=== PATIENT | female | born 1960 | race Caucasian/White ===

== ENCOUNTER → 2017-11-21 17:37 | Outpatient (CLI) | payer BC, SELFPAY ==
[2017-11-21 19:33] LABS: M R Staph aureus DNA By PCR Negative (Negative); Probe Check PASS; Staph aureus DNA By PCR POSITIVE (Negative)
== END ==
PROVIDERS: Visit Provider Podiatrist
DX: L60.0 Ingrowing nail (principal)
CPT/HCPCS: 87070; 87077; 87186; 87205; 87640

== ENCOUNTER → 2020-05-27 06:54 | Outpatient (CLI) | payer OTHER, SELFPAY ==
--- NOTE | 2020-05-27 07:18 | CT_ITS ---
STUDY: CT SCAN LOWER EXTREMITY RIGHT REASON FOR EXAM: Female, 59 years old. VARUS DEFORMITY -- KEYSHAWN RIGHT KNEE RADIATION DOSAGE (If Supplied By Facility): CTDIvol = ( 20.10 ) mGy, DLP = ( 1081.05 ) mGycm. Individualized dose optimization techniques were used for this CT.? TECHNIQUE: Multiple axial tomographic images of the hip joint, knee joint and ankle joint were obtained. Coronal and sagittal reconstructions obtained as well. COMPARISON: None. FINDINGS: Mild degree of osteoarthritis involving the right hip joint with marginal degenerative spurring along the superior and inferior aspect of the right femoral head. There is a marked degree of joint space narrowing involving the medial compartment of the knee joint. Degenerative spurring is seen along the distal medial femoral condyle and medial tibial plateau. Tiny subchondral geode is seen along the medial femoral condyle. A small cyst is also seen along the posterior aspect of the tibial metaphysis. This also evidence of degenerative spurring involving the lateral femoral condyle and lateral tibial plateau. Mild degree of degenerative changes involving the patellofemoral joint with degenerative spur formation along the anterior aspect of the distal femur and inferior aspect of the patella. Imaging of the ankle joint was performed. No significant abnormality is seen. CT/Extremity Lower without Contra IMPRESSION: Degenerative changes of the knee joint as described. Electronically Signed: Jony Sapp, at 8:29 EST , Service support ,
== END ==
PROVIDERS: PCP Family Medicine; Referring Provider Specialist; Visit Provider Specialist
DX: M21.161 Varus deformity, not elsewhere classified, right knee (principal)
CPT/HCPCS: 73700

== ENCOUNTER 2020-06-24 14:53 | Observation (INO) | payer OTHER, SELFPAY ==
[2016-04-08 06:38] VITALS: BMI 34.9
--- NOTE | 2020-05-28 10:54 | PCM.HP.BLA ---
History and Physical History and Physical [facility] Patient Name: Chari Loza : 1960 From: LUISA GOODSON PA-C DATE OF SURGERY: 06/17/2020 SCHEDULED PROCEDURE: right total knee arthroplasty HISTORY OF PRESENT ILLNESS: Preoperative history and physical exam was performed on May 27, 2020. This is a 59-year-old female who has been having ongoing pain for several years in bilateral knees. She states over the past several months she has had greater pain in her right knee with more instability. Pain can reach 8/10 with activities. Pain is increased with going up and down stairs, sitting, walking. Her pain as being constant, aching, sharp, stabbing. She states she gets locking and clicking in her knee when she walks. Pain does waken her at night. She has pain over the medial joint line on bilateral knees. She does have start up pain. Patient states she has difficulty with activities of daily living including housework and leisure activities such as walking. She feels unsafe going up and down stairs carrying laundry. She has stumbled secondary to the knee pain. Patient has tried oral medications including Aleve, Tylenol, turmeric. She has had previous cortisone injections with no relief in symptoms. She has also had previous gel injection in both knees with no relief in symptoms. She has tried home exercises without relief. She has had previous right knee arthroscopy 15 years ago and left knee arthroscopy 10 years ago. She has tried brace with no improvement. After failing conservative measures and discussing treatment options with Dr. Andres Guerrero, the patient would like to proceed with a right total knee arthroplasty. We are obtaining surgical clearance from the primary care physician Dr. Sweet. She has medical history of sleep apnea. REVIEW OF SYSTEMS: ROS: Const: Denies change in appetite, fever and weight change. CV: Denies chest pain, heart murmur and irregular heartbeat. Resp: Denies cough, pneumonia, shortness of breath, tuberculosis and wheezing. GI: Denies constipation, diarrhea, heartburn, nausea, rectal itching, bloody stools and vomiting. : Denies incontinence. Musculo: Denies leg swelling, pain, trouble walking and weakness. Skin: Denies Raynaud's, history of shingles and tattoo. Neuro: Denies ambulatory dysfunction, dizziness, numbness/tingling and tremor. Psych: Denies anxiety, insomnia and stress. Thiago/Lymph: Denies anemia, bleeding/bruising tendency and past transfusion. Reviewed, no changes. PAST MEDICAL HISTORY: Advance Care Plan: No Advance Directives Effective Date: 04/27/2020 PMH: Medical Problems: Sleep Apnea Accidents: Fracture - RT FOREARM Fracture - RT FOOT BONE IN TOP OF FOOT Surgical Hx: Hernia Repair - (2018) [place] Hysterectomy - [place] Knee Arthroscopy Lt - [place] Knee Arthroscopy Rt - [place] Shoulder Arthroscopy Lt - [place] Shoulder Arthroscopy Rt - [place] Anesthesia Complications: Woke Up Assistive Devices: Glasses, Cpap Reviewed and updated. 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 Personal Habits: Cigarette Use: Never Smoked Cigarettes.Smokeless Tobacco: Never Used Smokeless Tobacco.E-Cigarette Use: Never used.Alcohol: Occasionally.Drug Use: Denies Use.Enjoy Exercising: Never Exercises. Reviewed, no changes. VITALS: Ht: 67 Wt: 218lb Wt k.885 BMI: 34.1 BP: 118/72 Pulse: 68 Resp: 20 T: 97.1 T: 36.2C Pain Level: 4 ALLERGIES: Penicillin Sulfa Keflex Erythromycin MEDICATIONS: Aleve 220 mg as needed, Tylenol 8 Hour Arthritis Pain 650 mg every 4 hour as needed pain, Multivitamin 1 by mouth every day, Turmeric 400 mg 1/day per mouth, Magnesium 1po qday, Vitamin D 25 mcg (1000 Ut) 2po qday, Vitamin C 500 mg 2/day, Vitamin B Complex 100 100 1po qday, Fiber Choice Prebiotic Fiber 1.5 gm daily, Cetirizine HCL 1 @ night, Salonpas 3.1-6-10 % prn cramping PRE-OP EXAM: General appearance:NORMAL Other: Eyes: Conjunctivae and lids: NORMAL Pupils: ERR Ears, Nose, Mouth, and Throat: NORMAL Other: Inspection of lips, teeth and gums: NORMAL Other: Neck: Examination of neck: no masses noted. Respiratory: Assessment of respiratory effort: NORMAL Other: Auscultation of lungs: clear to auscultation no wheezes, rhonchi or rales. Cardiovascular: Auscultation of heart: regular rate and rhythm, no murmurs, gallops or rubs. Exam of carotid arteries: NORMAL Other: Gastrointestinal: Exam of abdomen: soft, nontender, nondistended bowel sounds present. PHYSICAL EXAMINATION: Patient does walk with antalgic gait. Right knee has large effusion with tenderness to palpation along the medial joint line. Patient has varus alignment. Range of motion: 5 to 102 flexion. Partially correctable varus alignment. Stable to varus and valgus stress test. Sensation intact to light touch. Left knee reveals varus alignment with moderate effusion. There is tenderness to palpation over the medial joint line. Partially correctable varus alignment. Minimal translation with anterior drawer exam. Range of motion: 0 extension 112 flexion. IMAGING STUDIES: X-ray of the right knee reveal varus alignment with medial joint space narrowing, subchondral sclerosis, osteophyte formation consistent with severe stage IV erosive tricompartmental osteoarthritis. Left knee reveals varus alignment with medial joint space narrowing, subchondral sclerosis, osteophyte formation consistent with severe stage IV erosive tricompartmental osteoarthritis. Bilateral knees show bony erosion of the medial tibial plateau. IMPRESSION: 1. Severe stage IV right knee osteoarthritis 2. Severe stage IV left knee osteoarthritis 3. Sleep apnea PLAN: Dr. Andres Guerrero did discuss and review with the patient all treatment options including surgical versus nonsurgical options. Patient does wish to proceed with the above-stated procedure. Potential risks, benefits, and complications of the procedure were discussed in detail including but not limited to , infection, nerve and blood vessel damage, persistent pain, numbness, tingling, paresthesias, blood clot, pulmonary embolism, and requirement for possible further surgery. The patient expressed full understanding and has no further questions for the doctor. Patient does agree to proceed with the above-stated procedure and has signed the surgery consent form. We discussed the current risks associated with COVID 19. This does include the risk of exposure while in the hospital. Patient was reassured local hospitals have low infection rates and are taking all necessary precautions to avoid exposure to patients. In addition, we discussed strategies that can be used to help limit exposure including those that limit the patient's time in the hospital. Also using strategies to limit the patient's need for continued inpatient services after being discharged from the hospital. Patient was notified that we will need to comply with any screening or testing the hospital wishes to perform or that surgery may be delayed for any positive results. This dictation was created using voice recognition software. Phonetic and/or grammatical errors may exist. ___ I have re-examined the patient. There are no clinical changes since date of exam. ___ See progress notes for changes. ___ Dictated on admission Date: Time: Signature:
--- NOTE | 2020-06-09 09:41 | EKG12_ITS ---
Test Reason : PREOP Blood Pressure : / mmHG Vent. Rate : 075 BPM Atrial Rate : 075 BPM P-R Int : 132 ms QRS Dur : 084 ms QT Int : 374 ms P-R-T Axes : 017 -23 057 degrees QTc Int : 417 ms Normal sinus rhythm Normal ECG Confirmed by PALAK MCCLAIN, JAMIR ([id number]), general expeditor LARRY MCINTOSH ([id number]) on 06/10/2020 12:37:18 PM Referred By: Andres Guerrero Confirmed By:JAMIR CID MD
[2020-06-09 10:26] LABS: Absolute Lymphocyte Count 2.18 X10^3/uL (0.83-4.51); Absolute Neutrophil Count 2.6 X10^3/uL (2.0-7.7); Basophil# 0.03 X10^3/uL; Basophil% 0.6 % (0-1); Eosinophil# 0.08 X10^3/uL; Eosinophils% 1.5 % (0-5); Hematocrit 43.5 % (37-47); Hemoglobin 13.4 g/dL (12.0-15.0); Lymphocyte # 2.18 X10^3/ul (4.0); Lymphocyte % 41.4 % (19-41); Mean Corp Hgb Conc 30.8 g/dL (32-36); Mean Corpuscular Hgb 26.4 pg (27.0-32.0); Mean Corpuscular Volume 85.6 fL (81-99); Mean Platelet Vol. 9.3 fl (6.2-12.0); Monocyte# 0.41 X10^3/uL; Monocyte% 7.8 % (0-10); NRBC Flagged by Analyzer 0 % (0-5); Neutrophil # 2.56 X10^3/uL (2.7-7.7); Neutrophil % 48.5 % (47-70); Platelet Count 256 K/mm3 (150-450); RBC Distribution Width CV 15.2 % (11.6-14.6); RBC Distribution Width SD 48.3 fl (35.1-43.9); Red Blood Count 5.08 M/mm3 (4.2-5.4); White Blood Count 5.3 K/mm3 (4.4-11.0)
[2020-06-09 10:52] LABS: Magnesium 2.3 mg/dL (1.6-2.6)
[2020-06-09 11:00] LABS: Anion Gap 4 (5-15); BUN 25 mg/dL (7-18); BUN/Creat Ratio 28.3 RATIO (10-20); Calcium,Total 10.3 mg/dL (8.5-10.1); Chloride 110 mmol/L (98-107); Creatinine, Serum 0.88 mg/dL (0.55-1.02); EST Glomerular Filtration Rate 69 mL/min (>60); Est Glom Filt Rate - Afr Amer 84 mL/min (>60); Glucose 103 mg/dL (74-106); Potassium 4.1 mmol/L (3.5-5.1); Sodium Level 141 mmol/L (136-145)
[2020-06-24] VITALS (15 sets, daily range): BP systolic 95–153; BP diastolic 53–89; PULSE 64–96; RESP 16–18; TEMP 35.8–37.1; O2SAT 94–100; BMI 32.5
--- NOTE | 2020-06-24 05:30 | HP_ITS ---
History and Physical History and Physical [facility] Patient Name: Chari Loza : 1960 From: Andres Guerrero MD DATE OF SURGERY: 06/17/2020 SCHEDULED PROCEDURE: right total knee arthroplasty HISTORY OF PRESENT ILLNESS: Preoperative history and physical exam was performed on May 27, 2020. This is a 59-year-old female who has been having ongoing pain for several years in bilateral knees. She states over the past several months she has had greater pain in her right knee with more instability. Pain can reach 8/10 with activities. Pain is increased with going up and down stairs, sitting, walking. Her pain as being constant, aching, sharp, stabbing. She states she gets locking and clicking in her knee when she walks. Pain does waken her at night. She has pain over the medial joint line on bilateral knees. She does have start up pain. Patient states she has difficulty with activities of daily living including housework and leisure activities such as walking. She feels unsafe going up and down stairs carrying laundry. She has stumbled secondary to the knee pain. Patient has tried oral medications including Aleve, Tylenol, turmeric. She has had previous cortisone injections with no relief in symptoms. She has also had previous gel injection in both knees with no relief in symptoms. She has tried home exercises without relief. She has had previous right knee arthroscopy 15 years ago and left knee arthroscopy 10 years ago. She has tried brace with no improvement. After failing conservative measures and discussing treatment options with Dr. Andres Guerrero, the patient would like to proceed with a right total knee arthroplasty. We are obtaining surgical clearance from the primary care physician Dr. Sweet. She has medical history of sleep apnea. REVIEW OF SYSTEMS: ROS: Const: Denies change in appetite, fever and weight change. CV: Denies chest pain, heart murmur and irregular heartbeat. Resp: Denies cough, pneumonia, shortness of breath, tuberculosis and wheezing. GI: Denies constipation, diarrhea, heartburn, nausea, rectal itching, bloody stools and vomiting. : Denies incontinence. Musculo: Denies leg swelling, pain, trouble walking and weakness. Skin: Denies Raynaud's, history of shingles and tattoo. Neuro: Denies ambulatory dysfunction, dizziness, numbness/tingling and tremor. Psych: Denies anxiety, insomnia and stress. Thiago/Lymph: Denies anemia, bleeding/bruising tendency and past transfusion. Reviewed, no changes. PAST MEDICAL HISTORY: Advance Care Plan: No Advance Directives Effective Date: 04/27/2020 PMH: Medical Problems: Sleep Apnea Accidents: Fracture - RT FOREARM Fracture - RT FOOT BONE IN TOP OF FOOT Surgical Hx: Hernia Repair - (2018) [place] Hysterectomy - [place] Knee Arthroscopy Lt - [place] Knee Arthroscopy Rt - [place] Shoulder Arthroscopy Lt - [place] Shoulder Arthroscopy Rt - [place] [facility] Anesthesia Complications: Woke Up Assistive Devices: Glasses, Cpap Reviewed and updated. 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 Personal Habits: Cigarette Use: Never Smoked Cigarettes.Smokeless Tobacco: Never Used Smokeless Tobacco.E-Cigarette Use: Never used.Alcohol: Occasionally.Drug Use: Denies Use.Enjoy Exercising: Never Exercises. Reviewed, no changes. VITALS: Ht: 67 Wt: 218lb Wt k.885 BMI: 34.1 BP: 118/72 Pulse: 68 Resp: 20 T: 97.1 T: 36.2C Pain Level: 4 ALLERGIES: Penicillin Sulfa Keflex Erythromycin MEDICATIONS: Aleve 220 mg as needed, Tylenol 8 Hour Arthritis Pain 650 mg every 4 hour as needed pain, Multivitamin 1 by mouth every day, Turmeric 400 mg 1/day per mouth, Magnesium 1po qday, Vitamin D 25 mcg (1000 Ut) 2po qday, Vitamin C 500 mg 2/day, Vitamin B Complex 100 100 1po qday, Fiber Choice Prebiotic Fiber 1.5 gm daily, Cetirizine HCL 1 @ night, Salonpas 3.1-6-10 % prn cramping PRE-OP EXAM: General appearance:NORMAL Other: Eyes: Conjunctivae and lids: NORMAL Pupils: ERR Ears, Nose, Mouth, and Throat: NORMAL Other: Inspection of lips, teeth and gums: NORMAL Other: Neck: Examination of neck: no masses noted. Respiratory: Assessment of respiratory effort: NORMAL Other: Auscultation of lungs: clear to auscultation no wheezes, rhonchi or rales. Cardiovascular: Auscultation of heart: regular rate and rhythm, no murmurs, gallops or rubs. Exam of carotid arteries: NORMAL Other: Gastrointestinal: Exam of abdomen: soft, nontender, nondistended bowel sounds present. PHYSICAL EXAMINATION: Patient does walk with antalgic gait. Right knee has large effusion with tenderness to palpation along the medial joint line. Patient has varus alignment. Range of motion: 5 to 102 flexion. Partially correctable varus alignment. Stable to varus and valgus stress test. Sensation intact to light touch. Left knee reveals varus alignment with moderate effusion. There is tenderness to palpation over the medial joint line. Partially correctable varus alignment. Minimal translation with anterior drawer exam. Range of motion: 0 extension 112 flexion. IMAGING STUDIES: X-ray of the right knee reveal varus alignment with medial joint space narrowing, subchondral sclerosis, osteophyte formation consistent with severe stage IV erosive tricompartmental osteoarthritis. Left knee reveals varus alignment with medial joint space narrowing, subchondral sclerosis, osteophyte formation consistent with severe stage IV erosive tricompartmental osteoarthritis. Bilateral knees show bony erosion of the medial tibial plateau. IMPRESSION: 1. Severe stage IV right knee osteoarthritis 2. Severe stage IV left knee osteoarthritis 3. Sleep apnea PLAN: I did discuss and review with the patient all treatment options including surgical versus nonsurgical options. Patient does wish to proceed with the above-stated procedure. Potential risks, benefits, and complications of the procedure were discussed in detail including but not limited to , infection, nerve and blood vessel damage, persistent pain, numbness, tingling, paresthesias, blood clot, pulmonary embolism, and requirement for possible further surgery. The patient expressed full understanding and has no further questions for the doctor. Patient does agree to proceed with the above-stated procedure and has signed the surgery consent form. We discussed the current risks associated with COVID 19. This does include the risk of exposure while in the hospital. Patient was reassured local hospitals have low infection rates and are taking all necessary precautions to avoid exposure to patients. In addition, we discussed strategies that can be used to help limit exposure including those that limit the patient's time in the hospital. Also using strategies to limit the patient's need for continued inpatient services after being discharged from the hospital. Patient was notified that we will need to comply with any screening or testing the hospital wishes to perform or that surgery may be delayed for any positive results. This dictation was created using voice recognition software. Phonetic and/or grammatical errors may exist.
[2020-06-24] MEDS: Scopolamine 1mg/72hr Patch 1 PATCH TD (08:00)
[2020-06-24] MEDS: Acetaminophen 500 MG Tablet 1000 MG PO ×2 (11:18→21:21)
[2020-06-24] MEDS: Lactated Ringers 1,000 ML 999 ML IV ×2 (11:19→14:45)
[2020-06-24] MEDS: Gabapentin 600 MG Tablet PO (11:19)
[2020-06-24 11:46] LABS: Bedside Glucose 110 mg/dL (70-110)
[2020-06-24] MEDS: Lactated Ringers 1,000 ML 75 ML IV (12:45)
[2020-06-24] MEDS: dexAMETHasone 10 MG/ML Vial IV (13:15)
--- NOTE | 2020-06-24 14:12 | PCM.OPRPT ---
Report of Operation Date of Procedure: 06/24/20 Pre-Operative Diagnosis: Right knee primary osteoarthritis Post-Operative Diagnosis: Right knee primary osteoarthritis Surgery/Procedure Performed:: Right knee minimally invasive robotic assisted total knee replacement Description of Surgical Findings:: Stable knee with good patella tracking electrolog operator: Lavelle Raygoza Type of Anesthesia:: Spinal Anesthesiologist: Justo Bowden Special Medications: Cleocin and vancomycin, 1 g TXA at incision, 1 g TXA closure, 10 mg Decadron, joint cocktail (5 mg Duramorph, 30 mL of 0.5% Ropivicaine, 1000 units of epinephrine, 30 mg of Toradol) Estimated Blood Loss (mL): 100 Fluids Replaced: 1500 mL crystalloid Description of Procedure: Implants used: 1. Lilia size 4 triathlon cruciate retaining distal femoral press-fit component 2. Bradley size 5 press-fit tritanium tibial baseplate 3. Lilia X3 9 mm CS polyethylene 4. Lilia X3 32 mm asymmetric patella Brief history operative indications: 59-year-old female with history of right knee osteoarthritis with radiographic findings with loss of joint space, osteophyte formation and subchondral sclerosis. Failed conservative measures as mentioned in the H&P. Discussion of total knee arthroplasty as well as risk and benefits were discussed the patient including but not limited to blood loss, DVTs, PEs, neurovascular damage, general risk of anesthesia including loss of life, and stiffness or instability were discussed with patient. Patient demonstrated understanding and was able to sign informed consent. Procedure: On the date of procedure patient's right lower extremity was marked in the preoperative area. The patient was then taken back to the operating room where the patient was placed on the table in the supine position. All bony prominences were identified a well-padded. Anesthesia assumed control of the C-spine and airway and remained controlled throughout the remainder of the procedure. A tourniquet was placed on the right upper thigh and the leg was prepped in a sterile fashion. The surgeon then scrubbed at this time .Upon reentering the room right lower extremity was draped in a standard orthopedic fashion. A timeout was then called and everyone agreed upon the side, the site, the procedure to be performed, patient's identity and antibiotics given. Esmarch bandage was used to exsanguinate the extremity and the tourniquet was placed up to 250 mmHg with the knee in flexion. A midline skin incision was made and sharp dissection was taken down through skin subcutaneous tissue and fat. The standard medial parapatellar incision was made and the patella was subluxed laterally. An Appropriate deep MCL release was done and the fat pad was resected. Our attention was then directed to the patella. The patella was everted and a flat resection was made. The knee was then flexed up in 2 femoral pins were placed inside the incision and 2 tibial pins were placed outside the incision in the medial tibia bicortically. Once this was completed the 2 checkpoints in the femur and tibia were placed. Knee was then flexed up and the bony landmarks were registered. Once this was completed knee was taken through range of motion and manually stressed allowing us to a plan for an appropriate tibial cut. The robotic arm was brought into the field sterilely and checkpoint and saw were registered. Based on the patient's deformity the tibial cut was made in 3 degrees varus. At this time the tensioner was then placed in the joint and ligament tension was checked at 90 degrees and full extension. Based on the patient's ligamentous tension appropriate adjustments were made to the operative plan and ligament releases were done. Once we were happy with our operative plan with balanced flexion and extension gaps our attention was directed to the femur. The robot was brought into the field sterilely and registered. Posterior condylar cuts, anterior chamfer cuts and anterior cuts were appropriately made for a size 4 femur. When these were completed the saws were switched out in the distal femoral and posterior chamfer cuts were made. Protecting the soft tissue throughout this time. A size 5 tibial base plate was selected. the knee was flexed to 90 degrees and the soft tissues and posterior osteophytes were removed from the joint. 40 cc of the periarticular injection was injected into the posterior medial corner of the joint. The appropriate trials were then placed on the femur and tibia. A trial polyethylene was trialed to ensure proper balancing and stability of the knee. The appropriate tibial internal rotation was then marked with a bovie. Our attention was then directed to the patella. The lug holes were drilled and the patella trial was placed. Patellar tracking was checked and deemed appropriate. Once we were happy lug holes were drilled for the femur and trial components were removed. the tibia was subluxed and pinned into place and the keel was punched and drilled appropriately. Final components were verified and opened, and cement was mixed in a vacuum. BidModo Simplex cement was used. The wound was copiously irrigated with normal saline. When the cement was ready the components were impacted into place starting with the tibia, femur and finally cementing the patella. The trial poly component was placed and the knee was placed in full extension. All excess cement was removed in the process. Once the cement had cured the tracking, alignment and balance were verified and a size 9 mm CS polyethylene component was placed. Once the final components were placed an Irrisept lavage was performed and the wound was copiously irrigated with normal saline solution and the periarticular injection was given. The wound was closed in a layer salas fashion using #1 vicryl interrupted sutures for the arthrotomy, 2-0 interrupted Vicryl suture for the subcuticular layer and abisai for final skin closure. A sterile compressive dressing was then placed. The patient was then awakened from anesthesia, transferred to the [facility] and transferred to the PACU for recovery. Post op plan DVT ppx: ASA 81mg BID, thigh high compression stockings Follow up: in office in 2 weeks for wound check PT: to start POD #0 at hospital, outpatient PT should be arranged. My physician psych assistant was a vital part of this case. He was important in appropriate retraction during the case, and protection of soft tissues during bony cuts. His intimate knowledge of the case and my steps aided in safe and expedient completion of the procedure as well as appropriate position of the leg during the case. He was also vital in assisting with closure under my direct supervision. Due to the complexity of this case robotic arm was used to assist in the surgery to improve accuracy and clinical outcomes. - Complications No intraoperative complications - Admit VTE Documentation VTE Present on Admission: No VTE Mechan Device Prophylaxis: SCD's, Thigh High SUSAN Hose VTE Pharm Prophylaxis ordered?: Yes
--- NOTE | 2020-06-24 15:00 | RAD_ITS ---
STUDY: X-RAY - RIGHT KNEE REASON FOR EXAM: Female, 59 years old. POST OP RIGHT TOTAL KNEE TECHNIQUE: 2 view(s) of the knee. COMPARISON: None. FINDINGS: Normal visualized distal femur. Normal visualized proximal tibia and fibula. Normal proximal tibiofibular articulation. The patient is status post right total knee replacement. There is good alignment. Postoperative soft tissue changes. RAD/Knee 1 or 2 Views IMPRESSION: Status post right total knee replacement. There is good alignment. Postoperative soft tissue changes. Electronically Signed: Jony Sapp, at 15:20 EST , Service support ,
[2020-06-24] MEDS: Lactated Ringers 1,000 ML 125 ML IV ×2 (16:04→18:26)
--- NOTE | 2020-06-24 16:58 | CON.PCM_ITS ---
Problem List (1) Osteoarthritis of right knee Status: Acute Qualifiers: Osteoarthritis type: primary Qualified Code(s): M17.11 - Unilateral primary osteoarthritis, right knee (2) ROB (obstructive sleep apnea) Status: Chronic (3) Obesity Status: Chronic Qualifiers: Obesity type: due to excess calories Obesity classification: adult class 1 (BMI 30 - 34.9) Serious obesity comorbidity presence: unspecified whether serious comorbidity present Body mass index: BMI 32.0-32.9 Qualified Code(s): E66.09 - Other obesity due to excess calories; Z68.32 - Body mass index [BMI] 32.0-32.9, adult (4) Allergic rhinitis Status: Chronic Qualifiers: Allergic rhinitis trigger: unspecified Allergic rhinitis seasonality: unspecified Qualified Code(s): J30.9 - Allergic rhinitis, unspecified (5) Chronic constipation Status: Chronic Reason for Consult Date of Consultation: 06/24/20 Reason for Consultation: Medical consultation History of Present Illness: The patient is a 59 y/o F w/ PMHx: Obesity, ROB on CPAP q HS, Chronic constipation, Allergic Rhinitis who presents to the [facility] on 06/24/20 for planned right knee minimally invasive robotic assisted total knee replacement secondary to severe right knee osteoarthritis with failed conservative interventions and management per Dr. Guerrero. Patient evaluated in the PACU, noting pain controlled currently, denies any acute complaints. Patient does report being fatigued and mildly sluggish but improving. Most recently noted labs 06/09/2020 with CBC with WC 5.3, hemoglobin 13.4, platelet 256 without marked shift, BMP with chloride 110, BUN/creatinine 25/0.88. Past Medical History Past Medical History (Chronic Problems): Chronic Problems ROB (obstructive sleep apnea) (Chronic) Obesity (Chronic) Allergic rhinitis (Chronic) Chronic constipation (Chronic) Plantar fasciitis, right (Chronic) Tarsal tunnel syndrome of right side (Chronic) Allergies amoxicillin Allergy (Verified 06/24/20 10:56) Rash bee venom protein (honey bee) Allergy (Verified 06/24/20 10:56) Anaphylaxis cephalexin [From Keflex] Allergy (Verified 06/24/20 10:56) throat closes erythromycin base Allergy (Verified 06/24/20 10:56) throat swelling Penicillins [PCN] Allergy (Verified 06/24/20 10:56) throat swelling Sulfa (Sulfonamide Antibiotics) Allergy (Verified 06/24/20 10:56) throat swelling Home Medications: Ambulatory Orders Medication Instructions Recorded Acetaminophen [Tylenol Arthritis] 650 mg PO BID 06/02/20 Ascorbic Acid [Vitamin C] 2,000 mg PO DAILY 06/02/20 Cholecalciferol (VIT D3) [Vitamin 6,000 unit PO DAILY 06/02/20 D] Inulin/Chromium Picolinate [Fiber 2 ea PO DAILY 06/02/20 Gummies] Loratadine [Allergy Relief] 10 mg PO QHS 06/02/20 Magnesium Citrate 330 gm MC DAILY 06/02/20 Methyl Salicylate/Menth/Camph 78 gm TP PRN PRN 06/02/20 [Salonpas Deep Relieving Gel] Naproxen [Naprosyn] 440 mg PO DAILY 06/02/20 Polyethylene Glycol 3350 [Clearlax] 17 gm PO DAILY 06/02/20 Pyridoxine HCl [Vitamin B-6] 100 mg PO DAILY 06/02/20 Turmeric 700 mg PO DAILY 06/02/20 Surgical History: - - Bilateral arthroscopic shoulder surgery, prior bilateral knee arthroscopic surgery, hysterectomy, right foot surgery. Psychiatric History: No pertinent psych hx LEHR TENDER History: No pertinent LEHR TENDER history Lives: Spouse/ Significant Other Smoking Status: Never smoker Tobacco Use: Non-smoker Alcohol: Occasional Drugs: None - *Family History Maternal History Items: - - Patient denies any market maternal or paternal family history including heart disease, diabetes, cancer. Paternal History Items: - - Patient denies any market maternal or paternal family history including heart disease, diabetes, cancer. Review of Systems Constitutional: Reports: Malaise, Weakness, Fatigue. Denies: Anorexia, Chills, Fever, Weight Change HEENT: Denies: Head Aches, Sinus Congestion, Sinus Drainage Cardiovascular: Denies: Chest Pain, Palpitations Respiratory: Denies: Cough, Shortness of breath at rest, Sputum production Gastrointestinal: Reports: Constipation. Denies: Abdominal Pain, Nausea, Vomiting Genitourinary: Denies: Dysuria Musculoskeletal: Reports: Joint Pain, Joint stiffness, Joint swelling, Joint Tenderness, Leg Pain Skin: Denies: Rash, Wounds Neurological: Denies: Numbness, Tingling, Focal weakness Psychiatric: Denies: Anxiety, Depression, Homicidal Ideations, Suicidal Ideation s Hematologic/ Lymphatic: Denies: Easy Bruising, Easy Bleeding Subjective: Patient laying in the PACU bed, no acute distress, notes pain currently c ontrolled. Objective: Physical Examination: General: awake, alert, oriented x 3 and cooperative, laying in the PACU bed, no acute distress, notes pain controlled. Skin: normal color, turgor, no icterus, cyanosis except noted right knee dressing, recent right total knee replacement, no drainage noted. HEENT: AT/NC, EOMI, PERRLA, moderately dry MM, no carotid bruits or JVD noted. Lungs: Diminished breath sounds, greater bases, moderate effort, no rales, ronchi or wheezing. Heart: Regular rate and rhythm; no gallop, rub audible. Abdomen: soft, obese, NTTP, ND, normal BS, no HSM. Extremities: no cyanosis or clubbing, mild bilateral ankle edema, peripheral pulses intact, recent right total knee replacement with dressing in place, no drainage. Neurological: patient awake, alert, oriented as noted; cognitive function intact; pupils equally reactive to light and accomodation; cranial nerves II-XII grossly normal, moving all 4 extremities although expected limited movement given recent right total knee replacement and recent operative intervention with anesthetics, strength accordingly severely global decreased. Psychiatric: affect appears fatigued otherwise normal, no acute evidence of depressive or anxiety feelings. - Physical Exam Vitals/I&O's: Vital Signs Temp Pulse Resp BP Pulse Ox 96.4 F L 80 16 133/89 H 100 06/24/20 14:47 06/24/20 16:46 06/24/20 16:46 06/24/20 16:46 06/24/20 16:46 Oxygen Flow Rate (L/min) 6 Oxygen Delivery Method Simple Mask Weight: 214 lb 8.156 oz Body Mass Index (BMI) 32.5 Intake and Output for Last 24 Hours 06/22/20 06/23/20 06/24/20 23:59 23:59 23:59 Intake Total 3962 / 3962 Balance 3962 / 3962 Microbiology Past 72 Hours 06/23/20 09:00 Interface Orders SARS-CoV-2 Antigen (Rapid) - Final Laboratory Results 06/24/20 11:02: POC Glucose 110 Current Medications Acetaminophen (Acetaminophen 500 Mg Tablet) 1,000 mg PO Q8 [facility] Aspirin (Aspirin 81 Mg Tab.Chew) 81 mg PO BIDCM [facility] Enteral Nutritional Formula (Ensure Surgery 237 Ml Liquid) 237 ml PO TIDCM [facility] Famotidine (Famotidine 20 Mg Tablet) 20 mg PO DAILY [facility] Lactated Ringer's () 1,000 mls @ 125 mls/hr IV .Q8H [facility] Clindamycin Phosphate 600 mg/ (Dextrose) 54 mls @ 100 mls/hr IV Q6H [place] Stop: 06/25/20 07:33 Vancomycin HCl 1,500 mg/ (Sodium Chloride) 530 mls @ 250 mls/hr IV X1 ONE Stop: 06/25/20 03:07 Insulin Human Lispro (Insulin Lispro 100 Unit/Ml Insuln.Pen) 1 - 6 unit SC Q4H PRN PRN; Protocol PRN Reason: BG>/= 180, SEE PROTOCOL Stop: 06/24/20 18:00 Ketorolac Tromethamine (Ketorolac 15 Mg/Ml Vial) 15 mg IV Q6H PRN PRN PRN Reason: Pain Score 1-5 Loratadine (Loratadine 10 Mg Tablet) 10 mg PO QHS [facility] Meloxicam (Meloxicam 7.5 Mg Tablet) 7.5 mg PO BID [facility] Morphine Sulfate (Morphine 2 Mg/Ml Syringe) 2 - 4 mg IV Q2H PRN PRN PRN Reason: Pain Score 6-10 Morphine Sulfate (Morphine 4 Mg/Ml Syringe) 2 - 4 mg IV Q2H PRN PRN PRN Reason: Pain Score 6-10 Ondansetron HCl (Ondansetron 4 Mg/2 Ml Vial) 4 mg IV Q8H PRN PRN PRN Reason: NAUSEA Oxycodone HCl (Oxycodone 5 Mg Tablet) 5 - 10 mg PO Q4H PRN PRN PRN Reason: Pain Score 4-10 Polyethylene Glycol (Polyethylene Glycol 3350 17 Gm Packet) 17 gm PO DAILY [facility] Promethazine HCl (Promethazine 25 Mg/Ml Syringe) 12.5 mg IM Q6H PRN PRN; Protocol PRN Reason: NAUSEA/VOMITING Senna/Docusate Sodium (Senna/Docusate Sodium 1 Tablet) 2 tablet PO BID [facility] Sodium Chloride (0.9% Nacl Peripheral Flush Adult/Peds) 5 - 15 ml IV UD PRN PRN Reason: SALINE FLUSH Assessment/Plan All Active Problems Osteoarthritis of right knee (Acute) Nontraumatic tear of plantar fascia (Acute) Navicular fracture of ankle with delayed healing (Acute) Navicular fracture of ankle (Acute) The patient is a 59 y/o F w/ PMHx: Obesity, ROB on CPAP q HS, Chronic constipation, Allergic Rhinitis who presents to the [facility] on 06/24/20 for planned right knee minimally invasive robotic assisted total knee replacement secondary to severe right knee osteoarthritis. 1. Severe Osteoarthritis, right knee: Failed conservative therapies and treatments, admitted per Dr. Guerrero for planned right total knee replacement, post-operative pain management, bowel regimen, DVT Prophylaxis, PT/OT/CM per Orthopedic surgery discretion. 2. Chronic constipation: We will continue daily MiraLAX regimen with additionally as needed agents, may add more aggressive regimens if severe constipation. 3. Obesity: Weight loss and lifestyle changes encouraged. 4. Allergic rhinitis: We will continue patient loratadine regimen. 5. ROB: Continue home CPAP nightly. 6. DVT prophylaxis: SCDs, defer chemoprophylaxis decision to orthopedic surgery. Inpatient E&M: [id number] [facility] L3
[2020-06-24] MEDS: Ensure Surgery 237 ML LIQUID PO (18:28)
[2020-06-24] MEDS: Aspirin 81 MG TAB.CHEW PO (18:29)
--- NOTE | 2020-06-24 21:18 | CPS ---
Patient brought own home CPAP, but told [facility] to not setup. [facility] told patient to let staff know if she would like machine to be setup tonight.
[2020-06-24] MEDS: Loratadine 10 MG Tablet PO (21:21)
[2020-06-24] MEDS: Senna/Docusate Sodium 1 Tablet 2 TABLET PO (21:21)
[2020-06-25] MEDS: oxyCODONE 5 MG Tablet PO ×3 (01:06→13:55)
[2020-06-25 03:06] VITALS: BP 110/54; PULSE 68; RESP 18; TEMP 36.7; O2SAT 95
[2020-06-25] MEDS: Acetaminophen 500 MG Tablet 1000 MG PO ×2 (06:03→13:52)
[2020-06-25 07:26] LABS: Hematocrit 37.5 % (37-47); Hemoglobin 11.8 g/dL (12.0-15.0); Mean Corp Hgb Conc 31.5 g/dL (32-36); Mean Corpuscular Hgb 26.9 pg (27.0-32.0); Mean Corpuscular Volume 85.4 fL (81-99); Mean Platelet Vol. 9.8 fl (6.2-12.0); Platelet Count 282 K/mm3 (150-450); RBC Distribution Width CV 15.1 % (11.6-14.6); RBC Distribution Width SD 47.4 fl (35.1-43.9); Red Blood Count 4.39 M/mm3 (4.2-5.4); White Blood Count 11.6 K/mm3 (4.4-11.0)
[2020-06-25 08:09] LABS: Anion Gap 4 (5-15); BUN 20 mg/dL (7-18); BUN/Creat Ratio 24.8 RATIO (10-20); Calcium,Total 10.1 mg/dL (8.5-10.1); Chloride 110 mmol/L (98-107); Creatinine, Serum 0.81 mg/dL (0.55-1.02); EST Glomerular Filtration Rate 77 mL/min (>60); Est Glom Filt Rate - Afr Amer 93 mL/min (>60); Estimated Creatinine Clearance 73.57 ml/min; Glucose 116 mg/dL (74-106); Potassium 4.5 mmol/L (3.5-5.1); Sodium Level 141 mmol/L (136-145)
[2020-06-25 08:10] VITALS: BP 140/69; PULSE 70; RESP 16; TEMP 36.5; O2SAT 99
--- NOTE | 2020-06-25 08:23 | PCM.PN.HOSP ---
Patient Problems: Active and Suspected Problems Osteoarthritis of right knee (Acute) Objective: Heart rate and blood pressure in normal range. Afebrile Patient complained of mild left knee pain after surgery but she is going to bathroom. No severe pain and felt comfortable. Wants to go home. Physical exam General: Alert, Oriented x3, Cooperative HEENT: Atraumatic, PERRLA, EOMI, Normocephalic Oral: No Gingival or Mucosal Lesions/ Ulcerations Neck: Supple, No JVD, Negative Carotid Bruits Lungs: Air entry diminished in bilateral lung bases. No crepitation/rhonchi Cardiovascular: Regular rate, Regular Rhythm, Normal S1, Normal S2, No murmurs Abdomen: Bowel Sounds Present, Soft, Non Tender, Non-Distended : No renal angle tenderness. No suprapubic tenderness. Extremities: No edema, Capillary Refill Less than 3 Seconds Skin: No rashes, No breakdown Musculoskeletal: Left knee TKR. Surgical dressing is dry. Neurovascular bundle is intact to touch and sensation. Neurological: Cranial nerves II-XII grossly intact, Deep Tendon Reflexes 2+/4 and Symmetrical, Neuro grossly intact Psych/Mental Status: Normal Affect, Appropriate. Vitals/I&O's: Vital Signs Temp Pulse Resp BP Pulse Ox 97.7 F L 70 16 140/69 H 99 06/25/20 08:10 06/25/20 08:10 06/25/20 08:10 06/25/20 08:10 06/25/20 08:10 Oxygen Flow Rate (L/min) 6 Oxygen Delivery Method Room Air Weight: 214 lb 8.156 oz Body Mass Index (BMI) 32.5 Intake and Output for Last 24 Hours 06/23/20 06/24/20 06/25/20 23:59 23:59 23:59 Intake Total 5424.33 / 5424.33 701.0 / 701.0 Output Total 1300 / 1300 Balance 5424.33 / 4724.33 -599.0 / -599.0 Microbiology Past 72 Hours 06/23/20 09:00 Interface Orders SARS-CoV-2 Antigen (Rapid) - Final Laboratory Results 06/24/20 11:02: POC Glucose 110 06/25/20 06:40: WBC 11.6 H, RBC 4.39, Hgb 11.8 L, Hct 37.5, MCV 85.4, MCH 26.9 L, MCHC 31.5 L, RDW Std Deviation 47.4 H, RDW Coeff of Connor 15.1 H, Plt Count 282, MPV 9.8 06/25/20 06:40: Sodium 141, Potassium 4.5, Chloride 110 H, Carbon Dioxide 27.0, Anion Gap 4 L, BUN 20 H, Creatinine 0.81, Estim Creat Clear Calc 73.57, Est GFR (MDRD) Af Amer 93, Est GFR (MDRD) Non-Af 77, BUN/Creatinine Ratio 24.8 H, Glucose 116 H, Calcium 10.1 Current Medications Acetaminophen (Acetaminophen 500 Mg Tablet) 1,000 mg PO Q8 [facility] Last Admin: 06/25/20 06:03 Dose: 1,000 mg Documented by: Albuterol Sulfate (Albuterol 2.5 Mg/3 Ml Vial.Neb.) 2.5 mg INHALATION Q2H PRN PRN PRN Reason: Dyspnea, wheezing Aspirin (Aspirin 81 Mg Tab.Chew) 81 mg PO BIDCM [facility] Last Admin: 06/24/20 18:29 Dose: 81 mg Documented by: Enteral Nutritional Formula (Ensure Surgery 237 Ml Liquid) 237 ml PO TIDCM [facility] Last Admin: 06/24/20 18:28 Dose: 237 ml Documented by: Famotidine (Famotidine 20 Mg Tablet) 20 mg PO DAILY [facility] Hydralazine HCl (Hydralazine 20 Mg/Ml Vial) 10 mg IV Q4H PRN PRN PRN Reason: SBP > 160 Lactated Ringer's () 1,000 mls @ 125 mls/hr IV .Q8H [facility] Last Infusion: 06/25/20 06:11 Dose: 0 mls/hr Documented by: Sodium Chloride () 250 mls @ 15 mls/hr IV .[id number] PRN PRN Reason: Saline Flush Sodium Chloride () 250 mls @ 15 mls/hr IV .[id number] PRN PRN Reason: Additional IVPB Infusion Influenza Virus Vaccine Quadrival (Influenza Vaccine (6mos+)/Pf 0.5 Ml Syringe) 0.5 ml IM .ONCE ONE Stop: 06/25/20 10:01 Ketorolac Tromethamine (Ketorolac 15 Mg/Ml Vial) 15 mg IV Q6H PRN PRN PRN Reason: Pain Score 1-5 Loratadine (Loratadine 10 Mg Tablet) 10 mg PO QHS [facility] Last Admin: 06/24/20 21:21 Dose: 10 mg Documented by: Meloxicam (Meloxicam 7.5 Mg Tablet) 7.5 mg PO BID [facility] Morphine Sulfate (Morphine 2 Mg/Ml Syringe) 2 - 4 mg IV Q2H PRN PRN PRN Reason: Pain Score 6-10 Morphine Sulfate (Morphine 4 Mg/Ml Syringe) 2 - 4 mg IV Q2H PRN PRN PRN Reason: Pain Score 6-10 Ondansetron HCl (Ondansetron 4 Mg/2 Ml Vial) 4 mg IV Q8H PRN PRN PRN Reason: NAUSEA Oxycodone HCl (Oxycodone 5 Mg Tablet) 5 - 10 mg PO Q4H PRN PRN PRN Reason: Pain Score 4-10 Last Admin: 06/25/20 06:03 Dose: 5 mg Documented by: Polyethylene Glycol (Polyethylene Glycol 3350 17 Gm Packet) 17 gm PO DAILY [facility] Promethazine HCl (Promethazine 25 Mg/Ml Syringe) 12.5 mg IM Q6H PRN PRN; Protocol PRN Reason: NAUSEA/VOMITING Senna/Docusate Sodium (Senna/Docusate Sodium 1 Tablet) 2 tablet PO BID [facility] Last Admin: 06/24/20 21:21 Dose: 2 tablet Documented by: Sodium Chloride (0.9% Nacl Peripheral Flush Adult/Peds) 5 - 15 ml IV UD PRN PRN Reason: SALINE FLUSH Sodium Chloride (0.9% Saline Lock 10 Ml Syringe) 10 - 40 ml IV UD PRN PRN Reason: SALINE FLUSH STROKE Vital Signs/Narrative: Vital Signs Temp Pulse Resp BP Pulse Ox 06/25/20 08:10 97.7 F L 70 16 140/69 H 99 Medical Necessity - Tobacco Use Smoking Status: Never smoker Tobacco Use: Non-smoker Assessment/Plan All Active Problems Osteoarthritis of right knee (Acute) Nontraumatic tear of plantar fascia (Acute) Navicular fracture of ankle with delayed healing (Acute) Navicular fracture of ankle (Acute) The patient is a 59 y/o F with past medical history obesity, ROB on CPAP q HS, Chronic constipation, Allergic Rhinitis who presents to the [facility] on 06/24/20 for elective right knee minimally invasive robotic assisted total knee replacement secondary to severe right knee osteoarthritis. 1. Severe Osteoarthritis, right knee: Patient had robotic assisted right total knee arthroplasty, postop day 1. Pain is well controlled with Tylenol and meloxicam and oxycodone. Discussed with orthopedics PA. Plan for discharge home on baby aspirin 81 mg twice daily for 4 weeks for DVT prophylaxis. Advised to continue incentive spirometry. 2. Chronic constipation: continue daily MiraLAX regimen. Advised Dulcolax suppository for severe constipation. 3. Obesity: Weight loss and lifestyle changes encouraged. 4. Allergic rhinitis: continue patient loratadine regimen. 5. ROB: Continue home CPAP nightly. 6. DVT prophylaxis: On baby aspirin as mentioned above Patient is medically and hemodynamically stable for discharge. Inpatient E&M: [id number] [facility]s Hosp L2
[2020-06-25] MEDS: Aspirin 81 MG TAB.CHEW PO (08:25)
[2020-06-25] MEDS: 0.9% NaCl Peripheral Flush Adult/Peds IV ×2 (08:26→13:55)
[2020-06-25] MEDS: Ensure Surgery 237 ML LIQUID PO (08:28)
[2020-06-25] MEDS: Polyethylene Glycol 3350 17 GM PACKET PO (08:31)
[2020-06-25] MEDS: Famotidine 20 MG Tablet PO (08:32)
--- NOTE | 2020-06-25 09:12 | PN.ORTHO_ITS ---
Patient Problems: Active and Suspected Problems Osteoarthritis of right knee (Acute) Subjective: The patient was sitting in bedside chair upon examination. Patient denies any chest pain, shortness of breath, dizziness, lightheadedness, nausea or vomiting, or calf pain. Pain is controlled on medications. No adverse overnight events. Overall patient is doing very well and is anxious to go home today. Objective: Vital signs stable and afebrile. Patient is able to plantarflex and dorsiflex actively. Sensation is intact to light touch to saphenous, sural, superficial and deep peroneal, and tibial distribution. Dressing is clean dry and intact. Negative Homans bilaterally, negative signs and symptoms of DVT. - Physical Exam Vitals/I&O's: Vital Signs Temp Pulse Resp BP Pulse Ox 97.7 F L 70 16 140/69 H 99 06/25/20 08:10 06/25/20 08:10 06/25/20 08:10 06/25/20 08:10 06/25/20 08:10 Oxygen Flow Rate (L/min) 6 Oxygen Delivery Method Room Air Weight: 97.3 kg Body Mass Index (BMI) 32.5 Intake and Output for Last 24 Hours 06/23/20 06/24/20 06/25/20 23:59 23:59 23:59 Intake Total 5424.33 / 5424.33 701.0 / 701.0 Output Total 1300 / 1300 Balance 5424.33 / 4724.33 -599.0 / -599.0 General: Alert, Oriented x3, Cooperative, No apparent distress Microbiology Past 72 Hours 06/23/20 09:00 Interface Orders SARS-CoV-2 Antigen (Rapid) - Final Laboratory Results 06/24/20 11:02: POC Glucose 110 06/25/20 06:40: WBC 11.6 H, RBC 4.39, Hgb 11.8 L, Hct 37.5, MCV 85.4, MCH 26.9 L , MCHC 31.5 L, RDW Std Deviation 47.4 H, RDW Coeff of Connor 15.1 H, Plt Count 282, MPV 9.8 06/25/20 06:40: Sodium 141, Potassium 4.5, Chloride 110 H, Carbon Dioxide 27.0, Anion Gap 4 L, BUN 20 H, Creatinine 0.81, Estim Creat Clear Calc 73.57, Est GFR (MDRD) Af Amer 93, Est GFR (MDRD) Non-Af 77, BUN/Creatinine Ratio 24.8 H, Glucose 116 H, Calcium 10.1 Current Medications Acetaminophen (Acetaminophen 500 Mg Tablet) 1,000 mg PO Q8 [facility] Last Admin: 06/25/20 06:03 Dose: 1,000 mg Documented by: Albuterol Sulfate (Albuterol 2.5 Mg/3 Ml Vial.Neb.) 2.5 mg INHALATION Q2H PRN PRN PRN Reason: Dyspnea, wheezing Aspirin (Aspirin 81 Mg Tab.Chew) 81 mg PO BIDCM [facility] Last Admin: 06/25/20 08:25 Dose: 81 mg Documented by: Enteral Nutritional Formula (Ensure Surgery 237 Ml Liquid) 237 ml PO TIDCM [facility] Last Admin: 06/25/20 08:28 Dose: 237 ml Documented by: Famotidine (Famotidine 20 Mg Tablet) 20 mg PO DAILY [facility] Last Admin: 06/25/20 08:32 Dose: 20 mg Documented by: Hydralazine HCl (Hydralazine 20 Mg/Ml Vial) 10 mg IV Q4H PRN PRN PRN Reason: SBP > 160 Lactated Ringer's () 1,000 mls @ 125 mls/hr IV .Q8H [facility] Last Infusion: 06/25/20 06:11 Dose: 0 mls/hr Documented by: Sodium Chloride () 250 mls @ 15 mls/hr IV .[id number] PRN PRN Reason: Saline Flush Sodium Chloride () 250 mls @ 15 mls/hr IV .[id number] PRN PRN Reason: Additional IVPB Infusion Influenza Virus Vaccine Quadrival (Influenza Vaccine (6mos+)/Pf 0.5 Ml Syringe) 0.5 ml IM .ONCE ONE Stop: 06/25/20 10:01 Ketorolac Tromethamine (Ketorolac 15 Mg/Ml Vial) 15 mg IV Q6H PRN PRN PRN Reason: Pain Score 1-5 Loratadine (Loratadine 10 Mg Tablet) 10 mg PO QHS [facility] Last Admin: 06/24/20 21:21 Dose: 10 mg Documented by: Meloxicam (Meloxicam 7.5 Mg Tablet) 7.5 mg PO BID [facility] Morphine Sulfate (Morphine 2 Mg/Ml Syringe) 2 - 4 mg IV Q2H PRN PRN PRN Reason: Pain Score 6-10 Morphine Sulfate (Morphine 4 Mg/Ml Syringe) 2 - 4 mg IV Q2H PRN PRN PRN Reason: Pain Score 6-10 Ondansetron HCl (Ondansetron 4 Mg/2 Ml Vial) 4 mg IV Q8H PRN PRN PRN Reason: NAUSEA Oxycodone HCl (Oxycodone 5 Mg Tablet) 5 - 10 mg PO Q4H PRN PRN PRN Reason: Pain Score 4-10 Last Admin: 06/25/20 06:03 Dose: 5 mg Documented by: Polyethylene Glycol (Polyethylene Glycol 3350 17 Gm Packet) 17 gm PO DAILY [facility] Last Admin: 06/25/20 08:31 Dose: 17 gm Documented by: Promethazine HCl (Promethazine 25 Mg/Ml Syringe) 12.5 mg IM Q6H PRN PRN; Protocol PRN Reason: NAUSEA/VOMITING Senna/Docusate Sodium (Senna/Docusate Sodium 1 Tablet) 2 tablet PO BID [facility] Last Admin: 06/25/20 08:32 Dose: Not Given Documented by: Sodium Chloride (0.9% Nacl Peripheral Flush Adult/Peds) 5 - 15 ml IV UD PRN PRN Reason: SALINE FLUSH Last Admin: 06/25/20 08:26 Dose: 10 ml Documented by: Sodium Chloride (0.9% Saline Lock 10 Ml Syringe) 10 - 40 ml IV UD PRN PRN Reason: SALINE FLUSH Medical Necessity - Tobacco Use Smoking Status: Never smoker Tobacco Use: Non-smoker Assessment/Plan All Active Problems Osteoarthritis of right knee (Acute) Nontraumatic tear of plantar fascia (Acute) Navicular fracture of ankle with delayed healing (Acute) Navicular fracture of ankle (Acute) 1. S/P right total knee arthroplasty POD #1 2. Continue Pain Medications: Tylenol, meloxicam, oxycodone 3. DVT Prophylaxis: Take 81 mg aspirin twice daily for 4 weeks postoperatively for DVT prophylaxis 4. PT/OT: Weightbearing as tolerated 5. H & H: 11.8/37.5, asymptomatic. Postoperative anemia secondary to acute blood loss from surgery without any intra operative complications. 6. Reactive leukocytosis: Currently 11.6, afebrile. Patient did receive Decadron intraoperatively 7. Continue postoperative medical management per medicine 8. Encouraged Incentive Spirometry 9. Disposition: Orthopedically stable, plan will be for discharge home today. Patient is very anxious to get home today. Patient will continue with follow-up per postop instructions. She has outpatient physical therapy established. She would like her medications E scribed to [facility] pharmacy. I have reviewed the [place] Automated Rx Reporting System (OARRS) report for this patient for refill pattern and other prescriber involvement as part of the ganga ropriate surveillance for the provision of acute and chronic controlled medications. The report was requested and reviewed on the date of this entry and was considered in the prescribing process.
--- NOTE | 2020-06-25 09:19 | DCINST_ITS ---
Discharge Diet: No Restrictions Discharge Activity: May Not Drive May shower in (days): 1 - Okay to shower if dressing is intact to skin. Turn dressing away from water. Do not submerge underwater for 6 weeks postoperatively. Ice area for (Minutes): 20 - Every 1-2 hours while awake Weight Bearing Status: Weight bearing as tolerated Elevate: Operative Extremity Additional Activity Instructions:: Wear elastic stockings for 2 weeks after your surgery. Call your doctor if your incision/area has: Continuous Slow Oozing, Sudden Increased Bleeding, Increased Pain/ Swelling, Increased Redness, Foul Smelling Discharge Call your doctor if you observe: Fever of 101 or Higher, Coldness, Increased Pain, Numbness or Tingling, Change in Color, Calf discomfort, Uncontrolled pain Remove Dressing in (days):: 4 - Okay to remove dressing on June 29, 2020 Additional Instructions: Follow [facility] Post-op Instructions. Once postoperative dressing has been removed only use gentle soap and water over the incision. Do not use any ointments, Neosporin, salves, alcohol pads over the incision for 6 weeks postoperatively. Do not submerge underwater for 6 weeks postoperatively. Allergies/Adverse Reactions: Allergies amoxicillin Allergy (Verified 06/24/20 10:56) Rash bee venom protein (honey bee) Allergy (Verified 06/24/20 10:56) Anaphylaxis cephalexin [From Keflex] Allergy (Verified 06/24/20 10:56) throat closes erythromycin base Allergy (Verified 06/24/20 10:56) throat swelling Penicillins [PCN] Allergy (Verified 06/24/20 10:56) throat swelling Sulfa (Sulfonamide Antibiotics) Allergy (Verified 06/24/20 10:56) throat swelling Medications to take at Discharge Ascorbic Acid [Vitamin C] 2,000 mg PO DAILY 06/02/20 Cholecalciferol (VIT D3) [Vitamin D3] 6,000 unit PO DAILY 06/02/20 Inulin/Chromium Picolinate [Fiber Gummies] 2 ea PO DAILY 06/02/20 Loratadine [Allergy Relief] 10 mg PO QHS 06/02/20 Magnesium Citrate 330 gm MC DAILY 06/02/20 Methyl Salicylate/Menth/Camph [Salonpas Deep Relieving Gel] 78 gm TP PRN PRN 06/02/20 Polyethylene Glycol 3350 [Clearlax] 17 gm PO DAILY 06/02/20 Pyridoxine HCl [Vitamin B-6] 100 mg PO DAILY 06/02/20 Acetaminophen [Tylenol] 1,000 mg PO Q8 #100 tab 06/25/20 Aspirin [Aspirin, Baby] 81 mg PO BIDCM #60 tab 06/25/20 Famotidine [Pepcid] 20 mg PO DAILY #30 tab 06/25/20 Meloxicam [Mobic] 7.5 mg PO BID #60 tab 06/25/20 Oxycodone [Oxyir] 5 - 10 mg PO Q4H PRN PRN 5 Days #60 tablet 06/25/20 The following prescriptions were given: Aspirin [Aspirin, Baby] 81 mg PO BIDCM #60 tab Transmission Status: Pending to [facility] Meloxicam [Mobic] 7.5 mg PO BID #60 tab Transmission Status: Pending to [facility] Oxycodone [Oxyir] 5 - 10 mg PO Q4H PRN PRN 5 Days #60 tablet PRN Reason: Pain Score 4-10 Transmission Status: Sent to [facility] Famotidine [Pepcid] 20 mg PO DAILY #30 tab Transmission Status: Pending to [facility] Acetaminophen [Tylenol] 1,000 mg PO Q8 #100 tab Transmission Status: Pending to [facility] Primary Care Physician: Addi Sweet MD [Primary Care Provider] - Test Results: Test results from this visit will be discussed in further detail at your follow- up appointment, if applicable. Please Follow Up With: [facility] When: 06/29/20 @ 1:00 with Berta Please Follow Up With: Lavelle Raygoza PA-C When: 07/08/20 @ 9:30 am
--- NOTE | 2020-06-25 09:40 | CASEMGMT ---
RN KAREN Face to Face with patient for initial transition planning/care coordination assessment. RN CM introduced self and role at [facility]. Patient sitting in chair, alert and oriented. Patient willing to participate in assessment and is able to answer all questions appropriately. Care providers, pharmacy, and demographics verified. Patient wishes to discharge home and is setup with [facility] for outpatient therapy. Patient states she has no further needs or concerns at this time. CM to follow for discharge planning needs that may arise. PCP: [facility] Specialists: faye Guerrero Pharmacy: [facility] retail at discharge Insurance: MMO Prescription Benefit: yes Living Will/HPOA: none LNOK: Living Arrangements: Patient lives with in a 1 story home with 3 steps and railing to enter the home. Patient states she was independent at home prior to discharge. Transportation: DME/HHC: Patient states she has grab bars, walker, and rollator. Patient is scheduled for outpatient therapy for Monday at [facility] Disposition Plan: Patient to discharge home with outpatient therapy, family support, and follow-up plans in place. Terrie TORRES, RN, CM
--- NOTE | 2020-06-25 11:54 | PHA.DC.MC ---
Pharmacy Service has performed discharge medication reconciliation and counseling for this patient. 1. ASPIRIN 81MG PO BIDCM 2. ACETAMINOPHEN 1000MG PO Q8H 3. MELOXICAM 7.5MG PO BID 4. OXYCODONE 5-10MG PO Q4H PRN PAIN 4-10 5. FAMOTIDINE 20MG PO DAILY The patient's discharge medication list was reviewed for discrepancies and discrepancies were resolved. Home Medications Ascorbic Acid [Vitamin C] 2,000 mg PO DAILY 06/02/20 Cholecalciferol (VIT D3) [Vitamin D3] 6,000 unit PO DAILY 06/02/20 Inulin/Chromium Picolinate [Fiber Gummies] 2 ea PO DAILY 06/02/20 Loratadine [Allergy Relief] 10 mg PO QHS 06/02/20 Magnesium Citrate 330 gm MC DAILY 06/02/20 Methyl Salicylate/Menth/Camph [Salonpas Deep Relieving Gel] 78 gm TP PRN PRN 06/02/20 Polyethylene Glycol 3350 [Clearlax] 17 gm PO DAILY 06/02/20 Pyridoxine HCl [Vitamin B-6] 100 mg PO DAILY 06/02/20 Acetaminophen [Tylenol] 1,000 mg PO Q8 #100 tab 06/25/20 Aspirin [Aspirin, Baby] 81 mg PO BIDCM #60 tab 06/25/20 Famotidine [Pepcid] 20 mg PO DAILY #30 tab 06/25/20 Meloxicam [Mobic] 7.5 mg PO BID #60 tab 06/25/20 Oxycodone [Oxyir] 5 - 10 mg PO Q4H PRN PRN 5 Days #60 tab 06/25/20 The patient was counseled on the following discharge medications and changes in medications for homegoing were reviewed. The Reason for Use, instructions for use, and potential side effects were reviewed for all new medications. The patient's questions regarding all of their medications were answered. The patient was able to verbally demonstrate an understanding of their discharge medications. Patient counseled by tracer powder blender
[2020-06-25] MEDS: Ketorolac 15 MG/ML Vial IV (13:55)
[2020-06-25 14:08] VITALS: BP 114/53; PULSE 69; RESP 18; TEMP 37.2; O2SAT 96
== END 2020-06-25 14:20 | disposition home or self-care (01) ==
LOC: SDC 14:54 → MS3 14:54
PROVIDERS: Anesthesiology; Admitting Provider Specialist; PCP Family Medicine; Referring Provider Specialist; Visit Provider Specialist
PROC: 0SRC0JZ Replacement of Right Knee Joint with Synthetic Substitute, Open Approach (ICD-10-PCS; CPT 27447; principal; 2020-06-24 12:15)
DX: M17.0 Bilateral primary osteoarthritis of knee (principal); Z20.828 Contact with and (suspected) exposure to other viral communicable diseases; Z79.899 Other long term (current) drug therapy; G47.33 Obstructive sleep apnea (adult) (pediatric); E66.9 Obesity, unspecified; Z68.32 Body mass index [BMI] 32.0-32.9, adult; K59.09 Other constipation; J30.9 Allergic rhinitis, unspecified
CPT/HCPCS: 01400; 27447; 64447; S2900; 36415; 73560; 80048; 82962; 83735; 85025; 85027; 87077; 87081; 87426; 93005; 96365; 96366; 96367; 96375; 97110; 97161; 97166; 97530; 97535; 99218; 99251; C1776; C9803; J7040; J7120; A4216; G0378; G0379; G0463

== ENCOUNTER → 2020-07-13 12:46 | Outpatient (CLI) | payer OTHER, SELFPAY ==
[2020-06-24 17:37] VITALS: BMI 32.5
--- NOTE | 2020-07-13 12:52 | CT_ITS ---
STUDY: CT LEFT LOWER EXTREMITY REASON FOR EXAM: Varus deformity of the left knee, surgical planning. TECHNIQUE: Transaxial CT imaging of the left lower extremity was performed. Coronal and sagittal images were reformatted. Individualized dose optimization techniques were used for this CT. COMPARISON: None. FINDINGS: Knee: There are postoperative changes from anterior cruciate ligament reconstruction. There are marginal osteophytes and joint space narrowing of the medial femorotibial compartment (coronal reconstruction 31). There are marginal osteophytes and a surface osteophyte of the lateral femorotibial compartment with preservation of joint space of the left femorotibial compartment. There are small marginal osteophytes and mild joint space narrowing of the patellofemoral compartment (sagittal reconstruction 49). Normal proximal tibiofibular articulation. There is no joint effusion. The quadriceps tendon is grossly normal. The patellar tendon is grossly normal. Normal Hoffa''s fat pad. There are small soft tissue calcifications anterior to the proximal tibia. Hip: There is preservation of the left hip joint. There is an os acetabula (coronal reconstructions 54). Ankle: Normal tibiotalar, posterior subtalar and calcaneocuboid articulations. There is a small ossicle at the dorsal aspect of the talonavicular articulation. CT/Extremity Lower without Contra IMPRESSION: Left knee osteoarthritis. Electronically Signed: Baldomero Tracey MD at 13:41 EST Tel , Service support ,
== END ==
PROVIDERS: PCP Family Medicine; Referring Provider Specialist; Visit Provider Specialist
DX: M21.162 Varus deformity, not elsewhere classified, left knee (principal)
CPT/HCPCS: 73700

== ENCOUNTER 2020-07-29 06:12 | Day surgery (SDC) | payer OTHER, SELFPAY ==
[2020-06-24 17:37] VITALS: BMI 32.5
--- NOTE | 2020-07-13 13:03 | HP.PCM_ITS ---
History and Physical History and Physical [facility] Patient Name: Chari Loza : 1960 From: LUISA GOODSON PA-C DATE OF SURGERY: 07/29/2020 SCHEDULED PROCEDURE: leftt total knee arthroplasty HISTORY OF PRESENT ILLNESS: Preoperative history and physical exam was performed on June 12, 2020. This is a 59-year-old female who has had ongoing bilateral knee pain for several years. She recently underwent a right total knee arthroplasty on June 24, 2020. Patient is doing well from that procedure. She has continued to have left knee pain which has been intermittent. She does get clicking and locking sensation. Pain is increased with stairs and walking any amount of distance. Patient states the pain is over the medial aspect of the left knee. She does have start up pain. Patient has tried previous gel injections with no relief as well as cortisone injections with no relief. She has previous history of a left knee arthroscopy over 10 years ago. She feels that her leisure activities are significantly effected by preventing her from doing any hiking, running, jumping or skiing. She has been using Tylenol for pain control with occasional oxycodone due to her recent surgery. Patient denies any change in medical history. Denies any recent chest pain, shortness of breath, fevers chills. After failing conservative measures and discussing treatment options with Dr. Andres Guerrero, the patient does wish to proceed with a left total knee arthroplasty. She has medical history pertinent for sleep apnea. REVIEW OF SYSTEMS: ROS: Const: Denies change in appetite, fever and weight change. CV: Denies chest pain, heart murmur and irregular heartbeat. Resp: Denies cough, pneumonia, shortness of breath, tuberculosis and wheezing. GI: Denies constipation, diarrhea, heartburn, nausea, rectal itching, bloody stools and vomiting. : Denies incontinence. Musculo: Denies leg swelling, pain, trouble walking and weakness. Skin: Denies Raynaud's, history of shingles and tattoo. Neuro: Denies ambulatory dysfunction, dizziness, numbness/tingling and tremor. Psych: Denies anxiety, insomnia and stress. Thiago/Lymph: Denies anemia, bleeding/bruising tendency and past transfusion. Reviewed, no changes. PAST MEDICAL HISTORY: Advance Care Plan: No Advance Directives Effective Date: 04/27/2020 PMH: Medical Problems: Sleep Apnea Accidents: Fracture - RT FOREARM Fracture - RT FOOT BONE IN TOP OF FOOT Surgical Hx: Hernia Repair - (2017) [facility] Hysterectomy - [facility] Knee Arthroscopy Lt - SCIO Knee Arthroscopy Rt - SCIO Shoulder Arthroscopy Lt - SCIO Shoulder Arthroscopy Rt - SCIO Knee Replacement RT - (06/24/2020) SAW @ [facility] Hernia Repair - (1997) Anesthesia Complications: Having A Hard Time Going Under Assistive Devices: Glasses - READING, Cpap Reviewed and updated. 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 Personal Habits: Cigarette Use: Never Smoked Cigarettes.Smokeless Tobacco: Never Used Smokeless Tobacco.E-Cigarette Use: Never used.Alcohol: Occasionally.Drug Use: Denies Use.Enjoy Exercising: Exercises 1-3 x/month. Reviewed and updated. VITALS: Ht: 66 Wt: 215lb Wt k.524 BMI: 34.7 BP: 127/71 Pulse: 77 Resp: 16 T: 95.7 T: 35.4C Pain Level: 3 ALLERGIES: Penicillin Sulfa Keflex Erythromycin Bee Sting - Throat Closes MEDICATIONS: Meloxicam 7.5 mg 1 by mouth twice a day, Promethazine HCL 12.5 mg 1-2 tablets by mouth every 6 hours, Famotidine 20 mg 1 by mouth every day, Chlorhexidine Gluconate 4% solution 4 milliliters bottle for pre-operative showering, Transderm Scop (1.5 MG) 1 MG/3Days 1 patch behind ear every 3 days, to begin the night before surgery, Oxycodone HCL 5 mg 1-2 tab by mouth every 6 hours, Aspirin 81 81 mg 1 pill 2x/day by mouth, Tylenol 8 Hour Arthritis Pain 650 mg every 4 hour as needed pain, Multivitamin 1 by mouth every day, Magnesium 1po qday, Vi tamin D 25 mcg (1000 Ut) 2po qday, Vitamin C 500 mg 2/day, Vitamin B Complex 100 100 1po qday, Fiber Choice Prebiotic Fiber 1.5 gm daily PRE-OP EXAM: General appearance:NORMAL Other: Eyes: Conjunctivae and lids: NORMAL Pupils: ERR Ears, Nose, Mouth, and Throat: NORMAL Other: Inspection of lips, teeth and gums: NORMAL Other: Neck: Examination of neck: no masses noted. Respiratory: Assessment of respiratory effort: NORMAL Other: Auscultation of lungs: clear to auscultation no wheezes, rhonchi or rales. Cardiovascular: Auscultation of heart: regular rate and rhythm, no murmurs, gallops or rubs. Exam of carotid arteries: NORMAL Other: Gastrointestinal: Exam of abdomen: soft, nontender, nondistended bowel sounds present. PHYSICAL EXAMINATION: Left knee is cool to touch without erythema or signs of infection. She does have effusion. There is tenderness to palpation along the medial joint line. Correctable varus alignment. She has minimal translation with anterior drawer testing. Range of motion: 0 extension 112 flexion. Patient's right knee incision is healing well without erythema, signs of infection, or drainage. She does walk with a limping gait but is currently 2 weeks postoperatively from total knee arthroplasty. IMAGING STUDIES: Previous x-rays of the left knee reveal varus alignment with medial joint space narrowing, subchondral sclerosis, osteophyte formation consistent with severe stage IV erosive tricompartmental osteoarthritis. Any erosion in the medial compartment of the tibial plateau. IMPRESSION: 1. Severe left knee osteoarthritis 2. Presence of right total knee arthroplasty June 24, 2020 3. Sleep apnea PLAN: Dr. Andres Guerrero did discuss and review with the patient all treatment options including surgical versus nonsurgical options. Patient does wish to proceed with the above-stated procedure. Potential risks, benefits, and complications of the procedure were discussed in detail including but not limited to , infection, nerve and blood vessel damage, persistent pain, numbness, tingling, paresthesias, blood clot, pulmonary embolism, and requirement for possible further surgery. The patient expressed full understanding and has no further questions for the doctor. Patient does agree to proceed with the above-stated procedure and has signed the surgery consent form. We discussed the current risks associated with COVID 19. This does include the risk of exposure while in the hospital. Patient was reassured local hospitals have low infection rates and are taking all necessary precautions to avoid exposure to patients. In addition, we discussed strategies that can be used to help limit exposure including those that limit the patient's time in the hospital. Also using strategies to limit the patient's need for continued inpatient services after being discharged from the hospital. Patient was notified that we will need to comply with any screening or testing the hospital wishes to perform or that surgery may be delayed for any positive results. This dictation was created using voice recognition software. Phonetic and/or grammatical errors may exist. ___ I have re-examined the patient. There are no clinical changes since date of exam. ___ See progress notes for changes. ___ Dictated on admission Date: Time: Signature:
[2020-07-27 10:59] LABS: Absolute Lymphocyte Count 2.22 X10^3/uL (0.83-4.51); Absolute Neutrophil Count 2.6 X10^3/uL (2.0-7.7); Basophil# 0.04 X10^3/uL; Basophil% 0.8 % (0-1); Eosinophil# 0.07 X10^3/uL; Eosinophils% 1.3 % (0-5); Hematocrit 40.3 % (37-47); Hemoglobin 12.4 g/dL (12.0-15.0); Lymphocyte # 2.22 X10^3/ul (4.0); Lymphocyte % 41.7 % (19-41); Mean Corp Hgb Conc 30.8 g/dL (32-36); Mean Corpuscular Hgb 26.4 pg (27.0-32.0); Mean Corpuscular Volume 85.9 fL (81-99); Mean Platelet Vol. 9.4 fl (6.2-12.0); Monocyte# 0.38 X10^3/uL; Monocyte% 7.1 % (0-10); NRBC Flagged by Analyzer 0 % (0-5); Neutrophil # 2.59 X10^3/uL (2.7-7.7); Neutrophil % 48.7 % (47-70); Platelet Count 291 K/mm3 (150-450); RBC Distribution Width CV 15.3 % (11.6-14.6); Red Blood Count 4.69 M/mm3 (4.2-5.4); White Blood Count 5.3 K/mm3 (4.4-11.0)
[2020-07-27 11:28] LABS: Anion Gap 5 (5-15); BUN 19 mg/dL (7-18); BUN/Creat Ratio 22.6 RATIO (10-20); Calcium,Total 10.9 mg/dL (8.5-10.1); Chloride 110 mmol/L (98-107); Creatinine, Serum 0.84 mg/dL (0.55-1.02); EST Glomerular Filtration Rate 73 mL/min (>60); Est Glom Filt Rate - Afr Amer 88 mL/min (>60); Glucose 104 mg/dL (74-106); Potassium 4.3 mmol/L (3.5-5.1); Sodium Level 140 mmol/L (136-145)
[2020-07-29] VITALS (14 sets, daily range): BP systolic 107–141; BP diastolic 57–84; PULSE 68–84; RESP 16; TEMP 36.1–37.1; O2SAT 93–100; BMI 31.6
--- NOTE | 2020-07-29 06:50 | RAD_ITS ---
STUDY: X-RAY - LEFT KNEE REASON FOR EXAM: Female, 60 years old. POST OP TOTAL KNEE TECHNIQUE: 2 view(s) of the knee. COMPARISON: None. FINDINGS: Normal visualized distal femur. Normal visualized proximal tibia and fibula. Normal proximal tibiofibular articulation. The patient is status post total knee replacement. There is good alignment. Postoperative soft tissue changes. RAD/Knee 1 or 2 Views IMPRESSION: Status post total knee replacement. There is good alignment. Postoperative soft tissue changes. Electronically Signed: Jony Sapp MD at 13:29 EST , Service support ,
[2020-07-29] MEDS: Lactated Ringers 1,000 ML 999 ML IV ×2 (07:45→11:03)
[2020-07-29] MEDS: Lactated Ringers 1,000 ML 125 ML IV ×2 (07:46→12:48)
[2020-07-29] MEDS: Scopolamine 1mg/72hr Patch 1 PATCH TD (07:54)
[2020-07-29] MEDS: Gabapentin 600 MG Tablet PO (07:56)
[2020-07-29] MEDS: Acetaminophen 500 MG Tablet 1000 MG PO ×2 (07:57→14:46)
[2020-07-29] MEDS: Lactated Ringers 1,000 ML 75 ML IV (08:15)
[2020-07-29 09:06] LABS: Bedside Glucose 99 mg/dL (70-110)
[2020-07-29] MEDS: dexAMETHasone 10 MG/ML Vial IV (09:12)
--- NOTE | 2020-07-29 10:21 | OP.PCM_ITS ---
Report of Operation Date of Procedure: 07/29/20 Pre-Operative Diagnosis: Left knee primary osteoarthritis Post-Operative Diagnosis: Left knee primary osteoarthritis Surgery/Procedure Performed:: Left total knee replacement, robotically assisted Description of Surgical Findings:: Stable knee with good patella tracking epic anesthesia analyst: Zenobia Veronica Type of Anesthesia:: Spinal Anesthesiologist: Mahendra Gregory Special Medications: Clindamycin, vancomycin, 1 g TXA at incision, 1 g TXA closure, 10 mg Decadron, joint cocktail (5 mg Duramorph, 30 mL of 0.5% Ropivicaine, 1000 units of epinephrine, 30 mg of Toradol) Specimen's removed: Bony cuts Estimated Blood Loss (mL): 75 Fluids Replaced: 2000 mL crystalloid Description of Procedure: Implants used: 1. Lilia size 4 triathlon cruciate retaining distal femoral press-fit component 2. Lilia size 4 press-fit tritanium tibial baseplate 3. Lilia X3 10 mm CS polyethylene 4. Tryon X3 32 mm asymmetric patella Brief history operative indications: 60-year-old F with history of left knee osteoarthritis with radiographic findings with loss of joint space, osteophyte formation and subchondral sclerosis. Failed conservative measures as mentioned in the H&P. Discussion of total knee arthroplasty as well as risk and benefits were discussed the patient including but not limited to blood loss, DVTs, PEs, neurovascular damage, general risk of anesthesia including loss of life, and stiffness or instability were discussed with patient. Patient demonstrated understanding and was able to sign informed consent. Procedure: On the date of procedure patient's left lower extremity was marked in the preoperative area. The patient was then taken back to the operating room where the patient was placed on the table in the supine position. All bony prominences were identified a well-padded. Anesthesia assumed control of the C-spine and airway and remained controlled throughout the remainder of the procedure. A tourniquet was placed on the left upper thigh and the leg was prepped in a sterile fashion. The surgeon then scrubbed at this time .Upon reentering the room left lower extremity was draped in a standard orthopedic fashion. A timeout was then called and everyone agreed upon the side, the site, the procedure to be performed, patient's identity and antibiotics given. Esmarch bandage was used to exsanguinate the extremity and the tourniquet was placed up to 250 mmHg with the knee in flexion. A midline skin incision was made and sharp dissection was taken down through skin subcutaneous tissue and fat. The standard medial parapatellar incision was made and the patella was subluxed laterally. An Appropriate deep MCL release was done and the fat pad was resected. Our attention was then directed to the patella. The patella was everted and a flat resection was made. The knee was then flexed up in 2 femoral pins were placed inside the incision and 2 tibial pins were placed outside the incision in the medial tibia bicortically. Once this was completed the 2 checkpoints in the femur and tibia were placed. Knee was then flexed up and the bony landmarks were registered. Once this was completed knee was taken through range of motion and manually stressed allowing us to a plan for an appropriate tibial cut. The robotic arm was brought into the field sterilely and checkpoint and saw were registered. Based on the patient's deformity the tibial cut was made in 2 degrees varus. At this time the tensioner was then placed in the joint and ligament tension was checked at 90 degrees and full extension. Based on the patient's ligamentous tension appropriate adjustments were made to the operative plan and ligament releases were done. Once we were happy with our operative plan with balanced flexion and extension gaps our attention was directed to the femur. The robot was brought into the field sterilely and registered. Posterior condylar cuts, anterior chamfer cuts and anterior cuts were appropriately made for a size 4 femur. When these were completed the saws were switched out in the distal femoral and posterior chamfer cuts were made. Protecting the soft tissue throughout this time. A size 4 tibial base plate was selected. the knee was flexed to 90 degrees and the soft tissues and posterior osteophytes were removed from the joint. 40 cc of the periarticular injection was injected into the posterior medial corner of the joint. The appropriate trials were then placed on the femur and tibia. A trial polyethylene was trialed to ensure proper balancing and stability of the knee. The appropriate tibial internal rotation was then marked with a bovie. Our attention was then directed to the patella. The lug holes were drilled and the patella trial was placed. Patellar tracking was checked and deemed appropriate. Once we were happy lug holes were drilled for the femur and trial components were removed. the tibia was subluxed and pinned into place and the keel was punched and drilled appropriately. Final components were verified and opened, and cement was mixed in a vacuum. Instant Information Simplex cement was used. The wound was copiously irrigated with normal saline. When the cement was ready the components were impacted into place starting with the tibia, femur and finally cementing the patella. After impacting the press- fit implants we carefully tested there fit which was well done. The trial poly component was placed and the knee was placed in full extension. All excess cement was removed in the process. Once the cement had cured the tracking, alignment and balance were verified and a size 10 mm CS polyethylene component was placed. Once the final components were placed a 3-minute dilute Betadine lavage was performed followed by an Irrisept lavage was performed and the wound was copiously irrigated with normal saline solution and the periarticular injection was given. The wound was closed in a layer salas fashion using #1 vicryl interrupted sutures for the arthrotomy, 2-0 interrupted Vicryl suture for the subcuticular layer and abisai for final skin closure. A sterile compressive dressing was then placed. The patient was then awakened from anesthesia, transferred to the [facility] and transferred to the PACU for recovery. Post op plan DVT ppx: ASA 81mg BID, thigh high compression stockings Follow up: in office in 2 weeks for wound check PT: to start POD #0 at hospital, outpatient PT should be arranged. - Complications No intraoperative complications - Admit VTE Documentation VTE Present on Admission: No VTE Mechan Device Prophylaxis: SCD's, Thigh High SUSAN Hose VTE Pharm Prophylaxis ordered?: Yes
== END 2020-07-29 16:40 | disposition home or self-care (01) ==
LOC: SDC 06:14 → AC 06:14
PROVIDERS: PCP Family Medicine; Referring Provider Specialist; Visit Provider Specialist
PROC: 0SRD0JZ Replacement of Left Knee Joint with Synthetic Substitute, Open Approach (ICD-10-PCS; CPT 27447; principal; 2020-07-29 08:30)
DX: M17.12 Unilateral primary osteoarthritis, left knee (principal); G47.30 Sleep apnea, unspecified; Z79.1 Long term (current) use of non-steroidal anti-inflammatories (NSAID); Z79.82 Long term (current) use of aspirin; Z88.0 Allergy status to penicillin; Z88.1 Allergy status to other antibiotic agents; Z88.2 Allergy status to sulfonamides; Z96.651 Presence of right artificial knee joint
CPT/HCPCS: 01402; 27447; 36415; 73560; 80048; 82962; 85025; 87426; 97161; C1776; C9803; J7040; J7120; J2405

== ENCOUNTER → 2020-10-15 15:04 | Outpatient (CLI) | payer OTHER, SELFPAY ==
[2020-07-29 08:00] VITALS: BMI 31.6
--- NOTE | 2020-10-15 15:06 | US_ITS ---
STUDY: SUPERFICIAL ULTRASOUND - SOFT TISSUE NECK REASON FOR EXAM: Female, 60 years old. ANTERIOR CERVICAL LYMPHADENOPATHY TECHNIQUE: A superficial ultrasound was performed with real-time and static watts-scale imaging. COMPARISON: None. FINDINGS: Multiple additional transverse ultrasound images of the neck confirm multiple of the normal-sized lymph nodes with the largest measuring 0.6 x 2.0 cm. US/Head/Neck Soft Tissue IMPRESSION: Multiple normal cervical lymph nodes. Electronically Signed: Eb Jara MD at 9:35 EDT Tel , Service support ,
== END ==
PROVIDERS: PCP Family Medicine; Referring Provider Nurse Practitioner Family; Visit Provider Nurse Practitioner Family
DX: R59.0 Localized enlarged lymph nodes (principal)
CPT/HCPCS: 76536

== ENCOUNTER → 2023-04-10 | Outpatient (CLI) | payer OTHER, SELFPAY ==
--- NOTE | 2023-04-10 14:55 | STRESSREP ---
Stress Test Report Exercise stress test. 62-year-old lady with a history of dyspnea. Stress protocol: Resting EKG demonstrates normal sinus rhythm with a rate of 68 bpm resting blood pressure is 136/82 mmHg. the patient exercised according to the regular Hemal protocol for a total duration of 5 minutes attaining a maximum heart rate of 160 bpm which was 96% of maximum predicted heart rate; the maximum workload was 7 metabolic equivalents. At rest there were no ST or T wave changes noted to suggest ischemia and at peak exercise upsloping ST changes only were noted which did not meet the criteria for ischemia. No clinical angina was noted the test was terminated due to the target heart rate being achieved/fatigue. The peak blood pressure was 146/88 mmHg. Rate-pressure product was 21,700. Conclusion: Stress test with no EKG criteria for ischemia at a moderate workload. No clinical angina noted
== END | disposition home or self-care (01) ==
LOC: CVS 09:49
PROVIDERS: PCP Family Medicine; Referring Provider Family Medicine; Visit Provider Family Medicine
DX: R06.09 Other forms of dyspnea (principal)
CPT/HCPCS: 93017

== ENCOUNTER → 2024-11-12 | Outpatient (CLI) | payer MEDICARE, SELFPAY ==
--- NOTE | 2024-11-12 08:08 | BI_ITS ---
EXAM: SCRN MAMM (CAD)W/JAYLIN BILAT DATE: 11/12/2024 CLINICAL HISTORY: F, Age 64 y/o , SCREENING BREAST CANCER RISK ASSESSMENT: Na TECHNIQUE: Bilateral screening digital breast tomosynthesis with 2D and 3D images. Computer aided detection. COMPARISON: Prior exam(s) were compared FINDINGS: TISSUE DENSITY: The breast tissue is heterogenously dense, which may obscure small masses. Bilateral Breast Mammographic Findings: No suspicious masses, calcifications or other abnormalities are identified. BI/SCRN MAMM (CAD)W/JAYLIN BILAT IMPRESSION: OVERALL FINAL ASSESSMENT: BIRADS 1 NEGATIVE RECOMMENDATION: Routine annual follow-up in 1 Year A letter with findings and recommendations will be mailed to the patient. Reading Location: [id number]
== END | disposition home or self-care (01) ==
PROVIDERS: PCP Family Medicine; Referring Provider Nurse Practitioner Family; Visit Provider Nurse Practitioner Family
DX: Z12.31 Encounter for screening mammogram for malignant neoplasm of breast (principal)
CPT/HCPCS: 77063; 77067

== ENCOUNTER → 2024-11-27 | Outpatient (CLI) | payer MEDICARE, SELFPAY ==
--- NOTE | 2024-11-27 07:49 | EKG12_ITS ---
Test Reason : PREOP Blood Pressure : */* mmHG Vent. Rate : 73 BPM Atrial Rate : 73 BPM P-R Int : 132 ms QRS Dur : 74 ms QT Int : 382 ms P-R-T Axes : -5 -25 21 degrees QTcB Int : 420 ms Normal sinus rhythm Minimal voltage criteria for LVH, may be normal variant Borderline ECG Confirmed by PALAK MCCLAIN, JAMIR ([id number]), newspaper managing editor SANDI PATRICK ([id number]) on 11/27/2024 12:45:31 PM Referred By: Andres Guerrero Confirmed By: JAMIR CID MD
--- OUTSIDE RECORDS SUMMARY | 2024-11-27 08:07 | XMS RPT_ITS | CCD ---
Author Organization [facility] Inform ion Partnership [facility] Care Team Providers Care 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 Name Role Phone NON STAFF Primary Care Provider DO Jg Dickson Emergency Provider [phone] Jg Ho Attending Unavailable Jg Ho Admitting Unavailable NON STAFF Primary Care Unavailable Unavailable Primary Care Provider UnavailRyan Rivera MD Primary Care Provider TERRI RAND Admitting Unavailab LUCY Herring Attending UnavailRYAN Rivera Primary Care Unavailable RYAN SWEET Primary Care Unavailable TERRI RAND Attending Unavailab le TERRI RAND Admitting Unavailab le Unavailable Primary Care Provider UnavailJAREK Muller Attending Unavaila JAREK Estevez Referring Unavaila RYAN Lewis Referring Unavailable JAREK FARIAS Attending Unavaila HARRISON Busby Attending UnavailRYAN Rivera Primary Care Unavailable Ryan Sweet MD Primary Care Provider Lucy Larios MD Unavailable LUCY LARIOS Referring Unavailable RYAN SWEET Primary Care UnavailLUCY Loo Admitting Unavailable LUCY LARIOS Attending Unavailable RYAN SWEET Primary Care UnavailDr. Ryan Rivera MD Primary Care Provider MARIA ISABEL [facility] Attending Provider [phone] MARIA ISABEL [facility] Referring Provider LUCY LARIOS Attending Unavailable RYAN SWEET [facility] Unavailpatti LARIOS LUCY Silvia Attending Unavailable RYAN SWEET Primary Care UnavailLUCY Loo Attending Unavailable RYAN SWEET [facility] UnavailRyan Rivera [facility] Unavailable MICHELL NICOLAS Referring Unavailable MICHELL NICOLAS Attending Unavailable MICHELL NICOLAS Referring Unavailable MICHELL NICOLAS Attending Unavailable Ryan Sweet Primary Care Unavailable Allergies Allergy Classification Reported Allergen(s) Allergy Type Date of Onset Reaction(s) Facility (16 sources) Cephalexin; Translations: [CEPHALEXIN] Drug Allergy 1 Other (See Comments), Anaphylaxis, Other: See Comments [facility] (20 sources) Penicillins; Translations: [PENICILLINS] Allergy to substance 1 Shortness Of Breath, Anaphylaxis [facility] (20 sources) Sulfonamides (Antibiotic); Translations: [SULFA (SULFONAMIDE ANTIBIOTICS)] Allergy to substance 1 Shortness Of Breath, Anaphylaxis [facility] (3 sources) erythromycin base; Translations: [erythromycin base] Allergy to substance 1 Difficulty Breathing, throat swelling [facility] (6 sources) BEE STING; Translations: [BEE STING] Allergy to substance 2 Anaphylaxis [facility] (20 sources) Erythromycin; Translations: [ERYTHROMYCIN] Drug Allergy 3 Shortness Of Breath, Anaphylaxis [facility] (20 sources) Bee Venom Protein (Honey Bee); Translations: [BEE VENOM PROTEIN (HONEY BEE)] Propensity to adverse reactions to drug 1 Anaphylaxis [facility] (1 source) Amoxicillin Drug Allergy 1 Rash [facility] (1 source) Amoxicillin Drug Allergy 1 [facility] (1 source) bee venom protein (honey bee) Drug allergy (disorder) 1 [facility] Medications Current Medications Medication Drug Class(es) Dates Sig (Normalized) Sig (Original) acetaminophen 325 mg oral tablet (6 sources) Start: 10-24-2024 End: 10-29-2024 take 2 tablets by mouth every six hours in the evening acetaminophen (Tylenol) 325 mg tablet Indications: Recurrent ventral hernia Take 2 tablets (650 mg) by mouth every 6 hours for 20 doses. 40 tablet 10/24/2024 4:35 PM EDT 10/24/2024 10/29/2024 Active Start: 10-24-2024 End: 10-24-2024 take 975 mg by mouth once as needed for pain 975 mg, oral, Once, On [place] 10/24/24 at 1115, For 1 dose, Preprocedure, Administer with small amount of water preoperatively., If ordered PRN for pain, nurse is permitted to administer this medication for higher pain scores based on patient preference? Yes Start: 02-15-2023 End: 02-25-2023 take 3 tablets by mouth every eight hours acetaminophen (TYLENOL) 325 MG tablet Take 3 (three) tablets (975 mg total) by mouth every 8 (eight) hours for 10 days . 30 tablet 0 02/15/2023 02/25/2023 Active Start: 06-25-2020 End: 07-15-2020 Acetaminophen 500 MG tablet Active 1000 mg PO EVERY 8 HOURS as needed for Pain 1-10 Or Fever July 15, 2020 11:41am Do not take more than 3000 mg Tylenol in a 24-hour period. Start: 06-02-2020 End: 06-25-2020 take 1 tablet by mouth twice daily Acetaminophen 650 MG tablet extended release Discontinued 650 mg PO TWICE A DAY June 02, 2020 1:00am June 25, 2020 10:17am ascorbic acid 1000 mg oral tablet (1 source) Vitamin C Start: 06-02-2020 take 2 tablets by mouth once daily Ascorbic Acid (Vitamin C) 1,000 MG tablet Active 2000 mg PO DAILY June 02, 2020 1:00am aspirin 81 mg chewable tablet (1 source) Platelet Aggregation Inhibitor, Nonsteroidal Anti-inflammatory Drug Start: 06-25-2020 take 1 tablet by mouth twice daily at mealtime Aspirin 81 MG tablet,chewable Active 81 mg PO TWICE DAILY WITH MEALS 60 June 25, 2020 1:00am Take 81 mg aspirin twice daily for 4 weeks postoperatively for DVT prophylaxis calcium chloride 0.0014 meq/ml / potassium chloride 0.004 meq/ml / sodium chloride 0.103 meq/ml / sodium lactate 0.028 meq/ml injectable solution (3 sources) Start: 10-24-2024 End: 10-25-2024 take 100 mL intravenously every hour 100 mL/hr, intravenous, Continuous, Starting on [facility] 10/24/24 at 1630, For 1 day, Recovery (only) Start: 02-14-2023 End: 02-14-2023 lactated Ringers infusion cholecalciferol 0.025 mg oral tablet (1 source) Vitamin D Start: 06-02-2020 Cholecalciferol (Vitamin D3) 1,000 UNIT tablet Active 6000 U PO DAILY June 02, 2020 1:00am chromium picolinate 0.1 mg / inulin 2000 mg chewable tablet (1 source) Start: 06-02-2020 take 1 tablet by mouth once daily Inulin-Chromium Picolinate 1 EACH tablet,chewable Active 2 NMA PO DAILY June 02, 2020 1:00am ciprofloxacin 500 mg oral tablet (1 source) Quinolone Antimicrobial Start: 02-15-2023 End: 02-22-2023 take 1 tablet by mouth twice daily ciprofloxacin HCl (CIPRO) 500 MG tablet Take 1 (one) tablet (500 mg total) by mouth 2 (two) times a day for 7 days . 14 tablet 0 02/15/2023 02/22/2023 Active docusate sodium 100 mg oral capsule (3 sources) Start: 02-15-2023 End: 03-17-2023 take 1 capsule by mouth twice daily docusate sodium (COLACE) 100 MG capsule Take 1 (one) capsule (100 mg total) by mouth 2 (two) times a day . 60 capsule 0 02/15/2023 03/17/2023 Active take 1 tablet by mouth once elizabeth y docusate sodium (STOOL SOFTENER ORAL) Take 1 tablet by mouth once daily. HARRISON- [facility] Active [id number] 0.3 ml EPINEPHrine 1 mg/ml auto-injector (9 sources) alpha-Adrenergic Agonist, beta-Adrenergic Agonist, Catecholamine EPINEPHrine 0.3 m g/0.3 mL injection syringe as directed intramuscularly once for 1 days Active Comment on above: as directed intramus cularly once for 1 days famotidine 20 mg oral tablet (20 sources) Histamine-2 Receptor Antagonist Start: take 1 tablet by mouth once daily Famotidine 20 MG tablet Active 20 mg PO DAILY June 25, 2020 1:00am take 2 tablets [address] [facility] once daily in the morning famotidine (PEPCID) 20 MG tablet Take 2 (two) tablets (40 mg total) by mouth every morning . Active Comment on above: Take 20 mg by mouth as needed. ibuprofen 600 mg oral tablet (6 sources) Nonsteroidal Anti-inflammatory Drug Start: 10-24-2024 End: 10-29-2024 take 1 tablet by mouth every six hours in the evening ibuprofen 600 mg tablet Indications: Recurrent ventral hernia Take 1 tablet (600 mg) by mouth every 6 hours for 20 doses. 20 tablet 10/24/2024 4:35 PM EDT 10/24/2024 10/29/2024 Active Start: 02-15-2023 End: 03-17-2023 take 1 tablet by mouth every six hours as needed ibuprofen (ADVIL,MOTRIN) 600 MG tablet Take 1 (one) tablet (600 mg total) by mouth every 6 (six) hours as needed . 30 tablet 0 02/15/2023 03/17/2023 Active Ibuprofen 200 mg cap Take by mouth as needed. 0 Active Comment on above: Take by mouth as nee ded. labetalol hydrochloride 5 mg/ml injectable solution (1 source) beta-Adrenergic Ian Start: 10-24-2024 5 mg, intravenous, Administer over 1 Minutes, Once as needed, systolic blood pressure greater than 180 mmHg, dystolic blood pressure greater than 100 mmHg and heart rate greater than 60 BPM, Starting on Mon10/24/24 at 1614, For 1 dose, Recovery (only) lactobacillus combo no.11 (Probiotic) 15 billion cell CpSP (15 sources) lactobacillus co mbo no.11 (Probiotic) 15 billion cell CpSP Take 2 capsules by mouth every morning . Active lactobacillus co mbo no.11 (Probiotic) 15 billion cell CpSP Take 2 capsules by mouth every morning . 0 Active lisinopril 20 mg oral tablet (20 sources) Angiotensin Converting Enzyme Inhibitor Start: 12-19-2022 take 1 tablet by mouth once daily lisinopril 20 mg tablet Take 1 tablet (20 mg) by mouth once daily. 12/19/2022 Active Comment on above: Take 20 mg by mouth once daily. magnesium citrate (1 source) Start: 06-02-2020 Magnesium Citr ate (Bulk) 100 GM powder Active 330 g PO DAILY June 02, 2020 1:00am meloxicam 7.5 mg oral tablet (1 source) Nonsteroidal Anti-inflammatory Drug Start: 06-25-2020 take 1 tablet by mouth twice daily Meloxicam 7.5 MG tablet Active 7.5 mg PO TWICE A DAY 60 June 25, 2020 1:00am Do not take any other nonsteroidal anti-inflammatories while using meloxicam/Mobic. 1 ml morphine sulfate 4 mg/ml prefilled syringe (2 sources) Opioid Agonist Start: 10-24-2024 2 mg, intraven ous, Every 5 min PRN, pain moderate (4-6), first line, Starting on [place] 10/24/24 at 1614, Recovery (only), Max total of 20 mg regardless of dose. Start: 10-24-2024 4 mg, intraven ous, Every 5 min PRN, pain severe (7-10), first line, Starting on [place] 10/24/24 at 1614, Recovery (only), Max total of 20 mg regardless of dose. multivit-min/ferrous fumarat e (MULTI VITAMIN ORAL) (19 sources) take 1 tablet by mouth once daily in the morning multivit-min/ferrous fumarate (MULTI VITAMIN ORAL) Take 1 tablet by mouth every morning . Active take 1 tablet by deyvi th once daily in the morning multivit-min/ferrous fumarate (MULTI VIT NASCIMENTO ORAL) Take 1 tablet by mouth every morning . 0 Active multivit-min/orly dorian fumarate (MULTI VITAMIN ORAL) Take by mouth once daily . 0 Active Multivitamin 1 EACH tablet (1 source) Start: 07-15-2020 Multivitamin 1 EACH tablet Active 1 NMA PO DAILY July 15, 2020 1:00am multivitamin tablet (5 sources) take 1 tablet by mouth once daily multivitamin tablet Take 1 tablet by mouth once daily. Active multivitamin with minerals (HAIR,SKIN AND NAILS ORAL) (19 sources) take 1 capsule by mouth once daily in the morning multivitamin with minerals (HAIR,SKIN AND NAILS ORAL) Take 1 capsule by mouth every morning . Active take 1 capsule by mo uth once daily in the morning multivitamin with minerals (HAIR,SKIN AN D NAILS ORAL) Take 1 capsule by mouth every morning . 0 Active multivitamin wit h minerals (HAIR,SKIN AND NAILS ORAL) Take by mouth once daily . 0 Active nystatin 100 unt/mg topical powder (1 source) Polyene Antifungal Start: 10-09-2021 Nystatin Ac tive 1 APPLIC TOPICAL Daily October 09, 2021 5:19pm 2 ml ondansetron 2 mg/ml injection (4 sources) Serotonin-3 Receptor Antagonist Start: 10-24-2024 End: 10-24-2024 4 mg, intravenous, Once as needed, nausea/vomiting, first line, Starting on [place] 10/24/24 at 1614, For 1 dose, Recovery (only), When administering via IV Push, administer over 3-5 minutes. Start: 02-14-2023 End: 02-14-2023 ondansetron (ZOFRAN) injecti on Start: 10-09-2021 take 4 mg by mouth e very eight hours Ondansetron Active 4 MG PO Q8H 9 October 09, 2021 5:18pm oxyCODONE hydrochloride 5 mg oral tablet (3 sources) Opioid Agonist Start: 10-24-2024 take 1 tablet by mouth every four hours as needed 5 mg, oral, Every 4 hours PRN, pain mild (1-3), first line, Starting on [facility] 10/24/24 at 1614, Recovery (only), When able to take oral medications., If ordered PRN for pain, nurse is permitted to administer this medication for higher pain scores based on patient preference? Yes Start: 10-24-2024 End: 10-31-2024 take 1 tablet by mouth every six hours in the evening for pain oxyCODONE (Roxicodone) 5 mg immediate release tablet Indications: Recurrent ventral hernia Take 1 tablet (5 mg) by mouth every 6 hours if needed for severe pain (7 - 10) for up to 12 doses. 12 tablet 10/24/2024 4:35 PM EDT 10/24/2024 10/31/2024 Active Start: 06-25-2020 End: 06-30-2020 take 5-10 mg by mouth every four hours as needed for pain Oxycodone 5 MG tablet Discontinued 5 - 10 mg PO EVERY 4 HOURS NEEDED as needed for Pain Score 4-10 60 5 June 25, 2020 June 29, 2020 1:00am June 30, 2020 1:03am polyethylene glycol 3350 25908 mg powder for oral solution (5 sources) Osmotic Laxative Start: 06-02-2020 take 17 g by mouth once daily Polyethylene Glycol 3350 17 GM powder in packet Active 17 g PO DAILY June 02, 2020 1:00am Comment on above: Take 17 g by mouth o nce daily. Polyethylene Glycols (19 sources) take 17 g by mouth once daily in the morning polyethylene glycol 3350 (MIRALAX ORAL) Take 17 g by mouth every morning . Active take 17 g by mouth o nce daily in the morning polyethylene glycol 3350 (MIRALAX ORAL) Take 17 g by mouth every morning . 0 Active polyethylene gly col 3350 (MIRALAX ORAL) Take by mouth once daily . 0 Active vitamin b6 100 mg oral table t (1 source) Start: 06-02-2020 Pyridoxine (Vi tamin B6) 100 MG tablet Active 200 mg PO DAILY June 02, 2020 1:00am wheat dextrin 1000 mg chewab le tablet (20 sources) wheat dextrin (B enefiber Sugar Free, dextrin,) 1 gram Chew Chew and Swallow 1 g every morning . Active take 2 tablets by mouth twice da ne wheat dextrin (BENEFIBER CLEAR SF, DEXTRIN, ORAL) 2 tablets Orally twice a day 0 Active Comment on above: 2 tablets Orally twi ce a day Completed/Discontinued Medications Medication Drug Class(es) Dates Sig (Normalized) Sig (Original) 50 ml clindamycin 18 mg/ml injection (1 source) Lincosamide Antibacterial Start: 02-14-2023 End: 02-14-2023 clindamycin (CLEOCIN) IVPB 900 mg (premix) CPAP/BIPAP/OTHER (4 sources) CPAP/BIPAP/OTHER DIRECTED QHS, INSTRUCTED 0 Active Comment on above: DIRECTED QHS, INSTRUCTED 1 ml dexamethasone phosphate 10 mg/ml injection (3 sources) Corticosteroid Start: 10-24-2024 End: 10-24-2024 8 mg, intravenous, Once, On [place] 10/24/24 at 1115, For 1 dose, Preprocedure Start: 02-14-2023 End: 02-14-2023 dexAMETHasone (DECADRON) inj ection Start: 10-09-2021 take 1 tablet by deyvi th once daily Dexamethasone (Decadron) 6 mg tablet Active 6 MG PO Daily 3 3 October 09, 2021 5:18pm 1 ml fentaNYL 0.05 mg/ml injection (1 source) Opioid Agonist Start: 02-14-2023 End: 02-14-2023 fentaNYL (SUBLIMAZE) injection gentamicin (GARAMYCIN) 5 mg/kg = 380 mg in sodium chloride 0.9 % (NS) 100 mL IVPB (1 source) Start: 02-14-2023 End: 02-14-2023 gentamicin (GARAMYCIN) 5 mg/kg = 380 mg in sodium chloride 0.9 % (NS) 100 mL IVPB 1 ml heparin sodium, porcine 5000 unt/ml injection (1 source) Unfractionated Heparin, Anti-coagulant Start: 10-24-2024 End: 10-24-2024 inject 5000 [IU] by subcutaneous injection once 5,000 Units, subcutaneous, Once, On [place] 10/24/24 at 1115, For 1 dose, Preprocedure, Indications: deep vein thrombosis prevention Start: 10-24-2024 End: 10-24-2024 inject 5000 [IU] by subcutaneous injection once 5,000 Units, subcutaneous, Once, On [place] 10/24/24 at 1115, For 1 dose, Preprocedure, Indications: deep vein thrombosis prevention 0.5 ml HYDROmorphone hydrochloride 1 mg/ml prefilled syringe (1 source) Opioid Agonist Start: 02-14-2023 End: 02-14-2023 HYDROmorphone (PF) (DILAUDID) injection iohexol (OMNIPaque) 350 mg iodine/mL solution 73 mL (1 source) Start: 10-17-2024 End: 10-17-2024 73 mL, intravenous, Once in imaging, Starting on [place] 10/17/24 at 1526, For 1 dose lactobacillus acidophilus [id number] unt oral capsule (4 sources) Lactobacillus acidophilus (PROBIOTIC) 10 billion cell cap Take by mouth once daily. 0 Active Comment on above: Take by mouth once d aily. 5 ml lidocaine hydrochloride 20 mg/ml prefilled syringe (1 source) Antiarrhythmic, Amide Local Anesthetic Start: 02-14-2023 End: 02-14-2023 lidocaine 2% (cardiac) (XYLOCAINE) injection 100 ml metroNIDAZOLE 5 mg/ml injection (1 source) Nitroimidazole Antimicrobial Start: 02-14-2023 End: 02-14-2023 metroNIDAZOLE (FLAGYL) IVPB 500 mg 5 ml midazolam 1 mg/ml injection (2 sources) Benzodiazepine Start: 10-24-2024 End: 10-24-2024 1 mg, intravenous, Once, On [place] 10/24/24 at 1115, For 1 dose, Preprocedure Start: 02-14-2023 End: 02-14-2023 midazolam (VERSED) injection multivitamin with minerals (MULTIPLE VITAMIN-MINERALS ORAL) (4 sources) take 1 tablet by mouth once daily multivitamin with minerals (MULTIPLE VITAMIN-MINERALS ORAL) 1 tab(s) chewed once a day for 30 day(s) 0 Active Comment on above: 1 tab(s) chewed once a day for 30 day(s) mv-mn/iron/FA/biotin/he rb 346 (SDNO-VRHQ-GVOSZ,FA-HER B CMPLX, ORAL) (3 sources) mv-mn/iron/FA/bi otin/h erb 346 (WTEF-BQGV-QXCFU,FA-HE RB CMPLX, ORAL) as directed Orally 0 Active Comment on above: as directed Orally naproxen 250 mg oral tablet (1 source) Nonsteroidal Anti-inflammatory Drug Start: 2019 End: 2020 Naproxen 250 MG tablet Discontinued 440 mg PO DAILY June 02, 2020 1:00am June 25, 2020 10:18am 10 ml propofol 10 mg/ml injection (1 source) General Anesthetic Start: 2022 End: 2022 propofoL (DIPRIVAN) injection rocuronium bromide 10 mg/ml injectable solution (1 source) Nondepolarizing Neuromuscular Ian Start: 2022 End: 2022 rocuronium (ZEMURON) injection 5 ml sugammadex 100 mg/ml injection (1 source) Start: 2022 End: 2022 sugammadex (BRIDION) injection Turmeric extract (1 source) Start: 2019 End: 2020 take 1 capsule by mouth once daily Turmeric 400 MG capsule Discontinued 700 mg PO DAILY June 02, 2020 1:00am June 25, 2020 10:18am Problems Active Problems Problem Classification Problem Date Documented Da te Episodic/Chronic Abdominal hernia (16 sources) Hernia of anterior abdominal wall; Translations: [Ventral hernia without obstruction or gangrene] Onset: 5 10-11-2024 Episodic Abdominal pain (1 source) Abdominal pain; Translations: [Unspecified abdominal pain] 10-09-2021 Episodic Complications of surgical procedures or medical care (20 sources) Prolapse of vaginal vault after hysterectomy; Translations: [Prolapse of vaginal vault after hysterectomy] Onset: 3 12-17-2022 Chronic Complications of surgical procedures or medical care (7 sources) Complication of anesthesia; Translations: [Other complications of anesthesia, subsequent encounter] Onset: 3 02-06-2023 Episodic Esophageal disorders (7 sources) Gastroesophageal reflux disease; Translations: [Gastro-esophageal reflux disease without esophagitis] Onset: 3 02-06-2023 Chronic Essential hypertension (7 sources) Hypertensive disorder; Translations: [Essential (primary) hypertension] Onset: 3 02-06-2023 Chronic Fracture of lower limb (2 sources) Fracture of navicular; Translations: [Displaced fracture of navicular [scaphoid] of unspecified foot, subsequent encounter for fracture with delayed healing] 04-10-2016 Episodic Genitourinary symptoms and ill-defined conditions (7 sources) Incontinence; Translations: [Mixed incontinence] Onset: 4 12-17-2022 Chronic Genitourinary symptoms and ill-defined conditions (3 sources) Incomplete emptying of bladder; Translations: [Retention of urine, unspecified] 02-06-2023 Episodic Mycoses (1 source) Candidiasis of skin; Translations: [Candidiasis of skin and nail] 10-09-2021 Episodic Osteoarthritis (1 source) Osteoarthritis of right knee joint; Translations: [Unilateral primary osteoarthritis, right knee] 06-24-2020 Chronic Other aftercare (3 sources) Surgical follow-up; Translations: [Encounter for surgical aftercare following surgery on the genitourinary system] 02-21-2023 Episodic Other connective tissue disease (1 source) Disorder of fascia; Translations: [Disorder of muscle, unspecified] 04-10-2016 Episodic Other connective tissue disease (1 source) Plantar fasciitis of right foot; Translations: [Plantar fascial fibromatosis] 04-10-2016 Episodic Other diseases of bladder and urethra (7 sources) Overactive bladder; Translations: [Overactive bladder] Onset: 4 12-17-2022 Chronic Other gastrointestinal disorders (1 source) Chronic constipation; Translations: [Other constipation] 06-24-2020 Episodic Other nervous system disorders (1 source) Right tarsal tunnel syndrome; Translations: [Tarsal tunnel syndrome, right lower limb] 04-10-2016 Chronic Other nervous system disorders (2 sources) Other acute postprocedural pain; Translations: [Other acute postprocedural pain] Onset: 3 Episodic Other nutritional; endocrine; and metabolic disorders (5 sources) Body mass index 30+ - obesity; Translations: [Body mass index (BMI) 35.0-35.9, adult] 02-06-2023 Chronic Other nutritional; endocrine; and metabolic disorders (2 sources) Body mass index (BMI) 35.0-35.9, adult; Translations: [Body mass index (BMI) 35.0-35.9, adult] Onset: 3 Chronic Other nutritional; endocrine; and metabolic disorders (1 source) Hypercalcemia; Translations: [Hypercalcemia] 05-05-2023 Chronic Other nutritional; endocrine; and metabolic disorders (1 source) Hypercalcemia; Translations: [Hypercalcemia] Onset: 3 Chronic Other nutritional; endocrine; and metabolic disorders (1 source) Obesity; Translations: [Obesity, unspecified] 06-24-2020 Chronic Other screening for suspected conditions (not mental disorders or infectious disease) (9 sources) Electrocardiogram abnormal; Translations: [Abnormal electrocardiogram [ECG] [EKG]] Onset: 3 02-06-2023 Episodic Other upper respiratory disease (1 source) Allergic rhinitis; Translations: [Allergic rhinitis, unspecified] 06-24-2020 Chronic Prolapse of female genital organs (7 sources) Prolapse of female genital organs; Translations: [Female genital prolapse, unspecified] Onset: 3 10-24-2022 Chronic Residual codes; unclassified (6 sources) Obstructive sleep apnea syndrome; Translations: [Obstructive sleep apnea (adult) (pediatric)] 02-06-2023 Chronic Residual codes; unclassified (2 sources) Obstructive sleep apnea (adult) (pediatric); Translations: [Obstructive sleep apnea (adult) (pediatric)] Onset: 3 Chronic Residual codes; unclassified (2 sources) Dependence on other enabling machines and devices; Translations: [Dependence on other enabling machines and devices] Onset: 3 Chronic Unclassified (2 sources) Autogenerated Problem Onset: 5 10-22-2024 Unclassified (2 sources) Post-op; Translations: [Post-op] Onset: 5 Viral infection (1 source) Viral disease; Translations: [Viral infection, unspecified] 10-09-2021 Episodic Past or Other Problems Problem Classification Problem Date Documented Da te Episodic/Chronic Residual codes; unclassified (1 source) Asymptomatic menopausal state; Translations: [Asymptomatic menopausal state] Onset: 12-08-2023 Episodic Results Test Name Value Interpretation Reference Range Facility Breast imaging reportOrdered By: Debbie Dalal on 11-12-2024 Study report [facility] Imaging Services [address] [place] [address] SCRN MAMM (CAD)W/JAYLIN BILAT MR#: [id number] Acct: [id number] Name: ARA LOZA Rep #: [id number] : 1960 F 64 From: Meng Stacy MD PCP: Dr. Ryan Sweet MD Status: [facility] Study:SCRN MAMM (CAD)W/JAYLIN BILAT Date of Exa m: 11/12/24 Exam# [id number] Ordering Dr: MICHELL NICOLAS [facility] EXAM: SCRN MAMM (CAD)W/JAYLIN BILAT DATE: 11/12/2024 CLINICAL HISTORY: F, Age 64 y/o , SCREENING BREAST CANCER RISK ASSESSMENT: Na TECHNIQUE: Bilateral screening digital breast tomosynthesis with 2D and 3D images. Computeraided detection. COMPARISON: Prior exam(s) were compared FINDINGS: TISSUE DENSITY: The breast tissue is heterogenously dense, which may obscure small masses. Bilateral Breast Mammographic Findings: No suspicious masses, calcifications or other abnormalities are identified. BI/SCRN MAMM (CAD)W/JAYLIN BILAT IMPRESSION: OVERALL FINAL ASSESSMENT: BIRADS 1 NEGATIVE RECOMMENDATION: Routine annual follow-up in 1 Year A letter with findings and recommendations will be mailed to the patient. Reading Location: [id number] CC: Dr. Ryan Sweet MD; MICHELL NICOLAS ~ Fisher Purse Seine: Signed [facility] POTASSIUMon 11-12-2024 Potassium [Moles/Vol] 5.0 mmol/L Normal 3.5-5.3 [facility] Comment on above: Order Comment: 0 FASTING:YES FASTING: YES Performed By: #### 7 33 #### [facility] [address] [facility], [address] [place] [address] Passenger Booking Clerk: Cayden Nunn MD SCRN MAMM (CAD)W/JAYLIN BILATo n 11-12-2024 SCRN MAMM (CAD)W/JAYLIN BILAT [facility] Imaging Services [address] [place] [id number] SCRN MAMM (CAD)W/JAYLIN BILAT MR#: [id number] Acct: [id number] Name: ARA LOZA Rep #: [id number] : 1960 F 64 From: Debbie Waldrop i, MD PCP: Dr. Ryan Sweet MD Status: REG CLI Study: SCRN MAMM (CAD)W/JAYLIN BILAT Date of Exam: 09/03 Exam# [id number] Ordering Dr: MICHELL NICOLAS EXAM: SCRN MAMM (CAD)W/JAYLIN BILAT DATE: 11/12/2024 CLINICAL HISTORY: F, Age 64 y/o , SCREENING BREAST CANCER RISK ASSESSMENT: Na TECHNIQUE: Bilateral screening digital breast tomosynthesis with 2D and 3D images. Computer aided detection. COMPARISON: Prior exam(s) were compared FINDINGS: TISSUE DENSITY: The breast tissue is heterogenously dense, which may obscure small masses. Bilateral Breast Mammographic Findings: No suspicious masses, calcifications or other abnormalities are identified. BI/SCRN MAMM (CAD)W/JAYLIN BILAT IMPRESSION: OVERALL FINAL ASSESSMENT: BIRADS 1 NEGATIVE RECOMMENDATION: Routine annual follow-up in 1 Year A letter with findings and recommendations will be mailed to the patient. Reading Location: [id number] CC: Dr. Ryan Sweet MD; MICHELL NICOLAS Fisher Purse Seine: Signed Normal [facility] ALBUMIN, RANDOM URINE W/CREA Dean 11-01-2024 ALBUMIN, URINE <0.2 Normal See Note: [facility] Comment on above: Order Comment: 0; 0; 0 FASTING:YES FASTING: YES Result Comment: Refe rence Range: Reference Range Not established Performed By: #### 3 5202, 6517, 25451 #### [facility] [address], [address] [place] [address] Passenger Booking Clerk: Cayden Nunn MD ALBUMIN/CREATININE RATIO, RANDOM URINE NOTE Normal <30 [facility] Comment on above: Order Comment: 0; 0; 0 FASTING:YES FASTING: YES Result Comment: NOTE : The urine albumin value is less than 0.2 mg/dL therefore we are unable to calculate excretion and/or creatinine ratio. The ADA defines abnormalities in albumin excretion as follows: Albuminuria Category Result (mg/g creatinine) Normal to Mildly increased <30 Moderately increased 30-299 Severely increased > OR = 300 The ADA recommends that at least two of three specimens collected within a 3-6 month period be abnormal before considering a patient to be within a diagnostic category. Performed By: #### 3 5202, 6517, 16699 #### [facility] [address], [address] [place] [address] Passenger Booking Clerk: Cayden Nunn MD Creatinine (U) [Mass/Vol] 44 mg/dL Normal 20-275 [facility] Comment on above: Order Comment: 0; 0; 0 FASTING:YES FASTING: YES Performed By: #### 3 5202, 6517, 26806 #### [facility] [address], [address] [place] [address] Passenger Booking Clerk: Cayden Nunn MD COMPREHENSIVE METABOLIC PANE [facility] 11-01-2024 Albumin [Mass/Vol] 4.2 g/dL Normal 3.6-5.1 [facility] Comment on above: Performed By: #### 3 5202, 6517, 59959 #### [facility] [address], [address] [place] [address] Passenger Booking Clerk: Cayden Nunn MD Albumin/Globulin [Mass ratio] 1.8 {ratio} Normal 1.0-2.5 [facility] Comment on above: Performed By: #### 3 520, 6517, 59647 #### [facility] of [address], [address] [place] [address] Passenger Booking Clerk: Cayden Nunn MD ALP [Catalytic activity/Vol] 75 U/L Normal 37-153 [facility] Comment on above: Performed By: #### 3 520, 6517, 75441 #### [facility] of [address], [address] [place] [address] Passenger Booking Clerk: Cayden Nunn MD ALT [Catalytic activity/Vol] 33 U/L High 6-29 [facility] Comment on above: Performed By: #### 3 5201, 65, 65738 #### [facility] of [address], [address] [place] [address] Passenger Booking Clerk: Cayden Nunn MD AST [Catalytic activity/Vol] 27 U/L Normal 10-35 [facility] Comment on above: Performed By: #### 3 520, 6517, 79251 #### [facility] of [place] [address] Passenger Booking Clerk: Cayden Nunn MD Bilirubin [Mass/Vol] 0.5 mg/dL Normal 0.2-1.2 [facility] Comment on above: Performed By: #### 3 520, 6517, 28486 #### [facility] of [address], [address] [place] [address] Passenger Booking Clerk: Cayden Nunn MD BUN/CREATININE RATIO SEE NOTE: Normal 6-22 [facility] Comment on above: Result Comment: Not Reported: BUN and Creatinine are within reference range. Performed By: #### 3 520, 6517, 99451 #### [facility] of [address], [address] [place] [address] Passenger Booking Clerk: Cayden Nunn MD Calcium [Mass/Vol] 10.6 mg/dL High 8.6-10.4 [facility] Comment on above: Performed By: #### 3 5201, 65, 03403 #### [facility] of [place] [address] Passenger Booking Clerk: Cayden Nunn MD Chloride [Moles/Vol] 105 mmol/L Normal 98-110 [facility] Comment on above: Performed By: #### 3 5201, 65, 12451 #### [facility] of [place] [address] Passenger Booking Clerk: Cayden Nunn MD CO2 [Moles/Vol] 27 mmol/L Normal 20-32 [facility] Comment on above: Performed By: #### 3 5201, 65, 10580 #### [facility] of [place] [address] Passenger Booking Clerk: Cayden Nunn MD Creatinine [Mass/Vol] 0.87 mg/dL Normal 0.50-1.05 [facility] Comment on above: Performed By: #### 3 5201, 6516, 97535 #### [facility] [place] [address] Passenger Booking Clerk: Cayden Nunn MD GFR/1.73 sq M.predicted among non-blacks MDRD (S/P/Bld) [Vol rate/Area] 73 mL/min/{1.73_m2} Normal > OR = 60 [facility] Comment on above: Performed By: #### 3 5201, 65, 14354 #### [facility] of [place] [address] Passenger Booking Clerk: Cayden Nunn MD Globulin (S) [Mass/Vol] 2.3 g/dL Normal 1.9-3.7 [facility] Comment on above: Performed By: #### 3 5201, 65, 05036 #### [facility] of [place] [address] Passenger Booking Clerk: Cayden Nunn MD Glucose [Mass/Vol] 96 mg/dL Normal 65-99 [facility] Comment on above: Result Comment: Fasting reference interval Performed By: #### 3 520, 6517, 45417 #### [facility] [place] [address] Passenger Booking Clerk: Cayden Nunn MD Potassium [Moles/Vol] 5.6 mmol/L High 3.5-5.3 [facility] Comment on above: Performed By: #### 3 520, 6517, 29405 #### [facility] [place] [address] Passenger Booking Clerk: Cayden Nunn MD Protein [Mass/Vol] 6.5 g/dL Normal 6.1-8.1 [facility] Comment on above: Performed By: #### 3 520, 65, 11228 #### [facility] [place] [address] Passenger Booking Clerk: Cayden Nunn MD Sodium [Moles/Vol] 141 mmol/L Normal 135-146 [facility] Comment on above: Performed By: #### 3 520, 65, 41953 #### [facility] [place] [address] Passenger Booking Clerk: Cayden Nunn MD Urea nitrogen [Mass/Vol] 22 mg/dL Normal 7-25 [facility] Comment on above: Performed By: #### 3 520, 6517, 76784 #### [facility] [place] [address] Passenger Booking Clerk: Cayden Nunn MD PTH, INTACT WITHOUT CALCIUMo n 11-01-2024 PARATHYROID HORMONE, INTACT 82 pg/mL High 16-77 [facility] Comment on above: Result Comment: Interpretive Guide Intact PTH Calcium ------- Normal Parathyroid Normal Normal Hypoparathyroidism Low or Low Normal Low Hyperparathyroidism Primary Normal or High High Secondary High Normal or Low Tertiary High High Non-Parathyroid Hypercalcemia Low or Low Normal High Performed By: #### 3 5202, 6517, 20058 #### [facility] [address], [address] [place] [address] Passenger Booking Clerk: Cayden Nnun MD Surgical pathology studyon 0 10-24-2024 Surgical pathology study Pathology report.total SEE COMMENT Surgical Pathology Case: [id number] Authorizing Provider: Lucy Larios MD Collected: 10/24/2024 1424 Ordering Location: [facility] Received: 10/24/2024 1555 Center OR Pathologist: Lucie Langley MD Specimen: MESH, OLD MESH FOR GROSS ONLY Path report.final diagnosis SEE COMMENT A: Specimen labeled: old mesh for gross only -Gross examination only at 1041 EDT Laboratory comment By the signature on this report, the individual or group listed as making the Final Interpretation/Diagnosis certifies that they have reviewed this case. Path report.relevant Hx SEE COMMENT Pre-op diagnosis: Recurrent ventral hernia [K43.2] Path report.gross observation SEE COMMENT Received in formalin, labeled with the patient's name and hospital number and old mesh for gross only, is white plastic mesh measuring 7.4 x 6.0 x 1.7. Tissue is present. A photograph has been taken. The specimen is for gross examination only. [facility] Comment on above: Order Comment: Pre-o p diagnosis: Recurrent ventral hernia [K43.2] CT ABDOMEN PELVIS W IV CONTR Katia 10-17-2024 CT ABDOMEN PELVIS W IV CONTRAST Interpreted By: Jenny Ponce, STUDY: CT ABDOMEN PELVIS W IV CONTRAST; 10/17/2024 3:25 pm INDICATION: Signs/Symptoms:recurrent ventral hernia. COMPARISON: CT abdomen and pelvis 06/28/2018 ACCESSION NUMBER(S): [id number] ORDERING CLINICIAN: LUCY LARIOS TECHNIQUE: Axial CT of the abdomen and pelvis was performed following intravenous administration of 73 ml of contrast Omnipaque 350 with coronal and sagittal reconstruction. FINDINGS: Lower chest: No focal consolidation or pleural effusion. Liver: No mass. Biliary: No intrahepatic or extrahepatic bile duct dilation. No cholelithiasis. Spleen: No mass. No splenomegaly. Pancreas: No mass or duct dilation. Adrenals: Normal. Kidneys: Excreted contrast within bilateral kidneys limits assessment of renal calculus. No hydronephrosis or suspicious mass. GI tract: Colonic diverticulosis without acute inflammation. The appendix, small bowel and stomach are unremarkable. Lymph nodes: No abdominopelvic lymphadenopathy. Mesentery/peritoneum: No free fluid, free air or fluid collection. Vasculature: Mild abdominal aortic atherosclerotic calcifications without aneurysmal dilation. Pelvis: No free fluid, free air or fluid collection. Excreted contrast noted within partially distended bladder. Bones/Soft tissues: Grade 1 anterolisthesis of L4 over L5 by approximately 5 mm without pars defects, previously 2 mm. Severe right and mild left hip osteoarthritis, also progressed. Postsurgical changes of prior ventral hernia repair with mesh. In the infraumbilical midline lower anterior abdomen, there is anterior protrusion of the mesh with eventration of a small amount of peritoneal fat measuring approximately 3.0 x 1.3 x 4.5 cm (transverse x anterior-posterior x craniocaudal) (series 5, image 113; series 9, image 80). No recurrent umbilical hernia is visualized. IMPRESSION: Anterior protrusion of prior mesh repair in the infraumbilical anterior abdominal wall with eventration of a small amount of peritoneal fat (3.0 x 1.3 x 4.5 cm). No recurrent umbilical hernia. MACRO: None Signed by: Jenny Ponce 10/18/2024 11:00 AM Dictation workstation: [id number] [facility] CREATININEon 10-12-2024 Creatinine [Mass/Vol] 0.86 mg/dL Normal 0.50-1.05 [facility] Comment on above: Performed By: #### 3 75 #### [facility] [address], [address] [place] [address] Passenger Booking Clerk: Cayden Nunn MD GFR/1.73 sq M.predicted among non-blacks MDRD (S/P/Bld) [Vol rate/Area] 74 mL/min/{1.73_m2} Normal > OR = 60 [facility] Comment on above: Performed By: #### 3 75 #### [facility] [address], [address] [place] [address] Passenger Booking Clerk: Cayden Nunn MD Creatinine [Mass/Vol]on GFR/1.73 sq M.predicted among non-blacks MDRD (S/P/Bld) [Vol rate/Area] 74 mL/min/{1.73_m2} > OR = 60 mL/min/1.73 m2 [facility] Creatinine, Serumon 10-13-19 25 Creatinine [Mass/Vol] 0.86 mg/dL 0.50 - 1.05 mg/dL [facility] CNPNon 07-17-2023 CNPN Telephone (ENWSTR) -- ARA LOZA ([id number]) 1960 F Date Time Provider Department 07/17/23 JAREK FARIASWS During your visit today, we recorded the following information about you: Sharyn Griffiths RN 07/17/2023 9:42 AM Signed Per Pt request, call placed to [facility] in [place] to request bone density results from 06/15/[address]. [address] Farias. Medical record request form also faxed to them at . Fax confirmation received. Pt notified. Sharyn Griffiths RN July 17, 2023 9:42 AM Allergies As of Date: 07/17/2023 Noted Allergy Reaction BEE VENOM PROTEIN (HONEY BEE) 07/15/2020 10 - Anaphylaxis ERYTHROMYCIN 11/29/2022 10 - Anaphylaxis 12 - Shortness of Breath PENICILLINS 07/15/2020 10 - Anaphylaxis 12 - Shortness of Breath SULFA (SULFONAMIDE ANTIBIOTICS) 07/15/2020 10 - Anaphylaxis 12 - Shortness of Breath BEE STING 10/09/2021 10 - Anaphylaxis CEPHALEXIN 07/15/2020 10 - Anaphylaxis 14 - Other: See Comments Date Reviewed: 05/05/2023 Reviewed by: Tamela Bobo - Fully Assessed Reason for Visit: Request Outside Medical Records [3575] Cmt: Bone density results Prescriptions as of 07/17/2023 - CPAP/BIPAP/OTHER DIRECTED QHS, INSTRUCTED - wheat dextrin (BENEFIBER CLEAR SF, DEXTRIN, ORAL) 2 tablets Orally twice a day - Ibuprofen 200 mg cap Take by mouth as needed. - multivitamin with minerals (MULTIPLE VITAMIN-MINERALS ORAL) 1 tab(s) chewed once a day for 30 day(s) - polyethylene glycol 3350 (MIRALAX) 17 gram/dose powder Take 17 g by mouth once daily. - Lactobacillus acidophilus (PROBIOTIC) 10 billion cell cap Take by mouth once daily. - EPINEPHrine (EPIPEN) 0.3 mg/0.3 mL auto-injector as directed intramuscularly once for 1 days - famotidine (PEPCID) 20 mg tablet Take 20 mg by mouth as needed. - lisinopril (ZESTRIL) 20 mg tablet Take 20 mg by mouth once daily. Problem List As Of Date: 07/17/2023 (None) Encounter Status:Closed by SHARYN GRIFFITHS on 07/17/23 [facility]20[facility]EN[facility] -- ARA LOZA ([id number]) 1960 F Date Time Provider Department 07/12/23 JAREK FARIAS ENWSTR During your visit today, we recorded the following information about you: LEROY Phan Laurie 07/12/2023 3:30 PM Signed Pt calling to follow up on the Bone Density test that was done in [place]. She was told by that office that it was faxed. I do not see anything scanned into EPIC. Will check with nurses in ENDOCRINE to see if they have received them. LEROY Toussaint Brittney, RN 07/12/2023 4:16 PM Signed MC message sent to Pt letting her know that we have not received bone density report from [place] yet. Sharyn Griffiths RN July 12, 2023 4:16 PM Allergies As of Date: 07/12/2023 Noted Allergy Reaction BEE VENOM PROTEIN (HONEY BEE) 07/15/2020 10 - Anaphylaxis ERYTHROMYCIN 11/29/2022 10 - Anaphylaxis 12 - Shortness of Breath PENICILLINS 07/15/2020 10 - Anaphylaxis 12 - Shortness of Breath SULFA (SULFONAMIDE ANTIBIOTICS) 07/15/2020 10 - Anaphylaxis 12 - Shortness of Breath BEE STING 10/09/2021 10 - Anaphylaxis CEPHALEXIN 07/15/2020 10 - Anaphylaxis 14 - Other: See Comments Date Reviewed: 05/05/2023 Reviewed by: Tamela Bobo - Fully Assessed Reason for Visit: Results [95] Prescriptions as of 07/12/2023 - CPAP/BIPAP/OTHER DIRECTED QHS, INSTRUCTED - wheat dextrin (BENEFIBER CLEAR SF, DEXTRIN, ORAL) 2 tablets Orally twice a day - Ibuprofen 200 mg cap Take by mouth as needed. - multivitamin with minerals (MULTIPLE VITAMIN-MINERALS ORAL) 1 tab(s) chewed once a day for 30 day(s) - polyethylene glycol 3350 (MIRALAX) 17 gram/dose powder Take 17 g by mouth once daily. - Lactobacillus acidophilus (PROBIOTIC) 10 billion cell cap Take by mouth once daily. - EPINEPHrine (EPIPEN) 0.3 mg/0.3 mL auto-injector as directed intramuscularly once for 1 days - famotidine (PEPCID) 20 mg tablet Take 20 mg by mouth as needed. - lisinopril (ZESTRIL) 20 mg tablet Take 20 mg by mouth once daily. Problem List As Of Date: 07/12/2023 (None) Encounter Status:Closed by SHARYN GRIFFITHS on 07/12/23 [facility] 06-01-2023 [facility] Telephone (ENWSTR) -- ARA LOZA ([id number]) 1960 F Date Time Provider Department 06/01/23 JAREK FARIAS During your visit today, we recorded the following information about you: Sharyn Griffiths RN 06/01/2023 9:43 AM Signed Phone call to Pt - name AND verified. Dr. Farias could not hear Pt during her virtual visit. Dr. Farias would like her to reschedule for a different date/time. Pt agreeable. While on the phone, Pt also becomes tearful and reports that she is still having symptoms (chest pain, dyspnea, etc). Reports that her PCP, Dr. Ryan Sweet in [place], had her get a stress test in April, but she hasn't heard from his office with the results yet. She is currently in [place]. Instructed Pt that I spoke with Dr. Sweet's office staff and explained her situation. I requested that his staff call her as soon as possible to let her know the results and if there's any further work up warranted at this time. Pt denies any sudden or new acute symptoms from her previous visit with Dr. Sweet. I instructed her to let our office know if she hasn't heard from his office by 11:00am today. Sharyn Griffiths RN June 01, 2023 9:43 AM Allergies As of Date: 06/01/2023 Noted Allergy Reaction BEE VENOM PROTEIN (HONEY BEE) 07/15/2020 10 - Anaphylaxis ERYTHROMYCIN 11/29/2022 10 - Anaphylaxis 12 - Shortness of Breath PENICILLINS 07/15/2020 10 - Anaphylaxis 12 - Shortness of Breath SULFA (SULFONAMIDE ANTIBIOTICS) 07/15/2020 10 - Anaphylaxis 12 - Shortness of Breath BEE STING 10/09/2021 10 - Anaphylaxis CEPHALEXIN 07/15/2020 10 - Anaphylaxis 14 - Other: See Comments Date Reviewed: 05/05/2023 Reviewed by: Tamela Bobo - Fully Assessed Reason for Visit: Appointment [186] Prescriptions as of 06/01/2023 - CPAP/BIPAP/OTHER DIRECTED QHS, INSTRUCTED - wheat dextrin (BENEFIBER CLEAR SF, DEXTRIN, ORAL) 2 tablets Orally twice a day - mv-mn/iron/FA/biotin/herb 346 ([id number],FA-HERB CMPLX, ORAL) as directed Orally - Ibuprofen 200 mg cap Take by mouth as needed. - multivitamin with minerals (MULTIPLE VITAMIN-MINERALS ORAL) 1 tab(s) chewed once a day for 30 day(s) - polyethylene glycol 3350 (MIRALAX) 17 gram/dose powder Take 17 g by mouth once daily. - Lactobacillus acidophilus (PROBIOTIC) 10 billion cell cap Take by mouth once daily. - EPINEPHrine (EPIPEN) 0.3 mg/0.3 mL auto-injector as directed intramuscularly once for 1 days - famotidine (PEPCID) 20 mg tablet Take 20 mg by mouth as needed. - lisinopril (ZESTRIL) 20 mg tablet Take 20 mg by mouth once daily. Problem List As Of Date: 06/01/2023 (None) Encounter Status:Closed by SHARYN GRIFFITHS on 06/01/23 [facility]2023 [facility] Tele[facility] (ENWSTR) -- ARA LOZA ([id number]) 1960 F Date Time Provider Department 05/15/23 JAREK FARIAS ENWSTR During your visit today, we recorded the following information about you: Tamela Martinez 05/15/2023 5:02 PM Signed Pt is in [place]. She would like her Bone Density order sent to [facility] in [facility]. Ph. [phone] Shelly Antoine Ma 05/22/2023 11:25 AM Signed Patient calling and states she needs her bone density order faxed to [facility] in [facility] to [phone]. They wouldn't accept the order from her phone. Patient would like a call when order has been faxed to schedule. Sharyn Griffiths RN 05/22/2023 11:44 AM Signed BD order sent electronically to [facility] at [phone] per Pt request. Sharyn Griffiths RN May 22, 2023 11:43 AM Sharyn Griffiths RN 05/22/2023 11:46 AM Signed Pt notified via telephone that order was sent electronically to [facility]; she voices understanding. Sharyn Griffiths RN May 22, 2023 11:46 AM Allergies As of Date: 05/15/2023 Noted Allergy Reaction BEE VENOM PROTEIN (HONEY BEE) 07/15/2020 10 - Anaphylaxis ERYTHROMYCIN 11/29/2022 10 - Anaphylaxis 12 - Shortness of Breath PENICILLINS 07/15/2020 10 - Anaphylaxis 12 - Shortness of Breath SULFA (SULFONAMIDE ANTIBIOTICS) 07/15/2020 10 - Anaphylaxis 12 - Shortness of Breath BEE STING 10/09/2021 10 - Anaphylaxis CEPHALEXIN 07/15/2020 10 - Anaphylaxis 14 - Other: See Comments Date Reviewed: 05/05/2023 Reviewed by: Tamela Bobo - Fully Assessed Reason for Visit: Orders [681] Prescriptions as of 05/22/2023 - CPAP/BIPAP/OTHER DIRECTED QHS, INSTRUCTED - wheat dextrin (BENEFIBER CLEAR SF, DEXTRIN, ORAL) 2 tablets Orally twice a day - mv-mn/iron/FA/biotin/herb 346 ([id number],FA-HERB CMPLX, ORAL) as directed Orally - Ibuprofen 200 mg cap Take by mouth as needed. - multivitamin with minerals (MULTIPLE VITAMIN-MINERALS ORAL) 1 tab(s) chewed once a day for 30 day(s) - polyethylene glycol 3350 (MIRALAX) 17 gram/dose powder Take 17 g by mouth once daily. - Lactobacillus acidophilus (PROBIOTIC) 10 billion cell cap Take by mouth once daily. - EPINEPHrine (EPIPEN) 0.3 mg/0.3 mL auto-injector as directed intramuscularly once for 1 days - famotidine (PEPCID) 20 mg tablet Take 20 mg by mouth as needed. - lisinopril (ZESTRIL) 20 mg tablet Take 20 mg by mouth once daily. Problem List As Of Date: 05/15/2023 (None) Encounter Status:Closed by SAHRYN GRIFFITHS on 05/22/23 Normal [facility] 25(OH)D3 SerPl-mCncon 2022 25-hydroxyvitamin D3 [Mass/Vol] 26.2 ng/mL Low 31.0-80.0 [facility] Comment on above: Order Comment: Linda hackett Type: BLOOD SPECIMEN Ordering Facility: [facility] Address: [address] [place] [address] Result Comment: Clas sification of 25 OH Vitamin D status: Deficiency/Insufficiency: < or = 30 ng/ml. Sufficiency/Optimal Levels: 31-80 ng/mL Toxicity: > 100 ng/mL. Test performed by chemiluminescent immunoassay. Performed By: #### 1 989-3 #### [facility] CLIA [id number] [address] [place] [address] [place] ALKALINE PHOSPHATASEon 05-05 ALP [Catalytic activity/Vol] 85 U/L 34 - 123 U/L [facility] ALP SerPl-cCncon 05-05-2023 ALP [Catalytic activity/Vol] 85 U/L Normal 34-123 [facility] Comment on above: Order Comment: Linda ahckett Type: BLOOD SPECIMEN Ordering Facility: [facility] Address: [address] [place] [address] Performed By: #### 6 768-6 #### [facility] CLIA [id number] [address] [place] [address] [place] CNOVon 05-05-2023 CNOV Office Visit (ENWSTR ) -- ARA LOZA ([id number]) 1960 F Date Time Provider Department 05/05/23 9:00 AM JAREK FARIAS During your visit today, we recorded the following information about you: Temperature Pulse Blood pressure Weight 97.7 degrees 65/minute 140/74 103.7 kg Height 1.727 m Jarek Farias MD 05/05/2023 7:11 PM Addendum Endocrinology and Metabolism [facility] Visit Note NAME: Ara Loza is a 62 year old old female PCP: No primary care provider on file. Requesting Provider: Ryan [place] MD [address] [place] [address] My final recommendations will be communicated back to the requesting physician by way of shared medical record or letter via US mail. 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 History of Present Illness: Ara Loza is a 62 year old old female with past medical history of hypertension, class I obesity who was presenting for evaluation of hyperparathyroidism. Her initial symptoms included: Difficulty breathing and chest pain while walking or going up and down the stairs resulting in an EKG being ordered by her PCP that resulted abnormal, this was followed by a stress test which did not yield significant results. However BMP was done around the same time which revealed hypercalcemia. She also reports fatigue/low energy. No changes in appetite, weight, diet, thirst or urination. She has constipation however this has been there. She denies any calcium abnormalities in the past to the best of her knowledge, reporting that she never had blood tests done Personal history of kidney stones: no Personal history of fractures: Were these fractures in the setting of trauma: from accidental falls Family history of osteoporosis: unknown Height loss: No Weight <127 lbs: No Prior radiation to the neck: none Personal history of thyroid or parathyroid disease: None Family history of thyroid or parathyroid disease: daughter has hypothyroidism, no calcium or parathyroid issues in family but son has a history of kidney stones x2 Calcium Intake: Patient eats more dietary calcium, avoiding all calcium rich foods Patient takes no calcium supplements Vitamin D Intake: Patient takes no vitamin D supplements No recent or prolonged steroid use Smoking: Never smoked Alcohol: weekends Exercise: no regular exercise program Menopause at age: 33, surgical TAHSOB- for cancer of uterus, no radiation Family history of unknown cancer in grandfather with bone metastasis Signs, Symptoms AND Risk Factors for Hypercalcemia: - Anorexia: yes - Bone pain: yes - Fatigue / poor concentration:+fatigue, poor conc, since surgery in 02/2023 (colpopexy/sling operation for stress incontinence) - Constipation: yes, normal for her - Fractures: yes, from accidental trauma - Medications: [place] or thiazide diuretics- none - Muscle weakness: - Nausea / vomiting: none - Nephrolithiasis: none PAST MEDICAL HISTORY Diagnosis Date Cystocele with rectocele Irritable bowel syndrome Sleep apnea PAST SURGICAL HISTORY Procedure Laterality Date REPAIR EPIGASTRIC HERNIA,REDUC 2018 REPAIR OF RECTOCELE 02/2023 with pelvic reconstruction REPAIR ROTATOR CUFF,ACUTE 1998 TOTAL KNEE REPLACEMENT Bilateral VAGINAL HYSTERECTOMY 2005 FAMILY HISTORY Problem Relation Age of Onset Diabetes Mother Hypertension Mother Stroke Father Alzheimer's Disease Father Cancer Sister Bleeding disorder Sister Cancer Brother Kidney failure Maternal Grandmother Blood Clots Paternal Grandmother Diabetes Paternal Grandmother Diabetes Paternal Grandfather Cancer Paternal Grandfather ALLERGIES Allergen Reactions Bee Venom Protein (* Anaphylaxis Erythromycin Anaphylaxis, Shortness of Breath Penicillins Anaphylaxis, Shortness of Breath Sulfa (Sulfonamide * Anaphylaxis, Shortness of Breath Bee Sting Anaphylaxis Cephalexin Anaphylaxis, Other: See Comments Social History Tobacco Use Smoking status: Never Smokeless tobacco: Never Vaping Use Vaping Use: Never used Substance Use Topics Alcohol use: Yes Comment: 2-4 a month Drug use: Never Current Outpatient Medications Medication Sig CPAP/BIPAP/OTHER DIRECTED [facility], INSTRUCTED wheat dextrin (BENEFIBER CLEAR SF, DEXTRIN, ORAL) 2 tablets Orally twice a day mv-mn/iron/FA/biotin/herb 346 (FQTA-HHJW-KFDLH,FA-HERB CMPLX, ORAL) as directed Orally Ibuprofen 200 mg cap Take by mouth as needed. multivitamin with minerals (MULTIPLE VITAMIN-MINERALS ORAL) 1 tab(s) chewed once a day for 30 day(s) polyethylene glycol 3350 (MIRALAX) 17 gram/dose powder Take 17 g by mouth once daily. Lactobacillus acidophilus (PROBIOTIC) 10 billion cell cap Take by mouth once daily. EP (more content not included)... Normal [facility] Calcium.ionized [Moles/Vol]o n 05-05-2023 Calcium.ionized (Bld) [Mass/Vol] 1.47 mmol/L High 1.08 - 1.30 mmol/L [facility] Calcium.ionized adjusted to pH 7.4 (Bld) [Moles/Vol] 1.40 mmol/L High 1.08 - 1.30 mmol/L [facility] Calcium.ionized (Bld) [Mass/Vol] 1.47 mmol/L High 1.08-1.30 [facility] Comment on above: Order Comment: Speci men Type: BLOOD SPECIMENOrdering Facility: [facility] Address: [address] [place] [address] Performed By: #### 1 995-0 ####[facility] LAB[facility] [id number] [place] [address] [place] Calcium.ionized adjusted to pH 7.4 (Bld) [Moles/Vol] 1.40 mmol/L High 1.08-1.30 [facility] Comment on above: Order Comment: Speci men Type: BLOOD SPECIMENOrdering Facility: [facility] Address: [address] [place] [address] Performed By: #### 1 995-0 ####[facility] LABCL[facility] [id number] [place] [address] [place] PTH INTACT BLDon 05-05-2023 Parathyrin.intact [Mass/Vol] 87 pg/mL High 15 - 65 pg/mL [facility] PTH-Intact SerPl-mCncon - Parathyrin.intact [Mass/Vol] 87 pg/mL High 15-65 [facility] Comment on above: Order Comment: Speci men Type: BLOOD SPECIMEN [facility] Address: [address] [place] [address] Performed By: #### 2 731-8 #### [facility] CLIA [id number] [address] [place] [address] [place] VITAMIN D 25 HYDROXYon 05-05 25-hydroxyvitamin D3 [Mass/Vol] 26.2 ng/mL Low 31.0 - 80.0 ng/mL [facility] ETT Airwayon 02-14-2023 Rex Garcia CRNA 02/14/2023 3:12 PM ETT Airway Mask ventilation: ventilated by mask Technique: direct laryngoscopy Type: cuffed oral Tube size: 7 mm Final laryngoscope: Mac 3 Location: oral Final grade: 1 Insertion attempts: 1 Placement verification: auscultation, symmetrical chest wall movement and end tidal CO2 Secured at: 20 cm (measured from the teeth) Secured by: tape Bite block: none Lip/tooth/tongue trauma: no [facility] Basic metabolic 2000 panelOr dered By: Karla Lamb on 02-06-2023 Anion gap [Moles/Vol] 17 mmol/L 10 - 20 mmol/L [facility] Calcium [Mass/Vol] 11.1 mg/dL High 8.4 - 10. 2 mg/dL [facility] Chloride [Moles/Vol] 104 mmol/L 98 - 10 8 mmol/L [facility] Creatinine [Mass/Vol] 0.70 mg/dL 0.60 - 1.20 mg/dL [facility] GFR/1.73 sq M.predicted CKD-EPI (S/P/Bld) [Vol rate/Area] 97 - PINF [facility] Comment on above: Estimated GFR was ca lculated using the 2020 CKD-EPI creatinine equation. Glucose [Mass/Vol] 112 mg/dL High 65 - 99 mg/dL [facility] HCO3 [Moles/Vol] 25 mmol/L 21 - 32 mmol/L [facility] Interpretation and review of laboratory results Abnormal [facility] Potassium [Moles/Vol] 4.7 mmol/L 3.5 - 5.1 mmol/L [facility] Sodium [Moles/Vol] 141 mmol/L 135 - 145 mmol/L [facility] Urea nitrogen [Mass/Vol] 17 mg/dL 8 - 25 mg/dL [facility] Urea nitrogen/Creatinine [Mass ratio] 24.3 mg/mg High 10.0 - 20.0 [facility] has implemented the eGFR calculation approach that does not have a coefficient for race that conforms to the NKF-ASN Task Force Recommendations. [facility] Activated partial thrombopla stin time (aPTT) in platelet poor plasma by coagulation aOrdered By: Melissa Salmeron on 10-09-2021 aPTT Coag (PPP) [Time] 28.2 s 25.1-36.5 [facility] Albumin [Mass/volume] in Ser um or PlasmaOrdered By: Melissa Salmeron on 10-09-2021 Albumin [Mass/Vol] 4.2 g/dL 3.2-5.5 [facility] Basophils Auto (Bld) [#/Vol] Ordered By: Melissa Salmeron on 10-09-2021 Basophils (Bld) [#/Vol] 0.1 10*3/uL 0.0-0.2 [facility] Basophils/100 WBC Auto (Bld) Ordered By: Melissa Salmeron on 10-09-2021 Basophils/100 WBC (Bld) 0.8 % [facility] Blood hemoglobin measurement (mass/volume)Ordered By: Melissa Salmeron on 10-09-2021 Hemoglobin (Bld) [Mass/Vol] 15.1 g/dL 11.8-15.4 [facility] Blood leukocytes automated c ount (number/volume)Ordered By: Melissa Salmeron on 10-09-2021 WBC (Bld) [#/Vol] 9.8 10*3/uL 4.5-11.[address] [facility] CT abdomen pelvis w conon CT abdomen [place] [address] CT Scan Report Signed Patient: Ara Loza MR#: [id number] 9 : 1960 Acct:[id number] Age/Sex: 61 / F ADM Date: 10/09/21 Loc: ER Room: Type: [facility] ER Attending Dr: Ordering Provider: Melissa Salmeron APRN Date of Service: 10/09/21 CT/CT angio chest PE protocol: SOB/ dimer/ hx of covid ([id number]) CT/CT abdomen pelvis w con: diffuse abd pain Copies to: Melissa Salmeron APRN CTA chest with PE protocol TECHNIQUE: Axial imaging with 2-D and 3-D reconstruction. 90cc of Isovue-[address] exam was performed using one or more the following dose reduction techniques: Automated exposure control, adjustment of the MA and/or Kv according to patient size, or use of the iterative reconstruction technique. History: Abdominal pain since last night. Hurts to breathe. Positive d-dimer. COMPARISON: None The thyroid gland is normal. Central airway is patent. Esophagus is normal in course and caliber. Heart is not enlarged. No pericardial effusion is seen. Nonenlarged mediastinal lymph nodes identified. No hilar mass or adenopathy is seen. No pulmonary embolus is identified. No thoracic aortic aneurysm is seen. Atherosclerosis identified. No lung nodules identified.. No infiltrate or congestion identified. No pleural effusion identified. No pneumothorax identified. No chest wall abnormality seen. The bony structures are intact. Images of the upper abdomen are noncontributory. CT/CT angio chest PE protocol IMPRESSION: No pulmonary embolus. CT abdomen and pelvis withcontrast TECHNIQUE: Axial imaging with 2-D reconstruction. . The CT exam was performed using one or more the following dose reduction techniques: Automated exposure control, adjustment of the MA and/or Kv according to patient size, or use of the iterative reconstruction technique. COMPARISON:None History: As above Lung bases are unremarkable. No hepatic mass or intrahepatic biliary ductal dilatation identified. Normal density of the liver parenchyma identified. No gallbladder abnormality identified. No extrahepatic biliary ductal dilatation identified. There is no splenomegaly or splenic mass identified. No pancreatic mass or ductal dilatation identified. The adrenal glands are unremarkable. No nephrolithiasis or obstructive uropathy is identified. No abdominal aortic aneurysm identified. No significant retroperitoneal abnormalities identified. Mild distention multiple small bowel loops which are fluid-filled present. Consider ileus. Fluid- filled nondistended ascending colon present. The appendix is normal. There is no colonic wall thickening, distention or pericolonic inflammatory changes. Distal colonic diverticulosis identified. Urinary bladder is unremarkable. Reproductive structures are unremarkable. Tiny moderate free fluid identified. No pneumoperitoneum. The bony structures are unremarkable. No subcutaneous soft tissue abnormality identified. IMPRESSION: Generalized ileus. No acute abdominal pelvic findings. Impression dictated by: Cornelio Tobin M.D.10/09/2021 4:33 PM Dictation Location: [place] [address] Transcribed By: [facility] 10/09/21 9605 Dictated By: Cornelio Tobin DO 10/09/21 1623 Signed By: 10/09/21 1633 Normal [facility] Complete Blood Count Auto Di ffon 10-09-2021 Basophils (Bld) [#/Vol] 0.1 10*3/uL Normal 0.0-0.2 [facility] Comment on above: Result Comment: PERF ORMED BY: [place] [address] PATHOLOGIST BODY FINISHER JENNIFER RCUZ M.D. Performed By: #### C BC, CMP, LIPASE, HS TROP, PT, PTT, DDIMER #### [address] Basophils/100 WBC (Bld) 0.8 % Normal . [facility] Comment on above: Performed By: #### C BC, CMP, LIPASE, HS TROP, PT, PTT, DDIMER #### [address] Eosinophils (Bld) [#/Vol] 0.0 10*3/uL Normal 0.0-0.45 [facility] Comment on above: Performed By: #### C BC, CMP, LIPASE, HS TROP, PT, PTT, DDIMER #### [address] Eosinophils/100 WBC (Bld) 0.5 % Normal . [facility] Comment on above: Performed By: #### C BC, CMP, LIPASE, HS TROP, PT, PTT, DDIMER #### [address] Erythrocyte distribution width (RBC) [Ratio] 14.6 % Normal 11.9-15.3 [facility] Comment on above: Performed By: #### C BC, CMP, LIPASE, HS TROP, PT, PTT, DDIMER #### [address] Hematocrit (Bld) [Volume fraction] 45.5 % Normal 34.0-46.4 [facility] Comment on above: Performed By: #### C BC, CMP, LIPASE, HS TROP, PT, PTT, DDIMER #### [address] Hemoglobin (Bld) [Mass/Vol] 15.1 g/dL Normal 11.8-15.4 [facility] Comment on above: Performed By: #### C BC, CMP, LIPASE, HS TROP, PT, PTT, DDIMER #### [address] Lymphocytes (Bld) [#/Vol] 1.5 10*3/uL Normal 1.00-4.8 [facility] Comment on above: Performed By: #### C BC, CMP, LIPASE, HS TROP, PT, PTT, DDIMER #### [address] Lymphocytes/100 WBC (Bld) 15.8 % Normal . [facility] Comment on above: Performed By: #### C BC, CMP, LIPASE, HS TROP, PT, PTT, DDIMER #### [address] MCH (RBC) [Entitic mass] 27.2 pg Normal 24.7-34.3 [facility] Comment on above: Performed By: #### C BC, CMP, LIPASE, HS TROP, PT, PTT, DDIMER #### [address] MCV (RBC) [Entitic vol] 81.7 fL Normal 80-100 [facility] Comment on above: Performed By: #### C BC, CMP, LIPASE, HS TROP, PT, PTT, DDIMER #### [address] Mean Corpuscular HGB Conc 33.3 g/dL Normal 32.0-35.0 [facility] Comment on above: Performed By: #### C BC, CMP, LIPASE, HS TROP, PT, PTT, DDIMER #### [address] Monocytes (Bld) [#/Vol] 0.3 10*3/uL Normal 0.0-0.8 [facility] Comment on above: Performed By: #### C BC, CMP, LIPASE, HS TROP, PT, PTT, DDIMER #### [facility] [address] Monocytes/100 WBC (Bld) 3.6 % Normal . [facility] Comment on above: Performed By: #### C BC, CMP, LIPASE, HS TROP, PT, PTT, DDIMER #### [facility] [address] Neutrophils (Bld) [#/Vol] 7.8 10*3/uL High 1.8-7.7 [facility] Comment on above: Performed By: #### C BC, CMP, LIPASE, HS TROP, PT, PTT, DDIMER #### [facility] [address] Neutrophils/100 WBC (Bld) 79.3 % Normal . [facility] Comment on above: Performed By: #### C BC, CMP, LIPASE, HS TROP, PT, PTT, DDIMER #### [address] Nucleated RBC/100 WBC (Bld) [Ratio] 0.1 % Normal 0-0.5 [facility] Comment on above: Performed By: #### C BC, CMP, LIPASE, HS TROP, PT, PTT, DDIMER #### [address] Platelet mean volume (Bld) [Entitic vol] 7.1 fL Normal 6.3-10.7 [facility] Comment on above: Performed By: #### C BC, CMP, LIPASE, HS TROP, PT, PTT, DDIMER #### [facility] [address] Platelets (Bld) [#/Vol] 276 10*3/uL Normal 150-450 [facility] Comment on above: Performed By: #### C BC, CMP, LIPASE, HS TROP, PT, PTT, DDIMER #### [address] RBC (Bld) [#/Vol] 5.57 10*6/uL High 3.60-5.00 [facility] Comment on above: Performed By: #### C BC, CMP, LIPASE, HS TROP, PT, PTT, DDIMER #### [facility] [address] WBC (Bld) [#/Vol] 9.8 10*3/uL Normal 4.5-11.0 [facility] Comment on above: Performed By: #### C BC, CMP, LIPASE, HS TROP, PT, PTT, DDIMER #### [facility] [address] Comprehensive Metabolic Pane rika 10-09-2021 Albumin [Mass/Vol] 4.2 g/dL Normal 3.2-5.5 [facility] Comment on above: Performed By: #### C BC, CMP, LIPASE, HS TROP, PT, PTT, DDIMER #### [address] Albumin/Globulin [Mass ratio] 1.4 {ratio} Normal [facility] Comment on above: Performed By: #### C BC, CMP, LIPASE, HS TROP, PT, PTT, DDIMER #### [facility] [address] ALP [Catalytic activity/Vol] 61 U/L Normal 32-92 [facility] Comment on above: Performed By: #### C BC, CMP, LIPASE, HS TROP, PT, PTT, DDIMER #### [facility] [address] ALT [Catalytic activity/Vol] 27 U/L Normal 10-60 [facility] Comment on above: Performed By: #### C BC, CMP, LIPASE, HS TROP, PT, PTT, DDIMER #### [facility] [address] AST [Catalytic activity/Vol] 25 U/L Normal 10-42 [facility] Comment on above: Performed By: #### C BC, CMP, LIPASE, HS TROP, PT, PTT, DDIMER #### [facility] [address] Bilirubin [Mass/Vol] 0.6 mg/dL Normal 0.3-1.2 [facility] Comment on above: Performed By: #### C BC, CMP, LIPASE, HS TROP, PT, PTT, DDIMER #### [facility] [address] Calcium [Mass/Vol] 10.9 mg/dL High 8.2-10.2 [facility] Comment on above: Performed By: #### C BC, CMP, LIPASE, HS TROP, PT, PTT, DDIMER #### [facility] [address] Chloride [Moles/Vol] 102 mmol/L Normal 95-114 [facility] Comment on above: Performed By: #### C BC, CMP, LIPASE, HS TROP, PT, PTT, DDIMER #### [address] CO2 [Moles/Vol] 23.3 mmol/L Normal 22.0-30.0 [facility] Comment on above: Performed By: #### C BC, CMP, LIPASE, HS TROP, PT, PTT, DDIMER #### [address] Creatinine [Mass/Vol] 0.89 mg/dL Normal 0.44-1.03 [facility] Comment on above: Performed By: #### C BC, CMP, LIPASE, HS TROP, PT, PTT, DDIMER #### [address] Creatinine Clr Calc Pharmacy 80.63 [facility] Comment on above: Performed By: #### C BC, CMP, LIPASE, HS TROP, PT, PTT, DDIMER #### [address] Estimated GFR ( Eric > 60 [facility] Comment on above: Result Comment: GFR estimated reference range: According to KDOQI guidelines, <60 ml/min/1.73m2 is sufficient to diagnose a patient with chronic kidney disease. Performed By: #### C BC, CMP, LIPASE, HS TROP, PT, PTT, DDIMER #### [address] Estimated GFR (Non- Am > 60 Normal [facility] Comment on above: Performed By: #### C BC, CMP, LIPASE, HS TROP, PT, PTT, DDIMER #### [facility] [address] Globulin (S) [Mass/Vol] 2.9 g/dL Normal [facility] Comment on above: Performed By: #### C BC, CMP, LIPASE, HS TROP, PT, PTT, DDIMER #### [facility] [address] Glucose [Mass/Vol] 129 mg/dL High 70-100 [facility] Comment on above: Result Comment: [facility] Glucose Reference Range is dependent on time and content of last meal. Glucose of more than 200 mg/dL in a nonstressed, ambulatory subject supports the diagnosis of Diabetes Mellitus. ADA recommended reference range Performed By: #### C BC, CMP, LIPASE, HS TROP, PT, PTT, DDIMER #### [address] Potassium [Moles/Vol] 4.4 mmol/L Normal 3.5-5.1 [facility] Comment on above: Performed By: #### C BC, CMP, LIPASE, HS TROP, PT, PTT, DDIMER #### [address] Protein [Mass/Vol] 7.1 g/dL Normal 6.1-7.9 [facility] Comment on above: Performed By: #### C BC, CMP, LIPASE, HS TROP, PT, PTT, DDIMER #### [facility] [address] Sodium [Moles/Vol] 136 mmol/L Normal 136-146 [facility] Comment on above: Performed By: #### C BC, CMP, LIPASE, HS TROP, PT, PTT, DDIMER #### [facility] [address] Urea nitrogen [Mass/Vol] 17 mg/dL Normal 9-23 [facility] Comment on above: Performed By: #### C BC, CMP, LIPASE, HS TROP, PT, PTT, DDIMER #### [facility] [address] Creatinine and Glomerular fi ltration rate.predicted panel (S/P/Bld)Ordered By: Melissa Salmeron on 10-09-2021 Creatinine [Mass/Vol] 0.89 mg/dL 0.44-1.03 [facility] D-Dimer High Sensitivityon 0 10-09-2021 D-Dimer High Sensitivity 274 ng/mL High 0-243 [facility] Comment on above: Result Comment: The reference range for D-dimer is <243 ng/mL D-dimer units. D-dimer results must be used in conjunction with a clinical pretest probability (PTP) assessment model for deep vein thrombosis (DVT) and pulmonary embolism (PE). Results <230 ng/mL d-dimer units can be used as a negative predictor in patients with low or moderate probability for DVT/PE. Results above the exclusion threshold of 230 ng/ml D-dimer units for DVT/PE may indicate the need for further diagnostic testing. D-Dimer can be increased in hospitalized patients due to co-morbid conditions. PERFORMED BY: [place] [address] PATHOLOGIST BODY FINISHER JENNIFER CRUZ M.D. Performed By: #### C BC, CMP, LIPASE, HS TROP, PT, PTT, DDIMER #### [place] [id number] [facility] ECG 12 lead ECGon 10-09-2021 ECG 12 lead ECG [facility] [address] Electrocardiograph Report Signed Patient: Ara Loza MR#: [id number] 9 : 1960 Acct:[id number] Age/Sex: 61 / F ADM Date: 10/09/21 Loc: ER Room: Type: [facility] ER Attending Dr: Ordering Provider: OSMAN PROVIDER Date of Service: 10/09/21 ECG/ECG 12 lead ECG: Abdominal Pain Copies to: Test Reason : Blood Pressure : / mmHG Vent. Rate : 077 BPM Atrial Rate : 077 BPM P-R Int : 154 ms QRS Dur : 084 ms QT Int : 386 ms P-R-T Axes : 045 -15 037 degrees QTc Int : 436 ms Normal sinus rhythm Anterior infarct , age undetermined Abnormal ECG No previous ECGs available Confirmed by JG HO DO ([id number]) on 10/09/2021 8:01:30 PM Referred By: Electronically Signed By:JG HO DO Transcribed By: MUS Signed By Jg Ho DO 10/09 Normal [facility] Eosinophils Auto (Bld) [#/Vo l]Ordered By: Melissa Salmeron on 10-09-2021 Eosinophils (Bld) [#/Vol] 0.0 10*3/uL 0.0-0.45 [facility] Eosinophils/100 WBC Auto (Bl d)Ordered By: Melissa Salmeron on 10-09-2021 Eosinophils/100 WBC (Bld) 0.5 % [facility] Erythrocyte distribution wid th Auto (RBC) [Ratio]Ordered By: Melissa Salmeron on 10-09-2021 Erythrocyte distribution width (RBC) [Ratio] 14.6 % 11.9-15.3 [facility] Estimated glomerular filtrat ion rate (GFR) non- AmericanOrdered By: Melissa Salmeron on 10-09-2021 GFR/1.73 sq M.predicted among non-blacks MDRD (S/P/Bld) [Vol rate/Area] > 60 mL/Min [facility] Globulin Calc (S) [Mass/Vol] Ordered By: Melissa Salmeron on 10-09-2021 Globulin (S) [Mass/Vol] 2.9 g/dL [facility] Hematocrit Auto (Bld) [Volum e fraction]Ordered By: Melissa Salmeron on 10-09-2021 Hematocrit (Bld) [Volume fraction] 45.5 % 34.0-46.4 [facility] Laboratory - Chemistry and C hemistry - challengeOrdered By: Melissa Salmeron on 10-09-2021 Lipase [Catalytic activity/Vol] 49.0 U/L -51 [facility] Laboratory - CoagulationOrde red By: Melissa Salmeron on 10-09-2021 PT Coag (PPP) [Time] 11.1 s 9.0-12.9 [facility] Laboratory - Hematology and Cell countsOrdered By: Melissa Salmeron on 10-09-2021 Nucleated RBC/100 WBC (Bld) [Ratio] 0.1 % 0-0.5 [facility] Lipaseon 10-09-2021 Lipase [Catalytic activity/Vol] 49.0 U/L Normal 22-51 [facility] Comment on above: Result Comment: PERF ORMED BY: [facility] [address] [place] [address] PATHOLOGIST BODY FINISHER JENNIFER CRUZ M.D. Performed By: #### C BC, CMP, LIPASE, HS TROP, PT, PTT, DDIMER #### [facility] [address] Lymphocytes Auto (Bld) [#/Vo l]Ordered By: Melissa Salmeron on 10-09-2021 Lymphocytes (Bld) [#/Vol] 1.5 10*3/uL 1.00-4.8 [facility] Lymphocytes/100 WBC Auto (Bl d)Ordered By: Melissa Salmeron on 10-09-2021 Lymphocytes/100 WBC (Bld) 15.8 % [facility] MCH Auto (RBC) [Entitic mass ]Ordered By: Melissa Salmeron on 10-09-2021 MCH (RBC) [Entitic mass] 27.2 pg 24.7-34.3 [facility] MCHC Auto (RBC) [Mass/Vol]Or dered By: Melissa Salmeron on 10-09-2021 MCHC (RBC) [Mass/Vol] 33.3 g/dL 32.0-35.0 [facility] MCV Auto (RBC) [Entitic vol] Ordered By: Melissa Salmeron on 10-09-2021 MCV (RBC) [Entitic vol] 81.7 fL 80-100 [facility] Monocytes Auto (Bld) [#/Vol] Ordered By: Melissa Salmeron on 10-09-2021 Monocytes (Bld) [#/Vol] 0.3 10*3/uL 0.0-0.8 [facility] Monocytes/100 WBC Auto (Bld) Ordered By: Melissa Salmeron on 10-09-2021 Monocytes/100 WBC (Bld) 3.6 % [facility] Neutrophils Auto (Bld) [#/Vo l]Ordered By: Melissa Salmeron on 10-09-2021 Neutrophils (Bld) [#/Vol] 7.8 10*3/uL 1.8-7.7 [facility] Neutrophils/100 WBC Auto (Bl d)Ordered By: Melissa Salmeron on 10-09-2021 Neutrophils/100 WBC (Bld) 79.3 % [facility] No Panel InformationOrdered By: Melissa Salmeron on 10-09-2021 D-Dimer Quantitative (PE/DVT) 274 ng/mL 0-243 [facility] Comment on above: The reference range for D-dimer is <243 ng/mL D-dimer units.D-dimer results must be used in conjunction with a clinicalpretest probability (PTP) assessment model for deep veinthrombosis (DVT) and pulmonary embolism (PE). Results <230ng/mL d-dimer units can be used as a negative predictor inpatients with low or moderate probability for DVT/PE.Results above the exclusion threshold of 230 ng/ml D-dimerunits for DVT/PE may indicate the need for furtherdiagnostic testing.D-Dimer can be increased in hospitalized patients due toco-morbid conditions. Estimated GFR () > 60 mL/Min [facility] Comment on above: GFR estimated refere nce range: According to KDOQI guidelines, <60 ml/min/1.73m2 is sufficient to diagnose a patient with chronic kidney disease. Pharmacy Creatinine Clearance (Chem 80.63 [facility] Partial Thromboplastin Timeo n 10-09-2021 aPTT Coag (Bld) [Time] 28.2 s Normal 25.1-36.5 [facility] Comment on above: Performed By: #### C BC, CMP, LIPASE, HS TROP, PT, PTT, DDIMER #### [address] Platelet mean volume Auto (B ld) [Entitic vol]Ordered By: Melissa Salmeron on 04-30-2022 Platelet mean volume (Bld) [Entitic vol] 7.1 fL 6.3-10.7 [facility] Platelet poor plasma interna tional normalized ratio (INR) by coagulation assay (relatOrdered By: Melissa Salmeron on 10-09-2021 INR Coag (PPP) [Relative time] 1.0 {INR} [facility] Comment on above: INR Therapeutic Rang e A) Pre- and Peroperative OAT started two weeks before surgery. NOT HIP SURGERY: 1.5 - 2.5 HIP SURGERY: 2 - 3B) Primary and secondary prevention of venous THROMBOSIS: 2 - 3C) Active venous thrombosis, pulmonary embolismand prevention of recurrent venous thrombosis: 2 - 3D) Prevention of arterial thromboembolismincluding patients with mechanical heart valves: 3 - 4.5 Platelets Auto (Bld) [#/Vol] Ordered By: Melissa Salmeron on 10-09-2021 Platelets (Bld) [#/Vol] 276 10*3/uL 150-450 [facility] Protein [Mass/volume] in Ser um or PlasmaOrdered By: Melissa Salmeron on 10-09-2021 Protein [Mass/Vol] 7.1 g/dL 6.1-7.9 [facility] Prothrombin Time INRon 10-09 INR Coag (PPP) [Relative time] 1.0 {INR} Normal [facility] Comment on above: Result Comment: INR Therapeutic Range A) Pre- and Peroperative OAT started two weeks before surgery. NOT HIP SURGERY: 1.5 - 2.5 HIP SURGERY: 2 - 3 B) Primary and secondary prevention of venous THROMBOSIS: 2 - 3 C) Active venous thrombosis, pulmonary embolism and prevention of recurrent venous thrombosis: 2 - 3 D) Prevention of arterial thromboembolism including patients with mechanical heart valves: 3 - 4.5 Performed By: #### C BC, CMP, LIPASE, HS TROP, PT, PTT, DDIMER #### [facility] [address] [place] [address] [facility] PT Coag (PPP) [Time] 11.1 s Normal 9.0-12.9 [facility] Comment on above: Performed By: #### C BC, CMP, LIPASE, HS TROP, PT, PTT, DDIMER #### [facility] [address] [place] [id number] [facility] RBC Auto (Bld) [#/Vol]Ordere d By: Melissa Salmeron on 10-09-2021 RBC (Bld) [#/Vol] 5.57 10*6/uL 3.60-5.00 [facility] Serum or plasma alanine nascimento otransferase measurement without P-5'-P (enzymatic activiOrdered By: Melissa Salmeron on 10-09-2021 ALT No additional P-5'-P [Catalytic activity/Vol] 27 U/L 10-60 [facility] Serum or plasma albumin/glob ulin mass ratioOrdered By: Melissa Salmeron on 10-09-2021 Albumin/Globulin [Mass ratio] 1.4 {ratio} [facility] Serum or plasma alkaline joslyn sphatase measurement (enzymatic activity/volume)Ordered By: Melissa Salmeron on 10-09-2021 ALP [Catalytic activity/Vol] 61 U/L 32-92 [facility] Serum or plasma aspartate am inotransferase measurement (enzymatic activity/volume)Ordered By: Melissa Salmeron on 10-09-2021 AST [Catalytic activity/Vol] 25 U/L 10-42 [facility] Serum or plasma calcium enmanuel urement (mass/volume)Ordered By: Melissa Salmeron on 10-09-2021 Calcium [Mass/Vol] 10.9 mg/dL 8.2-10.2 [facility] Serum or plasma chloride srinivas surement (moles/volume)Ordered By: Melissa Salmeron on 10-09-2021 Chloride [Moles/Vol] 102 mmol/L 95-114 [facility] Serum or plasma glucose enmanuel urement (mass/volume)Ordered By: Melissa Salmeron on 10-09-2021 Glucose [Mass/Vol] 129 mg/dL 70-100 [facility] Comment on above: ADA recommended refe rence rangeRandom Glucose Reference Range is dependent on time and content of last meal. Glucose of more than 200 mg/dL in a nonstressed, ambulatory subject supports the diagnosis of Diabetes Mellitus. Serum or plasma potassium me asurement (moles/volume)Ordered By: Melissa Salmeron on 10-09-2021 Potassium [Moles/Vol] 4.4 mmol/L 3.5-5.1 [facility] Serum or plasma sodium measu rement (moles/volume)Ordered By: Melissa Salmeron on 10-09-2021 Sodium [Moles/Vol] 136 mmol/L 136-146 [facility] Serum or plasma total biliru bin measurement (mass/volume)Ordered By: Melissa Salmeron on 10-09-2021 Bilirubin [Mass/Vol] 0.6 mg/dL 0.3-1.2 [facility] Serum or plasma total carbon dioxide measurement (moles/volume)Ordered By: [facility] CO2 [Moles/Vol] 23.3 mmol/L 22.0-30.0 [facility] Serum or plasma urea nitroge n measurement (mass/volume)Ordered By: Melissa Salmeron on 10-09-2021 Urea nitrogen [Mass/Vol] 17 mg/dL 9-23 [facility] Troponin I High Sensitivityo n 10-09-2021 Troponin I High Sensitivity 6 pg/mL Normal 0-15 [facility] Comment on above: Result Comment: PERF ORMED BY: [place] [address] PATHOLOGIST BODY FINISHER JENNIFER CRUZ M.D. Performed By: #### C BC, CMP, LIPASE, HS TROP, PT, PTT, DDIMER #### [facility] [address] Troponin I.cardiac [Mass/vol ume] in Serum or Plasma by High sensitivity methodOrdered By: Melissa Salmeron on 10-09-2021 Troponin I.cardiac High sensitivity method [Mass/Vol] 6 pg/mL 0-15 [facility] XR chest 1V portableon 10-09 XR chest 1V portable [facility] [address] [place] [address] [place] [address] XRay Report Signed Patient: Ara Loza MR#: [id number] : 1960 Acct:[id number] Age/Sex: 61 / F ADM Date: 10/09/21 Loc: ER Room: Type: PRE ER Attending Dr: Ordering Provider: Melissa Salmeron APRN Date of Service: 10/09/21 XR/XR chest 1V portable: Abdominal Pain/ sob Copies to: Melissa Salmeron APRN Plain film chestsingle view HISTORY:Chest pain and shortness of breath COMPARISON:None FINDINGS: The cardiac, mediastinal and hilar silhouettes are within normal limits. No acute lung process, pleural effusion or pneumothorax identified. Bony structures are intact. XR/XR chest 1V portable IMPRESSION: No acute process. Impression dictated by: Cornelio Tobin M.D.10/09/2021 3:18 PM Dictation Location: [place] [address] Transcribed By: [facility] 10/09/21 1518 Dictated By: Cornelio Tobin DO 10/09/21 1515 Signed By: 10/09/21 1518 [facility] Auto Diffon 09-19-2018 Basophils #/vol (Bld) 0.1 E3/mcL Normal 0.0-0.2 [facility] Comment on above: Order Comment: Order Added by Discern Expert. Performed By: #### 2 [id number] #### [facility] [address] [place] [address] Basophils/100 WBC (Bld) 1.4 % Normal 0.0-2.0 [facility] Comment on above: Order Comment: Order Added by Discern Expert. Performed By: #### 2 [id number] #### [facility] [address] [place] [address] Eos Absolute 0.1 E3/mcL Normal 0.0-0.7 [facility] Comment on above: Order Comment: Order Added by Discern Expert. Performed By: #### 2 [id number] #### [facility] [address] [place] [address] Eosinophils/100 WBC (Bld) 2.0 % Normal 0.0-11.0 [facility] Comment on above: Order Comment: Order Added by Discern Expert. Performed By: #### 2 [id number] #### [facility] [address] [place] [address] Lymphocytes #/vol (Bld) 2.5 E3/mcL Normal 1.2-3.4 [facility] Comment on above: Order Comment: Order Added by Discern Expert. Performed By: #### 2 [id number] #### [facility] [address] [place] [address] Lymphocytes/100 WBC (Bld) 41.2 % Normal 20.0-55.0 [facility] Comment on above: Order Comment: Order Added by Discern Expert. Performed By: #### 2 [id number] #### [facility] [address] [place] [address] Ransom Absolute 0.4 E3/mcL Normal 0.0-0.7 [facility] Comment on above: Order Comment: Order Added by Discern Expert. Performed By: #### 2 [id number] #### [facility] [address] [place] [address] Monocytes/100 WBC (Bld) 6.3 % Normal 0.0-10.0 [facility] Comment on above: Order Comment: Order Added by Discern Expert. Performed By: #### 2 [id number] #### [facility] [address] [place] [address] Neutro Absolute 3.0 E3/mcL Normal 1.4-6.5 [facility] Comment on above: Order Comment: Order Added by Discern Expert. Performed By: #### 2 [id number] #### [facility] [address] [place] [address] Neutro Auto 49.1 % Normal 37.0-75.0 [facility] Comment on above: Order Comment: Order Added by Discern Expert. Performed By: #### 2 [id number] #### [facility] [address] [place] [address] BMPon 09-19-2018 Anion gap molar conc 12 mmol/L Normal 10-20 [facility] Comment on above: Performed By: #### 2 [id number] #### TOD [employer] [address] [place] [address] Calcium mass conc 11.0 mg/dL High 8.6-10.3 [facility] Comment on above: Performed By: #### 2 [id number] #### [employer] [address] [place] [address] Chloride molar conc 104 mmol/L Normal 98-107 [facility] Comment on above: Performed By: #### 2 [id number] #### [facility] [employer] [address] [place] [address] CO2 molar conc 27.0 mmol/L Normal 21.0-32.0 [facility] Comment on above: Performed By: #### 2 [id number] #### TOD [employer] [address] [place] [address] Creatinine mass conc 0.9 mg/dL Normal 0.5-1.1 [facility] Comment on above: Performed By: #### 2 [id number] #### [employer] [address] [place], [place] [id number] Glucose mass conc 101 mg/dL High 70-99 [facility] Comment on above: Performed By: #### 2 [id number] #### [facility] [employer] [address] [place] [address] Potassium molar conc 4.1 mmol/L Normal 3.5-5.3 [facility] Comment on above: Performed By: #### 2 [id number] #### [facility] [employer] [address] [place] [address] Sodium molar conc 139 mmol/L Normal 136-145 [facility] Comment on above: Performed By: #### 2 [id number] #### [facility] [employer] [address] [place] [address] Urea nitrogen mass conc 16 mg/dL Normal 6-23 [facility] Comment on above: Performed By: #### 2 [id number] #### [employer] [address] [place] [address] Urea nitrogen/Creatinine mass ratio 17.8 ratio Normal 5.4-30.0 [facility] Comment on above: Performed By: #### 2 [id number] #### [facility] [employer] [address] [place] [address] CBC w/ Auto Diffon 9 Erythrocyte distribution width Ratio (RBC) 14.9 % High 11.5-14.5 [facility] Comment on above: Performed By: #### 2 [id number] #### TOD [facility] [address] [place] [id number] Hematocrit Volume Fraction (Bld) 44.9 % Normal 36.0-48.0 [facility] Comment on above: Performed By: #### 2 [id number] #### TOD [employer] [address] [place] [phone] Hemoglobin mass conc (Bld) 14.6 g/dL Normal 12.0-16.0 [facility] Comment on above: Performed By: #### 2 [id number] #### TOD [facility] [place] [phone] MCH Entitic mass (RBC) 27.3 pg Normal 27.0-31.0 [facility] Comment on above: Performed By: #### 2 [id number] #### [employer] [address] [place], [place] [address] MCHC mass conc (RBC) 32.5 g/dL Low 33.0-37.0 [facility] Comment on above: Performed By: #### 2 460039 #### [employer] [address] [place], [place] [address] MCV Entitic volume (RBC) 84.1 fL Normal 78.0-100.0 [facility] Comment on above: Performed By: #### 2 [id number] #### [employer] [address] [place], [place] [address] Platelet mean volume Entitic volume (Bld) 7.3 fL Low 7.4-11.0 [facility] Comment on above: Performed By: #### 2 [id number] #### [employer] [address] [place], [place] [address] Platelets #/vol (Bld) 271 E3/mcL Normal 130-400 [facility] Comment on above: Performed By: #### 2 [id number] #### TODNicole ComerHemo [facility] [place] [id number] RBC #/vol (Bld) 5.34 E6/mcL Normal 3.90-5.40 [facility] Comment on above: Performed By: #### 2 [id number] #### TODNicole ComerHemo [facility] [place] [address] WBC #/vol (Bld) 6.1 E3/mcL Normal 3.6-11.0 [facility] Comment on above: Performed By: #### 2 [id number] #### TOD [facility] [place] [id number] XR Neck Soft Tissueon 2018 XR Neck Soft Tissue Exam Date/Time: 09/19/2018 16:43 EDT Reason for Exam: Other (please specify) Report STUDY: XR Neck Soft Tissue; 09/19/2018 4:43 pm INDICATION: Other (please specify). Patient states she had an allergic reaction to some medication. My throat was closing and I couldn't swallow. COMPARISON: None. ACCESSION NUMBER(S): [id number] ORDERING CLINICIAN: Pillo Ayala TECHNIQUE: AP and lateral soft tissue neck films were obtained. FINDINGS: Mild disc space narrowing with endplate osteophytosis at C5-6. Cervical spine disc space height was otherwise preserved. No cervical spine compression fracture or listhesis. No destructive bone lesion. No prevertebral soft tissue swelling or prevertebral gas density. The epiglottis is unremarkable. There is no tracheal deviation. The lung apices were clear. There is no opaque soft tissue foreign body or soft tissue gas density. 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 Remainder of the exam was negative. FINAL REPORT Dictated: 09/19/2018 5:05 pm Tacos Ventura MD Signed (Electronic Signature): 09/19/2018 5:05 pm Signed by: Tacos Ventura MD Technologist: [facility] Normal [facility] eGFRon 09-19-2018 GFR/1.73 sq M predicted among non-blacks MDRD vol rate/area (S/P/Bld) mL/min/{1.73_m2} Normal [facility] Comment on above: Order Comment: Order added by Discern Expert. Performed By: #### 1 [id number] #### TOD [facility] [place] [address] CT Abdomen/Pelvis w/ Contras ton 06-28-2018 CT Abdomen/Pelvis w/ Contrast Exam Date/Time: 06/28/2018 09:36 EST Reason for Exam: CHANGE IN BOWEL HABITS ABDOMINAL PAIN;Change in Bowel habits Report STUDY: CT abdomen and pelvis with contrast CT Abdomen/Pelvis w/ Contrast; 06/28/2018 9:36 am INDICATION: Change in Bowel habits. COMPARISON: None. ACCESSION NUMBER(S): ORDERING CLINICIAN: Lucy Larios TECHNIQUE: CT of the abdomen was performed. Contiguous axial images were obtained at 3 mm slice thickness through the abdomen. Coronal and sagittal reconstructions at 3 mm slice thickness were performed. 150 ml of contrast material Omnipaque 350 were administered intravenously without immediate complication. FINDINGS: LOWER CHEST: The visualized lung base is unremarkable. The heart is normal in size without evidence of pericardial effusion. No pleural effusion is evident. ABDOMEN: LIVER, GALLBLADDER, BILE DUCTS: The right lobe of the liver is enlarged, measuring 20.6 cm in length. The density of the liver is decreased consistent with mild diffuse hepatic steatosis. No intrahepatic biliary dilatation is present. The gallbladder is normal in size, without any visualized gallstones. PANCREAS: Normal in size and attenuation. No pancreatic calcifications. SPLEEN: Within normal limits. ADRENAL GLANDS: Normal in size and shape. KIDNEYS URETERS AND URINARY BLADDER The kidneys are normal in size, shape and nephrograms. No calculus is seen in the ureters or the kidneys. The bladder is well distended with the non-opacified urine. The perivesical fat planes are intact. Exam Date/Time: 06/28/2018 09:36 EST Report BOWEL: There are few diverticula, in the sigmoid colon. No evidence of diverticulitis or abnormal thickening of the wall of the colon. The colon is incompletely evaluated because of lack of full distensibility and absence of contrast within the colon. The appendix is normal in size. The small bowel loops are normal in size. A small hiatal hernia is present. UTERUS AND OVARIES: Status post hysterectomy. The ovaries are not visualized. VESSELS: The aorta and IVC are within normal limits. PERITONEUM/RETROPERITONEUM /LYMPH NODES: No free fluid is seen in the abdomen. There is no para-aortic, mesenteric or pelvic lymphadenopathy. ABDOMINAL WALL: A fat containing umbilical hernia is present. No inguinal hernia is seen. There is also a poorly defined herniation of fat, through a defect in the rectus abdominus muscle, as seen at image 121/168 axial series and 70/132 sagittal series, located about 11 cm below the umbilical hernia, with a gap of 1.7 cm in the wall BONES: No suspicious osseous lesions are present. Mild degenerative changes are present, in the sacroiliac joints. IMPRESSION: Hepatic steatosis, with hepatomegaly. Fat containing umbilical hernia. Separate fat containing ventral hernia in the pelvic region, 11 cm below the umbilicus. 1. FINAL REPORT Dictated: 06/28/2018 4:24 pm Marvin Eduardo MD Signed (Electronic Signature): 06/28/2018 4:24 pm Signed by: Marvin Eduardo MD Technologist: [facility] Vital Signs Date Time Vital Sign Value Performing Clinician Facility 11-19-2024 09:02-0400 Body height 173 cm Lucy Larios MD Work Phone: [facility] 11-19-2024 09:02-0400 Body mass index (BMI) [Ratio] 31.07 kg/m2 Lucy Larios MD Work Phone: [facility] 11-19-2024 09:02-0400 Body weight 92.99 kg Lucy Larios MD Work Phone: [facility] Comment on above: Recorded weight from last visit. 11-19-2024 09:02-0400 Diastolic blood pressure 80 mm[Hg] Lucy Larios MD Work Phone: [facility] 11-19-2024 09:02-0400 Heart rate 70 /min Lucy Larios MD Work Phone: [facility] 11-19-2024 09:02-0400 Systolic blood pressure 126 mm[Hg] Lucy Larios MD Work Phone: [facility] 10-24-2024 16:49-0400 Body temperature 97.7 [degF] Lucy Larios MD Work Phone: [facility] 10-24-2024 16:49-0400 Diastolic blood pressure 85 mm[Hg] Lucy Larios MD Work Phone: [facility] 10-24-2024 16:49-0400 Heart rate 92 /min Lucy Larios MD Work Phone: [facility] 10-24-2024 16:49-0400 Respiratory rate 16 /min Lucy Larios MD Work Phone: [facility] 10-24-2024 16:49-0400 SaO2% (BldA) [Mass fraction] 94 % Lucy Larios MD Work Phone: [facility] 10-24-2024 16:49-0400 Systolic blood pressure 142 mm[Hg] Lucy Larios MD Work Phone: 9(550)[phone] [place] [address] 10-24-2024 10:40-0400 Body height 173 cm Lucy Larios MD Work Phone: 2(228)351-321559 [place] [address] 10-24-2024 10:40-0400 Body mass index (BMI) [Ratio] 31.07 kg/m2 Lucy Larios MD Work Phone: 1(695)832-878859 [place] [address] 10-24-2024 10:40-0400 Body weight 93 kg Lucy Larios MD Work Phone: 9(001)521-634359 [place] [address] 10-22-2024 11:10-0400 Body height 172.7 cm Lucy Larios MD Work Phone: 7(185)911-645159 [place] [address] 10-22-2024 11:10-0400 Body mass index (BMI) [Ratio] 31.63 kg/m2 Lucy Larios MD Work Phone: 1(162)579-108559 [place] [address] 10-22-2024 11:10-0400 Body weight 94.35 kg Lucy Larios MD Work Phone: 7(260)[phone] [place] [address] Comment on above: Recorded weight from last visit. 10-22-2024 11:10-0400 Diastolic blood pressure 70 mm[Hg] Lucy Larios MD Work Phone: [facility] 10-22-2024 11:10-0400 Heart rate 74 /min Lucy Larios MD Work Phone: [facility] 10-22-2024 11:10-0400 Systolic blood pressure 124 mm[Hg] Lucy Larios MD Work Phone: 4(636)337-335459 [place] [address] 10-11-2024 10:08-0400 Body height 172.7 cm Lucy Larios MD Work Phone: [facility] 10-11-2024 10:08-0400 Body mass index (BMI) [Ratio] 31.63 kg/m2 Lucy Larios MD Work Phone: [facility] 10-11-2024 10:08-0400 Body weight 94.35 kg Lucy Larios MD Work Phone: [facility] 10-11-2024 10:08-0400 Diastolic blood pressure 76 mm[Hg] Lucy Larios MD Work Phone: [facility] 10-11-2024 10:08-0400 Heart rate 65 /min Lucy Larios MD Work Phone: [facility] 10-11-2024 10:08-0400 Systolic blood pressure 130 mm[Hg] Lucy Larios MD Work Phone: [facility] 10-07-2024 13:03-0400 Body temperature 98.1 [degF] Harrison Lan PA-C Work Phone: [facility] 10-07-2024 13:03-0400 Diastolic blood pressure 83 mm[Hg] Harrison Lan PA-C Work Phone: [facility] 10-07-2024 13:03-0400 Heart rate 76 /min Harrison Lan PA-C Work Phone: [facility] 10-07-2024 13:03-0400 Systolic blood pressure 179 mm[Hg] Harrison Lan PA-C Work Phone: [facility] 10-09-2023 09:43-0400 Body temperature 98.4 [degF] Harrison Lan PA-C Work Phone: [facility] 10-09-2023 09:43-0400 Diastolic blood pressure 83 mm[Hg] Harrison Lan PA-C Work Phone: [facility] Comment on above: pt following up with PCP 10-09-2023 09:43-0400 Heart rate 69 /min Harrison Lan PA-C Work Phone: [facility] 10-09-2023 09:43-0400 Systolic blood pressure 166 mm[Hg] Harrison Lan PA-C Work Phone: [facility] Comment on above: pt following up with PCP 05-05-2023 08:36-0500 Body height 172.7 cm Jarek Farias MD Work Phone: [facility] 05-05-2023 08:36-0500 Body temperature 97.7 [degF] Jarek Farias MD Work Phone: [facility] 05-05-2023 08:36-0500 Body weight 103.69 kg Jarek Farias MD Work Phone: [facility] 05-05-2023 08:36-0500 Diastolic blood pressure 74 mm[Hg] Jarek Farias MD Work Phone: [facility] 05-05-2023 08:36-0500 Heart rate 65 /min Jarek Farias MD Work Phone: [facility] 05-05-2023 08:36-0500 SaO2% (BldA) [Mass fraction] 96 % Jarek Fraias MD Work Phone: [facility] 05-05-2023 08:36-0500 Systolic blood pressure 140 mm[Hg] Jarek Farias MD Work Phone: [facility] 03-28-2023 10:53-0400 Body temperature 98.29 [degF] Terri Rand MD Work Phone: [facility] 03-28-2023 10:53-0400 Diastolic blood pressure 95 mm[Hg] Terri Rand MD Work Phone: [facility] 03-28-2023 10:53-0400 Heart rate 67 /min Terri Rand MD Work Phone: [facility] 03-28-2023 10:53-0400 Respiratory rate 12 /min Terri Rand MD Work Phone: [facility] 03-28-2023 10:53-0400 Systolic blood pressure 181 mm[Hg] Terri Rand MD Work Phone: [facility] 02-21-2023 09:31-0400 Body temperature 98.4 [degF] Hosford Pederson [employer] Work Phone: [facility] 02-21-2023 09:31-0400 Diastolic blood pressure 83 mm[Hg] Tristin Pederson [employer] Work Phone: [facility] 02-21-2023 09:31-0400 Heart rate 64 /min Hosford Pederson [employer] Work Phone: [facility] 02-21-2023 09:31-0400 Respiratory rate 14 /min Hosford Pederson [employer] Work Phone: [facility] 02-21-2023 09:31-0400 Systolic blood pressure 155 mm[Hg] Hosford Pederson [employer] Work Phone: [facility] 02-06-2023 10:37-0400 Body height 166.4 cm Lucy Murrell MD Work Phone: [facility] Comment on above: ACTUAL MEASURED HEIGHT 02-06-2023 10:37-0400 Body mass index (BMI) [Ratio] 35.8 kg/m2 Lucy Murrell MD Work Phone: [facility] 02-06-2023 10:37-0400 Body temperature 97.39 [degF] Lucy Murrell MD Work Phone: [facility] 02-06-2023 10:37-0400 Body weight 99.1 kg Lucy Murrell MD Work Phone: [facility] 02-06-2023 10:37-0400 Diastolic blood pressure 82 mm[Hg] Lucy Murrell MD Work Phone: [facility] 02-06-2023 10:37-0400 Heart rate 74 /min Lucy Murrell MD Work Phone: [facility] 02-06-2023 10:37-0400 Respiratory rate 14 /min Lucy Murrell MD Work Phone: [facility] 02-06-2023 10:37-0400 SaO2% (BldA) [Mass fraction] 97 % Lucy Murrell MD Work Phone: [facility] 02-06-2023 10:37-0400 Systolic blood pressure 159 mm[Hg] Lucy Murrell MD Work Phone: [facility] 02-06-2023 07:51-0400 Body temperature 98.6 [degF] Terri Rand MD Work Phone: [facility] 12-16-2022 07:13-0400 Body temperature 97.39 [degF] Terri Rand MD Work Phone: [facility] 12-16-2022 07:13-0400 Diastolic blood pressure 100 mm[Hg] Terri Rand MD Work Phone: [facility] 12-16-2022 07:13-0400 Heart rate 79 /min Terri Rand MD Work Phone: [facility] 12-16-2022 07:13-0400 Respiratory rate 18 /min Terri Rand MD Work Phone: [facility] 12-16-2022 07:13-0400 Systolic blood pressure 186 mm[Hg] Terri Rand MD Work Phone: [facility] 10-09-2021 16:00-0400 Diastolic blood pressure 84 mm[Hg] [facility] 10-09-2021 16:00-0400 Heart rate 71 /min [facility] 10-09-2021 16:00-0400 Respiratory rate 18 /min [facility] 10-09-2021 16:00-0400 SaO2% (BldA) [Mass fraction] 100 % [facility] 10-09-2021 16:00-0400 Systolic blood pressure 178 mm[Hg] [facility] 10-09-2021 13:55-0400 Body height 172.72 cm [facility] 10-09-2021 13:55-0400 Body mass index (BMI) [Ratio] 34 kg/m2 [facility] 10-09-2021 13:55-0400 Body temperature 97.8 [degF] [facility] 10-09-2021 13:55-0400 Body weight 101.5 kg [facility] Encounters Encounter Date Encounter Type Care Provider Facility Start: 11-19-2024 End: 11-19-2024 Postop follow up visit related to original px Lucy Larios MD Work Phone: [facility] Comment on above: Postoperative examin ation (Primary Dx) Start: 11-19-2024 End: 11-19-2024 [facility] Start: 11-12-2024 End: 11-12-[address] 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) Start: 10-22-2024 End: 10-22-2024 Office outpatient visit 25 minutes Lucy Larios MD Work Phone: [facility] Comment on above: Ventral hernia witho ut obstruction or gangrene (Primary Dx) Start: 10-22-2024 End: 10-22-2024 [facility] Start: 10-17-2024 End: 05-08-2025 Subsequent hospital visit by physician [address] [facility] Comment on above: Ventral hernia witho ut obstruction or gangrene Start: 10-17-2024 End: 10-17-2024 ambulatory [facility] Start: 10-11-2024 End: 10-11-2024 ambulatory [facility] Start: 10-11-2024 End: 10-11-2024 Office outpatient new 45 minutes Lucy Larios MD Work Phone: [facility] Comment on above: Ventral hernia witho ut obstruction or gangrene (Primary Dx) Start: 10-07-2024 End: 10-07-2024 ambulatory HARRISON LAN [facility] Start: 10-07-2024 End: 10-07-2024 Office outpatient visit 15 minutes [facility] PA-C Work Phone: [facility] Comment on above: Vaginal vault prolap se, posthysterectomy (Primary Dx) Start: 12-12-2023 ambulatory MICHELL NICOLAS [facility] y:[facility] Start: 10-09-2023 End: 10-09-2023 Office outpatient visit 25 minutes [facility] PA-C Work Phone: [facility] Comment on above: Vaginal vault prolap se, posthysterectomy (Primary Dx); OAB (overactive bladder); Mixed incontinence Start: 07-17-2023 ambulatory Jarek Farias MD Work Phone: Endocrinology Comment on above: Forms Start: 07-17-2023 E-mail encounter fro m caregiver Jarek Farias MD Work Phone: [facility] Start: 06-01-2023 End: 06-01-2023 ambulatory Jarek Farias MD Work Phone: Endocrinology Comment on above: Bone Density Start: 06-01-2023 E-mail encounter fro m caregiver Jarek Farias MD Work Phone: [facility] Start: 06-01-2023 Telephone encounter Jarek Farias MD Work Phone: Endocrinology Comment on above: Appointment Start: 05-05-2023 End: 05-06-2023 ambulatory JAREK FARIAS Facility:[facility] Start: 05-05-2023 End: 05-05-2023 Office consultation new/estab patient 80 min Jarek Farias MD Work Phone: Endocrinology Comment on above: Hypercalcemia (Prima ry Dx) Start: 03-28-2023 End: 03-28-2023 Postop follow up visit related to original px Terri Rand MD Work Phone: [facility] Comment on above: Postop check (Primar y Dx) Start: 02-21-2023 End: 02-21-2023 Postop follow up visit related to original px Tristin Pederson CNP Work Phone: [facility] Comment on above: Aftercare following surgery of the genitourinary system (Primary Dx) Start: 02-14-2023 End: 02-14-2023 Anesthesia consultation Amy Tang MD Work Phone: [facility] Per[facility] Start: 02-14-2023 End: 02-15-2023 ambulatory RYAN SWEET [facility] Start: 02-10-2023 Transcribe Orders Magnolia Peng MD Work Phone: [facility] Comment on above: Urinary frequency (P rimary Dx) Start: 02-09-2023 Documentation procedure Shelley Bradley RN [facility] Start: 02-06-2023 End: 02-10-2023 ambulatory TERRI RAND [facility] Start: 02-06-2023 End: 02-10-2023 Encounter for other preprocedural examination LUCY MURRELL [facility] Start: 02-06-2023 End: 02-10-2023 Encounter for preprocedural cardiovascular examination LUCY MURRELL [facility] Start: 02-06-2023 End: 02-06-2023 Office consultation new/estab patient 60 min Terri Rand MD Work Phone: [facility] Preadmission Testing Comment on above: Pre-op examination ( Primary Dx); Vaginal vault prolapse, posthysterectomy; Preop cardiovascular exam; Abnormal EKG; ROB on CPAP; Hypertension, unspecified type; Gastroesophageal reflux disease, unspecified whether esophagitis present; BMI 35.0-35.9,adult; Complication of anesthesia, subsequent encounter Start: 02-06-2023 End: 02-06-2023 Patient encounter status Terri Rand MD Work Phone: [facility] Start: 02-06-2023 End: 02-06-2023 Preprocedural examination done Terri Rand MD Work Phone: [facility] Start: 02-06-2023 End: 02-06-2023 Patient encounter procedure Terri Rand MD Work Phone: [facility] Comment on above: Mixed incontinence ( Primary Dx); OAB (overactive bladder); Incomplete bladder emptying; Vaginal vault prolapse, posthysterectomy Start: 12-22-2022 Admission to [facility] Amy Lockett MA [facility] Comment on above: Vaginal vault prolap se, posthysterectomy (Primary Dx) Start: 12-16-2022 End: 12-16-2022 Office outpatient visit 15 minutes Terri Rand MD Work Phone: [facility] Comment on above: Vaginal vault prolap se, posthysterectomy (Primary Dx); Mixed incontinence; OAB (overactive bladder) Start: 12-05-2022 Documentation procedure Shelley Bradley RN [facility] Start: 10-24-2022 Transcribe Orders Self Referring MD [facility] Comment on above: Female genital prola pse, unspecified type (Primary Dx) Start: 10-09-2021 End: 10-09-2021 Emergency department patient visit Jgalberto Ho Facility:[facility] Start: 10-09-2021 End: 10-09-2021 Emergency department patient visit [facility] Start: 10-05-2018 Patient encounter procedure Facility:[id number] Start: 09-19-2018 Patient encounter procedure Facility:[id number] Start: 09-13-2018 Patient encounter procedure Facility:[id number] Start: 08-15-2018 Patient encounter procedure Facility:[id number] Start: 06-28-2018 Patient encounter procedure Facility:[id number] Procedures Date Procedure Procedure Detail Performing Clinician Start: 11-12-2024 Screening mammography Lynsey Sweet MD Work Phone: Start: 10-24-2024 PULSE OXIMETRY, SPOT Ma tami Larios MD Work Phone: Start: 10-22-2024 Follow-up visit Follow-up LUCY LARIOS Start: 10-11-2024 Creatinine [Mass/vol ume] in Serum or Plasma Lucy Larios MD Work Phone: Start: 02-14-2023 [employer] Rex Estela Garcia PHYSICAL EDUCATION DEPARTMENT CHAIR Work Phone: Start: 02-06-2023 Basic metabolic pane l calcium total Terri Rand MD Work Phone: Start: 10-09-2021 Computed tomography of abdomen and pelvis with contrast Start: 10-09-2021 CT angiography of thorax Start: 10-09-2021 Plain chest X-ray Plan of Treatment Date Care Activity Detail Author Start: 2033 Respiratory Syncytial Virus Immunization: Risk, 60-74 Risk, or 75+ (1 - 1-dose 75+ series) Respiratory Syncytial Virus Immunization: Risk, 60-74 Risk, or 75+ (1 - 1-dose 75+ series) [facility] Start: 2033 RSV High Risk: (Elderly (60+) or Population) (1 - 1-dose 75+ series) RSV High Risk: (Elderly (60+) or Population) (1 - 1-dose 75+ series) [facility] Start: 02-06-2026 Diabetes Screening Diabetes Screening [facility] Start: 10-13-2025 End: 10-13-2025 Patient encounter procedure 10/13/2025 7:45 AM EDT Office Visit [facility] [address] [place] [phone] [facility] PA-C [address] [place] [address] [facility] Start: 12-16-2024 End: 12-16-2024 Patient encounter procedure 12/16/2024 10:00 AM EDT Office Visit [facility] [address] [place] [phone] Lucy Larios MD [address] [place] [address] [facility] Start: 11-22-2024 End: 11-22-2024 Patient encounter procedure 11/22/2024 11:30 AM EDT Office Visit [facility] [address] [place] [phone] Lucy Larios MD [address] [place] [address] [facility] Start: 11-07-2024 COVID-19 Vaccine ( season) COVID-19 Vaccine ( season) [facility] Start: 11-07-2024 COVID-19 Vaccine ( season) COVID-19 Vaccine ( season) [facility] Start: 10-24-2024 End: 10-24-2024 Admission to same day surgery center 10/24/2024 12:05 PM EDT - 10/24/2024 2:05 PM EDT Surgery [facility] [place] [address] [place] [phone] Lucy Larios MD [address] [place] [address] REPAIR, HERNIA, VENTRAL [73528 (CPT ) +1 more] [facility] [place] Comment on above: REPAIR, HERNIA, VENTRAL [48703 (CPT ) +1 more] Start: 10-24-2024 End: 10-24-2024 REPAIR, HERNIA, VENTRAL REPAIR, HERNIA, VENTRAL Recurrent ventral hernia 10/24/2024 12:05 PM EDT [facility] [place] Start: 10-24-2024 Subsequent hospital visit by physician 10/24/2024 10:35 AM EDT Hospital Encounter [facility] [place] [address] [place] [phone] Lucy Larios MD [address] [place] [address] [facility] [place] Start: 10-22-2024 End: 10-22-2024 Patient encounter procedure 10/22/2024 11:30 AM EDT Office Visit [facility] [address] [phone] Lucy Larios MD [address] [place] [address] [facility] Start: 10-17-2024 End: 10-17-2024 Patient encounter procedure 10/17/2024 3:30 PM EDT Appointment [address] [phone] [facility] Start: 10-11-2024 End: 10-11-2025 CT Abdomen and Pelvis W contrast IV CT abdomen pelvis w IV contrast Imaging Routine Ventral hernia without obstruction or gangrene Expected: 10/11/2024, Expires: 10/11/2025 [facility] Service Area Work Phone: Comment on above: Expected: 10/11/2024, Expires: Start: 02-11-2024 Influenza vaccination Influenza Vaccine (Season Ended) [facility] Start: 10-09-2023 End: 10-09-2023 Patient encounter procedure 10/09/2023 10:00 AM EDT Office Visit [facility] [address] [place] [address] Terri Rand MD [address] [place] [address] [facility] Start: 2023 Fall risk assessment Falls Risk Assessment [facility] Start: 06-12-2023 Depression Assessment Depression Assessment [facility] Start: 03-28-2023 End: 03-28-2023 Follow-up encounter 03/28/2023 11:00 AM EDT Follow-Up [facility] [address] [place] [address] Terri Rand MD [address] [place] [address] [facility] Start: 02-21-2023 End: 02-21-2023 Follow-up encounter 02/21/2023 9:30 AM EDT Follow-Up [facility] [address] [place] [address] Tristin Pederson, JULIO [address] [place] [address] [facility] Start: 02-14-2023 End: 02-14-2023 Admission to same day surgery center [facility] Comment on above: Possible Sacrospinous ligament fixation, Possible Posterior Repair, Possible Suburethral SIing, Possible Transurethral Bulking Injection Bulkamid, Cystoscopy Possible Sacrospinou s Ligament Fixation, Posterior Repair, Possible Suburethral Sling, Possible Transurethral Bulking Injection Bulkamid, Cystoscopy Start: 02-14-2023 End: 02-14-2023 CYSTOSCOPY WITH URETHRAL INJECTION CYSTOSCOPY WITH URETHRAL INJECTION Vaginal vault prolapse, posthysterectomy 02/14/2023 1:40 PM EDT [facility] Start: 02-14-2023 Subsequent hospital visit by physician [facility] Start: 02-14-2023 End: 02-14-2023 VAGINAL VAULT SUSPENSION WITH ANTERIOR POSTERIOR REPAIR AND BLADDER SLING VAGINAL VAULT SUSPENSION WITH ANTERIOR POSTERIOR REPAIR AND BLADDER SLING Vaginal vault prolapse, posthysterectomy 02/14/2023 1:40 PM EDT [facility] Start: 02-10-2023 COVID-19 Vaccine ( season) COVID-19 Vaccine () [facility] Start: 02-10-2023 Influenza vaccination [facility] Start: 02-10-2023 End: 02-10-2023 Clinical Support 02/10/2023 1:00 PM EDT Clinical Support [facility] [address] [place] [phone] [facility] Start: 02-06-2023 End: 02-06-2023 Patient encounter procedure 02/06/2023 8:00 AM EDT Procedure visit [facility] [address] [place] [address] Terri Rand MD [address] [place] [address] [facility] Start: 12-16-2022 End: 12-16-2022 Patient encounter procedure 12/16/2022 7:00 AM EDT Office Visit [facility] [address] [place] [phone] Terri Rand MD [address] [facility] [address] [place] [address] [facility] Start: 06-12-2022 Depression Assessment Depression Assessment [facility] Start: 06-24-2021 Administration of herpes zoster vaccine Zoster Vaccines (2 of 2) [facility] Start: 06-24-2021 Shingrix Vaccine (2 of 2) Shingrix Vaccine (2 of 2) [facility] Start: 06-24-2021 Zoster Vaccines (2 of 2) Zoster Vaccines (2 of 2) [facility] Start: 2018 RSV Vaccine (1 - 1-dose 60+ series) RSV Vaccine (1 - 1-dose 60+ series) [facility] Start: 2008 Screening for malignant neoplasm of colon Flexible sigmoidoscopy [facility] Start: 2003 Cologuard (FIT-DNA) Cologuard (FIT-DNA) [facility] Start: 2003 Colonoscopy Colonoscopy [facility] Start: 2003 Colorectal Cancer Screening Colorectal Cancer Screening [facility] Start: [address] Colonography [facility] Start: 2003 Diabetes Screening Diabetes Screening [facility] Start: 2003 Fecal Occult Blood Fecal Occult Blood [facility] Start: 2003 Lipid 1996 panel - Serum or Plasma Lipid Screening [facility] Start: 2003 Lipid panel Lipid Screening [facility] Start: 2003 Screening for malignant neoplasm of colon [facility] Start: 2003 Sigmoidoscopy Sigmoidoscopy [facility] Start: 1998 Mammography Mammogram Screening [facility] Start: 1998 Screening for malignant neoplasm of breast [facility] Start: 1988 HPV Testing HPV Testing [facility] Start: 1988 Screening for malignant neoplasm of cervix [facility] Start: 1980 DTaP/Tdap/Td Vaccines (1 - Tdap) DTaP/Tdap/Td Vaccines (1 - Tdap) [facility] Start: 1979 Pap Testing Pap Testing [facility] Start: 1979 Screening for malignant neoplasm of cervix [facility] Start: 1977 Urine microalbumin profile DTaP,Tdap,Td Vaccine (1 - Tdap) [facility] Start: 1976 Hepatitis C screening Hepatitis C Screening [facility] Start: 1976 Hepatitis C Screening Hepatitis C Screening [facility] Start: 1976 HIV Screening HIV Screening [facility] Start: 1976 HIV screening HIV Screening [facility] Start: 1973 HIV screening HIV Screening [facility] Start: 1970 Depression screening using PHQ-9 (Patient Health Questionnaire 9) score [facility] Start: 1961 History and physical examination, annual for health maintenance Wellness Visit [facility] Start: 1959 MMR Vaccines (1 of 1 - Standard series) MMR Vaccines (1 of 1 - Standard series) [facility] Start: 1958 Annual wellness visit Welcome to Medicare Visit [facility] Start: 1958 Lipid panel Lipid Panel [facility] Start: 1958 Screening for malignant neoplasm of cervix Pap Smear [facility] Start: 1958 Screening for malignant neoplasm of colon [facility] Start: 1958 Screening for osteoporosis [facility] Start: 1958 Tetanus vaccination Tetanus: Every 10yrs [facility] Basic metabolic 2000 panel - Serum or Plasma Basic Metabolic Panel Lab Routine Pre-op examination 02/06/2023 11:20 AM EDT [facility] Work Phone: End: 10-24-2024 Continuous Pulse oximetry, In Phase 1 Continuous Pulse oximetry, In Phase 1 Respiratory Care Routine Continuous until discontinued starting 10/24/2024 [facility] Work Phone: Comment on above: Continuous until discontinued starting 0 10/24/2024 End: 10-17-2024 CT Abdomen and Pelvis W contrast IV [facility] Work Phone: Comment on above: Once for 1 Occurrences starting 10/18/19 25 until 10/17/2024 Patient Education Abdominal Pain, Adult E D [facility] Work Phone: Patient referral [facility] Work Phone: Surgical pathology study [facility] Service Area Work Phone: Comment on above: Release Upon Ordering for 1 Occurrences starting 10/24/2024 VAGINAL VAULT SUSPENSION VAGINAL VAULT SUSPENSION Vaginal vault prolapse, [facility] Payers Date Payer Category Payer Medicare (Managed Care) [employer] [id number] 2024 Medicare PPO [employer] MEDICARE P KARRIE (PPO) [id number] 2024 Medicare [id number] 2023 Self-pay [id number] 2023 Private Health Insurance [id number] 2023 Private Health Insurance [employer] A ETNA CHOICE POS/POSII/PREMIER CARE/PREMIER CARE PLUS [id number] 2023-Present [phone] [facility] [id number] [place] [address] [id number] 2022 Unknown [id number] 2022 Unknown [id number]. [id number] 2016 Unknown [id number] [id number] 1958 Unknown [id number] 2.16.840.1.774097.3.579.2. 356 1958 Unknown [id number] 2.16.840.1.243113.3.579.2. 356 1958 Unknown [id number] 2.16.840.1.337815.3.579.2. 356 1958 Unknown [id number] 2.16.840.1.215923.3.579.2. 356 1958 Unknown [id number] 2.16.840.1.402763.3.579.2. 356 1958 Unknown [id number] 2.16.840.1.516996.3.579.2. 900 1958 Unknown [id number] 2.16.840.1.142522.3.579.2. 900 1958 Unknown [id number] 2.16.840.1.225550.3.579.2. 903 1958 Unknown [id number] 2.16.840.1.554186.3.579.2. 1243 1958 Unknown [id number] 2.16.840.1.130077.3.579.2. 1243 1958 Unknown [id number] 2.16.840.1.164669.3.579.2. 1244 1958 Unknown [id number] 2..840.1.070372.3.579.2. 1244 1958 Unknown [id number] 2..840.1.468058.3.579.2. 1244 Unknown [id number] Unknown [id number] Unknown [id number] 2..840.1.600517.3.579.2. 462 Unknown [id number] 2..840.1.178870.3.579.2. 462 Social History Date Type Detail Facility Start: 07-15-2020 End: 10-09-2021 Tobacco smoking status NHIS Never smoked tobacco (finding) [facility] Start: 1960 Sex Assigned At Female [facility] consumption unknown [facility] Start: 12-19-2013 End: 10-24-2024 History of Social function [facility] Start: 12-19-2013 End: 10-24-2024 Tobacco use panel [facility] Start: 1960 Sex Assigned At Not on file [facility] History of tobacco use Passive smoker [facility] Start: 11-29-2022 End: 10-11-2024 Tobacco use and exposure Smokeless tobacco non-user [facility] Start: 11-29-2022 End: 11-19-2024 Alcohol intake Current drinker of alcohol (finding) [facility] Start: 11-29-2022 Sexual orientation Heterosexual (finding) [facility] Start: 02-14-2023 Gender identity Identifies as female gender (finding) [facility] National Score (1-10 0), lower number is lower risk 64 [facility] Start: 05-05-2023 Alcohol Comment 2-4 a month [facility] Start: 10-01-2024 End: 11-19-2024 Exposure to SARS-CoV-2 (event) Not sure [facility] Start: 06-24-2020 Alcohol Alcohol [facility] Start: 06-24-2020 Drugs Drugs [facility] Start: 06-24-2020 Lives Lives [facility] Start: 07-15-2020 Tobacco Use Tobacco Use [facility] Medical Equipment Procedure Code Equipment Code Equipment Origin al Text Equipment Identifier Dates System Urethral Bulking Bulkamid - [id number] FDA Start: 02-14-2023 Mesh, Ventraligh t St 4 X 6 - [id number] Start: 10-24-2024 ASYMMETRIC PATELLA FDA Start: 06-24-2020 CEMENT,BONE MARCIE H 1/2 BATCH FDA Start: 06-24-2020 CRUCIATE RETAINI NG FEMORAL FDA Start: 06-24-2020 TIBIAL BEARING I NSERT CS FDA Start: 06-24-2020 Tibial Component FDA Start: 06-24-2020 CEMENT,BONE MARCIE H 1/2 BATCH FDA Start: 07-29-2020 TRIATH CRUCIATE RETAINING FEM FDA Start: 07-29-2020 TRIATH X3 ASYM PATELLA FDA Start: 07-29-2020 TRIATH X3 TIB BE ARING INSERT FDA Start: 07-29-2020 TRITH TRITAN TIB IAL COMP FDA Start: 07-29-2020 Goals Date Patient Goal Desired Activity /State Personal health goal Functional Status Date Assessment Result Facility 10-24-2024 [facility] everity rating scale screener - recent [C-SSRS] [facility] Work Phone: Clinical Notes 12-05-2022 to 10-24-2024 Discharge InstructionsLucy Larios MD - 11/19/2024 9:30 AM EDTOp Note - Lucy Larios MD - 10/24/2024 1:47 PM EDTOp Note - Lucy Larios MD - 10/24/2024 1:47 PM EDTPatient Instructions Note Date & Type Note Facility 10-24-2024 Hospital Discharge instructions Cristina Pete RN - 10/24/2024 4:[address] Lairos's discharge instructions discussed with you and given to you documented in this encounter [facility] Work Phone: 10-24-2024 History of Present illness Narrative Subjective Patient ID: Ara Loza is a 64 y.o. female who presents for Post-op (Post Op #1/staple removal s/p recurrent ventral hernia repair on 10-24-24. Patient offers no complaints, denies any drainage at incision site, no swelling, no fevers and no problems with urination or bowel movements.). Patient states she has had some swelling to the right of the incision that has been present since his surgery and does not change. Denies any issues other than clip irritation. She is heading to [place] next week to visit her daughter. Objective Physical Exam Constitutional: General: She is not in acute distress. Appearance: She is not toxic-appearing. Eyes: General: No scleral icterus. Extraocular Movements: Extraocular movements intact. Pupils: Pupils are equal, round, and reactive to light. Cardiovascular: Rate and Rhythm: Normal rate. Pulmonary: Effort: Pulmonary effort is normal. No respiratory distress. Abdominal: Palpations: Abdomen is soft. Tenderness: There is no abdominal tenderness. Comments: Incision is without signs of cellulitis. There is some clip irritation. She has about a 4 cm fluid collection mid inferior to the right probably representing seroma. It is not tense. Musculoskeletal: General: No swelling. Neurological: General: No focal deficit present. Mental Status: She is alert and oriented to person, place, and time. Psychiatric: Mood and Affect: Mood normal. Assessment/Plan Wound care and activity restrictions are reviewed. I told her she can put topicals on it and by next week she should be able to go swimming. She states she is severely limiting her lifting because she does not want it to come back. We will see her back in a month unless there are issues before hand. Lucy Larios MD 11/19/24 9:06 AM documented in this encounter [facility] Work Phone: 10-24-2024 Surgery Surgical operation note REPAIR, HERNIA, VENTRAL Operative Note Date: 10/24/2024 OR Location: [facility] OR Name: Ara Loza, : 1960, Age: 64 y.o., , Sex: female Diagnosis Pre-op Diagnosis * Recurrent ventral hernia [K43.2] Post-op Diagnosis * Recurrent ventral hernia [K43.2] Procedures REPAIR, HERNIA, VENTRAL [id number] - IN RPR AA HERNIA RECR 3-10 CM REDUCIBLE REPAIR, HERNIA, VENTRAL [id number] - IN RMVL NONINFCT MESH/PROSTH AA/PARASTOMAL HRNA RPR Surgeons * Lucy Larios - Primary Resident/Fellow/Other Convertible Power Shovel Operator: Surgeons and Role: * No surgeons found with a matching role * Staff: Scrub Person: Kj Scrub Person: Keivn Battery Recharger: Basim GRACE: Anesthesia Staff: Anesthesiologist: Manuel Fong MD Procedure Summary Anesthesia: General ASA: II Estimated Blood Loss: 7mL Intra-op Medications: Administrations occurring from 1205 to 1405 on 10/24/24: Medication Name Total Dose fentaNYL (Sublimaze) injection 50 mcg/mL 100 mcg ketamine injection 50 mg/ 5 mL (10 mg/mL) 30 mg propofol (Diprivan) injection 10 mg/mL 200 mg rocuronium (ZeMuron) 50 mg/5 mL injection 30 mg midazolam (Versed) injection 1 mg 1 mg Anesthesia Record Intraprocedure I/O Totals Intake Neostigmine 0.00 mL The total shown is the total volume documented since Anesthesia Start was filed. Total Intake 0 mL Specimen: ID Type Source Tests Collected by Time 1 : OLD MESH FOR GROSS ONLY Tissue MESH SURGICAL PATHOLOGY EXAM Basim Galvan, RN 10/24/2024 1424 Drains and/or Catheters: * None in log * Tourniquet Times: Implants: Implants Type Name Action Serial No. Surgical Mesh Sling Implant MESH, VENTRALIGHT ST 4 X 6 - [id number] Implanted Findings: The mesh had migrated to the left. The rectus muscle was retracted on the left. The actual posterior peritoneum was still intact as well as the anterior fascia. I am wondering if she almost did not have an intra parietal type of hernia. She did have some omentum that had been stuck to the peritoneum over the mesh that had to be taken down and could have caused a traction type of discomfort Indications: Ara Loza is an 64 y.o. female who is having surgery for Recurrent ventral hernia [K43.2]. The patient was seen in the preoperative area. The risks, benefits, complications, treatment options, non-operative alternatives, expected recovery and outcomes were discussed with the patient. The possibilities of reaction to medication, pulmonary aspiration, injury to surrounding structures, bleeding, recurrent infection, the need for additional procedures, failure to diagnose a condition, and creating a complication requiring transfusion or operation were discussed with the patient. The patient concurred with the proposed plan, giving informed consent. The site of surgery was properly noted/marked if necessary per policy. The patient has been actively warmed in preoperative area. Preoperative antibiotics have been ordered and given within 1 hours of incision. Venous thrombosis prophylaxis have been ordered including bilateral sequential compression devices Procedure Details: Patient was brought to the operating room and placed supine upon the operating room table. SCD devices were in place. Operative huddle was done. Prior to surgery patient had been asked to lift her head and show us where she felt the hernia. It was midway in her lower abdominal incision. Incision was made over this and carried down to the fascia. There was no obvious mesh there and the fascia actually appeared intact. The incision was opened from the umbilicus down to just before the symphysis and again no mesh was seen. The fascia was opened in the midline and the peritoneum palpated. Omentum was stuck down in the lower portion and this was bluntly taken off. After doing this she could feel the ridges of the mesh and it was riding slightly to the left. No true hernia was felt. The musculature of the rectus was retracted laterally. There was no hernia noted superiorly. Preperitoneal dissection was taken to free up the mesh and remove it in its entirety. A preperitoneal dissection was done and superiorly or near the umbilicus it was actually recto rectus with the posterior fascia intact. We could see the inferior epigastrics on the right. The left rectus was retracted and a were not visualized. The dissection was however extended laterally. The wound was irrigated and bleeding points controlled with cautery. The posterior peritoneum as well as posterior rectus fascia was approximated using running suture of 2-0 Vicryl to reconstruct the various pieces for a layer. A piece of pariah Jose mesh was placed in that space and tacked into 4 positions at the top bottom and laterally. We used 0 PDS for this. This was tied down. This was again irrigated. The external oblique was closed using a running suture of 0 PDS. The subcutaneous tissues were approximated in a layered fashion with 3-0 Vicryl. The skin was closed with clips. Dermabond and sterile dressings were applied. Patient tolerated the procedure well and was sent to the recovery area in stable condition. All needle and sponge counts were correct. Evidence of Infection: Complications: None; patient tolerated the procedure well. Disposition: PACU - hemodynamically stable. Condition: stable Task Performed by ASP NET SOFTWARE DEVELOPER or Garment Turner: ASP NET SOFTWARE DEVELOPER helped with dissecting and holding tissues out of the way as well as helping to explant the mesh. She also helped with closure of various layers. She was instrumental in exposure Lucy Larios [facility] Work Phone: 10-24-2024 Miscellaneous Notes REPAIR, HERNIA, VENTRAL Operative Note Date: 10/24/2024 OR Location: [facility] OR Name: Ara Loza, : 1960, Age: 64 y.o., , Sex: female Diagnosis Pre-op Diagnosis * Recurrent ventral hernia [K43.2] Post-op Diagnosis * Recurrent ventral hernia [K43.2] Procedures REPAIR, HERNIA, VENTRAL [id number] - IN RPR AA HERNIA RECR 3-10 CM REDUCIBLE REPAIR, HERNIA, VENTRAL [id number] - IN RMVL NONINFCT MESH/PROSTH AA/PARASTOMAL HRNA RPR Surgeons * Lucy Larios - Primary Resident/Fellow/Other Convertible Power Shovel Operator: Surgeons and Role: * No surgeons found with a matching role * Staff: Scrub Person: Kj Scrub Person: Kevin Battery Recharger: Basim GRACE: Anesthesia Staff: Anesthesiologist: Manuel Fong MD Procedure Summary Anesthesia: General ASA: II Estimated Blood Loss: 7mL Intra-op Medications: Administrations occurring from 1205 to 1405 on 10/24/24: Medication Name Total Dose fentaNYL (Sublimaze) injection 50 mcg/mL 100 mcg ketamine injection 50 mg/ 5 mL (10 mg/mL) 30 mg propofol (Diprivan) injection 10 mg/mL 200 mg rocuronium (ZeMuron) 50 mg/5 mL injection 30 mg midazolam (Versed) injection 1 mg 1 mg Anesthesia Record Intraprocedure I/O Totals Intake Neostigmine 0.00 mL The total shown is the total volume documented since Anesthesia Start was filed. Total Intake 0 mL Specimen: ID Type Source Tests Collected by Time 1 : OLD MESH FOR GROSS ONLY Tissue MESH SURGICAL PATHOLOGY EXAM Basim Galvan, RN 10/24/2024 1424 Drains and/or Catheters: * None in log * Tourniquet Times: Implants: Implants Type Name Action Serial No. Surgical Mesh Sling Implant MESH, VENTRALIGHT ST 4 X 6 - [id number] Implanted Findings: The mesh had migrated to the left. The rectus muscle was retracted on the left. The actual posterior peritoneum was still intact as well as the anterior fascia. I am wondering if she almost did not have an intra parietal type of hernia. She did have some omentum that had been stuck to the peritoneum over the mesh that had to be taken down and could have caused a traction type of discomfort Indications: Ara Loza is an 64 y.o. female who is having surgery for Recurrent ventral hernia [K43.2]. The patient was seen in the preoperative area. The risks, benefits, complications, treatment options, non-operative alternatives, expected recovery and outcomes were discussed with the patient. The possibilities of reaction to medication, pulmonary aspiration, injury to surrounding structures, bleeding, recurrent infection, the need for additional procedures, failure to diagnose a condition, and creating a complication requiring transfusion or operation were discussed with the patient. The patient concurred with the proposed plan, giving informed consent. The site of surgery was properly noted/marked if necessary per policy. The patient has been actively warmed in preoperative area. Preoperative antibiotics have been ordered and given within 1 hours of incision. Venous thrombosis prophylaxis have been ordered including bilateral sequential compression devices Procedure Details: Patient was brought to the operating room and placed supine upon the operating room table. SCD devices were in place. Operative huddle was done. Prior to surgery patient had been asked to lift her head and show us where she felt the hernia. It was midway in her lower abdominal incision. Incision was made over this and carried down to the fascia. There was no obvious mesh there and the fascia actually appeared intact. The incision was opened from the umbilicus down to just before the symphysis and again no mesh was seen. The fascia was opened in the midline and the peritoneum palpated. Omentum was stuck down in the lower portion and this was bluntly taken off. After doing this she could feel the ridges of the mesh and it was riding slightly to the left. No true hernia was felt. The musculature of the rectus was retracted laterally. There was no hernia noted superiorly. Preperitoneal dissection was taken to free up the mesh and remove it in its entirety. A preperitoneal dissection was done and superiorly or near the umbilicus it was actually recto rectus with the posterior fascia intact. We could see the inferior epigastrics on the right. The left rectus was retracted and a were not visualized. The dissection was however extended laterally. The wound was irrigated and bleeding points controlled with cautery. The posterior peritoneum as well as posterior rectus fascia was approximated using running suture of 2-0 Vicryl to reconstruct the various pieces for a layer. A piece of pariah Jose mesh was placed in that space and tacked into 4 positions at the top bottom and laterally. We used 0 PDS for this. This was tied down. This was again irrigated. The external oblique was closed using a running suture of 0 PDS. The subcutaneous tissues were approximated in a layered fashion with 3-0 Vicryl. The skin was closed with clips. Dermabond and sterile dressings were applied. Patient tolerated the procedure well and was sent to the recovery area in stable condition. All needle and sponge counts were correct. Evidence of Infection: Complications: None; patient tolerated the procedure well. Disposition: PACU - hemodynamically stable. Condition: stable Task Performed by SANJAY or Garment Turner: SANJAY helped with dissecting and holding tissues out of the way as well as helping to explant the mesh. She also helped with closure of various layers. She was instrumental in exposure Lucy Larios Current Rx Instructions for Day of Surgery[1] NPO Instructions: Do not eat any food after midnight the night before your surgery/procedure. You may have clear liquids until TWO hours before surgery/procedure. This includes water, black tea/coffee, (no milk or cream) apple juice and electrolyte drinks (Gatorade). 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 documented in this encounter [facility] Work Phone: 10-24-2024 Attending History and physical note H&P reviewed. The patient was examined and there are no changes to the H&P. Source Note - Lucy Larios MD - 10/11/2024 10:00 AM EDT General Surgery Consultation Patient: Ara Loza : 1960 Date of Consultation: 10/14/24 Primary Care Provider: Ryan Sweet MD Referring Provider: No ref. provider found Chief Complaint: Possible recurrent ventral hernia History of Present Illness: Ara Loza is a 64 y.o. old female seen for evaluation of possible recurrent ventral hernia. The listed reason says right inguinal hernia but when talking to the patient she points to the central portion of her infraumbilical incision and states it goes off to the right. She has multiple hernia repairs with mesh. She states it has been bothering her. Has never been incarcerated at this point. Medical History: Medical History[1] Hypertension Surgical History: Surgical History[2] Colonoscopy. Hysterectomy. Knee arthroplasty. Hernia repairs Home Medications: Prior to Admission medications Medication Sig Start Date End Date Taking? Authorizing Provider EPINEPHrine 0.3 mg/0.3 mL injection syringe as directed intramuscularly once for 1 days Yes Historical Provider, lisinopril 20 mg tablet Take 1 tablet (20 mg) by mouth once daily. 12/19/22 Yes Historical Provider, multivitamin tablet Take 1 tablet by mouth once daily. Yes Historical Provider, Allergies: Allergies[3] is allergic to bee venom protein (honey bee), erythromycin, penicillins, and sulfa (sulfonamide antibiotics). Family History: Family History[4] Mainly cardiovascular Social History: Social History[5] She does not smoke or use drugs. She has a glass of wine a couple times a week. ROS: Constitutional: no fever, sweats, and chills Cardiovascular: No chest pain Respiratory: No cough or shortness of breath Gastrointestinal: Denies Genitourinary: no dysuria Musculoskeletal: no weakness or swelling Integumentary: no rashes Neurological: no confusion Endocrine: no heat or cold intolerance Heme/Lymph: no easy bruising or bleeding Objective: BP 130/76 Pulse 65 Ht 1.727 m (5' 8) Wt 94.3 kg (208 lb) BMI 31.63 kg/m Physical Exam: Constitutional: No acute distress, conversant, pleasant Neurologic: alert and oriented Psych: appropriate affect Ears, Nose, Mouth and Throat: mucus membranes moist Pulmonary: No labored breathing Cardiovascular: Regular rate and rhythm Abdomen: soft, non-distended, non-tender in the midportion of her infraumbilical incision she has a vague impression of a possible recurrent hernia. Musculoskeletal: Moves all extremities, no edema Skin: warm and dry Assessment and Plan: Ara Loza is a 64 y.o. old female with possible recurrent ventral hernia. It is difficult to tell with the scarring if one is present or not. We discussed the possibility of doing a CT scan which would be fine if it was there as well as help with operative planning. She agrees to proceed. Will see her back after the CT.. Lucy Larios MD 10/14/2024 [1] History reviewed. No pertinent past medical history. [2] Past Surgical History: Procedure Laterality Date COLONOSCOPY 08/25/2018 Repeat 10 years DILATION AND CURETTAGE OF UTERUS 1998 HYSTERECTOMY KNEE ARTHROPLASTY 2022 [3] Allergies Allergen Reactions Bee Venom Protein (Honey Bee) Anaphylaxis Erythromycin Anaphylaxis and Shortness of breath Penicillins Anaphylaxis and Shortness of breath Sulfa (Sulfonamide Antibiotics) Anaphylaxis and Shortness of breath [4] Family History Problem Relation Name Age of Onset Stroke Mother Heart disease Father Diabetes Paternal Grandmother [5] Social History Socioeconomic History Marital status: Tobacco Use Smoking status: Never Smokeless tobacco: Never Vaping Use Vaping status: Never Used Substance and Sexual Activity Alcohol use: Yes Alcohol/week: 3.0 standard drinks of alcohol Types: 3 Glasses of wine per week [facility] Work Phone: 10-24-2024 History and physical note H&P reviewed. The patient was examined and there are no changes to the H&P. Source Note - Lucy Larios MD - 10/11/2024 10:00 AM EDT General Surgery Consultation Patient: Ara Loza : 1960 Date of Consultation: 10/14/24 Primary Care Provider: Ryan Sweet MD Referring Provider: No ref. provider found Chief Complaint: Possible recurrent ventral hernia History of Present Illness: Ara Loza is a 64 y.o. old female seen for evaluation of possible recurrent ventral hernia. The listed reason says right inguinal hernia but when talking to the patient she points to the central portion of her infraumbilical incision and states it goes off to the right. She has multiple hernia repairs with mesh. She states it has been bothering her. Has never been incarcerated at this point. Medical History: Medical History[1] Hypertension Surgical History: Surgical History[2] Colonoscopy. Hysterectomy. Knee arthroplasty. Hernia repairs Home Medications: Prior to Admission medications Medication Sig Start Date End Date Taking? Authorizing Provider EPINEPHrine 0.3 mg/0.3 mL injection syringe as directed intramuscularly once for 1 days Yes Historical Provider, lisinopril 20 mg tablet Take 1 tablet (20 mg) by mouth once daily. 12/19/22 Yes Historical Provider, multivitamin tablet Take 1 tablet by mouth once daily. Yes Historical Provider, Allergies: Allergies[3] is allergic to bee venom protein (honey bee), erythromycin, penicillins, and sulfa (sulfonamide antibiotics). Family History: Family History[4] Mainly cardiovascular Social History: Social History[5] She does not smoke or use drugs. She has a glass of wine a couple times a week. ROS: Constitutional: no fever, sweats, and chills Cardiovascular: No chest pain Respiratory: No cough or shortness of breath Gastrointestinal: Denies Genitourinary: no dysuria Musculoskeletal: no weakness or swelling Integumentary: no rashes Neurological: no confusion Endocrine: no heat or cold intolerance Heme/Lymph: no easy bruising or bleeding Objective: BP 130/76 Pulse 65 Ht 1.727 m (5' 8) Wt 94.3 kg (208 lb) BMI 31.63 kg/m Physical Exam: Constitutional: No acute distress, conversant, pleasant Neurologic: alert and oriented Psych: appropriate affect Ears, Nose, Mouth and Throat: mucus membranes moist Pulmonary: No labored breathing Cardiovascular: Regular rate and rhythm Abdomen: soft, non-distended, non-tender in the midportion of her infraumbilical incision she has a vague impression of a possible recurrent hernia. Musculoskeletal: Moves all extremities, no edema Skin: warm and dry Assessment and Plan: Ara Loza is a 64 y.o. old female with possible recurrent ventral hernia. It is difficult to tell with the scarring if one is present or not. We discussed the possibility of doing a CT scan which would be fine if it was there as well as help with operative planning. She agrees to proceed. Will see her back after the CT.. Lucy Larios MD 10/14/2024 [1] History reviewed. No pertinent past medical history. [2] Past Surgical History: Procedure Laterality Date COLONOSCOPY 08/25/2018 Repeat 10 years DILATION AND CURETTAGE OF UTERUS 1998 HYSTERECTOMY KNEE ARTHROPLASTY 2022 [3] Allergies Allergen Reactions Bee Venom Protein (Honey Bee) Anaphylaxis Erythromycin Anaphylaxis and Shortness of breath Penicillins Anaphylaxis and Shortness of breath Sulfa (Sulfonamide Antibiotics) Anaphylaxis and Shortness of breath [4] Family History Problem Relation Name Age of Onset Stroke Mother Heart disease Father Diabetes Paternal Grandmother [5] Social History Socioeconomic History Marital status: Tobacco Use Smoking status: Never Smokeless tobacco: Never Vaping Use Vaping status: Never Used Substance and Sexual Activity Alcohol use: Yes Alcohol/week: 3.0 standard drinks of alcohol Types: 3 Glasses of wine per week H&P reviewed. The patient was examined and there are no changes to the H&P. Source Note - Lucy Larios MD - 10/22/2024 11:30 AM EDT General Surgery Consultation Patient: Ara Loza : 1960 Date of Consultation: 10/22/24 Primary Care Provider: Ryan Sweet MD Chief Complaint: CT follow-up for evaluation of hernia History of Present Illness: Ara Loza is a 64 y.o. old female seen after obtaining CT scan for evaluation of her hernia. She has had 3-4 ventral hernia repairs 2 of them with mesh. Approximately 6 weeks ago she felt a bulge and discomfort. This has been increasing. She also is looking to have her hips replaced and her orthopedic surgeon wants her to have the hernia fixed prior to having the surgery. She is anxious to get it done as soon as she can. She did have physical therapy initial eval scheduled for this Monday and she is going to let them know that she is chosen to have her surgery this . Medical History: Hypertension Surgical History: Knee surgery, hysterectomy, multiple ventral hernia repairs some with mesh Home Medications: Prior to Admission medications Medication Sig Start Date End Date Taking? Authorizing Provider EPINEPHrine 0.3 mg/0.3 mL injection syringe as directed intramuscularly once for 1 days Yes Historical Provider, lisinopril 20 mg tablet Take 1 tablet (20 mg) by mouth once daily. 12/19/22 Yes Historical Provider, multivitamin tablet Take 1 tablet by mouth once daily. Yes Historical Provider, Allergies: Allergies[1] is allergic to bee venom protein (honey bee), erythromycin, penicillins, and sulfa (sulfonamide antibiotics). Family History: Mainly cardiovascular Social History: She does not smoke or use drugs and has wine maybe 3 times a week ROS: Constitutional: no fever, sweats, and chills Cardiovascular: No chest pain Respiratory: No cough or shortness of breath Gastrointestinal: Denies any blood in her stool Genitourinary: no dysuria Musculoskeletal: no weakness or swelling Integumentary: no rashes Neurological: no confusion Endocrine: no heat or cold intolerance Heme/Lymph: no easy bruising or bleeding Objective: BP 124/70 Pulse 74 Ht 1.727 m (5' 8) Wt 94.3 kg (208 lb) Comment: Recorded weight from last visit. BMI 31.63 kg/m Physical Exam: Constitutional: No acute distress, conversant, pleasant Neurologic: alert and oriented Psych: appropriate affect Ears, Nose, Mouth and Throat: mucus membranes moist Pulmonary: No labored breathing Cardiovascular: Regular rate and rhythm Abdomen: soft, non-distended, non-tender she has a midline scar and centrally in the scar she has a 4 to 5 cm hernia with raising her head. It is easily reducible. Musculoskeletal: Moves all extremities, no edema Skin: warm and dry Imaging: I have independently reviewed the CT scan and shared the findings with her. We found the last op note which showed that she had her last mesh placed in the rectal rectus space and closed. We discussed the fact the mesh has eventrated which means it is come out of the space. Assessment and Plan: Ara Loza is a 64 y.o. old female with recurrent ventral hernia with mesh in place. We discussed the fact we would probably take existing mesh out and then attempt to reconstruct the abdomen as there is not much separation. Would probably still try to do a rectal rectus although I did discuss with her the fact if that was not possible we would place the mesh intraperitoneal and simply sutured to the abdominal wall and then close the musculature on top. We discussed the risks of hernia recurrence despite the mesh or mesh infection necessitating removal. 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 She is very anxious to do this is soon as possible and we have time this and she asked us to get her on the schedule. We could not have her sign the consent as the computer quit working for period of time. She understands she will sign it preoperatively. Lucy Larios MD 10/22/2024 [1] Allergies Allergen Reactions Bee Venom Protein (Honey Bee) Anaphylaxis Erythromycin Anaphylaxis and Shortness of breath Penicillins Anaphylaxis and Shortness of breath Sulfa (Sulfonamide Antibiotics) Anaphylaxis and Shortness of breath documented in this encounter [facility] Work Phone: 10-24-2024 Attending History and physical note H&P reviewed. The patient was examined and there are no changes to the H&P. Source Note - Lucy Larios MD - 10/22/2024 11:30 AM EDT General Surgery Consultation Patient: Ara Loza : 1960 Date of Consultation: 10/22/24 Primary Care Provider: Ryan Sweet MD Chief Complaint: CT follow-up for evaluation of hernia History of Present Illness: Ara Loza is a 64 y.o. old female seen after obtaining CT scan for evaluation of her hernia. She has had 3-4 ventral hernia repairs 2 of them with mesh. Approximately 6 weeks ago she felt a bulge and discomfort. This has been increasing. She also is looking to have her hips replaced and her orthopedic surgeon wants her to have the hernia fixed prior to having the surgery. She is anxious to get it done as soon as she can. She did have physical therapy initial eval scheduled for this Monday and she is going to let them know that she is chosen to have her surgery this . Medical History: Hypertension Surgical History: Knee surgery, hysterectomy, multiple ventral hernia repairs some with mesh Home Medications: Prior to Admission medications Medication Sig Start Date End Date Taking? Authorizing Provider EPINEPHrine 0.3 mg/0.3 mL injection syringe as directed intramuscularly once for 1 days Yes Historical Provider, lisinopril 20 mg tablet Take 1 tablet (20 mg) by mouth once daily. 12/19/22 Yes Historical Provider, multivitamin tablet Take 1 tablet by mouth once daily. Yes Historical Provider, Allergies: Allergies[1] is allergic to bee venom protein (honey bee), erythromycin, penicillins, and sulfa (sulfonamide antibiotics). Family History: Mainly cardiovascular Social History: She does not smoke or use drugs and has wine maybe 3 times a week ROS: Constitutional: no fever, sweats, and chills Cardiovascular: No chest pain Respiratory: No cough or shortness of breath Gastrointestinal: Denies any blood in her stool Genitourinary: no dysuria Musculoskeletal: no weakness or swelling Integumentary: no rashes Neurological: no confusion Endocrine: no heat or cold intolerance Heme/Lymph: no easy bruising or bleeding Objective: BP 124/70 Pulse 74 Ht 1.727 m (5' 8) Wt 94.3 kg (208 lb) Comment: Recorded weight from last visit. BMI 31.63 kg/m Physical Exam: Constitutional: No acute distress, conversant, pleasant Neurologic: alert and oriented Psych: appropriate affect Ears, Nose, Mouth and Throat: mucus membranes moist Pulmonary: No labored breathing Cardiovascular: Regular rate and rhythm Abdomen: soft, non-distended, non-tender she has a midline scar and centrally in the scar she has a 4 to 5 cm hernia with raising her head. It is easily reducible. Musculoskeletal: Moves all extremities, no edema Skin: warm and dry Imaging: I have independently reviewed the CT scan and shared the findings with her. We found the last op note which showed that she had her last mesh placed in the rectal rectus space and closed. We discussed the fact the mesh has eventrated which means it is come out of the space. Assessment and Plan: Ara Loza is a 64 y.o. old female with recurrent ventral hernia with mesh in place. We discussed the fact we would probably take existing mesh out and then attempt to reconstruct the abdomen as there is not much separation. Would probably still try to do a rectal rectus although I did discuss with her the fact if that was not possible we would place the mesh intraperitoneal and simply sutured to the abdominal wall and then close the musculature on top. We discussed the risks of hernia recurrence despite the mesh or mesh infection necessitating removal. 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 She is very anxious to do this is soon as possible and we have time this and she asked us to get her on the schedule. We could not have her sign the consent as the computer quit working for period of time. She understands she will sign it preoperatively. Lucy Larios MD 10/22/2024 [1] Allergies Allergen Reactions Bee Venom Protein (Honey Bee) Anaphylaxis Erythromycin Anaphylaxis and Shortness of breath Penicillins Anaphylaxis and Shortness of breath Sulfa (Sulfonamide Antibiotics) Anaphylaxis and Shortness of breath [facility] Work Phone: 10-23-2024 Instructions Formatting of th is note is different from the original. Current Rx Instructions for Day of Surgery[1] NPO Instructions: Do not eat any food after midnight the night before your surgery/procedure. You may have clear liquids until TWO hours before surgery/procedure. This includes water, black tea/coffee, (no milk or cream) apple juice and electrolyte drinks (Gatorade). 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 [facility] 10-22-2024 History of Present illness Narrative General Surgery Consultation Patient: Ara Loza : 1960 Date of Consultation: 10/22/24 Primary Care Provider: Ryan Sweet MD Chief Complaint: CT follow-up for evaluation of hernia History of Present Illness: Ara Loza is a 64 y.o. old female seen after obtaining CT scan for evaluation of her hernia. She has had 3-4 ventral hernia repairs 2 of them with mesh. Approximately 6 weeks ago she felt a bulge and discomfort. This has been increasing. She also is looking to have her hips replaced and her orthopedic surgeon wants her to have the hernia fixed prior to having the surgery. She is anxious to get it done as soon as she can. She did have physical therapy initial eval scheduled for this Monday and she is going to let them know that she is chosen to have her surgery this . Medical History: Hypertension Surgical History: Knee surgery, hysterectomy, multiple ventral hernia repairs some with mesh Home Medications: Prior to Admission medications Medication Sig Start Date End Date Taking? Authorizing Provider EPINEPHrine 0.3 mg/0.3 mL injection syringe as directed intramuscularly once for 1 days Yes Historical Provider, lisinopril 20 mg tablet Take 1 tablet (20 mg) by mouth once daily. 12/19/22 Yes Historical Provider, multivitamin tablet Take 1 tablet by mouth once daily. Yes Historical Provider, Allergies: Allergies[1] is allergic to bee venom protein (honey bee), erythromycin, penicillins, and sulfa (sulfonamide antibiotics). Family History: Mainly cardiovascular Social History: She does not smoke or use drugs and has wine maybe 3 times a week ROS: Constitutional: no fever, sweats, and chills Cardiovascular: No chest pain Respiratory: No cough or shortness of breath Gastrointestinal: Denies any blood in her stool Genitourinary: no dysuria Musculoskeletal: no weakness or swelling Integumentary: no rashes Neurological: no confusion Endocrine: no heat or cold intolerance Heme/Lymph: no easy bruising or bleeding Objective: BP 124/70 Pulse 74 Ht 1.727 m (5' 8) Wt 94.3 kg (208 lb) Comment: Recorded weight from last visit. BMI 31.63 kg/m Physical Exam: Constitutional: No acute distress, conversant, pleasant Neurologic: alert and oriented Psych: appropriate affect Ears, Nose, Mouth and Throat: mucus membranes moist Pulmonary: No labored breathing Cardiovascular: Regular rate and rhythm Abdomen: soft, non-distended, non-tender she has a midline scar and centrally in the scar she has a 4 to 5 cm hernia with raising her head. It is easily reducible. Musculoskeletal: Moves all extremities, no edema Skin: warm and dry Imaging: I have independently reviewed the CT scan and shared the findings with her. We found the last op note which showed that she had her last mesh placed in the rectal rectus space and closed. We discussed the fact the mesh has eventrated which means it is come out of the space. Assessment and Plan: Ara Loza is a 64 y.o. old female with recurrent ventral hernia with mesh in place. We discussed the fact we would probably take existing mesh out and then attempt to reconstruct the abdomen as there is not much separation. Would probably still try to do a rectal rectus although I did discuss with her the fact if that was not possible we would place the mesh intraperitoneal and simply sutured to the abdominal wall and then close the musculature on top. We discussed the risks of hernia recurrence despite the mesh or mesh infection necessitating removal. 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 She is very anxious to do this is soon as possible and we have time this and she asked us to get her on the schedule. We could not have her sign the consent as the [employer] quit working for period of time. She understands she will sign it preoperatively. Lucy Larios MD 10/22/2024 [1] Allergies Allergen Reactions Bee Venom Protein (Honey Bee) Anaphylaxis Erythromycin Anaphylaxis and Shortness of breath Penicillins Anaphylaxis and Shortness of breath Sulfa (Sulfonamide Antibiotics) Anaphylaxis and Shortness of breath documented in this encounter [facility] Work Phone: 10-11-2024 History of Present illness Narrative General Surgery Consultation Patient: Ara Loza : 1960 Date of Consultation: 10/14/24 Primary Care Provider: Ryan Sweet MD Referring Provider: No ref. provider found Chief Complaint: Possible recurrent ventral hernia History of Present Illness: Ara Loza is a 64 y.o. old female seen for evaluation of possible recurrent ventral hernia. The listed reason says right inguinal hernia but when talking to the patient she points to the central portion of her infraumbilical incision and states it goes off to the right. She has multiple hernia repairs with mesh. She states it has been bothering her. Has never been incarcerated at this point. Medical History: Medical History[1] Hypertension Surgical History: Surgical History[2] Colonoscopy. Hysterectomy. Knee arthroplasty. Hernia repairs Home Medications: Prior to Admission medications Medication Sig Start Date End Date Taking? Authorizing Provider EPINEPHrine 0.3 mg/0.3 mL injection syringe as directed intramuscularly once for 1 days Yes Historical Provider, lisinopril 20 mg tablet Take 1 tablet (20 mg) by mouth once daily. 12/19/22 Yes Historical Provider, multivitamin tablet Take 1 tablet by mouth once daily. Yes Historical Provider, Allergies: Allergies[3] is allergic to bee venom protein (honey bee), erythromycin, penicillins, and sulfa (sulfonamide antibiotics). Family History: Family History[4] Mainly cardiovascular Social History: Social History[5] She does not smoke or use drugs. She has a glass of wine a couple times a week. ROS: Constitutional: no fever, sweats, and chills Cardiovascular: No chest pain Respiratory: No cough or shortness of breath Gastrointestinal: Denies Genitourinary: no dysuria Musculoskeletal: no weakness or swelling Integumentary: no rashes Neurological: no confusion Endocrine: no heat or cold intolerance Heme/Lymph: no easy bruising or bleeding Objective: BP 130/76 Pulse 65 Ht 1.727 m (5' 8) Wt 94.3 kg (208 lb) BMI 31.63 kg/m Physical Exam: Constitutional: No acute distress, conversant, pleasant Neurologic: alert and oriented Psych: appropriate affect Ears, Nose, Mouth and Throat: mucus membranes moist Pulmonary: No labored breathing Cardiovascular: Regular rate and rhythm Abdomen: soft, non-distended, non-tender in the midportion of her infraumbilical incision she has a vague impression of a possible recurrent hernia. Musculoskeletal: Moves all extremities, no edema Skin: warm and dry Assessment and Plan: Ara Loza is a 64 y.o. old female with possible recurrent ventral hernia. It is difficult to tell with the scarring if one is present or not. We discussed the possibility of doing a CT scan which would be fine if it was there as well as help with operative planning. She agrees to proceed. Will see her back after the CT.. Lucy Larios MD 10/14/2024 [1] History reviewed. No pertinent past medical history. [2] Past Surgical History: Procedure Laterality Date COLONOSCOPY 08/25/2018 Repeat 10 years DILATION AND CURETTAGE OF UTERUS 1998 HYSTERECTOMY KNEE ARTHROPLASTY 2022 [3] Allergies Allergen Reactions Bee Venom Protein (Honey Bee) Anaphylaxis Erythromycin Anaphylaxis and Shortness of breath Penicillins Anaphylaxis and Shortness of breath Sulfa (Sulfonamide Antibiotics) Anaphylaxis and Shortness of breath [4] Family History Problem Relation Name Age of Onset Stroke Mother Heart disease Father Diabetes Paternal Grandmother [5] Social History Socioeconomic History Marital status: Tobacco Use Smoking status: Never Smokeless tobacco: Never Vaping Use Vaping status: Never Used Substance and Sexual Activity Alcohol use: Yes Alcohol/week: 3.0 standard drinks of alcohol Types: 3 Glasses of wine per week documented in this encounter [facility] Work Phone: 10-07-2024 Evaluation + Plan note Associated Problem(s): Vaginal vault prolapse, posthysterectomy She is status post enterocele repair, posterior repair, sacrospinous ligament fixation. She denies any recurrent prolapse. On exam, no recurrent prolapsed tissue. Her discomfort is a suspected ventral abdominal hernia. She is status post repair. Certainly could be a incisional hernia that is recurrent. She will call her previous surgeon for a consultation. [facility] 10-07-2024 Miscellaneous Notes Associated Problem(s): Vaginal vault prolapse, posthysterectomy She is status post enterocele repair, posterior repair, sacrospinous ligament fixation. She denies any recurrent prolapse. On exam, no recurrent prolapsed tissue. Her discomfort is a suspected ventral abdominal hernia. She is status post repair. Certainly could be a incisional hernia that is recurrent. She will call her previous surgeon for a consultation. documented in this encounter [facility] 10-07-2024 History of Present illness Narrative [facility] Date of Visit: 10/07/24 Patient Name: Ara Loza (: 1960) Reason for Visit: No chief complaint on file. Primary Urogynecology Physician: Dr. Terri Rand MD, FACOG Subjective: presents to the office today for 1 year follow up HPI: Ara is a 64 y.o. , s/p Sacrospinous Ligament Fixation, Posterior Repair, Enterocele Repair Transurethral Bulking Injection Bulkamid, Cystoscopy on 02/14/2023 for tx of posthysterectomy vaginal wall prolapse. She also had mixed urinary incontinence by history along with urinary urgency, frequency, and nocturia. Urodynamic testing had confirmed stress urinary incontinence. There had been some evidence of incomplete bladder emptying during portions of that testing. She presents today for annual follow up. She reports a pain in the right lower abdomen/groin. Worse over the past 3 weeks. She can feel something inside shift. She is status post 3 hernia repairs before. She denies any vaginal bleeding or discharge. She denies any pelvic pain or discomfort. She is able to initiate a urinary stream without difficulty and feels as though she is emptying her bladder to completion. She is having bowel movements regularly and tends to have issues with constipation in the past. She is taking a bowel supplement with star anise, berberine, deglycyrrhizinated licorice, quercetin and resveratrol (brand name Harrison) which is keeping her regular. She reports that her overall urinary incontinence is controlled. She denies any urge urinary incontinence episodes and does not utilize pads. She denies any stress urinary incontinence episodes either. Bladder Diary: Water 64 oz Sparkling water 64-96 oz Coffee 20-30 oz Voids 1-2 hours/d, 1-2/n 0 pads/d ROS: Gen: - fatigue, - fever, - chills, - unintended weight loss/gain, - new HAs or visual changes, - chest pain, - mental illness. GI: - abdominal pain, - constipation, - fecal incontinence : - urgency, - frequency, - nocturia, - dysuria, - hematuria, - UI, - difficulty initiating a urinary stream, - postvoid fullness Information Technology Instructor: - pelvic pain, - vaginal discharge, - vaginal bleeding, - dyspareunia, - recurrence or worsening of prolapse, - vaginal dryness, - vaginal itching or irritation Neuro: - numbness/tingling of pelvic area Past Medical History: Diagnosis Date Back pain 09/12/2022 Bladder problem 09/12/2022 Cancer (HCC) Complication of anesthesia Hysterectomy wide awake right before surgery anesthesiologist injected arm with something that burnt like fire and made my heart race, I thought I d . Constipation 06/16/2019 Leeann Lax Benecol Soft Chews 2 g of plant stanols 2 day GERD (gastroesophageal reflux disease) 2years ago Currently take Fomatitine Hypertension 12/16/2022 Given Lisinoprail 20 milligrams OAB (overactive bladder) 10/09/2023 Peripheral neuropathy AMA hands and AMA shoulders Sleep apnea, obstructive CPAP Past Surgical History: Procedure Laterality Date ABDOMINAL SURGERY Herina hysterectomy FOOT SURGERY Right 2018 hernia multiple HERNIA REPAIR Over lifting HYSTERECTOMY 2010 fibroids. 02/06/2023 full hysterectomy. told her that it was full of cancer but it did not spread. no additional treatment was needed JOINT REPLACEMENT Bilateral bilateral knees. KNEE ARTHROSCOPY Bone on bone both capped KNEE SURGERY Bilateral 2 times - scopes. ORTHOPEDIC SURGERY Both shoulders ROTATOR CUFF REPAIR Bilateral 1994 1996 VAGINAL VAULT SUSPENSION WITH A-P REPAIR AND SLING N/A 02/14/2023 Procedure: Sacrospinous Ligament Fixation, Posterior Repair, Enterocele Repair Transurethral Bulking Injection Bulkamid, Cystoscopy; Surgeon: Terri Rand MD; Location: [facility] Main OR; Service: OBGYN Allergies as of 10/07/2024 - Reviewed 10/09/2023 Allergen Reaction Noted Bee venom protein (honey bee) Anaphylaxis 11/29/2022 Erythromycin Shortness Of Breath 11/29/2022 Penicillins Shortness Of Breath 11/29/2022 Sulfa (sulfonamide antibiotics) Shortness Of Breath 11/29/2022 Keflex [cephalexin] Other (See Comments) 02/14/2023 Medications Taking[1] Social History [2] Objective: Vitals 10/07/24 1303 BP: (!) 179/83 Pulse: 76 Temp: 98.1 F (36.7 C) 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 She voided immediately prior to the exam General: healthy-appearing, well-nourished, no acute distress Psych: normal mood, normal affect Neuro: no focal deficits, oriented Skin: Appearance: no rashes, no lesions Cardiovascular: no LLE edema, no RLE edema, no varicosities Abdomen: soft, non-distended, no tenderness (no guarding, no rebound), suspected ventral hernia inferior and right to umbilicus External: genitalia intact with atrophic changes noted. Internal: vaginal tissue pink, moist, mildly atrophic, well-supported anterior vaginal wall, apex, and posterior vaginal wall w/o evidence of graft erosion. Non-tender to palpation along all surgical osborn. Assessment/Plan: Vaginal vault prolapse, posthysterectomy She is status post enterocele repair, posterior repair, sacrospinous ligament fixation. She denies any recurrent prolapse. On exam, no recurrent prolapsed tissue. Her discomfort is a suspected ventral abdominal hernia. She is status post repair. Certainly could be a incisional hernia that is recurrent. She will call her previous surgeon for a consultation. RTO in 1 year I personally spent 25 minutes on this encounter today reviewing the chart, examining the patient, discussing next steps, and writing my note. Harrison Lan PA-C [1] No outpatient medications have been marked as taking for the 10/07/24 encounter (Appointment) with Harrison Lan PA-C. [2] Social History Socioeconomic History Marital status: Tobacco Use Smoking status: Never Passive exposure: Past (parents smoked) Smokeless tobacco: Never Vaping Use Vaping status: Never Used Substance and Sexual Activity Alcohol use: Yes Alcohol/week: 5.0 - 6.0 standard drinks of alcohol Types: 5 - 6 Glasses of wine per week Drug use: Never Sexual activity: Not Currently Partners: Male control/protection: None documented in this encounter [facility] 10-07-2024 Note [facility] Date of Visit: 10/07/24 Patient Name: Ara Loza (: 1960) Reason for Visit: No chief complaint on file. Primary Urogynecology Physician: Dr. Terri Rand MD, FACOG Subjective: presents to the office today for 1 year follow up HPI: Ara is a 64 y.o. , s/p Sacrospinous Ligament Fixation, Posterior Repair, Enterocele Repair Transurethral Bulking Injection Bulkamid, Cystoscopy on 02/14/2023 for tx of posthysterectomy vaginal wall prolapse. She also had mixed urinary incontinence by history along with urinary urgency, frequency, and nocturia. Urodynamic testing had confirmed stress urinary incontinence. There had been some evidence of incomplete bladder emptying during portions of that testing. She presents today for annual follow up. She reports a pain in the right lower abdomen/groin. Worse over the past 3 weeks. She can feel something inside shift. She is status post 3 hernia repairs before. She denies any vaginal bleeding or discharge. She denies any pelvic pain or discomfort. She is able to initiate a urinary stream without difficulty and feels as though she is emptying her bladder to completion. She is having bowel movements regularly and tends to have issues with constipation in the past. She is taking a bowel supplement with star anise, berberine, deglycyrrhizinated licorice, quercetin and resveratrol (brand name Harrison) which is keeping her regular. She reports that her overall urinary incontinence is controlled. She denies any urge urinary incontinence episodes and does not utilize pads. She denies any stress urinary incontinence episodes either. Bladder Diary: Water 64 oz Sparkling water 64-96 oz Coffee 20-30 oz Voids 1-2 hours/d, 1-2/n 0 pads/d ROS: Gen: - fatigue, - fever, - chills, - unintended weight loss/gain, - new HAs or visual changes, - chest pain, - mental illness. GI: - abdominal pain, - constipation, - fecal incontinence : - urgency, - frequency, - nocturia, - dysuria, - hematuria, - UI, - difficulty initiating a urinary stream, - postvoid fullness Information Technology Instructor: - pelvic pain, - vaginal discharge, - vaginal bleeding, - dyspareunia, - recurrence or worsening of prolapse, - vaginal dryness, - vaginal itching or irritation Neuro: - numbness/tingling of pelvic area Past Medical History: Diagnosis Date Back pain 09/12/2022 Bladder problem 09/12/2022 Cancer (HCC) Complication of anesthesia Hysterectomy wide awake right before surgery anesthesiologist injected arm with something that burnt like fire and made my heart race, I thought I'd . Constipation 06/16/2019 Leeann Lax Benecol Soft Chews 2 g of plant stanols 2 day GERD (gastroesophageal reflux disease) 2years ago Currently take Fomatitine Hypertension 12/16/2022 Given Lisinoprail 20 milligrams OAB (overactive bladder) 10/09/2023 Peripheral neuropathy AMA hands and AMA shoulders Sleep apnea, obstructive CPAP Past Surgical History: Procedure Laterality Date ABDOMINAL SURGERY Herina hysterectomy FOOT SURGERY Right 2018 hernia multiple HERNIA REPAIR Over lifting HYSTERECTOMY 2010 fibroids. 02/06/2023 full hysterectomy. told her that it was full of cancer but it did not spread. no additional treatment was needed JOINT REPLACEMENT Bilateral bilateral knees. KNEE ARTHROSCOPY Bone on bone both capped KNEE SURGERY Bilateral 2 times - scopes. ORTHOPEDIC SURGERY Both shoulders ROTATOR CUFF REPAIR Bilateral 1994 1996 VAGINAL VAULT SUSPENSION WITH A-P REPAIR AND SLING N/A 02/14/2023 Procedure: Sacrospinous Ligament Fixation, Posterior Repair, Enterocele Repair Transurethral Bulking Injection Bulkamid, Cystoscopy; Surgeon: Terri Rand MD; Location: [facility] Main OR; Service: OBGYN Allergies as of 10/07/2024 - Reviewed 10/09/2023 Allergen Reaction Noted Bee venom protein (honey bee) Anaphylaxis 11/29/2022 Erythromycin Shortness Of Breath 11/29/2022 Penicillins Shortness Of Breath 11/29/2022 Sulfa (sulfonamide antibiotics) Shortness Of Breath 11/29/2022 Keflex [cephalexin] Other (See Comments) 02/14/2023 Medications Taking[1] Social History [2] Objective: Vitals 10/07/24 1303 BP: (!) 179/83 Pulse: 76 Temp: 98.1 degrees F (36.7 degrees C) 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 She voided immediately prior to the exam General: healthy-appearing, well-nourished, no acute distress Psych: normal mood, normal affect Neuro: no focal deficits, oriented Skin: Appearance: no rashes, no lesions Cardiovascular: no LLE edema, no RLE edema, no varicosities Abdomen: soft, non-distended, no tenderness (no guarding, no rebound), suspected ventral hernia inferior and right to umbilicus External: genitalia intact with atrophic changes noted. Internal: vaginal tissue pink, moist, mildly atrophic, well-supported anterior vaginal wall, apex, and posterior vaginal wall w/o evidence of graft (more content not included)... [facility] 10-09-2023 Evaluation + Plan note Associated Problem(s): Vaginal vault prolapse, posthysterectomy She is status post enterocele repair, posterior repair, sacrospinous ligament fixation. She denies any recurrent prolapse. On exam, She has some movement of anterior vaginal wall but no recurrent prolapsed tissue. [facility] 10-09-2023 Miscellaneous Notes Associated Problem(s): Vaginal vault prolapse, posthysterectomy She is status post enterocele repair, posterior repair, sacrospinous ligament fixation. She denies any recurrent prolapse. On exam, She has some movement of anterior vaginal wall but no recurrent prolapsed tissue. Associated Problem(s): OAB (overactive bladder) Frequency and urgency is not well controlled. She is not having any UUI though. We reviewed to conservative treatment measures including scheduled voiding, avoidance of bladder irritants such as alcohol and caffeine, fluid restriction to 60 ounces daily, avoiding fluids 2-3 hours before bedtime and pelvic floor exercises. I strongly encouraged her to reduce her total fluid intake to 60-70 oz daily. I also encouraged her to decrease bladder irritants. Associated Problem(s): Mixed incontinence She is status post bulking injection 6 months ago for stress urinary incontinence. Denies any recurrent KIZZY today. Educated the patient that bulking agent will wear off at some point and to contact office if her symptoms are bothersome. She denies any urge urinary incontinence episodes today. See OAB plan and assessment. documented in this encounter [facility] 10-09-2023 Evaluation + Plan note Associated Problem(s): OAB (overactive bladder) Frequency and urgency is not well controlled. She is not having any UUI though. We reviewed to conservative treatment measures including scheduled voiding, avoidance of bladder irritants such as alcohol and caffeine, fluid restriction to 60 ounces daily, avoiding fluids 2-3 hours before bedtime and pelvic floor exercises. I strongly encouraged her to reduce her total fluid intake to 60-70 oz daily. I also encouraged her to decrease bladder irritants. [facility] 10-09-2023 Evaluation + Plan note Associated Problem(s): Mixed incontinence She is status post bulking injection 6 months ago for stress urinary incontinence. Denies any recurrent KIZZY today. Educated the patient that bulking agent will wear off at some point and to contact office if her symptoms are bothersome. She denies any urge urinary incontinence episodes today. See OAB plan and assessment. [facility] 10-09-2023 History of Present illness Narrative [facility] Date of Visit: 10/09/23 Patient Name: Ara Loza (: 1960) Reason for Visit: Return visit Primary Urogynecology Physician: Dr. Terri Rand MD, FACOG Subjective: presents to the office today for 6 month follow up HPI: Ara is a 63 y.o. , s/p Sacrospinous Ligament Fixation, Posterior Repair, Enterocele Repair Transurethral Bulking Injection Bulkamid, Cystoscopy on 02/14/2023 for tx of posthysterectomy vaginal wall prolapse. She also had mixed urinary incontinence by history along with urinary urgency, frequency, and nocturia. Urodynamic testing had confirmed stress urinary incontinence. There had been some evidence of incomplete bladder emptying during portions of that testing. She presents today for 6 month follow up. Overall, she is doing well and has been very happy the results of her surgery. She denies any vaginal bleeding or discharge. She denies any pelvic pain or discomfort. She is able to initiate a urinary stream without difficulty and feels as though she is emptying her bladder to completion. She is having bowel movements regularly and tends to have issues with constipation. She is taking a vitamin unsure what it is for constipation. She reports that her overall urinary incontinence is controlled. She denies any urge urinary incontinence episodes and does not utilize pads. She denies any stress urinary incontinence episodes either. There have otherwise been no other interval changes since her last visit and she voices no other new complaints. Bladder Diary: Water 64 oz Sparkling water 64-96 oz Coffee 20-30 oz Voids 1-2 hours/d, 1-2/n 0 pads/d BMs are daily but she generally has constipation ROS: Gen: - fatigue, - fever, - chills, - unintended weight loss/gain, - new HAs or visual changes, - chest pain, - mental illness. GI: - abdominal pain, + constipation, - fecal incontinence : - urgency, - frequency, - nocturia, - dysuria, - hematuria, - UI, - difficulty initiating a urinary stream, - postvoid fullness Information Technology Instructor: - pelvic pain, - vaginal discharge, - vaginal bleeding, - dyspareunia, - recurrence or worsening of prolapse, - vaginal dryness, - vaginal itching or irritation Neuro: - numbness/tingling of pelvic area Past Medical History: Diagnosis Date Back pain 09/12/2022 Bladder problem 09/12/2022 Cancer (HCC) Complication of anesthesia Hysterectomy wide awake right before surgery anesthesiologist injected arm with something that burnt like fire and made my heart race, I thought I d . Constipation 06/16/2019 Leeann Lax Benecol Soft Chews 2 g of plant stanols 2 day GERD (gastroesophageal reflux disease) 2years ago Currently take Fomatitine Hypertension 12/16/2022 Given Lisinoprail 20 milligrams Peripheral neuropathy AMA hands and AMA shoulders Sleep apnea, obstructive CPAP Past Surgical History: Procedure Laterality Date ABDOMINAL SURGERY Herina hysterectomy FOOT SURGERY Right 2018 hernia multiple HERNIA REPAIR Over lifting HYSTERECTOMY 2010 fibroids. 02/06/2023 full hysterectomy. told her that it was full of cancer but it did not spread. no additional treatment was needed JOINT REPLACEMENT Bilateral bilateral knees. KNEE ARTHROSCOPY Bone on bone both capped KNEE SURGERY Bilateral 2 times - scopes. ORTHOPEDIC SURGERY Both shoulders ROTATOR CUFF REPAIR Bilateral 1994 1996 VAGINAL VAULT SUSPENSION WITH A-P REPAIR AND SLING N/A 02/14/2023 Procedure: Sacrospinous Ligament Fixation, Posterior Repair, Enterocele Repair Transurethral Bulking Injection Bulkamid, Cystoscopy; Surgeon: Terri Rand MD; Location: [facility] Main OR; Service: OBGYN Allergies as of 10/09/2023 - Reviewed 03/28/2023 Allergen Reaction Noted Bee venom protein (honey bee) Anaphylaxis 11/29/2022 Erythromycin Shortness Of Breath 11/29/2022 Penicillins Shortness Of Breath 11/29/2022 Sulfa (sulfonamide antibiotics) Shortness Of Breath 11/29/2022 Keflex [cephalexin] Other (See Comments) 02/14/2023 Outpatient Medications Marked as Taking for the 10/09/23 encounter (Office Visit) with Harrison Lan PA-C Medication Sig Dispense Refill lisinopriL (PRINIVIL,ZESTRIL) 20 MG tablet Take 1 (one) tablet (20 mg total) by mouth every morning . 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 She voided immediately prior to the exam General: A&O Abdomen: soft, non-distended. External: genitalia intact with atrophic changes noted. Internal: vaginal tissue pink, moist, mildly atrophic, well-supported anterior vaginal wall, apex, and posterior vaginal wall w/o evidence of graft erosion. Movement of anterior vaginal wall with valsalva but no recurrent prolapsed tissue. Blue sutures noted within vaginal wall. Non-tender to palpation along all surgical soborn. PVR: 139 mL via bladder scanner initially. Had patient void again which she voided 100 mL spontaneously. PVR was 0 mL via bladder scan. Assessment/Plan: Mixed incontinence She is status post bulking injection 6 months ago for stress urinary incontinence. Denies any recurrent KIZZY today. Educated the patient that bulking agent will wear off at some point and to contact office if her symptoms are bothersome. She denies any urge urinary incontinence episodes today. See OAB plan and assessment. OAB (overactive bladder) Frequency and urgency is not well controlled. She is not having any UUI though. We reviewed to conservative treatment measures including scheduled voiding, avoidance of bladder irritants such as alcohol and caffeine, fluid restriction to 60 ounces daily, avoiding fluids 2-3 hours before bedtime and pelvic floor exercises. I strongly encouraged her to reduce her total fluid intake to 60-70 oz daily. I also encouraged her to decrease bladder irritants. Vaginal vault prolapse, posthysterectomy She is status post enterocele repair, posterior repair, sacrospinous ligament fixation. She denies any recurrent prolapse. On exam, She has some movement of anterior vaginal wall but no recurrent prolapsed tissue. RTO in 1 year. I personally spent 32 minutes on this encounter today reviewing the chart, examining the patient, discussing next steps, and writing my note. Harrison Lan PA-C documented in this encounter [facility] 06-01-2023 Note HNO ID: [id number] Author: Jarek Farias MD Service: ? Author Type: Physician Type: Progress Notes Filed: 06/01/2023 6:15 PM Note Text: [facility] Follow up visit Patient had a virtual visit today to discuss her DXA scan results. However this was not done. I requested rescheduling the appointment through my staff, but she wanted to keep the appointment to discuss her other concerns. We both logged in on zoom through [email or web address], but patient's audio was not ?working or on. I could not hear her, nor could she hear me but we could see each other. She wrote on a paper - I can't hear you. My team was notified who tried to help her but with no results. The patient hung up after about 5 to 10 minutes past the appointment time. I called my team to reschedule her after DXA scan to discuss the results and her concerns together. [facility] 06-01-2023 Miscellaneous Notes Phone call to Pt - name & verified. Dr. Farias could not hear Pt during her virtual visit. Dr. Farias would like her to reschedule for a different date/time. Pt agreeable. While on the phone, Pt also becomes tearful and reports that she is still having symptoms (chest pain, dyspnea, etc). Reports that her PCP, Dr. Ryan Sweet in [place], had her get a stress test in April, but she hasn't heard from his office with the results yet. She is currently in [place]. Instructed Pt that I spoke with Dr. Sweet's office staff and explained her situation. I requested that his staff call her as soon as possible to let her know the results and if there's any further work up warranted at this time. Pt denies any sudden or new acute symptoms from her previous visit with Dr. Sweet. I instructed her to let our office know if she hasn't heard from his office by 11:00am today. Sharyn Griffiths RN June 01, 2023 9:43 AM documented in this encounter [facility] 05-05-2023 Note HNO ID: [id number] Author: Jarek Farias MD Service: ? Author Type: Physician Type: Progress Notes Filed: 05/05/2023 7:11 PM Note Text: Endocrinology and Metabolism [place] Initial [facility] Visit Note NAME: Ara Loza is a 62 year old old female PCP: No primary care provider on file. Requesting Provider: Ryan [place] MD [facility] [place] [id number] My final recommendations will be communicated back to the requesting physician by way of shared medical record or letter via US mail. 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 History of Present Illness: Ara Loza is a 62 year old old female with past medical history of hypertension, class I obesity who was presenting for evaluation of hyperparathyroidism. Her initial symptoms included: Difficulty breathing and chest pain while walking or going up and down the stairs resulting in an EKG being ordered by her PCP that resulted abnormal, this was followed by a stress test which did not yield significant results. However BMP was done around the same time which revealed hypercalcemia. She also reports fatigue/low energy. No changes in appetite, weight, diet, thirst or urination. She has constipation however this has been there. She denies any calcium abnormalities in the past to the best of her knowledge, reporting that she never had blood tests done Personal history of kidney stones: no Personal history of fractures: Were these fractures in the setting of trauma: from accidental falls Family history of osteoporosis: unknown Height loss: No Weight <127 lbs: No Prior radiation to the neck: none Personal history of thyroid or parathyroid disease: None Family history of thyroid or parathyroid disease: daughter has hypothyroidism, no calcium or parathyroid issues in family but son has a history of kidney stones x2 Calcium Intake: Patient eats more dietary calcium, avoiding all calcium rich foods Patient takes no calcium supplements Vitamin D Intake: Patient takes no vitamin D supplements No recent or prolonged steroid use Smoking: Never smoked Alcohol: weekends Exercise: no regular exercise program Menopause at age: 33, surgical TAHSOB- for cancer of uterus, no radiation Family history of unknown cancer in grandfather with bone metastasis Signs, Symptoms AND Risk Factors for Hypercalcemia: - Anorexia: yes - Bone pain: yes - Fatigue / poor concentration:+fatigue, poor conc, since surgery in 02/2023 (colpopexy/sling operation for stress incontinence) - Constipation: yes, normal for her - Fractures: yes, from accidental trauma - Medications: [place] or thiazide diuretics- none - Muscle weakness: - Nausea / vomiting: none - Nephrolithiasis: none PAST MEDICAL HISTORY Diagnosis Date Cystocele with rectocele Irritable bowel syndrome Sleep apnea PAST SURGICAL HISTORY Procedure Laterality Date REPAIR EPIGASTRIC HERNIA,REDUC 2018 REPAIR OF RECTOCELE 02/2023 with pelvic reconstruction REPAIR ROTATOR CUFF,ACUTE 1998 TOTAL KNEE REPLACEMENT Bilateral VAGINAL HYSTERECTOMY 2005 FAMILY HISTORY Problem Relation Age of Onset Diabetes Mother Hypertension Mother Stroke Father Alzheimer's Disease Father Cancer Sister Bleeding disorder Sister Cancer Brother Kidney failure Maternal Grandmother Blood Clots Paternal Grandmother Diabetes Paternal Grandmother Diabetes Paternal Grandfather Cancer Paternal Grandfather ALLERGIES Allergen Reactions Bee Venom Protein (* Anaphylaxis Erythromycin Anaphylaxis, Shortness of Breath Penicillins Anaphylaxis, Shortness of Breath Sulfa (Sulfonamide * Anaphylaxis, Shortness of Breath Bee Sting Anaphylaxis Cephalexin Anaphylaxis, Other: See Comments Social History Tobacco Use Smoking status: Never Smokeless tobacco: Never Vaping Use Vaping Use: Never used Substance Use Topics Alcohol use: Yes Comment: 2-4 a month Drug use: Never Current Outpatient Medications Medication Sig CPAP/BIPAP/OTHER DIRECTED QHS, INSTRUCTED wheat dextrin (BENEFIBER CLEAR SF, DEXTRIN, ORAL) 2 tablets Orally twice a day mv-mn/iron/FA/biotin/herb 346 ([id number],FA-HERB CMPLX, ORAL) as directed Orally Ibuprofen 200 mg cap Take by mouth as needed. multivitamin with minerals (MULTIPLE VITAMIN-MINERALS ORAL) 1 tab(s) chewed once a day for 30 day(s) polyethylene glycol 3350 (MIRALAX) 17 gram/dose powder Take 17 g by mouth once daily. Lactobacillus acidophilus (PROBIOTIC) 10 billion cell cap Take by mouth once daily. EPINEPHrine (EPIPEN) 0.3 mg/0.3 mL auto-injector as directed intramuscularly once for 1 days famotidine (PEPCID) 20 mg tablet Take 20 mg by mouth as needed. lisinopril (ZESTRIL) 20 mg tablet Take 20 mg by mouth once daily. No current facility-administered medications for this visit. @PROB (more content not included)... [facility] 05-05-2023 Instructions Jarek Farias MD - 05/05/2023 10:12 AM EST Please consume atleast [id number] mg of calcium a day- dietary calcium (dairy products) is better than supplements documented in this encounter [facility] 05-05-2023 History of Present illness Narrative Endocrinology [facility] Met[facility] [place] [facility] Visit Note NAME: Ara Loza is a 62 year old old female PCP: No primary care provider on file. Requesting Provider: Ryan [place] MD [address] [place] [address] My final recommendations will be communicated back to the requesting physician by way of shared medical record or letter via US mail. 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 History of Present Illness: Ara Loza is a 62 year old old female with past medical history of hypertension, class I obesity who was presenting for evaluation of hyperparathyroidism. Her initial symptoms included: Difficulty breathing and chest pain while walking or going up and down the stairs resulting in an EKG being ordered by her PCP that resulted abnormal, this was followed by a stress test which did not yield significant results. However BMP was done around the same time which revealed hypercalcemia. She also reports fatigue/low energy. No changes in appetite, weight, diet, thirst or urination. She has constipation however this has been there. She denies any calcium abnormalities in the past to the best of her knowledge, reporting that she never had blood tests done Personal history of kidney stones: no Personal history of fractures: Were these fractures in the setting of trauma: from accidental falls Family history of osteoporosis: unknown Height loss: No Weight <127 lbs: No Prior radiation to the neck: none Personal history of thyroid or parathyroid disease: None Family history of thyroid or parathyroid disease: daughter has hypothyroidism, no calcium or parathyroid issues in family but son has a history of kidney stones x2 Calcium Intake: Patient eats more dietary calcium, avoiding all calcium rich foods Patient takes no calcium supplements Vitamin D Intake: Patient takes no vitamin D supplements No recent or prolonged steroid use Smoking: Never smoked Alcohol: weekends Exercise: no regular exercise program Menopause at age: 33, surgical TAHSOB- for cancer of uterus, no radiation Family history of unknown cancer in grandfather with bone metastasis Signs, Symptoms & Risk Factors for Hypercalcemia: - Anorexia: yes - Bone pain: yes - Fatigue / poor concentration:+fatigue, poor conc, since surgery in 02/2023 (colpopexy/sling operation for stress incontinence) - Constipation: yes, normal for her - Fractures: yes, from accidental trauma - Medications: [place] or thiazide diuretics- none - Muscle weakness: - Nausea / vomiting: none - Nephrolithiasis: none PAST MEDICAL HISTORY Diagnosis Date Cystocele with rectocele Irritable bowel syndrome Sleep apnea PAST SURGICAL HISTORY Procedure Laterality Date REPAIR EPIGASTRIC HERNIA,REDUC 2018 REPAIR OF RECTOCELE 02/2023 with pelvic reconstruction REPAIR ROTATOR CUFF,ACUTE 1998 TOTAL KNEE REPLACEMENT Bilateral VAGINAL HYSTERECTOMY 2006 FAMILY HISTORY Problem Relation Age of Onset Diabetes Mother Hypertension Mother Stroke Father Alzheimer's Disease Father Cancer Sister Bleeding disorder Sister Cancer Brother Kidney failure Maternal Grandmother Blood Clots Paternal Grandmother Diabetes Paternal Grandmother Diabetes Paternal Grandfather Cancer Paternal Grandfather ALLERGIES Allergen Reactions Bee Venom Protein (* Anaphylaxis Erythromycin Anaphylaxis, Shortness of Breath Penicillins Anaphylaxis, Shortness of Breath Sulfa (Sulfonamide * Anaphylaxis, Shortness of Breath Bee Sting Anaphylaxis Cephalexin Anaphylaxis, Other: See Comments Social History Tobacco Use Smoking status: Never Smokeless tobacco: Never Vaping Use Vaping Use: Never used Substance Use Topics Alcohol use: Yes Comment: 2-4 a month Drug use: Never Current Outpatient Medications Medication Sig CPAP/BIPAP/OTHER DIRECTED QHS, INSTRUCTED wheat dextrin (BENEFIBER CLEAR SF, DEXTRIN, ORAL) 2 tablets Orally twice a day mv-mn/iron/FA/biotin/herb 346 ([id number],FA-HERB CMPLX, ORAL) as directed Orally Ibuprofen 200 mg cap Take by mouth as needed. multivitamin with minerals (MULTIPLE VITAMIN-MINERALS ORAL) 1 tab(s) chewed once a day for 30 day(s) polyethylene glycol 3350 (MIRALAX) 17 gram/dose powder Take 17 g by mouth once daily. Lactobacillus acidophilus (PROBIOTIC) 10 billion cell cap Take by mouth once daily. EPINEPHrine (EPIPEN) 0.3 mg/0.3 mL auto-injector as directed intramuscularly once for 1 days famotidine (PEPCID) 20 mg tablet Take 20 mg by mouth as needed. lisinopril (ZESTRIL) 20 mg tablet Take 20 mg by mouth once daily. No current facility-administered medications for this visit. @PROBLNC@ Review of Systems Review of Systems Physical Exam: BP 140/74, pulse rate 65 bpm, temperature 97.7 F, SPO2 96% Body mass index is 34.76 kg/m . General: Comfortable, no obvious distress Eyes: Sclera anicteric, no pallor Mouth/Throat: Moist Mucous membranes, no erythema or exudate Thyroid: Thyroid is normal in size and texture. No nodules palpated, no cervical adenopathy CV: Regular rhythm, normal rate. No murmurs auscultated Resp: Clear to auscultation bilaterally, equal air entry bilaterally, good effort Abdomen: Soft, non tender, non distended. No organomegaly Skin: No rashes, lesions, or subcutaneous nodules, no striae Psych: Alert and orientated x 3. Appropriate affect, good insight Extremities: No peripheral edema, no tenderness Musculoskeletal: Appropriate muscle bulk and strength, no spinal or hip tenderness noted Lymphatic: No cervical or axillary lymphadenopathy Neuro: Moves all four extremities. No focal deficits on limited exam. LABS: 04/10/2023 TSH 1.98 mIU/L (0.4-4.5) Free T4 1.0 ng/dL (0.8-1.8) Calcium 10.9 mg/dL (8.6-10.4) PTH intact 80 pg/mL (16-77) 04/03/2023 PTH intact 96 g/mm (16-77) 12/27/2022, intact PTH 67 pg/mL (16-77) 02/06/2023 BMP showing total calcium 11.1 mg/dL (8.4-10.2) Creatinine 0.7 mg/dL (0.6-1.2) eGFR 97 04/18/2023 total calcium 10.3 mg/dL (8.6-10.4) Albumin 4.3 g/dL (3.6-5.1) 25 hydroxy vitamin D3 27 ng/mL (30-100) DXA: Not available Assessment & Plan: Primary hyperparathyroidism We reviewed the current laboratory tests are consistent with a diagnosis of primary hyperparathyroidism. We discussed this condition in detail, including potential complications and indications for treatment. This disorder can be associated with higher rates of osteoporosis, and there is approximately 20% chance of a kidney stone. Some patients can have non-specific symptoms from hypercalcemia, such as fatigue, nausea, constipation, or aches in the body. This condition is caused by one or more of the parathyroid glands secreting excess parathyroid hormone, and in approximately 85% of cases this is due to a single adenoma. Less frequently this can be due to more than one gland secreting excess parathyroid hormone. This is almost always a benign condition, with 99% cases being benign. A parathyroid cancer is suspected if there is severe hypercalcemia, or a mass in the neck, but this is quite rare. At this time there is one medication FDA approved for the treatment of primary hyperparathyroidism, but this is option most of the time for patients who opt to avoid surgery. Surgery is the only currently therapy to cure this condition. We reviewed the guidelines for which patients should be considered for surgery for this disorder. The guideline is as follow: Per the 4th International Workshop guidelines for patients with asymptomatic primary hyperparathyroidism, indication for surgery are as follows: 1.) Age < 50 years old (or relative youthfulness) 2.) Creatinine clearance < 60 mL/min 3.) presence of kidney stone or 24 hr urine for Ca > 300 mg/day for men or > 250 mg/day for women with increased stone risk by biochemical stone risk analysis 4.) Serum calcium concentration of 1.0 mg/dL or more above the upper limit of normal 5.) T-Score < -2.5 at hip, lumbar spine, or distal radius, or previous fragility fracture. If a patient elects for observation, approximately 25% of patient would develop one of these complications over 10 years of follow-up. Surgery with a skilled surgeon has a high rate of cure for this condition. A parathyroid scan can be done pre-operatively to see if the overactive gland can be located with imaging, but this test can be negative even in patients who have primary hyperparathyroidism that have clearly proven through laboratory tests. Successful surgery is often followed by improvements in bone density, especially at the spine, and significantly lowers the risk of developing kidney stones. If a patient decides for observation rather than surgery, it is recommended to follow the serum calcium twice a year, and bone density of the spine, hip, and radius annually. If they are developing a complication, such as kidney stone, or osteoporosis, then surgery could be considered at that time. For patients who have osteoporosis but elect not to have surgery, than treatment with a bisphosphonate such as Actonel or Fosamax has been found to preserve bone density with this condition over 1-2 years or follow-up. Calcium intake is recommended to aim for about 1,000 mg of calcium a day on average between diet and supplements. Plan: I discussed with her that due to no intake of vitamin D levels and previously mildly low levels, I would like to test this and repeat PTH as well as ionized calcium once again Dietary calcium of atleast 3 servings recommended and reviewed calcium rich foods Labs-5 hydroxy vitamin D, PTH, calcium All questions welcomed and answered to satisfaction Patient understands and agrees with the plan discussed. I spent a total of 75 minutes on the date of the service which included preparing to see the patient, [id number] patient care, completing clinical documentation, obtaining and/or reviewing separately obtained history, performing a medically appropriate examination, counseling and educating the patient/family/caregiver, ordering medications, tests, or procedures, and independently interpreting results (not separately reported). Jarek Farias MD [facility] Endocrinology and Metabolism [place] Medical Decision Making: Medical Decision Making Level: 1 - N/A documented in this encounter [facility] 03-28-2023 History of Present illness Narrative Chaperoned exam by Dr. Rand documented in this encounter [facility] 02-21-2023 History of Present illness Narrative [facility] Urogynecology Patient Name: Ara Loza Date: 02/21/23 : 1960 Postoperative Visit Referring Provider: Na Nicolas CNP BP (!) 155/83 (BP Location: Right arm, Patient Position: Sitting, BP Cuff Size: X-large Adult) Pulse 64 Temp 98.4 F (36.9 C) (Temporal) Resp 14 Pain? 2 Allergies: Bee venom protein (honey bee), Erythromycin, Penicillins, Sulfa (sulfonamide antibiotics), and Keflex [cephalexin] Assessment: Postoperative exam. Plan: Precautions discussed including postoperative restrictions. She will return to the office in 3-4 weeks for reevaluation. The patient underwent a vaginal repair of enterocele, posterior colporrhaphy, perineorrhaphy, sacral spinous ligament suspension, transurethral bulking injections, and diagnostic cystoscopy on February 14, 2023 for the treatment of vaginal enterocele, post-hysterectomy vaginal prolapse, stage II to III rectocele, stage II to III perineocele, and stress urinary incontinence. Notes: She returns to the office today for reevaluation. She is maintaining adequate pain control with ibuprofen and Tylenol. She voids approximately 6 times throughout the day and occasionally once at night. She denies stress urinary incontinence but endorses mild urge urinary incontinence with standing. She has minimal vaginal discharge and normal bowel function with Colace twice daily, MiraLAX, and fiber chews. She is taking the antibiotics as prescribed and denies fever, chills, nausea, or vomiting.. Outpatient Medications Marked as Taking for the 02/21/23 encounter (Follow-Up) with Tristin Pederson CNP Medication Sig Dispense Refill acetaminophen (TYLENOL) 325 MG tablet Take 3 (three) tablets (975 mg total) by mouth every 8 (eight) hours for 10 days . 30 tablet 0 ciprofloxacin HCl (CIPRO) 500 MG tablet Take 1 (one) tablet (500 mg total) by mouth 2 (two) times a day for 7 days . 14 tablet 0 docusate sodium (COLACE) 100 MG capsule Take 1 (one) capsule (100 mg total) by mouth 2 (two) times a day . 60 capsule 0 famotidine (PEPCID) 20 MG tablet Take 2 (two) tablets (40 mg total) by mouth every morning . ibuprofen (ADVIL,MOTRIN) 600 MG tablet Take 1 (one) tablet (600 mg total) by mouth every 6 (six) hours as needed . 30 tablet 0 lactobacillus combo no.11 (Probiotic) 15 billion cell CpSP Take 2 capsules by mouth every morning . lisinopriL (PRINIVIL,ZESTRIL) 20 MG tablet Take 1 (one) tablet (20 mg total) by mouth every morning . multivit-min/ferrous fumarate (MULTI VITAMIN ORAL) Take 1 tablet by mouth every morning . multivitamin with minerals (HAIR,SKIN AND NAILS ORAL) Take 1 capsule by mouth every morning . polyethylene glycol 3350 (MIRALAX ORAL) Take 17 g by mouth every morning . wheat dextrin (Benefiber Sugar Free, dextrin,) 1 gram Chew Chew and Swallow 1 g every morning . Physical Exam: Declines automobile washer steam. She voided prior to the exam; PVR = 0 mL via ultrasound. Abdomen is soft, nondistended. External genitalia is intact without rashes or lesions noted. On single-digit exam, suburethral area is intact without masses noted. Posterior vaginal wall sutures intact. Perineum is intact with perineal sutures in situ. Tristin Pederson, MSN, BUILDING RENTAL MANAGER documented in this encounter [facility] 02-14-2023 Anesthesiology Postoperative evaluation and management note Anesthesia Post Evaluation * * Refer to nursing documentation for PACU vitals * * Patient participation: patient participated Mental status: awake Pain management: adequate Anesthetic complications: no Nausea / vomiting: no Respiratory / airway status: airway patent and nasal cannula Postoperative hydration: acceptable Comment: Patient has satisfactorily recovered from her anesthetic. [facility] Work Phone: 02-14-2023 Surgical operation note Anesthesia Post Evaluation * * Refer to nursing documentation for PACU vitals * * Patient participation: patient participated Mental status: awake Pain management: adequate Anesthetic complications: no Nausea / vomiting: no Respiratory / airway status: airway patent and nasal cannula Postoperative hydration: acceptable Comment: Patient has satisfactorily recovered from her anesthetic. Associated Order(s): ETT Airway ETT Airway Mask ventilation: ventilated by mask Technique: direct laryngoscopy Type: cuffed oral Tube size: 7 mm Final laryngoscope: Mac 3 Location: oral Final grade: 1 Insertion attempts: 1 Placement verification: auscultation, symmetrical chest wall movement and end tidal CO2 Secured at: 20 cm (measured from the teeth) Secured by: tape Bite block: none Lip/tooth/tongue trauma: no *See MAR for medication administration ANESTHESIA PREPROCEDURE EVALUATION Anesthesia Plan ASA: 2 Type: general Airway: endotracheal tube Induction: intravenous Anesthetic plan and risks as outlined in the consent discussed with: patient Use of blood products discussed with: patient Physical Exam Airway Mallampati: II TM Distance: >3 FB Neck ROM: full Mouth opening: >3 FB Cardiovascular - normal Pulmonary - normal Neurological Mental Status: alert Dental Dental exam is normal and age appropriate Review of Systems / Medical History - Reviewed: ECG, patient summary, anesthesia history, nursing notes, medical history, H&P and labs / results - No history of anesthetic complications Pulmonary Positive: sleep apnea (CPAP) Neurological / Psychological Positive: neuromuscular disease Cardiovascular Exercise tolerance: good Positive: hypertension Gastrointestinal / Hepatic / Renal NPO Status > 8 hours Positive: GERD Other Positive: cancer documented in this encounter [facility] 02-14-2023 Procedure anesthe hemant Narrative Procedure Name Responsible Anesthesiologist Anesthesia Start Time Anesthesia Stop Time Sacrospinous Ligament Fixation, Posterior Repair, Enterocele Repair Transurethral Bulking Injection Bulkamid, Cystoscopy (Abdomen) Amy Tang MD 02/14/23 1456 02/14/23 1823 Events Date Time Event Comment 02/14/2023 1419 1456 AN Equip Check 1456 An Start 1456 Patient Verification 1457 An Start Data 1502 An Induction 1505 An Intubation 1505 Anesthesia Ready 1805 [facility] OR 23 1807 An Extubation 1815 an stop data 182 Handoff I completed my SBAR handoff to the receiving nurse in the PACU/unit. 1822 An Stop Meds Name Total midazolam 2 mg fentaNYL 200 mcg lidocaine 2% (PF) cardiac 100 mg propofol 150 mg rocuronium 100 mg dexamethasone 4 mg ondansetron 4 mg sugammadex 200 mg gentamicin (GARAMYCIN) 5 mg/ kg = 380 mg in sodium chloride 0.9 % (NS) 100 mL IVPB 380 mg metroNIDAZOLE (FLAGYL) IVPB 500 mg 500 m g clindamycin (CLEOCIN) IVPB 900 mg (premi x) 900 mg HYDROmorphone 0.6 mg lactated Ringers infusion 1,500 mL * Agents No agents on file. * Blood No blood administrations on file. Lines, Drains, and Airways Type Details Placement Removal Wound 02/14/23; 1; Incisio n; Vagina; Surgical Kelley; Sutures; peripad, vag packing 02/14/23 0000 by Mira Saldivar RN Urethral Catheter Placement Date: 11/01; Inserted by: Dr. Rand; Type: Non-latex; Size: 12 Fr.; Balloon Size: 10 mL; Urine Returned: Yes; Removal Date: 02/15/23; Removal Time: 0430; Removal Reason: Per order 02/14/23 0000 by Mira Saldivar RN 02/15/23 0430 by Tiana Camarena RN Peripheral IV Placement Date: 11/01; Placement Time: 1359; Orientation: Left; Location: Antecubital; Site Prep: Chlorhexidine ; Inserted by: RAFAELA GROVE; Patient Tolerance: Tolerated well; Removal Date: 02/15/23; Removal Time: 1117; Removal Reason: Per order 02/14/23 1359 by Madhuri Hood RN 02/15/23 1117 by Jayson Rubio RN ETT Placement Date: 11/01; Placement Time: 1512 (created via procedure documentation); Mask Ventilation: Ventilated by mask; Type: Cuffed, Oral; Tube Size: 7 mm; Grade View: 1; Insertion Attempts: 1; Removal Date: 02/14/23; Removal Time: 18002/14/23 1512 by Rex Garcia CRNA 02/14/23 1807 by Gianna Altamirano CRNA documented in this encounter [id number] Anesthesiology procedure note* Anesthesia Procedure Notes - Rex Garcia CRNA - 02/14/2023 3:11 PM EDTAssociated Order(s): ETT Airway ETT Airway Mask ventilation: ventilated by mask Technique: direct laryngoscopy Type: cuffed oral Tube size: 7 mm Final laryngoscope: Mac 3 Location: oral Final grade: 1 Insertion attempts: 1 Placement verification: auscultation, symmetrical chest wall movement and end tidal CO2 Secured at: 20 cm (measured from the teeth) Secured by: tape Bite block: none Lip/tooth/tongue trauma: no *See MAR for medication administration [facility] Work Phone: 1(750) 412-957609-05-2023 Anesthesiology Preoperative evaluation and management note* Anesthesia Preprocedure Evaluation - Vicente Willard MD - 02/14/2023 2:17 PM EDT ANESTHESIA PREPROCEDURE EVALUATION Anesthesia Plan ASA: 2 Type: general Airway: endotracheal tube Induction: intravenous Anesthetic plan and risks as outlined in the consent discussed with: patient Use of blood products discussed with: patient Physical Exam Airway Mallampati: II TM Distance: >3 FB Neck ROM: full Mouth opening: >3 FB Cardiovascular - normal Pulmonary - normal Neurological Mental Status: alert Dental Dental exam is normal and age appropriate Review of Systems / Medical History - Reviewed: ECG, patient summary, anesthesia history, nursing notes, medical history, H&P and labs / results - No history of anesthetic complications Pulmonary Positive: sleep apnea (CPAP) Neurological / Psychological Positive: neuromuscular disease Cardiovascular Exercise tolerance: good Positive: hypertension Gastrointestinal / Hepatic / Renal NPO Status > 8 hours Positive: GERD Other Positive: cancer [facility] Work Phone: 1(160) 709-958708-31-2023 History of Present illness Narrative* Shelley Bradley RN - 02/09/2023 11:47 AM EDT Patient has been cleared for surgery. documented in this [id number] Note* Pre-Procedure Instructions - Alec Hebert RN - 02/07/2023 1:25 PM EDT This patient has hypercalcemia with a calcium of 11.1. Please ask patient's primary care physician if this has been evaluated in the past and obtain any information. If this is a new issue recommend patient return to primary care physician for further evaluation and management. Notify surgeon. Lab results sent to PCP. Patient's PCP notified of result. Office stated her last Calcium results were as follows: 12/19/2022 Ca+=10.9 10/21/2022 Ca+=10.3 09/25/2020 Ca+=10.2 Patient notified of Calcium result and encouraged to follow-up with PCP. Dr. Rand's office made aware of Calcium result. [id number] Note* Pre-Procedure Instructions - Alec Hebert RN - 02/07/2023 1:25 PM EDT This patient has hypercalcemia with a calcium of 11.1. Please ask patient's primary care physician if this has been evaluated in the past and obtain any information. If this is a new issue recommend patient return to primary care physician for further evaluation and management. Notify surgeon. Lab results sent to PCP. Patient's PCP notified of result. Office stated her last Calcium results were as follows: 12/19/2022 Ca+=10.9 10/21/2022 Ca+=10.3 09/25/2020 Ca+=10.2 Patient notified of Calcium result and encouraged to follow-up with PCP. Dr. Rand's office made aware of Calcium result. [id number] Miscellaneous Notes* Pre-Procedure Instructions - Alec Hebert RN - 02/07/2023 1:25 PM EDT This patient has hypercalcemia with a calcium of 11.1. Please ask patient's primary care physician if this has been evaluated in the past and obtain any information. If this is a new issue recommend patient return to primary care physician for further evaluation and management. Notify surgeon. Lab results sent to PCP. Patient's PCP notified of result. Office stated her last Calcium results were as follows: 12/19/2022 Ca+=10.9 10/21/2022 Ca+=10.3 09/25/2020 Ca+=10.2 Patient notified of Calcium result and encouraged to follow-up with PCP. Dr. Rand's office made aware of Calcium result. * Quick Note - Lucy Murrell MD - 02/07/2023 7:46 AM EDT This patient has hypercalcemia with a calcium of 11.1. Please ask patient's primary care physician if this has been evaluated in the past and obtain any information. If this is a new issue recommend patient return to primary care physician for further evaluation and management. Notify surgeon. * Quick Note - Lucy Murrell MD - 02/06/2023 2:34 PM EDT EKG dated 12/19/2022 reviewed. 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 No additional cardiac testing recommended prior to planned procedure. Patient is of acceptable risk for her planned procedure. * Pre-Procedure Instructions - Sondra Alejo RN - 02/06/2023 11:32 AM EDT Called to request. [phone] Patient states she had an abnormal EKG with her primary care physician last week. His name is Dr. Sweet and he is in [facility]. Please obtain a copy of this EKG. * Quick Note - Lucy Murrell MD - 02/06/2023 11:24 AM EDT Patient states she had an abnormal EKG with her primary care physician last week. His name is Dr. Sweet and he is in [facility]. Please obtain a copy of this EKG. * Pre-Procedure Instructions - Vicki Pantoja RN - 02/06/2023 11:05 AM EDT Patient Instructions for [facility]: MAIN OR Prior to surgery: Please contact your Surgeon's office for the scheduled time of your surgery. Report to the Surgery Family Waiting Area in the [place] are of [facility] 2 hoursprior to your surgery. You may use the [employer] parking available at the Blue Entrance /or park in the Blue parking lot - a voucher for parking will be provided to you. One family member may accompany you back into the Pre-Op Area. If your surgeon has given you special guidelines for eating and drinking prior to surgery, follow their instructions. If not, the evening before surgery you may eat a low-fat meal up until midnight. Do not eat anything, including gum, cough drops, hard candy or mints after midnight. Clear liquids, including water, Gatorade and black coffee (no dairy or creamer products), up to two hours prior to surgery are permitted. Do not smoke, chew tobacco or drink alcohol for 24 hours before surgery. Please take any medications you have been instructed to take the morning of your surgery with smallsips of water. Please be sure to wear comfortable, appropriate clothing. Please remove all jewelry and piercings, including wedding rings. RINGS WILL BE CUT OFF IF UNABLE TO REMOVE. Leave all valuable items at home. Shower using Dial soap or as advised by your Surgeon's office. Do not apply any makeup or lotions. Gel or acrylic nails must be removed from both ring fingers. Remove all nail moroccan/product for surgeries involving extremities. Please remember to bring both your insurance card and a photo ID with you on the day of surgery. After your surgery: If you are having outpatient surgery - you must have a licensed cdl dedicated truck driver to take you home. The expectation is that this cdl dedicated truck driver will remain at the hospital for the duration of your procedure. You are advised to have a family member with you for at least 24 hours after being under Anesthesia. documented in this [id number] Note* Quick Note - Lucy Murrell MD - 02/07/2023 7:46 AM EDT This patient has hypercalcemia with a calcium of 11.1. Please ask patient's primary care physician if this has been evaluated in the past and obtain any information. If this is a new issue recommend patient return to primary care physician for further evaluation and management. Notify surgeon. [id number] Note* Quick Note - Lucy Murrell MD - 02/07/2023 7:46 AM EDT This patient has hypercalcemia with a calcium of 11.1. Please ask patient's primary care physician if this has been evaluated in the past and obtain any information. If this is a new issue recommend patient return to primary care physician for further evaluation and management. Notify surgeon. [id number] Note* Quick Note - Lucy Murrell MD - 02/07/2023 7:46 AM EDT This patient has hypercalcemia with a calcium of 11.1. Please ask patient's primary care physician if this has been evaluated in the past and obtain any information. If this is a new issue recommend patient return to primary care physician for further evaluation and management. Notify surgeon. [id number] Miscellaneous Notes* Quick Note - Lucy Murrell MD - 02/07/2023 7:46 AM EDT This patient has hypercalcemia with a calcium of 11.1. Please ask patient's primary care physician if this has been evaluated in the past and obtain any information. If this is a new issue recommend patient return to primary care physician for further evaluation and management. Notify surgeon. * Quick Note - Lucy Murrell MD - 02/06/2023 2:34 PM EDT EKG dated 12/19/2022 reviewed. 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 No additional cardiac testing recommended prior to planned procedure. Patient is of acceptable risk for her planned procedure. * Pre-Procedure Instructions - Sondra Alejo RN - 02/06/2023 11:32 AM EDT Called to request. [phone] Patient states she had an abnormal EKG with her primary care physician last week. His name is Dr. Sweet and he is in [facility]. Please obtain a copy of this EKG. * Quick Note - Lucy Murrell MD - 02/06/2023 11:24 AM EDT Patient states she had an abnormal EKG with her primary care physician last week. His name is Dr. Sweet and he is in [facility]. Please obtain a copy of this EKG. * Pre-Procedure Instructions - Vicki Pantoja RN - 02/06/2023 11:05 AM EDT Patient Instructions for [facility]: MAIN OR Prior to surgery: Please contact your Surgeon's office for the scheduled time of your surgery. Report to the Surgery Family Waiting Area in the [place] are of [facility] 2 hoursprior to your surgery. You may use the Substance Abuse Clinician parking available at the [facility] Entrance /or park in the Blue parking lot - a voucher for parking will be provided to you. One family member may accompany you back into the Pre-Op Area. If your surgeon has given you special guidelines for eating and drinking prior to surgery, follow their instructions. If not, the evening before surgery you may eat a low-fat meal up until midnight. Do not eat anything, including gum, cough drops, hard candy or mints after midnight. Clear liquids, including water, Gatorade and black coffee (no dairy or creamer products), up to two hours prior to surgery are permitted. Do not smoke, chew tobacco or drink alcohol for 24 hours before surgery. Please take any medications you have been instructed to take the morning of your surgery with smallsips of water. Please be sure to wear comfortable, appropriate clothing. Please remove all jewelry and piercings, including wedding rings. RINGS WILL BE CUT OFF IF UNABLE TO REMOVE. Leave all valuable items at home. Shower using Dial soap or as advised by your Surgeon's office. Do not apply any makeup or lotions. Gel or acrylic nails must be removed from both ring fingers. Remove all nail moroccan/product for surgeries involving extremities. Please remember to bring both your insurance card and a photo ID with you on the day of surgery. After your surgery: If you are having outpatient surgery - you must have a licensed cdl dedicated truck driver to take you home. The expectation is that this cdl dedicated truck driver will remain at the hospital for the duration of your procedure. You are advised to have a family member with you for at least 24 hours after being under Anesthesia. documented in this [id number] Note* Quick Note - Lucy Murrell MD - 02/06/2023 2:34 PM EDT EKG dated 12/19/2022 reviewed. 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 No additional cardiac testing recommended prior to planned procedure. Patient is of acceptable risk for her planned procedure. [id number] Note* Quick Note - Lucy Murrell MD - 02/06/2023 2:34 PM EDT EKG dated 12/19/2022 reviewed. 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 No additional cardiac testing recommended prior to planned procedure. Patient is of acceptable risk for her planned procedure. [id number] Note* Quick Note - Lucy Murrell MD - 02/06/2023 2:34 PM EDT EKG dated 12/19/2022 reviewed. 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 No additional cardiac testing recommended prior to planned procedure. Patient is of acceptable risk for her planned procedure. [id number] Note* Quick Note - Lucy Murrell MD - 02/06/2023 2:34 PM EDT EKG dated 12/19/2022 reviewed. 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 No additional cardiac testing recommended prior to planned procedure. Patient is of acceptable risk for her planned procedure. [id number] Miscellaneous Notes* Quick Note - Lucy Murrell MD - 02/06/2023 2:34 PM EDT EKG dated 12/19/2022 reviewed. 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 No additional cardiac testing recommended prior to planned procedure. Patient is of acceptable risk for her planned procedure. * Pre-Procedure Instructions - Sondra Alejo RN - 02/06/2023 11:32 AM EDT Called to request. [phone] Patient states she had an abnormal EKG with her primary care physician last week. His name is Dr. Sweet and he is in [facility]. Please obtain a copy of this EKG. * Quick Note - Lucy Murrell MD - 02/06/2023 11:24 AM EDT Patient states she had an abnormal EKG with her primary care physician last week. His name is Dr. Sweet and he is in [facility]. Please obtain a copy of this EKG. * Pre-Procedure Instructions - Vicki Pantoja RN - 02/06/2023 11:05 AM EDT Patient Instructions for [facility]: MAIN OR Prior to surgery: Please contact your Surgeon's office for the scheduled time of your surgery. Report to the Surgery Family Waiting Area in the [facility] 2 hoursprior to your surgery. You may use the [employer] parking available at the [facility] Entrance /or park in the Blue parking lot - a voucher for parking will be provided to you. One family member may accompany you back into the Pre-Op Area. If your surgeon has given you special guidelines for eating and drinking prior to surgery, follow their instructions. If not, the evening before surgery you may eat a low-fat meal up until midnight. Do not eat anything, including gum, cough drops, hard candy or mints after midnight. Clear liquids, including water, Gatorade and black coffee (no dairy or creamer products), up to two hours prior to surgery are permitted. Do not smoke, chew tobacco or drink alcohol for 24 hours before surgery. Please take any medications you have been instructed to take the morning of your surgery with smallsips of water. Please be sure to wear comfortable, appropriate clothing. Please remove all jewelry and piercings, including wedding rings. RINGS WILL BE CUT OFF IF UNABLE TO REMOVE. Leave all valuable items at home. Shower using Dial soap or as advised by your Surgeon's office. Do not apply any makeup or lotions. Gel or acrylic nails must be removed from both ring fingers. Remove all nail moroccan/product for surgeries involving extremities. Please remember to bring both your insurance card and a photo ID with you on the day of surgery. After your surgery: If you are having outpatient surgery - you must have a licensed cdl dedicated truck driver to take you home. The expectation is that this cdl dedicated truck driver will remain at the hospital for the duration of your procedure. You are advised to have a family member with you for at least 24 hours after being under Anesthesia. documented in this [id number] Note* Pre-Procedure Instructions - Sondra Alejo RN - 02/06/2023 11:32 AM EDT Called to request. [phone] Patient states she had an abnormal EKG with her primary care physician last week. His name is Dr. Sweet and he is in [facility]. Please obtain a copy of this EKG. [id number] Note* Pre-Procedure Instructions - Sondra Alejo RN - 02/06/2023 11:32 AM EDT Called to request. [phone] Patient states she had an abnormal EKG with her primary care physician last week. His name is Dr. Sweet and he is in [facility]. Please obtain a copy of this EKG. [id number] Note* Pre-Procedure Instructions - Sondra Alejo RN - 02/06/2023 11:32 AM EDT Called to request. [phone] Patient states she had an abnormal EKG with her primary care physician last week. His name is Dr. Sweet and he is in [facility]. Please obtain a copy of this EKG. [id number] Note* Pre-Procedure Instructions - Sondra Alejo RN - 02/06/2023 11:32 AM EDT Called to request. [phone] Patient states she had an abnormal EKG with her primary care physician last week. His name is Dr. Sweet and he is in [facility]. Please obtain a copy of this EKG. [id number] Note* Pre-Procedure Instructions - Sondra Alejo RN - 02/06/2023 11:32 AM EDT Called to request. [phone] Patient states she had an abnormal EKG with her primary care physician last week. His name is Dr. Sweet and he is in [facility]. Please obtain a copy of this EKG. [id number] Miscellaneous Notes* Pre-Procedure Instructions - Sondra Alejo RN - 02/06/2023 11:32 AM EDT Called to request. [phone] Patient states she had an abnormal EKG with her primary care physician last week. His name is Dr. Sweet and he is in [facility]. Please obtain a copy of this EKG. * Quick Note - Lucy Murrell MD - 02/06/2023 11:24 AM EDT Patient states she had an abnormal EKG with her primary care physician last week. His name is Dr. Sweet and he is in [facility]. Please obtain a copy of this EKG. * Pre-Procedure Instructions - Vicki Pantoja RN - 02/06/2023 11:05 AM EDT Patient Instructions for [facility]: MAIN OR Prior to surgery: Please contact your Surgeon's office for the scheduled time of your surgery. Report to the Surgery Family Waiting Area in the [facility] 2 hoursprior to your surgery. You may use the [employer] parking available at the [facility] Entrance /or park in the Blue parking lot - a voucher for parking will be provided to you. One family member may accompany you back into the Pre-Op Area. If your surgeon has given you special guidelines for eating and drinking prior to surgery, follow their instructions. If not, the evening before surgery you may eat a low-fat meal up until midnight. Do not eat anything, including gum, cough drops, hard candy or mints after midnight. Clear liquids, including water, Gatorade and black coffee (no dairy or creamer products), up to two hours prior to surgery are permitted. Do not smoke, chew tobacco or drink alcohol for 24 hours before surgery. Please take any medications you have been instructed to take the morning of your surgery with smallsips of water. Please be sure to wear comfortable, appropriate clothing. Please remove all jewelry and piercings, including wedding rings. RINGS WILL BE CUT OFF IF UNABLE TO REMOVE. Leave all valuable items at home. Shower using Dial soap or as advised by your Surgeon's office. Do not apply any makeup or lotions. Gel or acrylic nails must be removed from both ring fingers. Remove all nail moroccan/product for surgeries involving extremities. Please remember to bring both your insurance card and a photo ID with you on the day of surgery. After your surgery: If you are having outpatient surgery - you must have a licensed cdl dedicated truck driver to take you home. The expectation is that this cdl dedicated truck driver will remain at the hospital for the duration of your procedure. You are advised to have a family member with you for at least 24 hours after being under Anesthesia. documented in this [id number] Note* Quick Note - Lucy Murrell MD - 02/06/2023 11:24 AM EDT Patient states she had an abnormal EKG with her primary care physician last week. His name is Dr. Sweet and he is in [facility]. Please obtain a copy of this EKG. [id number] Note* Quick Note - Lucy Murrell MD - 02/06/2023 11:24 AM EDT Patient states she had an abnormal EKG with her primary care physician last week. His name is Dr. Sweet and he is in [facility]. Please obtain a copy of this EKG. [id number] Note* Quick Note - Lucy Murrell MD - 02/06/2023 11:24 AM EDT Patient states she had an abnormal EKG with her primary care physician last week. His name is Dr. Sweet and he is in [facility]. Please obtain a copy of this EKG. [id number] Note* Quick Note - Lucy Murrell MD - 02/06/2023 11:24 AM EDT Patient states she had an abnormal EKG with her primary care physician last week. His name is Dr. Sweet and he is in [facility]. Please obtain a copy of this EKG. [id number] Note* Quick Note - Lucy Murrell MD - 02/06/2023 11:24 AM EDT Patient states she had an abnormal EKG with her primary care physician last week. His name is Dr. Sweet and he is in [facility]. Please obtain a copy of this EKG. [id number] History and physical note* Lucy Murrell MD - 02/06/2023 11:22 AM EDT Assessment and Plan 1. Vaginal vault prolapse, posthysterectomy Primary management per surgical team. Patient provided instructions on preoperative management of medications including withholding Aspirin, NSAIDS, and specific Herbal Supplements. 2. Pre-op examination Medically acceptable risk for elective major procedure pending review of the following ordered tests: basic Metabolic Panel 3. Preop cardiovascular exam Patient denies any active cardiac conditions and has a revised cardiacrisk index of 0. Patient denied any current cardiac symptoms and has greater than 4 METS of functional capacity and is at acceptable cardiac risk for elective surgery based on 2014 ACC/AHA guidelines. DVT prophylaxis deferred to surgical service. Recommend utilization of 2016 ACCP guidelines. Apfel score is 3. (Score/Risk of PONV = 0/10%, 1/21%, 2/39%, 3/61%, 4/79%). This score has been externally validated. 4. Abnormal EKG We will request a copy of the EKG performed last week with her primary care physician for review 5. ROB on CPAP Controlled and compliant with CPAP which the patient has been advised to bring to the hospital for use perioperatively. We reviewed the increased risk of postoperative pulmonary and cardiac complications in patients with obstructive sleep apnea. Body mass index is 35.8 kg/m . Patient will require close monitoring of respiratory status while on IV opiates. Recommend continuous pulse oximetry monitoring postoperatively. Please see ROB risk assessment.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 this incident with her anesthesiologist on the day of her procedure. This patient is able to walk a moderatedistance and climb a flight of stairs without chest pain or shortness of breath. She denies use of tobacco. She consumes 5-6 alcoholic beverages per week. Please see below regarding status of active medical conditions and assessment and plan regarding details of preoperative medical risk stratification. Past Medical History: Diagnosis Date Back pain 09/12/2022 Bladder problem 09/12/2022 Cancer (HCC) Complication of anesthesia Hysterectomy wide awake right before surgery anesthesiologist injected arm with something that burnt like fire and made my heart race, I thought I d . Constipation 06/16/2019 Leeann Lax Benecol Soft Chews 2 g of plant stanols 2 day GERD (gastroesophageal reflux disease) 2years ago Currently take Fomatitine Hypertension 12/16/2022 Given Lisinoprail 20 milligrams Peripheral neuropathy AMA hands and AMA shoulders Sleep apnea, obstructive CPAP Past Medical History Pertinent Negatives: Diagnosis Date Noted Alcoholism ([facility]) 02/06/2023 Anemia 02/06/2023 Angina pectoris (HCC) 02/06/2023 Anxiety 02/06/2023 Arrhythmia 02/06/2023 Arthritis 02/06/2023 Asthma 02/06/2023 Atrial fibrillation (HCC) 02/06/2023 Bipolar disorder ([facility]) 02/06/2023 Bleeding disorder (HCC) 02/06/2023 Cataract 02/06/2023 CHF (congestive heart failure) ([facility]) 02/06/2023 Cholelithiasis 02/06/2023 Chronic kidney disease (CKD) 02/06/2023 Chronic pain disorder 02/06/2023 Clostridium difficile infection 02/06/2023 COPD (chronic obstructive pulmonary disease) (HCC) 02/06/2023 Coronary artery disease 02/06/2023 Crohn's disease (HCC) 02/06/2023 Deep vein thrombosis (HCC) 02/06/2023 Delirium 02/06/2023 Dementia ([facility]) 02/06/2023 Dental infection 02/06/2023 Depression 02/06/2023 Dermatitis 02/06/2023 Diabetes mellitus type I ([facility]) 02/06/2023 Diabetes mellitus, type 2 (HCC) 02/06/2023 Dialysis patient ([facility]) 02/06/2023 Diverticulosis 02/06/2023 Edema 02/06/2023 Emphysema of lung ([facility]) 02/06/2023 ESBL (extended spectrum beta-lactamase) producing bacteria infection 02/06/2023 Family history of bleeding disorder 02/06/2023 Fibromyalgia, primary 02/06/2023 GI (gastrointestinal bleed) 02/06/2023 Glaucoma 02/06/2023 Hard to intubate 02/06/2023 Headache 02/06/2023 Heart murmur 02/06/2023 Heart valve disease 02/06/2023 Hepatitis C 02/06/2023 History of blood transfusion 02/06/2023 History of cardiac cath 02/06/2023 History of echocardiogram 02/06/2023 History of stress test 02/06/2023 HIV disease ([facility]) 02/06/2023 HL (hearing loss) 02/06/2023 Hyperlipidemia 02/06/2023 Hyperthyroidism 02/06/2023 Hypothyroidism 02/06/2023 Infectious viral hepatitis 02/06/2023 Irritable bowel syndrome 02/06/2023 Liver disease 02/06/2023 Malignant hyperthermia due to anesthesia 02/06/2023 Motion sickness 02/06/2023 MRSA (methicillin resistant Staphylococcus aureus) 02/06/2023 Myocardial infarction ([facility]) 02/06/2023 Neck pain 02/06/2023 Nephrolithiasis 02/06/2023 No blood products 02/06/2023 Open wound 02/06/2023 Osteoporosis 02/06/2023 Overactive bladder 02/06/2023 PAD (peripheral artery disease) ([facility]) 02/06/2023 Parkinson's disease ([facility]) 02/06/2023 PONV (postoperative nausea and vomiting) 02/06/2023 Pressure ulcer 02/06/2023 Psychosis ([facility]) 02/06/2023 Pulmonary embolism ([facility]) 02/06/2023 Seizures (HCC) 02/06/2023 Spinal headache 02/06/2023 Stroke ([facility]) 02/06/2023 TIA (transient ischemic attack) 02/06/2023 Tuberculosis 02/06/2023 Past Surgical History: Procedure Laterality Date ABDOMINAL SURGERY Herina hysterectomy FOOT SURGERY Right 2018 hernia multiple HERNIA REPAIR Over lifting HYSTERECTOMY 2010 fibroids. 02/06/2023 full hysterectomy. told her that it was full of cancer but it did not spread. no additional treatment was needed JOINT REPLACEMENT Bilateral bilateral knees. KNEE ARTHROSCOPY Bone on bone both capped KNEE SURGERY Bilateral 2 times - scopes. ORTHOPEDIC SURGERY Both shoulders ROTATOR CUFF REPAIR Bilateral 1994 1996 Social History Socioeconomic History Marital status: Tobacco Use Smoking status: Never Passive exposure: Past (parents smoked) Smokeless tobacco: Never Vaping Use Vaping Use: Never used Substance and Sexual Activity Alcohol use: Yes Alcohol/week: 5.0 - 6.0 standard drinks of alcohol Types: 5 - 6 Glasses of wine per week Drug use: Never Sexual activity: Not Currently Partners: Male control/protection: None Family History Problem Relation Age of Onset Stroke Mother Anemia Sister Cancer Brother Diabetes Maternal Grandmother Diabetes Maternal Grandfather Deep vein thrombosis Paternal Grandfather Diabetes Paternal Grandfather Prior to Admission medications taking for visit date 02/06/23 Medication Sig Taking? Discontinued? famotidine (PEPCID) 20 MG tablet Take 2 (two) tablets (40 mg total) by mouth every morning . Yes lactobacillus combo no.11 (Probiotic) 15 billion cell CpSP Take 2 capsules by mouth every morning .Yes lisinopriL (PRINIVIL,ZESTRIL) 20 MG tablet Take 1 (one) tablet (20 mg total) by mouth every morning. Yes multivit-min/ferrous fumarate (MULTI VITAMIN ORAL) Take 1 tablet by mouth every morning . Yes multivitamin with minerals (HAIR,SKIN AND NAILS ORAL) Take 1 capsule by mouth every morning . Yes polyethylene glycol 3350 (MIRALAX ORAL) Take 17 g by mouth every morning . wheat dextrin (Benefiber Sugar Free, dextrin,) 1 gram Chew Chew and Swallow 1 g every morning . Allergies Allergen Reactions Bee Venom Protein (Honey Bee) Anaphylaxis Erythromycin Shortness Of Breath Penicillins Shortness Of Breath Sulfa (Sulfonamide Antibiotics) Shortness Of Breath Review of Systems Physical Exam BP (!) 159/82 Pulse 74 Temp 97.4 F (36.3 C) (Oral) Resp 14 Ht 5' 5.5 Comment: ACTUAL MEASURED HEIGHT Wt 99.1 kg (218 lb 7.6 oz) SpO2 97% BMI 35.80 kg/m Constitutional: Conversant, in no acute distress Eyes: No Scleral Icterus, no ptosis. Pupils equal and round. Ears/nose/mouth/throat: Nose and ears appear normal. Oropharynx clear. Neck: Trachea midline, no goiter Respiratory: Clear to auscultation, normal respiratory effort. Cardiovascular: Regular rate and rhythm. No peripheral edema. Pulses palpable at the ankle. Gastrointestinal: Abdomen soft, nontender, no masses noted. Genitourinary: No suprapubic tenderness. Musculoskeletal: No calf tenderness with palpation, no digital cyanosis or clubbing. Skin: No rashes, Normal turgor and temperature. Neurologic: No focal deficits noted. Psychiatric: Appropriate affect, Alert and Oriented x 3. Data Preprocedure Sleep Apnea Assessment - High Risk (3/3) Sleep Apnea in the patient's Active Problem List or Medical History: yes 1. History of apparent airway obstruction during sleep: (1 point for this category) Do you snore frequently, or snore loud enough to be heard through a closed door?: -- (ROB withCPAP) 2. Somnolence of the patient: (1 point for this category) No data recorded 3. Predisposing physician characteristics: (1 point for this category, 2 points if the BMI ? 40) BMI (Calculated): 35.8 documented in this [id number] History and physical note* Lucy Murrell MD - 02/06/2023 11:22 AM EDT Assessment and Plan 1. Vaginal vault prolapse, posthysterectomy Primary management per surgical team. Patient provided instructions on preoperative management of medications including withholding Aspirin, NSAIDS, and specific Herbal Supplements. 2. Pre-op examination Medically acceptable risk for elective major procedure pending review of the following ordered tests: basic Metabolic Panel 3. Preop cardiovascular exam Patient denies any active cardiac conditions and has a revised cardiacrisk index of 0. Patient denied any current cardiac symptoms and has greater than 4 METS of functional capacity and is at acceptable cardiac risk for elective surgery based on 2014 ACC/AHA guidelines. DVT prophylaxis deferred to surgical service. Recommend utilization of 2016 ACCP guidelines. Apfel score is 3. (Score/Risk of PONV = 0/10%, 1/21%, 2/39%, 3/61%, 4/79%). This score has been externally validated. 4. Abnormal EKG We will request a copy of the EKG performed last week with her primary care physician for review 5. ROB on CPAP Controlled and compliant with CPAP which the patient has been advised to bring to the hospital for use perioperatively. We reviewed the increased risk of postoperative pulmonary and cardiac complications in patients with obstructive sleep apnea. Body mass index is 35.8 kg/m . Patient will require close monitoring of respiratory status while on IV opiates. Recommend continuous pulse oximetry monitoring postoperatively. Please see ROB risk assessment. Recommend hospital ROB protocol with utilization of ETCO2 monitoring for patients with or at risk for ROB while on IV opiates. 6. Hypertension, unspecified type Stable 7. Gastroesophageal reflux disease, unspecified whether esophagitis present Well controlled with [id number] which should be dosed perioperatively on usual home schedule. 8. BMI 35.0-35.9,adult Body mass index is 35.8 kg/m . Patient will require close monitoring of respiratory status while on IV opiates. Continuous pulse oximetry recommended. Please see ROB risk assessment. Recommend ROB protocol with utilization of ETCO2 monitoring for patients with or at risk for ROB while on IV opiates. Recommended therapeutic lifestyle changes including healthy diet and exercise as tolerated to help with weight loss. 9. Complication of anesthesia, subsequent encounter Patient was hard to sedate with a previous procedure No chief complaint on file. History of Present Illness Ara Loza is a 62 y.o. female who presents for preoperative medical risk stratification consultat the request of Terri Rand MD 02/14/2023 prior to VAGINAL VAULT SUSPENSION WITH ANTERIOR POSTERIOR REPAIR AND BLADDER SLING, CYSTOSCOPY WITH URETHRAL INJECTION. 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 This patient states she does not follow with a catering operations manager however she was seeing her primary care physician Dr. Casanova in [place] last week and had an EKG performed which indicated a possibility of an infarct in the past. Patient states her primary care physician stated that this was likely due to a lead placement issue and did not recommend any further follow-up. We will obtain a copy of this EKG for review. This patient has never had a stroke or bloodclot. She does have sleep apnea and is compliant with her CPAP machine. This patient is not known to have liver or kidney disease and is not known to be diabetic. She does have high blood pressure which is reasonably controlled. She has GERD. With a previous procedure she had a complication of anesthesia and that she was hard to sedate and had a difficult time. Patient advised to discuss this incident with her anesthesiologist on the day of her procedure. This patient is able to walk a moderatedistance and climb a flight of stairs without chest pain or shortness of breath. She denies use of tobacco. She consumes 5-6 alcoholic beverages per week. Please see below regarding status of active medical conditions and assessment and plan regarding details of preoperative medical risk stratification. Past Medical History: Diagnosis Date Back pain 09/12/2022 Bladder problem 09/12/2022 Cancer (HCC) Complication of anesthesia Hysterectomy wide awake right before surgery anesthesiologist injected arm with something that burnt like fire and made my heart race, I thought I d . Constipation 06/16/2019 Leeann Lax Benecol Soft Chews 2 g of plant stanols 2 day GERD (gastroesophageal reflux disease) 2years ago Currently take Fomatitine Hypertension 12/16/2022 Given Lisinoprail 20 milligrams Peripheral neuropathy AMA hands and AMA shoulders Sleep apnea, obstructive CPAP Past Medical History Pertinent Negatives: Diagnosis Date Noted Alcoholism (HCC) 02/06/2023 Anemia 02/06/2023 Angina pectoris (HCC) 02/06/2023 Anxiety 02/06/2023 Arrhythmia 02/06/2023 Arthritis 02/06/2023 Asthma 02/06/2023 Atrial fibrillation (HCC) 02/06/2023 Bipolar disorder (HCC) 02/06/2023 Bleeding disorder (HCC) 02/06/2023 Cataract 02/06/2023 CHF (congestive heart failure) (HCC) 02/06/2023 Cholelithiasis 02/06/2023 Chronic kidney disease (CKD) 02/06/2023 Chronic pain disorder 02/06/2023 Clostridium difficile infection 02/06/2023 COPD (chronic obstructive pulmonary disease) ([facility]) 02/06/2023 Coronary artery disease 02/06/2023 Crohn's disease ([facility]) 02/06/2023 Deep vein thrombosis ([facility]) 02/06/2023 Delirium 02/06/2023 Dementia ([facility]) 02/06/2023 Dental infection 02/06/2023 Depression 02/06/2023 Dermatitis 02/06/2023 Diabetes mellitus type I ([facility]) 02/06/2023 Diabetes mellitus, type 2 ([facility]) 02/06/2023 Dialysis patient ([facility]) 02/06/2023 Diverticulosis 02/06/2023 Edema 02/06/2023 Emphysema of lung ([facility]) 02/06/2023 ESBL (extended spectrum beta-lactamase) producing bacteria infection 02/06/2023 Family history of bleeding disorder 02/06/2023 Fibromyalgia, primary 02/06/2023 GI (gastrointestinal bleed) 02/06/2023 Glaucoma 02/06/2023 Hard to intubate 02/06/2023 Headache 02/06/2023 Heart murmur 02/06/2023 Heart valve disease 02/06/2023 Hepatitis C 02/06/2023 History of blood transfusion 02/06/2023 History of cardiac cath 02/06/2023 History of echocardiogram 02/06/2023 History of stress test 02/06/2023 HIV disease ([facility]) 02/06/2023 HL (hearing loss) 02/06/2023 Hyperlipidemia 02/06/2023 Hyperthyroidism 02/06/2023 Hypothyroidism 02/06/2023 Infectious viral hepatitis 02/06/2023 Irritable bowel syndrome 02/06/2023 Liver disease 02/06/2023 Malignant hyperthermia due to anesthesia 02/06/2023 Motion sickness 02/06/2023 MRSA (methicillin resistant Staphylococcus aureus) 02/06/2023 Myocardial infarction ([facility]) 02/06/2023 Neck pain 02/06/2023 Nephrolithiasis 02/06/2023 No blood products 02/06/2023 Open wound 02/06/2023 Osteoporosis 02/06/2023 Overactive bladder 02/06/2023 PAD (peripheral artery disease) ([facility]) 02/06/2023 Parkinson's disease ([facility]) 02/06/2023 PONV (postoperative nausea and vomiting) 02/06/2023 Pressure ulcer 02/06/2023 Psychosis ([facility]) 02/06/2023 Pulmonary embolism ([facility]) 02/06/2023 Seizures ([facility]) 02/06/2023 Spinal headache 02/06/2023 Stroke ([facility]) 02/06/2023 TIA (transient ischemic attack) 02/06/2023 Tuberculosis 02/06/2023 Past Surgical History: Procedure Laterality Date ABDOMINAL SURGERY Herina hysterectomy FOOT SURGERY Right 2018 hernia multiple HERNIA REPAIR Over lifting HYSTERECTOMY 2010 fibroids. 02/06/2023 full hysterectomy. told her that it was full of cancer but it did not spread. no additional treatment was needed JOINT REPLACEMENT Bilateral bilateral knees. KNEE ARTHROSCOPY Bone on bone both capped KNEE SURGERY Bilateral 2 times - scopes. ORTHOPEDIC SURGERY Both shoulders ROTATOR CUFF REPAIR Bilateral 1994 1996 Social History Socioeconomic History Marital status: Tobacco Use Smoking status: Never Passive exposure: Past (parents smoked) Smokeless tobacco: Never Vaping Use Vaping Use: Never used Substance and Sexual Activity Alcohol use: Yes Alcohol/week: 5.0 - 6.0 standard drinks of alcohol Types: 5 - 6 Glasses of wine per week Drug use: Never Sexual activity: Not Currently Partners: Male control/protection: None Family History Problem Relation Age of Onset Stroke Mother Anemia Sister Cancer Brother Diabetes Maternal Grandmother Diabetes Maternal Grandfather Deep vein thrombosis Paternal Grandfather Diabetes Paternal Grandfather Prior to Admission medications taking for visit date 02/06/23 Medication Sig Taking? Discontinued? famotidine (PEPCID) 20 MG tablet Take 2 (two) tablets (40 mg total) by mouth every morning . Yes lactobacillus combo no.11 (Probiotic) 15 billion cell CpSP Take 2 capsules by mouth every morning .Yes lisinopriL (PRINIVIL,ZESTRIL) 20 MG tablet Take 1 (one) tablet (20 mg total) by mouth every morning. Yes multivit-min/ferrous fumarate (MULTI VITAMIN ORAL) Take 1 tablet by mouth every morning . Yes multivitamin with minerals (HAIR,SKIN AND NAILS ORAL) Take 1 capsule by mouth every morning . Yes polyethylene glycol 3350 (MIRALAX ORAL) Take 17 g by mouth every morning . wheat dextrin (Benefiber Sugar Free, dextrin,) 1 gram Chew Chew and Swallow 1 g every morning . Allergies Allergen Reactions Bee Venom Protein (Honey Bee) Anaphylaxis Erythromycin Shortness Of Breath Penicillins Shortness Of Breath Sulfa (Sulfonamide Antibiotics) Shortness Of Breath Review of Systems Physical Exam BP (!) 159/82 Pulse 74 Temp 97.4 F (36.3 C) (Oral) Resp 14 Ht 5' 5.5 Comment: ACTUAL MEASURED HEIGHT Wt 99.1 kg (218 lb 7.6 oz) SpO2 97% BMI 35.80 kg/m Constitutional: Conversant, in no acute distress Eyes: No Scleral Icterus, no ptosis. Pupils equal and round. Ears/nose/mouth/throat: Nose and ears appear normal. Oropharynx clear. Neck: Trachea midline, no goiter Respiratory: Clear to auscultation, normal respiratory effort. Cardiovascular: Regular rate and rhythm. No peripheral edema. Pulses palpable at the ankle. Gastrointestinal: Abdomen soft, nontender, no masses noted. Genitourinary: No suprapubic tenderness. Musculoskeletal: No calf tenderness with palpation, no digital cyanosis or clubbing. Skin: No rashes, Normal turgor and temperature. Neurologic: No focal deficits noted. Psychiatric: Appropriate affect, Alert and Oriented x 3. Data Preprocedure Sleep Apnea Assessment - High Risk (3/3) Sleep Apnea in the patient's Active Problem List or Medical History: yes 1. History of apparent airway obstruction during sleep: (1 point for this category) Do you snore frequently, or snore loud enough to be heard through a closed door?: -- (ROB withCPAP) 2. Somnolence of the patient: (1 point for this category) No data recorded 3. Predisposing physician characteristics: (1 point for this category, 2 points if the BMI ? 40) BMI (Calculated): 35.8 documented in this [id number] History and physical note* Lucy Murrell MD - 02/06/2023 11:22 AM EDT Assessment and Plan 1. Vaginal vault prolapse, posthysterectomy Primary management per surgical team. Patient provided instructions on preoperative management of medications including withholding Aspirin, NSAIDS, and specific Herbal Supplements. 2. Pre-op examination Medically acceptable risk for elective major procedure pending review of the following ordered tests: basic Metabolic Panel 3. Preop cardiovascular exam Patient denies any active cardiac conditions and has a revised cardiacrisk index of 0. Patient denied any current cardiac symptoms and has greater than 4 METS of functional capacity and is at acceptable cardiac risk for elective surgery based on 2014 ACC/AHA guidelines. DVT prophylaxis deferred to surgical service. Recommend utilization of 2016 ACCP guidelines. Apfel score is 3. (Score/Risk of PONV = 0/10%, 1/21%, 2/39%, 3/61%, 4/79%). This score has been externally validated. 4. Abnormal EKG We will request a copy of the EKG performed last week with her primary care physician for review 5. ROB on CPAP Controlled and compliant with CPAP which the patient has been advised to bring to the hospital for use perioperatively. We reviewed the increased risk of postoperative pulmonary and cardiac complications in patients with obstructive sleep apnea. Body mass index is 35.8 kg/m . Patient will require close monitoring of respiratory status while on IV opiates. Recommend continuous pulse oximetry monitoring postoperatively. Please see ROB risk assessment. Recommend hospital ROB protocol with utilization of ETCO2 monitoring for patients with or at risk for ROB while on IV opiates. 6. Hypertension, unspecified type Stable 7. Gastroesophageal reflux disease, unspecified whether esophagitis present Well controlled with PPI/[id number] which should be dosed perioperatively on usual home schedule. 8. BMI 35.0-35.9,adult Body mass index is 35.8 kg/m . Patient will require close monitoring of respiratory status while on IV opiates. Continuous pulse oximetry recommended. Please see ROB risk assessment. Recommend ROB protocol with utilization of ETCO2 monitoring for patients with or at risk for ROB while on IV opiates. Recommended therapeutic lifestyle changes including healthy diet and exercise as tolerated to help with weight loss. 9. Complication of anesthesia, subsequent encounter Patient was hard to sedate with a previous procedure No chief complaint on file. History of Present Illness Ara Loza is a 62 y.o. female who presents for preoperative medical risk stratification consultat the request of Terri Rand MD 02/14/2023 prior to VAGINAL VAULT SUSPENSION WITH ANTERIOR POSTERIOR REPAIR AND BLADDER SLING, CYSTOSCOPY WITH URETHRAL INJECTION. 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 This patient states she does not follow with a catering operations manager however she was seeing her primary care physician Dr. Casanova in [place] last week and had an EKG performed which indicated a possibility of an infarct in the past. Patient states her primary care physician stated that this was likely due to a lead placement issue and did not recommend any further follow-up. We will obtain a copy of this EKG for review. This patient has never had a stroke or bloodclot. She does have sleep apnea and is compliant with her CPAP machine. This patient is not known to have liver or kidney disease and is not known to be diabetic. She does have high blood pressure which is reasonably controlled. She has GERD. With a previous procedure she had a complication of anesthesia and that she was hard to sedate and had a difficult time. Patient advised to discuss this incident with her anesthesiologist on the day of her procedure. This patient is able to walk a moderatedistance and climb a flight of stairs without chest pain or shortness of breath. She denies use of tobacco. She consumes 5-6 alcoholic beverages per week. Please see below regarding status of active medical conditions and assessment and plan regarding details of preoperative medical risk stratification. Past Medical History: Diagnosis Date Back pain 09/12/2022 Bladder problem 09/12/2022 Cancer (HCC) Complication of anesthesia Hysterectomy wide awake right before surgery anesthesiologist injected arm with something that burnt like fire and made my heart race, I thought I d . Constipation 06/16/2019 Leeann Lax Benecol Soft Chews 2 g of plant stanols 2 day GERD (gastroesophageal reflux disease) 2years ago Currently take Fomatitine Hypertension 12/16/2022 Given Lisinoprail 20 milligrams Peripheral neuropathy AMA hands and AMA shoulders Sleep apnea, obstructive CPAP Past Medical History Pertinent Negatives: Diagnosis Date Noted Alcoholism ([facility]) 02/06/2023 Anemia 02/06/2023 Angina pectoris (HCC) 02/06/2023 Anxiety 02/06/2023 Arrhythmia 02/06/2023 Arthritis 02/06/2023 Asthma 02/06/2023 Atrial fibrillation (HCC) 02/06/2023 Bipolar disorder ([facility]) 02/06/2023 Bleeding disorder (HCC) 02/06/2023 Cataract 02/06/2023 CHF (congestive heart failure) ([facility]) 02/06/2023 Cholelithiasis 02/06/2023 Chronic kidney disease (CKD) 02/06/2023 Chronic pain disorder 02/06/2023 Clostridium difficile infection 02/06/2023 COPD (chronic obstructive pulmonary disease) ([facility]) 02/06/2023 Coronary artery disease 02/06/2023 Crohn's disease ([facility]) 02/06/2023 Deep vein thrombosis ([facility]) 02/06/2023 Delirium 02/06/2023 Dementia ([facility]) 02/06/2023 Dental infection 02/06/2023 Depression 02/06/2023 Dermatitis 02/06/2023 Diabetes mellitus type I ([facility]) 02/06/2023 Diabetes mellitus, type 2 ([facility]) 02/06/2023 Dialysis patient ([facility]) 02/06/2023 Diverticulosis 02/06/2023 Edema 02/06/2023 Emphysema of lung ([facility]) 02/06/2023 ESBL (extended spectrum beta-lactamase) producing bacteria infection 02/06/2023 Family history of bleeding disorder 02/06/2023 Fibromyalgia, primary 02/06/2023 GI (gastrointestinal bleed) 02/06/2023 Glaucoma 02/06/2023 Hard to intubate 02/06/2023 Headache 02/06/2023 Heart murmur 02/06/2023 Heart valve disease 02/06/2023 Hepatitis C 02/06/2023 History of blood transfusion 02/06/2023 History of cardiac cath 02/06/2023 History of echocardiogram 02/06/2023 History of stress test 02/06/2023 HIV disease ([facility]) 02/06/2023 HL (hearing loss) 02/06/2023 Hyperlipidemia 02/06/2023 Hyperthyroidism 02/06/2023 Hypothyroidism 02/06/2023 Infectious viral hepatitis 02/06/2023 Irritable bowel syndrome 02/06/2023 Liver disease 02/06/2023 Malignant hyperthermia due to anesthesia 02/06/2023 Motion sickness 02/06/2023 MRSA (methicillin resistant Staphylococcus aureus) 02/06/2023 Myocardial infarction ([facility]) 02/06/2023 Neck pain 02/06/2023 Nephrolithiasis 02/06/2023 No blood products 02/06/2023 Open wound 02/06/2023 Osteoporosis 02/06/2023 Overactive bladder 02/06/2023 PAD (peripheral artery disease) ([facility]) 02/06/2023 Parkinson's disease ([facility]) 02/06/2023 PONV (postoperative nausea and vomiting) 02/06/2023 Pressure ulcer 02/06/2023 Psychosis ([facility]) 02/06/2023 Pulmonary embolism ([facility]) 02/06/2023 Seizures ([facility]) 02/06/2023 Spinal headache 02/06/2023 Stroke ([facility]) 02/06/2023 TIA (transient ischemic attack) 02/06/2023 Tuberculosis 02/06/2023 Past Surgical History: Procedure Laterality Date ABDOMINAL SURGERY Herina hysterectomy FOOT SURGERY Right 2018 hernia multiple HERNIA REPAIR Over lifting HYSTERECTOMY 2010 fibroids. 02/06/2023 full hysterectomy. told her that it was full of cancer but it did not spread. no additional treatment was needed JOINT REPLACEMENT Bilateral bilateral knees. KNEE ARTHROSCOPY Bone on bone both capped KNEE SURGERY Bilateral 2 times - scopes. ORTHOPEDIC SURGERY Both shoulders ROTATOR CUFF REPAIR Bilateral 1994 1996 Social History Socioeconomic History Marital status: Tobacco Use Smoking status: Never Passive exposure: Past (parents smoked) Smokeless tobacco: Never Vaping Use Vaping Use: Never used Substance and Sexual Activity Alcohol use: Yes Alcohol/week: 5.0 - 6.0 standard drinks of alcohol Types: 5 - 6 Glasses of wine per week Drug use: Never Sexual activity: Not Currently Partners: Male control/protection: None Family History Problem Relation Age of Onset Stroke Mother Anemia Sister Cancer Brother Diabetes Maternal Grandmother Diabetes Maternal Grandfather Deep vein thrombosis Paternal Grandfather Diabetes Paternal Grandfather Prior to Admission medications taking for visit date 02/06/23 Medication Sig Taking? Discontinued? famotidine (PEPCID) 20 MG tablet Take 2 (two) tablets (40 mg total) by mouth every morning . Yes lactobacillus combo no.11 (Probiotic) 15 billion cell CpSP Take 2 capsules by mouth every morning .Yes lisinopriL (PRINIVIL,ZESTRIL) 20 MG tablet Take 1 (one) tablet (20 mg total) by mouth every morning. Yes multivit-min/ferrous fumarate (MULTI VITAMIN ORAL) Take 1 tablet by mouth every morning . Yes multivitamin with minerals (HAIR,SKIN AND NAILS ORAL) Take 1 capsule by mouth every morning . Yes polyethylene glycol 3350 (MIRALAX ORAL) Take 17 g by mouth every morning . wheat dextrin (Benefiber Sugar Free, dextrin,) 1 gram Chew Chew and Swallow 1 g every morning . Allergies Allergen Reactions Bee Venom Protein (Honey Bee) Anaphylaxis Erythromycin Shortness Of Breath Penicillins Shortness Of Breath Sulfa (Sulfonamide Antibiotics) Shortness Of Breath Review of Systems Physical Exam BP (!) 159/82 Pulse 74 Temp 97.4 F (36.3 C) (Oral) Resp 14 Ht 5' 5.5 Comment: ACTUAL MEASURED HEIGHT Wt 99.1 kg (218 lb 7.6 oz) SpO2 97% BMI 35.80 kg/m Constitutional: Conversant, in no acute distress Eyes: No Scleral Icterus, no ptosis. Pupils equal and round. Ears/nose/mouth/throat: Nose and ears appear normal. Oropharynx clear. Neck: Trachea midline, no goiter Respiratory: Clear to auscultation, normal respiratory effort. Cardiovascular: Regular rate and rhythm. No peripheral edema. Pulses palpable at the ankle. Gastrointestinal: Abdomen soft, nontender, no masses noted. Genitourinary: No suprapubic tenderness. Musculoskeletal: No calf tenderness with palpation, no digital cyanosis or clubbing. Skin: No rashes, Normal turgor and temperature. Neurologic: No focal deficits noted. Psychiatric: Appropriate affect, Alert and Oriented x 3. Data Preprocedure Sleep Apnea Assessment - High Risk (3/3) Sleep Apnea in the patient's Active Problem List or Medical History: yes 1. History of apparent airway obstruction during sleep: (1 point for this category) Do you snore frequently, or snore loud enough to be heard through a closed door?: -- (ROB withCPAP) 2. Somnolence of the patient: (1 point for this category) No data recorded 3. Predisposing physician characteristics: (1 point for this category, 2 points if the BMI ? 40) BMI (Calculated): 35.8 documented in this [id number] Instructions* Patient Instructions* Lucy Murrell MD - 02/06/2023 11:13 AM EDT Preoperative Medication Instructions In preparation for surgery please continue all of your current medications with the following changes: Active Home Medications Medication Sig Take Last Dose On Take Morning of Surgery Comment(s) famotidine (PEPCID) 20 MG tablet Take 2 (two) tablets (40 mg total) by mouth every morning . Pleasetake as usual prior to your procedure lactobacillus combo no.11 (Probiotic) 15 billion cell CpSP Take 2 capsules by mouth every morning .1 week prior to your procedure lisinopriL (PRINIVIL,ZESTRIL) 20 MG tablet Take 1 (one) tablet (20 mg total) by mouth every morning. No multivit-min/ferrous fumarate (MULTI VITAMIN ORAL) Take 1 tablet by mouth every morning . 1 week prior to your procedure multivitamin with minerals (HAIR,SKIN AND NAILS ORAL) Take 1 capsule by mouth every morning . 1 week prior to your procedure polyethylene glycol 3350 (MIRALAX ORAL) Take 17 g by mouth every morning . No wheat dextrin (Benefiber Sugar Free, dextrin,) 1 gram Chew Chew and Swallow 1 g every morning . No Please take your evening medications as usual on the evening prior to surgery. STOP Aspirin (and medications that contain aspirin, such as [place], Pepto- Bismol, Anacin), antiinflammatory medications such as Advil, Motrin, Ibuprofen, Naproxen, Aleve, [place], Pepto-Bismol, Anacin, Diclofenac, Voltaren, Daypro, Etodolac, Ketoprofen, Meloxicam, Piroxicam, Relafen, Nabumetone, etc. Also discontinue Vitamin C, Vitamin E, [place]-3 Fatty Acid, Fish Oil or Lovaza, as wellas all herbal medications and supplements. Take last dose 1 week prior to your procedure Tylenol (acetaminophen) is acceptable, but be careful to follow the label directions. On the morning of surgery, with a small amount of water, take ONLY the medications listed above in the column Take the morning of surgery. If you are using Eye Drops or Inhalers, please bring them to the hospital. If you have sleep apnea and have a CPAP/BIPAP device, please bring it with you on the day of surgery. documented in this [id number] Instructions* Patient Instructions* Lucy Murrell MD - 02/06/2023 11:13 AM EDT Preoperative Medication Instructions In preparation for surgery please continue all of your current medications with the following changes: Active Home Medications Medication Sig Take Last Dose On Take Morning of Surgery Comment(s) famotidine (PEPCID) 20 MG tablet Take 2 (two) tablets (40 mg total) by mouth every morning . Pleasetake as usual prior to your procedure lactobacillus combo no.11 (Probiotic) 15 billion cell CpSP Take 2 capsules by mouth every morning .1 week prior to your procedure lisinopriL (PRINIVIL,ZESTRIL) 20 MG tablet Take 1 (one) tablet (20 mg total) by mouth every morning. No multivit-min/ferrous fumarate (MULTI VITAMIN ORAL) Take 1 tablet by mouth every morning . 1 week prior to your procedure multivitamin with minerals (HAIR,SKIN AND NAILS ORAL) Take 1 capsule by mouth every morning . 1 week prior to your procedure polyethylene glycol 3350 (MIRALAX ORAL) Take 17 g by mouth every morning . No wheat dextrin (Benefiber Sugar Free, dextrin,) 1 gram Chew Chew and Swallow 1 g every morning . No Please take your evening medications as usual on the evening prior to surgery. STOP Aspirin (and medications that contain aspirin, such as [place], Pepto- Bismol, Anacin), antiinflammatory medications such as Advil, Motrin, Ibuprofen, Naproxen, Aleve, [place], Pepto-Bismol, Anacin, Diclofenac, Voltaren, Daypro, Etodolac, Ketoprofen, Meloxicam, Piroxicam, Relafen, Nabumetone, etc. Also discontinue Vitamin C, Vitamin E, [place]-3 Fatty Acid, Fish Oil or Lovaza, as wellas all herbal medications and supplements. Take last dose 1 week prior to your procedure Tylenol (acetaminophen) is acceptable, but be careful to follow the label directions. On the morning of surgery, with a small amount of water, take ONLY the medications listed above in the column Take the morning of surgery. If you are using Eye Drops or Inhalers, please bring them to the hospital. If you have sleep apnea and have a CPAP/BIPAP device, please bring it with you on the day of surgery. documented in this [id number] Instructions* Patient Instructions* Lucy Murrell MD - 02/06/2023 11:13 AM EDT Preoperative Medication Instructions In preparation for surgery please continue all of your current medications with the following changes: Active Home Medications Medication Sig Take Last Dose On Take Morning of Surgery Comment(s) famotidine (PEPCID) 20 MG tablet Take 2 (two) tablets (40 mg total) by mouth every morning . Pleasetake as usual prior to your procedure lactobacillus combo no.11 (Probiotic) 15 billion cell CpSP Take 2 capsules by mouth every morning .1 week prior to your procedure lisinopriL (PRINIVIL,ZESTRIL) 20 MG tablet Take 1 (one) tablet (20 mg total) by mouth every morning. No multivit-min/ferrous fumarate (MULTI VITAMIN ORAL) Take 1 tablet by mouth every morning . 1 week prior to your procedure multivitamin with minerals (HAIR,SKIN AND NAILS ORAL) Take 1 capsule by mouth every morning . 1 week prior to your procedure polyethylene glycol 3350 (MIRALAX ORAL) Take 17 g by mouth every morning . No wheat dextrin (Benefiber Sugar Free, dextrin,) 1 gram Chew Chew and Swallow 1 g every morning . No Please take your evening medications as usual on the evening prior to surgery. STOP Aspirin (and medications that contain aspirin, such as [place], Pepto- Bismol, Anacin), antiinflammatory medications such as Advil, Motrin, Ibuprofen, Naproxen, Aleve, [place], Pepto-Bismol, Anacin, Diclofenac, Voltaren, Daypro, Etodolac, Ketoprofen, Meloxicam, Piroxicam, Relafen, Nabumetone, etc. Also discontinue Vitamin C, Vitamin E, [place]-3 Fatty Acid, Fish Oil or Lovaza, as wellas all herbal medications and supplements. Take last dose 1 week prior to your procedure Tylenol (acetaminophen) is acceptable, but be careful to follow the label directions. On the morning of surgery, with a small amount of water, take ONLY the medications listed above in the column Take the morning of surgery. If you are using Eye Drops or Inhalers, please bring them to the hospital. If you have sleep apnea and have a CPAP/BIPAP device, please bring it with you on the day of surgery. documented in this [id number] Instructions* Patient Instructions* Lucy Murrell MD - 02/06/2023 11:13 AM EDT Preoperative Medication Instructions In preparation for surgery please continue all of your current medications with the following changes: Active Home Medications Medication Sig Take Last Dose On Take Morning of Surgery Comment(s) famotidine (PEPCID) 20 MG tablet Take 2 (two) tablets (40 mg total) by mouth every morning . Pleasetake as usual prior to your procedure lactobacillus combo no.11 (Probiotic) 15 billion cell CpSP Take 2 capsules by mouth every morning .1 week prior to your procedure lisinopriL (PRINIVIL,ZESTRIL) 20 MG tablet Take 1 (one) tablet (20 mg total) by mouth every morning. No multivit-min/ferrous fumarate (MULTI VITAMIN ORAL) Take 1 tablet by mouth every morning . 1 week prior to your procedure multivitamin with minerals (HAIR,SKIN AND NAILS ORAL) Take 1 capsule by mouth every morning . 1 week prior to your procedure polyethylene glycol 3350 (MIRALAX ORAL) Take 17 g by mouth every morning . No wheat dextrin (Benefiber Sugar Free, dextrin,) 1 gram Chew Chew and Swallow 1 g every morning . No Please take your evening medications as usual on the evening prior to surgery. STOP Aspirin (and medications that contain aspirin, such as [place], Pepto- Bismol, Anacin), antiinflammatory medications such as Advil, Motrin, Ibuprofen, Naproxen, Aleve, [place], Pepto-Bismol, Anacin, Diclofenac, Voltaren, Daypro, Etodolac, Ketoprofen, Meloxicam, Piroxicam, Relafen, Nabumetone, etc. Also discontinue Vitamin C, Vitamin E, [place]-3 Fatty Acid, Fish Oil or Lovaza, as wellas all herbal medications and supplements. Take last dose 1 week prior to your procedure Tylenol (acetaminophen) is acceptable, but be careful to follow the label directions. On the morning of surgery, with a small amount of water, take ONLY the medications listed above in the column Take the morning of surgery. If you are using Eye Drops or Inhalers, please bring them to the hospital. If you have sleep apnea and have a CPAP/BIPAP device, please bring it with you on the day of surgery. documented in this [id number] Note* Pre-Procedure Instructions - Vicki Pantoja RN - 02/06/2023 11:05 AM EDT Patient Instructions for [facility]: MAIN OR Prior to surgery: Please contact your Surgeon's office for the scheduled time of your surgery. Report to the Surgery Family Waiting Area in the [facility] of [facility] 2 hoursprior to your surgery. You may use the [employer] parking available at the [facility] Entr[facility] /or park in the Blue parking lot - a voucher for parking will be provided to you. One family member may accompany you back into the Pre-Op Area. If your surgeon has given you special guidelines for eating and drinking prior to surgery, follow their instructions. If not, the evening before surgery you may eat a low-fat meal up until midnight. Do not eat anything, including gum, cough drops, hard candy or mints after midnight. Clear liquids, including water, Gatorade and black coffee (no dairy or creamer products), up to two hours prior to surgery are permitted. Do not smoke, chew tobacco or drink alcohol for 24 hours before surgery. Please take any medications you have been instructed to take the morning of your surgery with smallsips of water. Please be sure to wear comfortable, appropriate clothing. Please remove all jewelry and piercings, including wedding rings. RINGS WILL BE CUT OFF IF UNABLE TO REMOVE. Leave all valuable items at home. Shower using Dial soap or as advised by your Surgeon's office. Do not apply any makeup or lotions. Gel or acrylic nails must be removed from both ring fingers. Remove all nail moroccan/product for surgeries involving extremities. Please remember to bring both your insurance card and a photo ID with you on the day of surgery. After your surgery: If you are having outpatient surgery - you must have a licensed cdl dedicated truck driver to take you home. The expectation is that this cdl dedicated truck driver will remain at the hospital for the duration of your procedure. You are advised to have a family member with you for at least 24 hours after being under Anesthesia. [id number] Note* Pre-Procedure Instructions - Vicki Pantoja RN - 02/06/2023 11:05 AM EDT Patient Instructions for [facility]: MAIN OR Prior to surgery: Please contact your Surgeon's office for the scheduled time of your surgery. Report to the Surgery Family Waiting Area in the [facility] 2 hoursprior to your surgery. You may use the [employer] parking available at the [facility] /or park in the Blue parking lot - a voucher for parking will be provided to you. One family member may accompany you back into the Pre-Op Area. If your surgeon has given you special guidelines for eating and drinking prior to surgery, follow their instructions. If not, the evening before surgery you may eat a low-fat meal up until midnight. Do not eat anything, including gum, cough drops, hard candy or mints after midnight. Clear liquids, including water, Gatorade and black coffee (no dairy or creamer products), up to two hours prior to surgery are permitted. Do not smoke, chew tobacco or drink alcohol for 24 hours before surgery. Please take any medications you have been instructed to take the morning of your surgery with smallsips of water. Please be sure to wear comfortable, appropriate clothing. Please remove all jewelry and piercings, including wedding rings. RINGS WILL BE CUT OFF IF UNABLE TO REMOVE. Leave all valuable items at home. Shower using Dial soap or as advised by your Surgeon's office. Do not apply any makeup or lotions. Gel or acrylic nails must be removed from both ring fingers. Remove all nail moroccan/product for surgeries involving extremities. Please remember to bring both your insurance card and a photo ID with you on the day of surgery. After your surgery: If you are having outpatient surgery - you must have a licensed cdl dedicated truck driver to take you home. The expectation is that this cdl dedicated truck driver will remain at the hospital for the duration of your procedure. You are advised to have a family member with you for at least 24 hours after being under Anesthesia. [id number] Note* Pre-Procedure Instructions - Vicki Pantoja RN - 02/06/2023 11:05 AM EDT Patient Instructions for [facility]: MAIN OR Prior to surgery: Please contact your Surgeon's office for the scheduled time of your surgery. Report to the Surgery Family Waiting Area in the [facility] 2 hoursprior to your surgery. You may use the [employer] parking available at the [facility] /or park in the Blue parking lot - a voucher for parking will be provided to you. One family member may accompany you back into the Pre-Op Area. If your surgeon has given you special guidelines for eating and drinking prior to surgery, follow their instructions. If not, the evening before surgery you may eat a low-fat meal up until midnight. Do not eat anything, including gum, cough drops, hard candy or mints after midnight. Clear liquids, including water, Gatorade and black coffee (no dairy or creamer products), up to two hours prior to surgery are permitted. Do not smoke, chew tobacco or drink alcohol for 24 hours before surgery. Please take any medications you have been instructed to take the morning of your surgery with smallsips of water. Please be sure to wear comfortable, appropriate clothing. Please remove all jewelry and piercings, including wedding rings. RINGS WILL BE CUT OFF IF UNABLE TO REMOVE. Leave all valuable items at home. Shower using Dial soap or as advised by your Surgeon's office. Do not apply any makeup or lotions. Gel or acrylic nails must be removed from both ring fingers. Remove all nail moroccan/product for surgeries involving extremities. Please remember to bring both your insurance card and a photo ID with you on the day of surgery. After your surgery: If you are having outpatient surgery - you must have a licensed cdl dedicated truck driver to take you home. The expectation is that this cdl dedicated truck driver will remain at the hospital for the duration of your procedure. You are advised to have a family member with you for at least 24 hours after being under Anesthesia. [id number] Note* Pre-Procedure Instructions - Vicki Pantoja RN - 02/06/2023 11:05 AM EDT Patient Instructions for [facility]: MAIN OR Prior to surgery: Please contact your Surgeon's office for the scheduled time of your surgery. Report to the Surgery Family Waiting Area in the [place] [facility] of [facility] 2 hoursprior to your surgery. You may use the [facility] parking available at the [facility] /or park in the Blue parking lot - a voucher for parking will be provided to you. One family member may accompany you back into the Pre-Op Area. If your surgeon has given you special guidelines for eating and drinking prior to surgery, follow their instructions. If not, the evening before surgery you may eat a low-fat meal up until midnight. Do not eat anything, including gum, cough drops, hard candy or mints after midnight. Clear liquids, including water, Gatorade and black coffee (no dairy or creamer products), up to two hours prior to surgery are permitted. Do not smoke, chew tobacco or drink alcohol for 24 hours before surgery. Please take any medications you have been instructed to take the morning of your surgery with smallsips of water. Please be sure to wear comfortable, appropriate clothing. Please remove all jewelry and piercings, including wedding rings. RINGS WILL BE CUT OFF IF UNABLE TO REMOVE. Leave all valuable items at home. Shower using Dial soap or as advised by your Surgeon's office. Do not apply any makeup or lotions. Gel or acrylic nails must be removed from both ring fingers. Remove all nail moroccan/product for surgeries involving extremities. Please remember to bring both your insurance card and a photo ID with you on the day of surgery. After your surgery: If you are having outpatient surgery - you must have a licensed cdl dedicated truck driver to take you home. The expectation is that this cdl dedicated truck driver will remain at the hospital for the duration of your procedure. You are advised to have a family member with you for at least 24 hours after being under Anesthesia. [id number] Note* Pre-Procedure Instructions - Vicki Pantoja RN - 02/06/2023 11:05 AM EDT Patient Instructions for [facility]: MAIN OR Prior to surgery: Please contact your Surgeon's office for the scheduled time of your surgery. Report to the Surgery Family Waiting Area in the [place] are of [facility] 2 hoursprior to your surgery. You may use the Substance Abuse Clinician parking available at the [facility] /or park in the Blue parking lot - a voucher for parking will be provided to you. One family member may accompany you back into the Pre-Op Area. If your surgeon has given you special guidelines for eating and drinking prior to surgery, follow their instructions. If not, the evening before surgery you may eat a low-fat meal up until midnight. Do not eat anything, including gum, cough drops, hard candy or mints after midnight. Clear liquids, including water, Gatorade and black coffee (no dairy or creamer products), up to two hours prior to surgery are permitted. Do not smoke, chew tobacco or drink alcohol for 24 hours before surgery. Please take any medications you have been instructed to take the morning of your surgery with smallsips of water. Please be sure to wear comfortable, appropriate clothing. Please remove all jewelry and piercings, including wedding rings. RINGS WILL BE CUT OFF IF UNABLE TO REMOVE. Leave all valuable items at home. Shower using Dial soap or as advised by your Surgeon's office. Do not apply any makeup or lotions. Gel or acrylic nails must be removed from both ring fingers. Remove all nail moroccan/product for surgeries involving extremities. Please remember to bring both your insurance card and a photo ID with you on the day of surgery. After your surgery: If you are having outpatient surgery - you must have a licensed cdl dedicated truck driver to take you home. The expectation is that this cdl dedicated truck driver will remain at the hospital for the duration of your procedure. You are advised to have a family member with you for at least 24 hours after being under Anesthesia. [id number] History of Present illness Narrative* Twila Mckeon MA - 02/06/2023 10:18 AM EDT Tour Bus Driver exam by Dr. Rand documented in this [id number] History of Present illness Narrative* Twila Mckeon MA - 02/06/2023 10:18 AM EDT Tour Bus Driver exam by Dr. Rand * Terri Rand MD - 02/06/2023 9:34 AM EDT RETURN VISIT Patient: Ara Loza : 1960 Date of Visit: 02/06/23 Consulting Physician: No ref. provider found Primary Care Provider: Ryan Sweet MD Chief Complaint 1.Posthysterectomy Vaginal Vault Prolapse 2.Mixed Incontinence 3.Urgency/Frequency/Nocturia History of Presenting Illness: Mrs. Loza is a 62-year-old G2, P2-0-0-2 woman with posthysterectomy vaginal vault prolapse. This appears to be primarily a posterior wall defect. She has mixed urinary incontinence by history alongwith urinary urgency, frequency, and nocturia. For her prolapse, she has trialed several different pessaries, but unfortunately these were unsuccessful. At today's visit, she underwent urodynamic testing, which confirmed stress urinary incontinence. There was no evidence of detrusor activity/instability. She appears to empty her bladder primarily by way of detrusor contraction although there was some evidence of Valsalva maneuver. There was also evidence of incomplete bladder emptying during portions of testing. She reported difficulty voiding in the urodynamics chair. EMG study did show increased activity during this portion of testing which could coincide with this. When allowed to empty her bladder on the commode without catheters in place following cystoscopy, she then emptied her bladder to completion without difficulty in a continuous single peaked pattern with residual residuals well within normal limits. Cystoscopy showed no evidence of pathology to explain bladder irritative symptoms. She presents now requesting further counseling regarding treatment options for her prolapse and urinary incontinence. For her urge urinary incontinence along with urinary urgency, frequency,nocturia, she has been utilizing conservative measures with scheduled voiding, avoidance of bladderirritants, restriction of fluid consumption, pelvic floor exercises. She reports she is currently voiding approximately 6 times per day and 1 to occasionally 2 times per night, which is an improvement for her. There have otherwise been no other interval changes since her last visit and she voices no other new complaints. PAST MEDICAL HISTORY Reviewed and unchanged since her last visit on December 16, 2022. SURGICAL HISTORY Reviewed and unchanged since her last visit on December 16, 2022. MEDICATIONS Reviewed and unchanged since her last visit on December 16, 2022. ALLERGIES Reviewed and unchanged since her last visit on December 16, 2022. FAMILY HISTORY Reviewed and unchanged since her last visit on December 16, 2022. SOCIAL HISTORY Reviewed and unchanged since her last visit on December 16, 2022. Any changes to past medical history, past surgical history, and social history are noted in the chart. Medications: Current Outpatient Medications: famotidine (PEPCID) 20 MG tablet, Take 1 (one) tablet (20 mg total) by mouth 2 (two) times a day .,Disp: , Rfl: lactobacillus combo no.11 (Probiotic) 15 billion cell CpSP, Take by mouth ., Disp: , Rfl: lisinopriL (PRINIVIL,ZESTRIL) 40 MG tablet, Take 1 (one) tablet (40 mg total) by mouth daily ., Disp: , Rfl: multivit-min/ferrous fumarate (MULTI VITAMIN ORAL), Take by mouth once daily ., Disp: , Rfl: multivitamin with minerals (HAIR,SKIN AND NAILS ORAL), Take by mouth once daily ., Disp: , Rfl: polyethylene glycol 3350 (MIRALAX ORAL), Take by mouth once daily ., Disp: , Rfl: wheat dextrin (Benefiber Sugar Free, dextrin,) 1 gram Chew, Chew and Swallow once daily ., Disp: , Rfl: Allergies: Allergies Allergen Reactions Bee Venom Protein (Honey Bee) Anaphylaxis Erythromycin Shortness Of Breath Penicillins Shortness Of Breath Sulfa (Sulfonamide Antibiotics) Shortness Of Breath Past Medical History: No past medical history on file. Review of Systems: She denies headaches, visual symptoms, chest pain, abdominal pain or distention,shortness of breath, change in appetite, weight loss, weight gain, muscles pain, or joint pain. Physical Exam: Temp 98.6 F (37 C) (Temporal) General: On exam, Mrs. Loza looks well and her stated age. She is alert and oriented to person, place and time. Vital Signs: Are as outlined above. She underwent screening for COVID-19 symptoms prior to enteringthe building and was negative. She also underwent temperature screening and was afebrile. This is all as per system protocol. Lungs: Clear to auscultation bilaterally with no wheezes, rhonchi, or crackles heard Heart: Auscultation of her heart reveals a normal S1, S2 sound with regular rate and rhythm. Abdomen: Soft, nontender, and nondistended. There are no palpable masses or hernias. She has a number of well-healed incisions noted on the abdomen with a midline vertical incision extending from thepubic symphysis to the level of the umbilicus. There are also 2 some small incisions in both the right and left lower groin regions from again, which she states may have been hernia repair. She has had several hernia repairs within the abdominal region. There are no palpable masses or hernias at present. Pelvic: The external genitalia are grossly normal in appearance other than some evidence of vulvovaginal atrophy. Her urethra is normal in appearance. On speculum exam, the vaginal mucosa appears to be intact. There is no evidence of epithelial erosion or breakdown. On bimanual examination, her uterus is surgically absent. There are no adnexal masses or tenderness to palpation. On POP-Q examination AA and BA equals -1 to -2, AP and BP equal +2, C equals -5, TVL equals 7 to 8,perineal body equals 2, and genital hiatus equals 5 cm. On rectal exam, again there is a palpable rectocele/perineocele. Anal sphincter otherwise shows good tone both at rest and with contraction. Again, Q-tip test is equal to 0 at rest approximately 30 to 40 degrees with Valsalva. Impression and Plan: Mrs. Loza is a 62-year-old multiparous woman with posthysterectomy vaginal wall prolapse. This appears to be primarily a posterior wall defect, although there is some mild apical descensus noted during today's exam. She has mixed urinary incontinence by history along with urgency, frequency, and nocturia. Stress urinary incontinence was confirmed by urodynamic testing. There was some evidence of incomplete bladder emptying noted during portions of today's testing. Following today's evaluationshe was counseled regarding these findings. I personally spent 25 minutes on counseling, in addition to today's evaluation and testing. Detailed diagrams were again made to illustrate today's findings, as well as treatment options. She had multiple questions, which were answered in detail. For her prolapse we revisited options, including doing nothing versus conservative management with a pessary and/or pelvic floor physical therapy versus surgical intervention. We discussed pessaries in detail along with their management and all questions were answered. She has been trialed with several different pessaries and unfortunately, these were unsuccessful. We also discussed potential benefits of pelvic floor physical therapy. Surgically based on her current exam this would entail primarily a posterior colporrhaphy/perineorrhaphy. We did discuss that if there was to be further descensus of the vaginal apex, however, apical repair could be could be necessary. Again, this would appearto be primarily entail a posterior colporrhaphy/perineorrhaphy and/or possible apical repair shouldthere be further descensus noted. We discussed the general risks and benefits of the procedure, andall questions were answered. We also discussed the overall effectiveness of these of this procedureand all questions were answered. We also had discussed recent FDA warnings regarding placement of mesh via a vaginal approach for the treatment pelvic organ prolapse. We discussed that sometimes whena posterior colporrhaphy is performed that graft reinforcement is performed in conjunction with this. The risks and benefits of this were reviewed in detail including, but not limited to risk of development of mesh erosion with possible need for revision and/or resection of graft, risk of development of pelvic pain and/or dyspareunia with need for further evaluation and treatment, risk of development of infection with possible need for further evaluation and treatment, effect on long-term durability, etc., and all questions were answered. We also discussed while it is my hope that the repair would help to alleviate the sensation of stool trapping or need for splinting maneuver or other defecatory issues, I cannot guarantee this and further evaluation and treatment may be necessary should this persist as again there may be a functional component related to constipation. She understands this as well. For her stress urinary incontinence we discussed options including doing nothing versus conservative management with a continence ring and/or pelvic floor physical therapy versus surgical intervention. We again discussed continence rings in detail along with their management and all questions were answered. We also again discussed potential benefits of pelvic floor physical therapy. Surgically wediscussed options including a minimally invasive suburethral sling versus Blankens[place] cystourethropexy versus transurethral bulking injections. Risks and benefits of these procedures were reviewed in detail, and all questions were answered. We also discussed the overall effectiveness of these procedures and all questions were answered. We also discussed that if she was to choose a minimally invasive suburethral sling that this too would entail placement of synthetic graft, but that this is considereda safe, effective, and approved procedure. We also discussed the risk of aggravation of her overactive bladder symptoms which can occur in up to a third of patients following incontinence repair and that if this was to occur, further evaluation and treatment may be necessary, and possibly revision surgery. We also discussed that there was some evidence of incomplete bladder emptying during a portion of testing and how that this could represent a risk factor for development of voiding dysfunction following incontinence repair. She states that again she typically does not have such difficultiesemptying her bladder, but when in the urodynamics chair with the catheters in place had difficulty doing so. Again, EMG study did show increased activity during this portion of testing which could coincide with this, but still she does understand this is a possible risk and if this was to occur further evaluation and treatment may be necessary, and possibly revision of her surgery. We also discussed the general risks of surgery including, but not limited to, bleeding necessitating possible transfusion of blood products and associated risk of blood borne illness, (i.e., HIV, hepatitis), risk of development of infection with possible need for further evaluation and treatment and/or revision of surgery, risk of injury to pelvic and/or abdominal organs, (i.e., bowel, bladder, urethra, vessels, nerves, ureters, etc.), and that if this was to occur this could even preclude the ability to complete the procedure as planned and could necessitate further evaluation and treatment,and/or surgical repair, risk of failure of the procedures to correct her symptoms and need for further evaluation and treatment, risk of recurrence of her prolapse and/or urinary incontinence in the future and need for further evaluation and treatment, or in a different compartment, risk of development of urinary retention with possible need for discharge from the hospital a catheter and/or revision of surgery, risk of development of mesh erosion with possible need for revision and/or resectionof graft should she choose a procedure which entails placement of synthetic graft, risk of development of blood clots and even related to surgery and/or anesthesia. We also discussed the overall recovery time for these procedures which can be up to approximately 6-8 or more weeks' time. We also discussed the postop restrictions during that period including, but not limited to, weightliftingrestriction of no more than 15-20 pounds as well as driving precautions and pelvic rest in the immediate postoperative period. She had multiple questions, which were answered in detail. It was at this point she made the decision to proceed with surgery and has requested posterior colporrhaphy/perineorrhaphy and cystoscopy. She is still deciding whether or not to undergo a minimally invasive suburethral sling or transurethral bulking injections. I would like to repeat a postvoid residual later this week. If she is able to empty her bladder without difficulty during that visit, then either option would likely still be appropriate for her as outlined above. Again, she will make afinal decision regarding that after that visit. We did discuss that again the vaginal apex still appeared to be fairly well supported, however, if there was to be evidence of this noted at the time of surgery this could be repaired concomitantly with sacrospinous ligament suspension. Again, she has had multiple abdominal repairs for hernias which were graft reinforced per her report, thus I likely would try to avoid an abdominal sacrocolpopexyor other options but again, we stated that if this was to be noted at the time of her requested surgery, that sacrospinous ligament suspension would still be an appropriate option. She states that ifthis was to be noted and deemed necessary, then she would want this repaired concomitantly. Informed consent was obtained and we will proceed with surgery once a surgical date has been established. For her urge urinary incontinence along with urinary urgency, frequency and nocturia she will continue with conservative measures as previously prescribed. We will see her back for followup within the next 6-8 weeks' time as outlined above. * Terri Rand MD - 02/06/2023 8:23 AM EDT Urogynecology and Reconstructive Pelvic Surgery Procedural Note Cystoscopy Patient name: Ara Loza : 1960 Date: 02/06/2023 Chief Complaints: 1.Mixed Incontinence 2.Urgency/Frequency/Nocturia History of Presenting Illness: Mrs. Loza is a 62-year-old, G2, P2-0-0-2 woman with posthysterectomy vaginal vault prolapse that appears to be primarily a posterior wall defect. She has mixed urinary incontinence by history alongwith urinary urgency, frequency, and nocturia. She presents now for cystoscopy as part of bladder testing and to further evaluate etiology for bladder irritative symptoms of newer onset as well as tobetter characterize bladder anatomy. Findings: After discussing the procedure in detail and obtaining the patient's consent, Mrs. Loza was placed in dorsal lithotomy position. Her urethra was cleansed with Betadine and viscous lidocaine instilled in the bladder. After a period of 5 to 10 minutes, her urethra was re-cleansed with Betadine and a 70-degree cystoscope advanced through the urethra into the dome of the bladder. General survey showed no evidence of pathology. There was no evidence of petechial hemorrhages, ulcerations, trabeculations, foreign bodies, or other sequelae. Both the right and left ureteral os are grossly normal in appearance. The 70- degree cystoscope was exchanged for a 30-degree cystoscope in order to better evaluate the urethra. While slowly withdrawing the cystoscope, her urethra was evaluated and showed no evidence of pathology. There was no visible evidence of urethral stricturing, urethra diverticulum, or other pathology noted. The cystoscope was removed and she was allowed to empty her bladder. She tolerated the procedure well and with minimal discomfort. Q-tip test was performed and was equal to 0at rest and approximately 30 to 40 degrees with Valsalva. Impression: Normal cystoscopy. No evidence of pathology to explain bladder irritative symptoms. Hypermobility of the urethrovesical junction is confirmed by Q-tip test. * Terri Rand MD - 02/06/2023 8:19 AM EDT Urogynecology and Reconstructive Pelvic Surgery Procedural Note Urodynamics Patient name: Ara Loza : 1960 Date: 02/06/2023 Chief Complaints: 1.Mixed Incontinence 2.Urgency/Frequency/Nocturia History of Presenting Illness: Mrs. Loza is a 62-year-old G2, P2-0-0-2 woman with posthysterectomy vaginal vault prolapse. This is primarily a posterior wall defect. She has mixed urinary incontinence by history along with urinary urgency, frequency, and nocturia. Previous cough stress testing was negative. She presents now for urodynamic testing to further evaluate urinary incontinence as well as better characterize bladderfunction. Findings: Opening uroflowmetry study was performed without difficulty. Mrs. Loza voided 123 cc in a continuous single peaked waveform with a peak flow rate of 10 cc/sec. Postvoid residual was equal to 90 to 100 cc by straight catheterization. Urine dip on that specimen was negative for red blood cells, white blood cells, nitrites, protein, glucose. Specific gravity was equal to 1.005 and pH equal to 6.0.A complex cystometrogram was then performed in the upright birthing chair at a 45-degree angle. Both intravesical and intraabdominal pressure catheters were placed without difficulty using sterile technique. Her bladder was then slowly back filled to a total of 411 cc. She experienced first sensation at 85 cc, 1st desire to void at 104 cc, and strong desire to void at 122 cc. Her bladder demonstrated normal capacity and compliance. There was no evidence of uninhibitable detrusor contractions throughout today's testing. After filling to 200 cc, cough stress testing was performed. All portions of cough stress testing during today's procedure were performed with reduction of her prolapse. Carewas taken to be sure to not over or under correct her prolapse. Again, after filling to 200 cc, cough stress testing was performed and was negative with a maximum negative cough leak point pressure of 142 cm H2O and a maximum negative Valsalva leak point pressure of 116 cm H2O. She was further filled to 300 cc and cough stress testing repeated. This was negative with maximum negative cough leak point pressure of 186 cm H2O and a maximum negative Valsalva leak point pressure of 130 H2O. She was further filled to 411 cc and cough stress testing repeated. This was positive with positive cough leak point pressures of 148 and 162 cm H2O. She had a positive Valsalva leak point pressure of 153 cm H2O. The cystometrogram was terminated at this point and a urethral pressure profile performed. The maximum resting urethral closure pressure was equal to 69 cm H2O. Both intravesical and intraabdominal pressure flow micturition studies were performed. She voided 278 cc in a continuous pattern with a peak flow rate of 14 cc/sec. She reported difficulty voiding in the urodynamics chair. There was a demonstrable detrusor contraction via the intravesical pressure flow study. There was also some evidence of Valsalva maneuver although this appeared to be more toward the terminal aspect of her void.Postvoid residual was elevated at 250 cc by straight catheterization. EMG study did show increased activity during pressure flow study but otherwise normal contraction and relaxation patterns throughout following cystoscopy, a repeat uroflowmetry study was performed on the commode without cathetersin place. She then voided 376 cc in a continuous single peaked waveform with a peak flow rate of 46cc/second. Postvoid residual by straight catheterization was equal to 50 cc. Impression: Stress urinary incontinence is confirmed by today's testing. There is no evidence of detrusor activity/instability. She appears to empty her bladder primarily by way of detrusor contraction. There was some evidence of Valsalva maneuver. There was also some evidence of incomplete bladder emptying during portions of today's testing. She reported difficulty voiding in the urodynamics chair with the catheters in place. EMG study did show increased activity during this portion of the testing, which would coincide with this. When allowed to empty her bladder on the commode without the catheters in place following cystoscopy she emptied her bladder without difficulty in a continuous single peaked pattern, which she states is more her typical pattern. EMG study did show increased activity during the pressure flow study which would coincide with this. Urethra pressure profile showed a normal maximum resting urethral closure pressure. documented in this [id number] History of Present illness Narrative* Twila Mckeon MA - 12/16/2022 8:02 AM EDT Chaperoned exam by Dr. Rand documented in this [id number] History of Present illness Narrative* Shelley Bradley RN - 12/05/2022 3:14 PM EDT Faxed a signed medical records release to Dr. Lucy Majano [phone] documented in this encounterOhioHealthEvaluation noteNo assessment information availableUniversity [facility]als [facility] Work Phone: Evaluation note* Diagnosis Female genital prolapse, unspecified type- Primary [facility]* Diagnosis Vaginal vault prolapse, posthysterectomy- Primary Prolapse of vaginal vault after hysterectomy Mixed incontinence Mixed incontinence urge and stress (male)(female) OAB (overactive bladder) [facility]* Diagnosis Vaginal vault prolapse, posthysterectomy- Primary Prolapse of vaginal vault after hysterectomy [facility]* Diagnosis Vaginal vault prolapse, posthysterectomy- Primary Prolapse of vaginal vault after hysterectomy Pre-op examination- Primary Vaginal vault prolapse, 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 Preop cardiovascular exam Pre-operative cardiovascular examination Abnormal EKG Nonspecific abnormal electrocardiogram (ECG) (EKG) ROB on CPAP Hypertension, unspecified type Gastroesophageal reflux disease, unspecified whether esophagitis present BMI 35.0-35.9,adult Complication of anesthesia, subsequent encounter Vaginal vault prolapse, 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 [facility]* Diagnosis Vaginal vault prolapse, posthysterectomy- Primary Prolapse of vaginal vault after hysterectomy Mixed incontinence- Primary Mixed incontinence urge and stress (male)(female) OAB (overactive bladder) Incomplete bladder emptying Vaginal vault prolapse, 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 Vaginal vault prolapse, 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 [facility]* Diagnosis Vaginal vault prolapse, posthysterectomy- Primary Prolapse of vaginal vault after hysterectomy Pre-op examination- Primary Vaginal vault prolapse, 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 Preop cardiovascular exam Pre-operative cardiovascular examination Abnormal EKG Nonspecific abnormal electrocardiogram (ECG) (EKG) ROB on CPAP Hypertension, unspecified type Gastroesophageal reflux disease, unspecified whether esophagitis present BMI 35.0-35.9,adult Complication of anesthesia, subsequent encounter Vaginal vault prolapse, 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 [facility]* Diagnosis Vaginal vault prolapse, posthysterectomy- Primary Prolapse of vaginal vault after hysterectomy Pre-op examination- Primary Vaginal vault prolapse, 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 Preop cardiovascular exam Pre-operative cardiovascular examination Abnormal EKG Nonspecific abnormal electrocardiogram (ECG) (EKG) ROB on CPAP Hypertension, unspecified type Gastroesophageal reflux disease, unspecified whether esophagitis present BMI 35.0-35.9,adult Complication of anesthesia, subsequent encounter Vaginal vault prolapse, 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 [facility]* Diagnosis Vaginal vault prolapse, posthysterectomy- Primary Prolapse of vaginal vault after hysterectomy Pre-op examination- Primary Vaginal vault prolapse, 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 Preop cardiovascular exam Pre-operative cardiovascular examination Abnormal EKG Nonspecific abnormal electrocardiogram (ECG) (EKG) ROB on CPAP Hypertension, unspecified type Gastroesophageal reflux disease, unspecified whether esophagitis present BMI 35.0-35.9,adult Complication of anesthesia, subsequent encounter Vaginal vault prolapse, 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 [facility]* Diagnosis Vaginal vault prolapse, posthysterectomy- Primary Prolapse of vaginal vault after hysterectomy Urinary frequency- Primary Vaginal vault prolapse, 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 [facility]* Diagnosis Aftercare following surgery of the genitourinary system- Primary Aftercare following surgery of the genitourinary system, NEC [facility]* Diagnosis Mixed incontinence- Primary Mixed incontinence urge and stress (male)(female) OAB (overactive bladder) Incomplete bladder emptying Vaginal vault prolapse, 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 [facility]* Diagnosis Postop check- Primary Follow-up examination, following unspecified surgery documented in this encounter [facility] note* Diagnosis Hypercalcemia- Primary documented in this encounter [facility] note* Diagnosis Vaginal vault prolapse, posthysterectomy- Primary Prolapse of vaginal vault after hysterectomy OAB (overactive bladder) Mixed incontinence Mixed incontinence urge and stress (male)(female) documented in this encounter [facility] note* Diagnosis Vaginal vault prolapse, posthysterectomy- Primary Prolapse of vaginal vault after hysterectomy Post-op pain Other acute postoperative pain Vaginal vault prolapse Vaginal vault prolapse, posthysterectomy- Primary Prolapse of vaginal vault after hysterectomy OAB (overactive bladder) Mixed incontinence Mixed incontinence urge and stress (male)(female) Vaginal vault prolapse, posthysterectomy- Primary Prolapse of vaginal vault after hysterectomy documented in this encounter [facility] note* Diagnosis Ventral hernia without obstruction or gangrene- Primary Unspecified ventral hernia without mention of obstruction or gangrene documented in this encounter [facility] Work Phone: Evaluation note* Diagnosis Ventral hernia without obstruction or gangrene Unspecified ventral hernia without mention of obstruction or gangrene documented in this encounter [facility] Work Phone: Evaluation note* Diagnosis Ventral hernia without obstruction or gangrene- Primary Unspecified ventral hernia without mention of obstruction or gangrene Recurrent ventral hernia- Primary Incisional hernia without mention of obstruction or gangrene Recurrent ventral hernia Incisional hernia without mention of obstruction or gangrene documented in this encounter [facility] Work Phone: Evaluation note* Diagnosis Recurrent ventral hernia- Primary Incisional hernia without mention of obstruction or gangrene Recurrent ventral hernia Incisional hernia without mention of obstruction or gangrene documented in this encounter [facility] Work Phone: Evaluation note* Diagnosis Postoperative examination- Primary Follow-up examination, following unspecified surgery documented in this encounter [facility] Work Phone: Hospital Discharge instructions Additional Instructions Apply nystatin powder to area under your breasts Keep areas clean and dry Zofran if needed for nausea vomiting Take steroids as directed Fluids Rest Tylenol Motrin if needed for pain Follow-up with your doctor on Monday Return here if you develop any pain, shortness of breath, or any other concerns [facility] Work Phone: Reason for referral (narrative)No reason for referral information availableWProMedica [facility] Work Phone: Reason for visit Narrative* Imaging (Routine) - Authorized Specialty Diagnoses / Procedures Referred By Dion grider Referred To Contact Radiology Diagnoses Ventral hernia without obstruction or gangrene Procedures CT abdomen pelvis w IV contrast Lucy Larios MD [address] [place] [address] Phone: tel: fax: Referral ID Status Reason Start Date Expiration Date Visits Requested Visits Authorized [id number] Authorized Perform Procedure 10/11/2024 10/11/2025 1 1 [facility] Work Phone: Reason for visit Narrative* Auth/Cert Specialty Diagnoses / Procedures Referred By Dion grider Referred To Contact Diagnoses Recurrent ventral hernia Recurrent ventral hernia [K43.2] Procedures IN RPR AA HERNIA RECR 3-10 CM REDUCIBLE IN RMVL NONINFCT MESH/PROSTH AA/PARASTOMAL HRNA RPR REPAIR, HERNIA, VENTRAL REPAIR, HERNIA, VENTRAL Lucy Larios MD [address] [place] [address] Phone: tel: fax: [facility] [place] [address] [place] [phone] fax: Referral ID Status Reason Start Date Expiration Date Visits Re quested Visits Authorized [id number] 1 1 [facility] Work Phone: Summary Purpose Family History No Family History Records Found Relationship Condition Age at Onset Recorded Date/T beckie Unknown Family History?- Unknown June 10:47pm Family History?- Unknown June 10:47pm Advance Directives No Advanced Directives Records Found Advance Directive Response Recorded Date/ Time Advance Directives No October 09, 2 022 3:32pm Latest Code Status on File Code Status Date Activated Date Inactivated Comments Full Code 02/14/2023 6:26 PM 02/15/2023 2:03 PM Latest Code Status on File Code Status Date Activated Date Inactivated Comments Full Code 02/14/2023 6:26 PM 02/15/2023 2:03 PM Date Activated Date Inactivated Comments 02/14/2023 6:26 PM 02/15/2023 2:03 PM Date Activated Date Inactivated Comments 10/24/2024 10:57 AM Question Answer Comments Plan of Care: Code Status Discussion Not Compl eted Decision Maker: Provider Rationale: Patient condition does not warra nt discussion Date Activated Date Inactivated Comments 10/24/2024 10:57 AM Question Answer Comments Plan of Care: Code Status Discussion Not Compl eted Decision Maker: Provider Rationale: Patient condition does not warra nt discussion Advance Directive Response Recorded Date/ Time Advance Directives No April 01, 2016 10:56am Chief Complaint and Reason for Visit Chief Complaint abd pain Chief Complaint Admit Date SCREENING November 12, 2024 8:06a m Reason for Referral Specialty Diagnoses / Procedures Referred By Contac t Referred To Contact Urogynecology Diagnoses Female genital prolapse, unspecified type Referring, MD Norm [address] [place] [address] Terri Rand MD [address] [place] [address] Referral ID Status Reason Start Date Expiration Date V isits Requested Visits Authorized [id number] Authorized 10/24/2022 10/24/2023 1 1 Specialty Diagnoses / Procedures Referred By Contac t Referred To Contact Urogynecology Diagnoses Urinary frequency Magnolia Peng MD [facility] [place] [address] Basilia Tucker MD [address] [facility] [address] [place] [address] Referral ID Status Reason Start Date Expiration Date Visits Re quested Visits Authorized [id number] Closed 02/10/2023 02/10/2024 1 1 Additional Source Comments INFORMATION SOURCE (unrecogn ized section and content) DATE CREATED AUTHOR 10/10/2018 [facility] DATE CREATED AUTHOR AUTHOR'S ORGANIZ ATION 11/17/2018 [facility] DATE CREATED AUTHOR AUTHOR'S ORGANIZ ATION 07/16/2022 [facility] DATE CREATED AUTHOR AUTHOR'S ORGANIZ ATION 02/19/2023 [facility] DATE CREATED AUTHOR AUTHOR'S ORGANIZ ATION 07/17/2023 [facility] DATE CREATED AUTHOR AUTHOR'S ORGANIZ ATION 10/08/2024 [facility] DATE CREATED AUTHOR AUTHOR'S ORGANIZ ATION 10/28/2024 [facility] DATE CREATED AUTHOR AUTHOR'S ORGANIZ ATION 11/13/2024 [facility] DATE CREATED AUTHOR AUTHOR'S ORGANIZ ATION 11/20/2024 [facility] DATE CREATED AUTHOR AUTHOR'S ORGANIZ ATION 11/22/2024 [facility] Care Teams (unrecognized sec tion and content) Team Status: Inactive Member Role Status Dates NON STAFF Primary Care Provider Active Jg Ho DO Emergency Provider Active Team Status: Active Member Role Status Dates NON STAFF Primary Care Provider Active 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 Relationship Specialty Start Date End Date Ryan Sweet MD [address] [place] [address] PCP - General Endocrinology/Metabolism 11/29/22 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 Relationship Specialty Start Date End Date Ryan Sweet MD [address] [place], [place] [id number] PCP - General Endocrinology/Metabolism 11/29/22 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 Relationship Specialty Start Date End Date Ryan Sweet MD [address] [place], [place] [id number] PCP - General Endocrinology/Metabolism 11/29/22 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 Relationship Specialty Start Date End Date Ryan Sweet MD [address] [place] [address] PCP - General Endocrinology/Metabolism 11/29/22 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 Relationship Specialty Start Date End Date Ryan Sweet MD [address] [place] [address] PCP - General Endocrinology/Metabolism 11/29/22 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 Relationship Specialty Start Date End Date Ryan Sweet MD [address] [place] [address] PCP - General Endocrinology/Metabolism 11/29/22 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 Relationship Specialty Start Date End Date Ryan Sweet MD [address] [place] [address] PCP - General Endocrinology/Metabolism 11/29/22 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 Relationship Specialty Start Date End Date Ryan Sweet MD [address] [place] [address] PCP - General Endocrinology/Metabolism 11/29/22 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 Relationship Specialty Start Date End Date Ryan Sweet MD [address] [place] [address] PCP - General Endocrinology/Metabolism 11/29/22 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 Relationship Specialty Start Date End Date Ryan Sweet MD [address] [place] [address] PCP - General Endocrinology/Metabolism 11/29/22 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 Relationship Specialty Start Date End Date Ryan Sweet MD [address] [place] [address] PCP - General Endocrinology/Metabolism 11/29/22 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 Relationship Specialty Start Date End Date Ryan Sweet MD [address] [place] [address] PCP - General Endocrinology/Metabolism 11/29/22 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 Relationship Specialty Start Date End Date Ryan Sweet MD [address] [place] [id number] PCP - General Endocrinology/Metabolism 11/29/22 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 Relationship Specialty Start Date End Date Ryan Sweet MD [address] [place] [id number] PCP - General Endocrinology/Metabolism 11/29/22 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 Relationship Specialty Start Date End Date Ryan Sweet MD [address] [place] [id number] PCP - General Family Medicine 10/11/24 Lucy Larios MD [address] [place] [address] Surgeon General Surgery 10/11/24 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 Relationship Specialty Start Date End Date Ryan Sweet MD [address] [place] [id number] PCP - General Family Medicine 10/11/24 Lucy Larios MD [address] [place] [address] Surgeon General Surgery 10/11/24 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 Relationship Specialty Start Date End Date Ryan Sweet MD [address] [place] [address] PCP - General Family Medicine 10/11/24 Lucy Larios MD [address] [place] [address] Surgeon General Surgery 10/11/24 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 Relationship Specialty Start Date End Date Ryan Sweet MD [address] [place] [address] PCP - General Family Medicine 10/11/24 Lucy Larios MD [address] [place] [address] Surgeon General Surgery 10/11/24 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 Relationship Specialty Start Date End Date Ryan Sweet MD [address] [place], [place] [phone] PCP - General Family Medicine 10/11/24 Lucy Larios MD [address] [place] [address] Surgeon General Surgery 10/11/24 Team Status: Active Member Role Status Dates Dr. Ryan Sweet MD Primary Care Provider Active Team Status: Inactive Member Role Status Dates Dr. Ryan Sweet MD Primary Care Provider Active Start: November 12, 2024 End: November 12, 2024 WELLINGTON MARSHALL Attending Provider Active Start: November 12, 2024 End: November 12, 2024 WELLINGTON MARSHALL Referring Provider Active Start: November 12, 2024 End: Andree 3rd, 2025 Goals (unrecognized section and content) Goals may be documented in a n alternate sectionGoals may be documented in an alternate section Reason for Visit (unrecogniz ed section and content) Reason Comments Post-op Reason Comments Thyroid Problem Labs 04/18/23 Specialty Diagnoses / Procedures Referred By Dion grider Referred To Contact Diagnoses Vaginal vault prolapse, posthysterectomy Vaginal vault prolapse, posthysterectomy [N99.3] Procedures IN COLPOPEXY VAGINAL EXTRAPERITONEAL APPROACH IN SLING OPERATION STRESS INCONTINENCE IN NDSC NJX IMPLT MATRL URT&/BLDR NCK IN REPAIR RECTOCELE SEPARATE PROCEDURE IN CYSTOURETHROSCOPY Terri Rand MD [address] [place] [address] Referral ID Status Reason Start Date Expiration Date Visits Re quested Visits Authorized [id number] 01/10/2023 1 1 Reason Comments Appointment Reason Comments feeling sliding on the right side above the groin Reason Comments Consult Self referral for RI H. Patient states has right inguinal bulge that at times moves to the right, pain is severe intermittently especially with any activit or with walking states it just hurts. Cristobal any N/V, no change of bulge size, constipation takes OTC Harrison stool softener that helps . Reason Comments Follow-up FU CT abd/pelvis don e 10-17-24 for possible recurrent ventral hernia. Patient continues with intermittent right groin bulge with a constant discomfort described as an ache and takes OTC Aleve twice a day. Denies any bowel movement or urination problems, denies N/V. Reason Comments Post-op Post Op #1/staple re moval s/p recurrent ventral hernia repair on 10-24-24. Patient offers no complaints, denies any drainage at incision site, no swelling, no fevers and no problems with urination or bowel movements. Source Comments (unrecognize d section and content) In the event this informatio n is protected by the Federal Confidentiality of Alcohol and Drug Abuse Patient Records regulations: The Federal rules restrict any use of the information to criminally investigate or prosecute any alcohol or drug abuse patient.[facility] the event this information is protected by the Federal Confidentiality of Alcohol and Drug Abuse Patient Records regulations: The Federal rules restrict any use of the information to criminally investigate or prosecute any alcohol or drug abuse patient.[facility] the event this information is protected by the Federal Confidentiality of Alcohol and Drug Abuse Patient Records regulations: The Federal rules restrict any use of the information to criminally investigate or prosecute any alcohol or drug abuse patient.[facility] the event this information is protected by the Federal Confidentiality of Alcohol and Drug Abuse Patient Records regulations: The Federal rules restrict any use of the information to criminally investigate or prosecute any alcohol or drug abuse patient.[facility] Scheduled Active and Recently Administ ered Medications (unrecognized section and content) Medication Order 10/22/2024 10/23/2024 10/24/2024 acetaminophen (Tylenol) tablet 975 mg (COMPLETED) 975 mg, oral, Once, On Rochelle 10/24/24 at 1115, For 1 dose, Preprocedure, Administer with small amount of water preoperatively., If ordered PRN for pain, nurse is permitted to administer this medication for higher pain scores based on patient preference? Yes 1110 (Given - Provid er: Zara Brewster RN - Comment: pre op) ciprofloxacin (Cipro) 400 mg in dextrose 5% IV 200 mL (COMPLETED)(Linked Group 1) 400 mg, intravenous, at 200 mL/hr, Administer over 60 Minutes, Once, On Rochelle 10/24/24 at 1115, For 1 dose, Preprocedure, premix bag, Dosing of this medication varies based on severity of illness. Does this patient have sepsis or concern for sepsis (probable or documented infection plus systemic manifestations of infection)? No, Suspected Indication (Select all that apply): Surgical Prophylaxis, Indications: Surgical Prophylaxis 1300 (New Bag - Prov ider: Zara Brewster RN - Comment: pre op)1400 (Due: Stopped - Provider: Zara Brewster RN) dexAMETHasone (PF) (Decadron) injection 8 mg (COMPLETED) 8 mg, intravenous, Once, On Rochelle 10/24/24 at 1115, For 1 dose, Preprocedure 1113 (Given - Provid er: Zara Brewster RN - Comment: pre op) heparin (porcine) injection 5,000 Units (COMPLETED) 5,000 Units, subcutaneous, Once, On Rochelle 10/24/24 at 1115, For 1 dose, Preprocedure, Indications: deep vein thrombosis prevention 1109 (Given - Provid er: Zara Brewster RN - Comment: pre op) metroNIDAZOLE (Flagyl) 500 mg in sodium chloride (iso) IV 100 mL (COMPLETED)(Linked Group 1) 500 mg, intravenous, Administer over 60 Minutes, Once, On Rochelle 10/24/24 at 1115, For 1 dose, Preprocedure, Do NOT give with alcohol or drug products with significant alcohol content., Suspected Indication (Select all that apply): Surgical Prophylaxis, Indications: Surgical Prophylaxis 1255 (New Bag - Prov ider: Zara Brewster RN - Comment: pre op)1355 (Due: Stopped - Provider: Zara Brewster RN) midazolam (Versed) injection 1 mg (COMPLETED) 1 mg, intravenous, Once, On Rochelle 5/15/25 at 1115, For 1 dose, Preprocedure 1325 (Given - Provid er: Zara Brewster RN - Comment: pre op order) ondansetron (Zofran) injection 4 mg (COMPLETED) 4 mg, intravenous, Once, On Rochelle 10/24/24 at 1115, For 1 dose, Preprocedure, When administering via IV Push, administer over 3-5 minutes. 1110 (Given - Provid er: Zara Brewster RN - Comment: pre op) Continuous Medication Order 10/22/2024 10/23/2024 10/24/2024 lactated Ringer's infusion 100 mL/hr, intravenous, Continuous, Starting on Rochelle 10/24/24 at 1630, For 1 day, Recovery (only) 1630 (Due) lactated Ringer's infusion 50 mL/hr, intravenous, Continuous, Starting on Rochelle 10/24/24 at 1115, For 1 day, Preprocedure 1100 (New Bag - Prov ider: Zara Brewster RN) PRN Medication Order 10/22/2024 10/23/2024 10/24/2024 BUPivacaine HCl (Marcaine) 0.25 % (2.5 mg/mL) injection (CANCELED) As needed, Starting on Rochelle 10/24/24 at 1446, Intraprocedure 1446 (Given - Provid er: Lucy Larios MD) labetaloL (Normodyne,Trandate) injection 5 mg 5 mg, intravenous, Administer over 1 Minutes, Once as needed, systolic blood pressure greater than 180 mmHg, dystolic blood pressure greater than 100 mmHg and heart rate greater than 60 BPM, Starting on Rochelle 10/24/24 at 1614, For 1 dose, Recovery (only) lidocaine (Xylocaine) 10 mg/mL (1 %) injection (CANCELED) As needed, Starting on Rochelle 10/24/24 at 1446, Intraprocedure 1446 (Given - Provid er: Lucy Larios MD) morphine injection 2 mg 2 mg, intravenous, Every 5 min PRN, pain moderate (4-6), first line, Starting on Rochelle 10/24/24 at 1614, Recovery (only), Max total of 20 mg regardless of dose. morphine injection 4 mg 4 mg, intravenous, Every 5 min PRN, pain severe (7-10), first line, Starting on Rochelle 10/24/24 at 1614, Recovery (only), Max total of 20 mg regardless of dose. ondansetron (Zofran) injection 4 mg 4 mg, intravenous, Once as needed, nausea/vomiting, first line, Starting on Rochelle 10/24/24 at 1614, For 1 dose, Recovery (only), When administering via IV Push, administer over 3-5 minutes. oxyCODONE (Roxicodone) immediate release tablet 5 mg 5 mg, oral, Every 4 hours PRN, pain mild (1-3), first line, Starting on Rochelle 10/24/24 at 1614, Recovery (only), When able to take oral medications., If ordered PRN for pain, nurse is permitted to administer this medication for higher pain scores based on patient preference? Yes 1621 (Given - Provid er: Cristina Pete RN) Linked Groups Order Group 1: metroNIDAZOLE (Flagyl) 500 mg in sodium chloride (iso) IV 100 mL (COMPLETED)Jump to med 500 mg, intravenous, Administer over 60 Minutes, Once, On Rochelle 10/24/24 at 1115, For 1 dose, Preprocedure, Do NOT give with alcohol or drug products with significant alcohol content., Suspected Indication (Select all that apply): Surgical Prophylaxis, Indications: Surgical Prophylaxis And ciprofloxacin (Cipro) 400 mg in dextrose 5% IV 200 mL (COMPLETED)Jump to med 400 mg, intravenous, at 200 mL/hr, Administer over 60 Minutes, Once, On Rochelle 10/24/24 at 1115, For 1 dose, Preprocedure, premix bag, Dosing of this medication varies based on severity of illness. Does this patient have sepsis or concern for sepsis (probable or documented infection plus systemic manifestations of infection)? No, Suspected Indication (Select all that apply): Surgical Prophylaxis, Indications: Surgical Prophylaxis FOR RECORDS PERTAINING TO PATIENTS WHO ARE OR HAVE BEEN ENROLLED IN A CHEMICAL DEPENDENCY/SUBSTANCEABUSE PROGRAM, SOME INFORMATION MAY BE OMITTED. This clinical summary was aggregated from multiple sources. Caution should be exercised in using it in the provision of clinical care. This summary normalizes information from multiple sources, and as a consequence, information in this document may materially change the coding, format and clinical context of patient data. In addition, data may be omitted in some cases. CLINICAL DECISIONS SHOULD BE BASED ON THE PRIMARY CLINICAL RECORDS. [facility] [email or web address] [facility]. provides no warranty or guarantee of the accuracy or completeness of information in this document.
[2024-11-27 08:20] LABS: Absolute Neutrophil Count 2.5 X10^3/uL (2.0-7.7); Basophil# 0.05 X10^3/uL; Basophil% 0.9 % (0-1); Eosinophil# 0.12 X10^3/uL; Eosinophils% 2.2 % (0-5); Hemoglobin 12.7 g/dL (12.0-15.0); Lymphocyte % 41.7 % (19-41); Mean Corp Hgb Conc 31.8 g/dL (32-36); Mean Corpuscular Hgb 26.8 pg (27.0-32.0); Mean Corpuscular Volume 84.4 fL (81-99); Mean Platelet Vol. 9.2 fl (6.2-12.0); Monocyte# 0.49 X10^3/uL; Monocyte% 8.9 % (0-10); NRBC Flagged by Analyzer 0 % (0-5); Neutrophil # 2.54 X10^3/uL (2.7-7.7); Neutrophil % 46.1 % (47-70); Platelet Count 277 K/mm3 (150-450); RBC Distribution Width CV 15.2 % (11.6-14.6); RBC Distribution Width SD 45.9 fl (35.1-43.9); Red Blood Count 4.74 M/mm3 (4.2-5.4); White Blood Count 5.5 K/mm3 (4.4-11.0)
[2024-11-27 08:35] LABS: Anion Gap 9 (5-15); BUN 16 mg/dL (4-19); BUN/Creat Ratio 18.9 RATIO (10-20); Calcium,Total 10.7 mg/dL (7.6-11.0); Carbon Dioxide 24.8 mmol/L (21.0-32.0); Chloride 107 mmol/L (98-108); Creatinine, Serum 0.85 mg/dL (0.70-1.20); EST Glomerular Filtration Rate 76 (>60); Glucose 117 mg/dL (70-99); Potassium 5.1 mmol/L (3.3-5.1); Sodium Level 140 mmol/L (133-145)
[2024-11-27 11:40] LABS: Albumin, Serum 4.2 g/dL (3.4-4.8)
== END | disposition home or self-care (01) ==
PROVIDERS: PCP Family Medicine; Referring Provider Specialist; Visit Provider Specialist
DX: Z01.810 Encounter for preprocedural cardiovascular examination (principal); Z01.818 Encounter for other preprocedural examination; Z86.16 Personal history of COVID-19
CPT/HCPCS: 36415; 80048; 82040; 85025; 87081; 93005